=== PATIENT | female | born 1935 | race Caucasian/White ===

== ENCOUNTER 2017-04-02 09:57 | Inpatient (IN) ==
[2017-04-02] MEDS ORDERED: SALINE FLUSH 10ml SYRINGE IVF PRN (10:12)
--- NOTE | 2017-04-02 10:14 | Emergency Department Report ---
General Adult HPI - General Chief complaint: Medical Clearance Stated complaint: [facility] eval Time Seen by Provider: 04/02/17 10:11 Source: patient, family Mode of arrival: EMS Limitations: no limitations - History of Present Illness HPI narrative: 82-year-old female presents to the emergency department with her family for evaluation for medical clearance for admission to [facility]. Patient has been having increasing falls and changes in mental status over the past month. She denies any pain or discomfort. She is currently being evaluated for Parkinson's and Lewy body dementia. She does not note any exacerbating or remitting factors. No other complaints or associated symptoms. She was at her care facility when her symptoms began. Symptoms have been persistent in nature since onset. - Related Data Home Medications Medication Instructions Recorded Confirmed Acetaminophen [Pain Reliever] 1,000 mg PO BID 04/02/17 04/02/17 Amoxicillin [Amoxicillin] 500 mg PO DAILY 04/02/17 04/02/17 Aspirin [[place] Aspirin] 81 mg PO DAILY 04/02/17 04/02/17 Carbidopa/Levodopa 1 tab PO BID 04/02/17 04/02/17 [Carbidopa-Levodopa 25-100 Tab] Cholecalciferol (Vitamin D3) 400 unit PO DAILY 04/02/17 04/02/17 [Vitamin D3] Cyanocobalamin (Vitamin B-12) 1 tab PO DAILY 04/02/17 04/02/17 [Vitamin B-12] Duloxetine [Cymbalta] 60 mg PO DAILY 04/02/17 04/02/17 LORazepam [Ativan] 0.5 mg PO BID 04/02/17 04/02/17 LORazepam [Ativan] 0.5 mg PO BID PRN 04/02/17 04/02/17 Lactobacillus Acidophilus 1 each PO DAILY 04/02/17 04/02/17 [Probiotic] Mirtazapine [Remeron] 15 mg PO HS 04/02/17 04/02/17 Omeprazole [Prilosec] 20 mg PO DAILY 04/02/17 04/02/17 Oxybutynin Chloride 2.5 mg PO BID 04/02/17 04/02/17 Ubidecarenone [Co Q10] 60 mg PO DAILY 04/02/17 04/02/17 Allergies Allergy/AdvReac Type Severity Reaction Status Date / Time Sulfa (Sulfonamide AdvReac Intermediate edema Verified 04/02/17 10:20 Antibiotics) Review of Systems Constitutional: Denies: fever, chills Eyes: Denies: eye pain, eye discharge ENT: Denies: ear pain, throat pain Cardiovascular: Denies: chest pain, palpitations Respiratory: Denies: cough, dyspnea Gastrointestinal: Denies: abdominal pain, nausea, vomiting, diarrhea Genitourinary: Denies: urgency, dysuria Musculoskeletal: Denies: back pain, arthralgia Integumentary: Denies: erythema, rash Neurological: Denies: headache, numbness Psychiatric: Denies: anxiety, depression Endocrine: Denies: fatigue, heat or cold intolerance Hematological/Lymphatic: Denies: easy bleeding, easy bruising Allergic/Immunologic: Denies: facial swelling, urticaria PFSH Dementia, anxiety, Parkinson's disease, depression, GERD, low vitamin B-12. Surgical History: Family History: Reviewed and non-contributory. - Social History Smoking status: Never smoker Substance use type: does not use Alcohol intake frequency: does not drink Physical Exam - Limitations Limitations: no limitations - General General appearance: alert, in no apparent distress - Normal Exams: Head:: Normocephalic without trauma Eyes:: Pupils are PERRLA w/ EOMI, No scleral icterus, irritation, or foreign bodies noted ENMT:: No facial trauma, nasal exudates, pharyngeal erythema, or exudates are noted Dental: No fractured, loose, or missing teeth noted Neck:: Full range of motion, without adenopathy, JVD, bruits or thyromegaly Chest/Respirations:: Clear all willard, with good airflow, and symmetry bilaterally Cardiovascular:: Regular rate and rhythm, without murmur or gallop, Pulses 2+ all extremities, capillary refill, <2 seconds all extremities Abdomen:: Bowel sounds positive, soft, non-tender, non-distended, no hepatosplenomegaly, masses or bruits noted Lymphatic:: No lymphadenopathy, or lymphedema noted Musculoskeletal:: No tenderness, or deformity noted, good range of motion, all extremities Integumentary:: No rashes, hives, or bruising noted, hair and nails, without abnormality Neurological:: Patient is alert, and oriented, cranial nerves, motor/sensory/ cerebellar, exams w/o gross deficits, to observation Psychiatric:: Patient exhibits, appropriate attention, emotion and affect Course Vital Signs Temperature 97.6 F 04/02/17 09:58 Temperature 97.6 F 04/02/17 09:58 Pulse Rate 74 04/02/17 10:15 Respiratory Rate 20 04/02/17 10:04 Blood Pressure 155/71 H 04/02/17 11:54 Pulse Oximetry 96 04/02/17 10:15 Medical Decision Making - [facility] Narrative Medical decision making narrative: Labs/imaging discussed in detail with the patient and family and questions are answered. Patient is given 500 mL of normal saline intravenously. Patient is medically clear for further evaluation and treatment at [facility]. Patient and family are in agreement with the current plan of management. Patient is accepted to [facility] by Dr. Blake Hicks. No further orders from accepting physician who is in agreement with the current plan of management. - Differential Diagnosis dementia, behavioral disorder, dehydration, UTI - Lab Data Result diagrams: 04/02/17 10:47 04/02/17 10:47 Lab Results 04/02/17 04/02/17 04/02/17 Range/Units 10:47 10:47 10:47 WBC 7.3 (4.5-11.0) T/MM3 RBC 3.94 L (4.00-5.20) M/MM3 Hgb 12.8 (12-16) GM/DL Hct 38.8 (36-46) % MCV 98.5 (80-100) UM3 MCH 32.5 (26-34) UUG MCHC 33.0 (31-37) GM/DL RDW Std Deviation 49.4 (36.9-50.2) FL Plt Count 226 (130-400) T/MM3 MPV 10.1 (9.4-12.4) UM3 Immature Gran % (Auto) 0.1 (0.0-0.5) % Neut % (Auto) 73.6 H (33-66) % Lymph % (Auto) 16.8 L (23-45) % [place] % (Auto) 5.2 (0-9.0) % Eos % (Auto) 3.8 (0-4) % Baso % (Auto) 0.5 (0-2) % Neut # (Auto) 5.4 (1.8-7.7) T/MM3 Lymph # (Auto) 1.2 (1-4.8) T/MM3 [place] # (Auto) 0.4 (0-0.8) T/MM3 Eos # (Auto) 0.3 (0-0.5) T/MM3 Baso # (Auto) 0.0 (0-0.2) T/MM3 Abs Immat Gran (auto) 0.01 (0.00-0.03) T/MM3 Turbidity < 20 (0-20) Sodium 144 (134-144) MEQ/L Potassium 4.5 (3.6-5) MEQ/L Chloride 110 H (98-107) MEQ/L Carbon Dioxide 25 (22-30) MEQ/L Anion Gap 9 (5-15) MEQ/L BUN 32.0 H (7-17) MG/DL Creatinine 1.6 H (0.7-1.2) MG/DL GFR Calculation 31 BUN/Creatinine Ratio 20 (6-26) RATIO Glucose 88 (65-110) MG/DL Calculated Osmolality 283 H (261-280) MOSM/KG Calcium 10.3 H (8.4-10.2) MG/DL Total Bilirubin 0.70 (0.20-1.30) MG/DL Icterus Index < 2 (0-7) AST 16 (14-36) U/L ALT 18 (9-52) U/L Alkaline Phosphatase 80 (38-126) U/L Troponin I < 0.012 (0-0.12) ng/ml Total Protein 6.6 (6.3-8.2) G/DL Albumin 3.9 (3.5-5.0) G/DL Globulin 2.7 (2.4-3.6) G/DL Albumin/Globulin Ratio 1.4 (1.1-2.2) RATIO Specimen Hemolysis < 15 (0-25) Ur Collection Type Urine, catheter Urine Color Yellow (YELLOW) Urine Clarity Clear Urine pH 5.5 (5.0-8.0) Ur Specific [place] 1.020 (1.015-1.025) Urine Protein Negative (NEGATIVE) Urine Glucose (UA) Negative (NEGATIVE) Urine Ketones Negative (NEGATIVE) Urine Occult Blood Negative (NEGATIVE) Urine Nitrate Negative (NEGATIVE) Urine Bilirubin Negative (NEGATIVE) Urine Urobilinogen 0.2 (NORMAL) EU/DL Ur Leukocyte Esterase Negative (NEGATIVE) Urinalysis Comment Microscopic not ind. - Radiology Data CT Head - No acute processes. CXR - 1. Left basilar opacity most likely due to atelectasis or scarring. 2. Bilateral pulmonary nodules. Recommend correlation with any available prior exams to evaluate for stability. If comparisons are unavailable a noncontrast chest CT can be performed for further evaluation on a nonemergent basis. Disposition Clinical Impression: Dementia Qualifiers: Dementia type: unspecified type Dementia behavioral disturbance: without behavioral disturbance Qualified Code(s): F03.90 - Unspecified dementia without behavioral disturbance Disposition: 65 To [facility] Condition: Improved Time of Disposition: 11:20 (Admit. Dr. Hicks. ) - Seen By: physician
--- OUTSIDE RECORDS SUMMARY | 2017-04-02 10:30 | External Medical Summary | Summary of Care ---
:1935 Author Name Chet Talavera M.D. Address [address], [place] [id number] Care Team Providers Name Role Phone Luis Wesley, Sylvain December Unavailable Unavailable Vikas Alves D.O. Unavailable Unavailable Arturo Stokes M.D. Unavailable Unavailable Vikas Alves Primary Care Provider Unavailable Unavailable Unavailable Unavailable Functional Status Functional Status Health Issues Name Dates Details Functional status health issues are not documented Status: Cognitive Status Health Issues Name Dates Details Cognitive status health issues are not documented Status: Problems Name Dates Details Cervical spondylosis (721.0, M47.812) Status: Active Psoriasis (696.1, L40.9) Status: Active Hypertension (401.9, I10) Status: Active Seborrheic keratosis (702.19, L82.1) Status: Active Urinary tract infection (599.0, N39.0) Status: Active Vertigo (780.4, R42) Status: Active Dyspepsia (536.8, K30) Status: Active Pre-op exam (V72.84, Z01.818) Status: Active Colitis, acute (558.9, K52.9) Status: Active Rectal bleeding (569.3, K62.5) Status: Active Abnormal CT scan (793.99, R93.8) Status: Active Diverticulosis (562.10, K57.90) Status: Active Colon polyps (211.3, K63.5) Status: Active Syncope (780.2, R55) Status: Active Palpitations (785.1, R00.2) Status: Active Shortness of breath on exertion (786.05, R06.02) Status: Active Paroxysmal SVT (supraventricular tachycardia) (427.0, I47.1) Status: Active Memory loss (780.93, R41.3) Status: Active Fatigue (780.79, R53.83) Status: Active CKD (chronic kidney disease), stage IV (585.4, N18.4) Status: Active Hyperkalemia (276.7, E87.5) Status: Active Tremor, unspecified (781.0, R25.1) Status: Active Weakness (780.79, R53.1) Status: Active Lung mass (786.6, R91.8) Status: Active Anxiety disorder (300.00, F41.9) Status: Active Dizziness (780.4, R42) Status: Active Depression (311, F32.9) Status: Active Renal insufficiency (593.9, N28.9) Status: Active Tremor (781.0, R25.1) Status: Active Orthostatic hypotension (458.0, I95.1) Status: Active Medications Name Dates Details Aspirin 81 MG TABS TAKE 1 TABLET DAILY. Refills: 0 Danielle Smith M.D. Started ActiveBusPIRone HCl - 15 MG Oral Tablet take 1 in the Am, 7.5 at noon, and 7.5 in the evening. Quantity: 45 Refills: 2 Vikas Alves D.O. Started 11-Oct-2014 ActiveEscitalopram Oxalate 10 MG Oral Tablet TAKE 1 TABLET Daily In The Morning Pt instructed to start 01-16-2015 Quantity: 30 Refills: 2 Vikas Alves D.O. Started ActiveProbiotic Oral Capsule Refills: 0 Bruno Stokes M.D. Started 29-May-2015 ActiveLORazepam 0.5 MG Oral Tablet Take 1 tablet twice daily Refills: 0 Vikas Alves D.O. Started 24-Aug-2015 ActiveRemeron 15 MG Oral Tablet TAKE 1/2 TABLET AT BEDTIME. Refills: 0 Vikas Alves D.O. Started 24-Aug-2015 Active Allergies and Adverse Reactions Name Dates Details Sulfa Drugs Status: Active Past Medical History Name Dates Details History of Cirrhosis (571.5, K74.60) Status: Resolved History of hypertension (V12.59, Z86.79) Status: Resolved History of polymyalgia rheumatica (V13.59, Z87.39) Status: Resolved Procedures Procedure Dates Details History of Section History of Cataract Surgery RENAL PROFILE 1240 Ordered: Immunization Name Dates Details Influenza Administered on:16-Apr-2011 Fluzone High-Dose Intramuscular Suspension Administered on:28-Apr-2012 Influenza Administered on:03-May-2013 Lot #: [id number] Pneumo (Prevnar) Administered on:03-May-2013 Lot #: [id number] Zoster (Zostavax) Administered on:25-May-2013 Fluzone High-Dose Intramuscular Suspension Administered on:01-May-2015 Lot #: [id number] Family History uncle Name Dates Details Family history of diabetes mellitus (V18.0, Z83.3) Status: Active Mother Name Dates Details Family history of depression (V17.0, Z81.8) Status: Active Family history of malignant neoplasm (V16.9, Z80.9) Status: Active Brother Name Dates Details Family history of malignant neoplasm (V16.9, Z80.9) Status: Active Social History Name Dates Details Smoking StatusNever smoker Vital Signs Date Test Result Details No Known Vitals to report Results Date Description Value Details 10:07 CBC w/ Auto Diff 7150 WBC 5.8 K/uL (Better) Range: 4.5-11.0 RBC 3.78 mil/uL (Better) Range: 3.60-5.00 HGB 11.8 g/dL (Below low Range: 12.0-16.0 threshold) HCT 36.3 % (Better) Range: 36.0-48.0 MCV 96.1 fL (Better) Range: 80.0-99.0 MCH 31.2 pg (Better) Range: 27.3-32.5 MCHC 32.5 % (Better) Range: 32.0-36.0 RDW 13.6 % (Better) Range: 11.6-14.8 PLATELETS 299 K/uL (Better) Range: 150-400 MPV 8.2 fL (Better) Range: 6.0-11.0 %NEUTRO 66.5 % (Better) Range: 37.0-80.0 %LYMPHS 22.9 % (Better) Range: 13.0-50.0 %MONO 5.2 % (Better) Range: 0.0-12.0 %EOS 3.6 % (Better) Range: 0.0-7.0 %BASO 0.6 % (Better) Range: 0.0-2.5 %GRACE 1.2 % (Better) Range: 0.0-5.0 NEUTRO 3.8 K/uL (Better) Range: 2.0-6.9 LYMPHS 1.3 K/uL (Better) Range: 0.6-3.4 MONOS 0.3 K/uL (Better) Range: 0.0-0.9 EOS 0.2 K/uL (Better) Range: 0.0-0.7 BASO 0.0 K/uL (Better) Range: 0.0-0.2 Plan of Care Planned Observations Name Dates Details Planned Goals not documented Goal Planned Encounters Appointment; Provider: Zev Samano On 09:30 Appointment; Provider: Darian Ambrocio On 08:00 Appointment; Provider: Chet Talavera On 10:45 Appointment; Provider: Schedule Radiology On 28-Aug-2015 14:00 Appointment; Provider: [facility] On 11-May-2015 11:00 Appointment; Provider: [facility] On 01-May-2015 15:30 Appointment; Provider: [facility] On 11:00 Instructions Instructions not documented Encounters Appointment; Vikas Alves On 30-Aug-2015 Encounter Diagnosis: Problem not documented 13:45 Appointment; Bruno Stokes On 28-Aug-2015 Encounter Diagnosis: Problem not documented 16:00 Appointment; Vikas Alves On 24-Aug-2015 Encounter Diagnosis: Problem not documented 11:30 Appointment; Chet Talavera On 18-Jul-2015 Encounter Diagnosis: Problem not documented 14:15 Appointment; Bruno Stokes On 29-May-2015 Encounter Diagnosis: Problem not documented 09:30 Appointment; Darian Ambrocio On 12-May-2015 Encounter Diagnosis: Problem not documented 10:45 Appointment; Sanjuanita Owusu On 01-May-2015 Encounter Diagnosis: Problem not documented 14:15 Appointment; Vikas Alves On 01-May-2015 Encounter Diagnosis: Problem not documented 07:45 Appointment; Vikas Alves On 26-Apr-2015 Encounter Diagnosis: Problem not documented 16:15 Appointment; Vikas Alves On 22-Mar-2015 Encounter Diagnosis: Problem not documented 14:30 Appointment; Chet Talavera On 14-Mar-2015 Encounter Diagnosis: Problem not documented 15:30 Appointment; Enrique Sifuentes On 23-Feb-2015 Encounter Diagnosis: Problem not documented 09:00 Appointment; Vira Bower On 23-Feb-2015 Encounter Diagnosis: Problem not documented 08:30 Appointment; Vikas Alves On 10-Feb-2015 Encounter Diagnosis: Problem not documented 13:30 Appointment; Vikas Alves On Encounter Diagnosis: Problem not documented 15:45 Appointment; Vikas Alves On Encounter Diagnosis: Problem not documented 13:15 Appointment; Vikas Alves On Encounter Diagnosis: Problem not documented 09:45 Appointment; Vikas Alves On Encounter Diagnosis: Problem not documented 13:45 Appointment; Vikas Alves On Encounter Diagnosis: Problem not documented 14:30 Appointment; Vikas Alves On 11-Oct-2014 Encounter Diagnosis: Problem not documented 15:00
--- OUTSIDE RECORDS SUMMARY | 2017-04-02 10:30 | External Medical Summary | Summary of Care ---
:1935 Author Name Vikas Alves D.O. Address [address] [place], [place] [id number] Care Team Providers Name Role Phone Luis Wesley, December Unavailable Unavailable Vikas Alves D.O. Unavailable Unavailable Vikas Alves Primary Care Provider Unavailable Unavailable Unavailable Unavailable Functional Status Functional Status Health Issues Name Dates Details Functional status health issues are not documented Status: Cognitive Status Health Issues Name Dates Details Cognitive status health issues are not documented Status: Problems Name Dates Details Sinusitis (473.9, J32.9) Status: Active Cervical spondylosis (721.0, M47.812) Status: Active Psoriasis (696.1, L40.9) Status: Active Hypertension (401.9, I10) Status: Active Seborrheic keratosis (702.19, L82.1) Status: Active Palpitations (785.1, R00.2) Status: Active Blood in urine (599.70, R31.9) Status: Active Urinary tract infection (599.0, N39.0) Status: Active Vertigo (780.4, R42) Status: Active Dizziness (780.4, R42) Status: Active Depression (311, F32.9) Status: Active Weakness (780.79, R53.1) Status: Active Anxiety disorder (300.00, F41.9) Status: Active Dyspepsia (536.8, R10.13) Status: Active Fatigue (780.79, R53.83) Status: Active Medications Name Dates Details Aspirin 81 MG Oral Tablet TAKE 1 TABLET DAILY. Refills: 0 Danielle Smith M.D. Started ActiveMetoprolol Tartrate 25 MG Oral Tablet TAKE 0.5 TABLET Twice daily Quantity: 60 Refills: 3 Vikas Alves D.O. Started 06-Aug-2012 ActiveZolpidem Tartrate 5 MG Oral Tablet 1 PO 1Hr Before HS Quantity: 30 Refills: 5 Vikas Alves D.O. Started 05-Apr-2013 ActiveZostavax 70990 UNT/0.65ML Subcutaneous Solution Reconstituted INJECT 0.65 ML Once Quantity: 1 Refills: 0 Vikas Alves D.O. Started 25-May-2013 ActiveBusPIRone HCl - 15 MG Oral Tablet TAKE 1 TABLET 3 times daily Quantity: 90 Refills: 2 Vikas Alves D.O. Started 11-Oct-2014 ActiveALPRAZolam 0.5 MG Oral Tablet take 1/2-1 tablet every 8 hours as needed Quantity: 30 Refills: 1 Vikas Alves D.O. Started ActiveOndansetron HCl - 4 MG Oral Tablet TAKE ONE TABLET BY MOUTH EVERY 6 HOURS NEEDED FOR NAUSEA Quantity: 6 Refills: 0 Vikas Alves D.O. Started ActiveEscitalopram Oxalate 10 MG Oral Tablet TAKE 1 TABLET Daily In The Morning Pt instructed to start 01-16-2015 Quantity: 30 Refills: 2 Vikas Alves D.O. Started ActiveBenazepril HCl - 20 MG Oral Tablet TAKE 1 TABLET BY MOUTH DAILY Quantity: 30 Refills: 5 Vikas Alves D.O. Started Active Allergies and Adverse Reactions Name Dates Details Sulfa Drugs Status: Active Past Medical History Name Dates Details History of Cirrhosis (571.5, K74.60) Status: Resolved History of hypertension (V12.59, Z86.79) Status: Resolved History of polymyalgia rheumatica (V13.59, Z87.39) Status: Resolved Procedures Procedure Dates Details History of Section History of Cataract Surgery [facility] ([address]) [id number] Ordered: Immunization Name Dates Details Influenza Administered on:16-Apr-2011 Fluzone High-Dose Intramuscular Suspension Administered on:28-Apr-2012 Influenza Administered on:03-May-2013 Lot #: [id number] Pneumo (Prevnar) Administered on:03-May-2013 Lot #: [id number] Zoster (Zostavax) Administered on:25-May-2013 Family History Unknown Family Member Name Dates Details Family history of Diabetes Mellitus (V18.0) Comments: Family History Status: Active Social History Name Dates Details Smoking StatusNever smoker Vital Signs Date Test Result Details 12:52 BP Systolic 96 mm[Hg] Status: BP Diastolic 64 mm[Hg] Status: Temperature 98.2 f Status: Heart Rate 78 /min Status: Weight 142 lb Status: Body Mass Index Calculated 25.97 kg/m2 Status: Body Surface Area Calculated 1.65 m2 Status: 13:19 BP Systolic 124 mm[Hg] Status: BP Diastolic 68 mm[Hg] Status: Heart Rate 72 /min Status: Weight 147 lb Status: Body Mass Index Calculated 26.89 kg/m2 Status: Body Surface Area Calculated 1.68 m2 Status: 13:35 BP Systolic 136 mm[Hg] Status: BP Diastolic 64 mm[Hg] Status: Heart Rate 66 /min Status: Weight 148 lb Status: Body Mass Index Calculated 27.07 kg/m2 Status: Body Surface Area Calculated 1.68 m2 Status: Results Date Description Value Details 11:49 CT HEAD WITHOUT IV Comments: Exam Date: 01/09/2015 10: 56Dictation Date: 01/09/2015 11:49 CONTRAST XC HEAD (Better) Urinalysis, reflex to 13:32 Micro and Culture ([facility]) 8016 pH 7.0 (Better) Range: 5.0-7.5 SP GRAVITY 1.015 (Better) Range: 1.010-1.030 APPEARANCE Clear (Better) Range: Clear COLOR Yellow (Better) Range: Straw-Yellow PROTEIN Negative mg/dL Range: Negative-Trace (Better) GLUCOSE Negative mg/dL Range: Negative (Better) KETONES Negative mg/dL Range: Negative (Better) BILIRUBIN Negative (Better) Range: Negative BLOOD Negative (Better) Range: Negative UROBIL 0.2 EU/dL (Better) Range: 0.2-1.0 NITRITE Negative (Better) Range: Negative LEUKOCYTES Negative (Better) Range: Negative 13:41 ECG/ EKG CP - Electro CardioGram (Better) ECG/ EKG Cardiology Read 14:03 XRay CHEST-PA & LAT Comments: Exam Date: 01/25/2015 13: 21Dictation Date: 01/25/2015 14:03 X CHEST PA & LAT (Better) 14:22 CBC w/ Auto Diff 7150 WBC 6.7 K/uL (Better) Range: 4.5-11.0 RBC 3.96 mil/uL Range: 3.60-5.00 (Better) HGB 12.6 g/dL (Better) Range: 12.0-16.0 HCT 37.9 % (Better) Range: 36.0-48.0 MCV 95.7 fL (Better) Range: 80.0-99.0 MCH 31.8 pg (Better) Range: 27.3-32.5 MCHC 33.2 % (Better) Range: 32.0-36.0 RDW 12.7 % (Better) Range: 11.6-14.8 PLATELETS 294 K/uL (Better) Range: 150-400 MPV 8.2 fL (Better) Range: 6.0-11.0 %NEUTRO 70.7 % (Better) Range: 37.0-80.0 %LYMPHS 22.1 % (Better) Range: 13.0-50.0 %MONO 4.1 % (Better) Range: 0.0-12.0 %EOS 1.5 % (Better) Range: 0.0-7.0 %BASO 0.5 % (Better) Range: 0.0-2.5 %GRACE 1.1 % (Better) Range: 0.0-5.0 NEUTRO 4.7 K/uL (Better) Range: 2.0-6.9 LYMPHS 1.5 K/uL (Better) Range: 0.6-3.4 MONOS 0.3 K/uL (Better) Range: 0.0-0.9 EOS 0.1 K/uL (Better) Range: 0.0-0.7 BASO 0.0 K/uL (Better) Range: 0.0-0.2 14:49 MAGNESIUM 1260 MAGNESIUM 2.5 mg/dL (Above Range: 1.8-2.4 high threshold) 14:49 Comprehensive Metabolic Panel 1212 SODIUM 135 mmol/L (Better) Range: 133-144 POTASSIUM 4.9 mmol/L (Better) Range: 3.5-5.1 CHLORIDE 99 mmol/L (Better) Range: 98-110 CARBON DIOXIDE 24.8 mmol/L Range: 23.0-33.0 (Better) ANION GAP 11 mmol/L (Better) Range: 6-16 BUN 46 mg/dL (Above Range: 7-18 high threshold) CREATININE, SERUM 1.89 mg/dL (Above Range: 0.55-1.02 high threshold) Comments: Please note new reference ranges effective 11/26.----- BUN:CREATININE RATIO 24 (Better) EST GFR, 31 ml/min (Below Range: >60 low threshold) EST GFR, NON-AFR [place] 26 ml/min (Below Range: >60 low threshold) Comments: EST GFR is reported in ml/min per 1.73 m2 of body surface area. For -[place], please multiple result by 1.2.----- GLUCOSE 98 mg/dL (Better) Range: 70-100 ALK PHOSPHATASE 78 U/L (Better) Range: 46-116 TOTAL BILIRUBIN 0.30 mg/dL (Better) Range: 0.20-1.00 AST 16 U/L (Better) Range: 8-35 ALT 15 U/L (Better) Range: 14-59 Comments: Please note new reference ranges. Effective 09/15/2014.----- ALBUMIN 3.6 g/dL (Better) Range: 3.4-5.0 TOTAL PROTEIN 6.5 g/dL (Better) Range: 6.4-8.2 A/G RATIO 1.2 units (Better) Range: 1.0-1.8 CALCIUM 8.8 mg/dL (Better) Range: 8.5-10.1 15:28 FREE T4 3604 FREE T4 1.31 ng/dL (Better) Range: 0.80-1.67 15:28 THYROID STIM. HORMONE 3602 THYROID STIM. HORMONE 0.553 uIU/mL Range: 0.550-4.780 (Better) Comments: \[id number]\No established reference ranges for infants and children <2 years of ageNo established reference ranges for infants and children <2 years of age----- 15:28 VITAMIN B12 3606 VITAMIN B12 633 pg/mL (Better) Range: 211-911 Plan of Care Planned Observations Name Dates Details Planned Goals not documented Goal Planned Encounters Appointment; Provider: Vikas Alves On 06-Feb-2015 11:00 Appointment; Provider: Vikas Alves On 11:15 Appointment; Provider: Schedule Radiology On 11:00 Instructions Instructions not documented Encounters Appointment; Vikas Alves On Encounter Diagnosis: Problem not documented 15:45 Appointment; Vikas Alves On Encounter Diagnosis: Problem not documented 13:15 Appointment; Vikas Alves On Encounter Diagnosis: Problem not documented 09:45 Appointment; Vikas Alves On Encounter Diagnosis: Problem not documented 13:45 Appointment; Vikas Alves On Encounter Diagnosis: Problem not documented 14:30 Appointment; Vikas Alves On 11-Oct-2014 Encounter Diagnosis: Problem not documented 15:00 Appointment; Vikas Alves On 25-May-2013 Encounter Diagnosis: Problem not documented 15:45 Appointment; Vikas Alves On 03-May-2013 Encounter Diagnosis: Problem not documented 15:15
--- OUTSIDE RECORDS SUMMARY | 2017-04-02 10:30 | External Medical Summary | Summary of Care ---
:1935 Author Name Vikas Alves D.O. Address [address], [place] [id number] Care Team Providers Name Role Phone Luis [...] 5 Vikas Alves D.O. Started 05-Apr-2013 ActiveZostavax 17894 UNT/0.65ML Subcutaneous Solution Reconstituted INJECT 0.65 ML [...] History of Section History of Cataract Surgery Procedures not documented Immunization Name Dates Details Influenza Administered on:16-Apr-2011 Fluzone High-Dose Intramuscular Suspension Administered on:28-Apr-2012 Influenza Administered on:03-May-2013 Lot #: [id number] Pneumo (Prevnar) Administered on:03-May-2013 Lot #: [id number] Zoster (Zostavax) Administered on:25-May-2013 Family History Unknown [...] m2 Status: Results Date Description Value Details CT HEAD WITHOUT IV Comments: Exam Date: 01/09/2015 10: 56Dictation Date: 01/09/2015 11:49 11:49 CONTRAST XC HEAD (Better) Urinalysis, reflex to 13:32 Micro and Culture ([facility]) 8016 pH 7.0 (Better) Range: 5.0-7.5 SP [...] Comprehensive Metabolic Panel 1212 SODIUM 135 mmol/L Range: 133-144 (Better) POTASSIUM 4.9 mmol/L Range: 3.5-5.1 (Better) CHLORIDE 99 mmol/L (Better) Range: 98-110 CARBON DIOXIDE 24.8 mmol/L Range: 23.0-33.0 (Better) ANION GAP 11 mmol/L (Better) Range: 6-16 BUN 46 mg/dL (Above Range: 7-18 high threshold) CREATININE, SERUM 1.89 mg/dL (Above Range: 0.55-1.02 high threshold) Comments: Please note new reference ranges effective 11/26.----- BUN:CREATININE RATIO 24 (Better) EST GFR, 31 ml/min (Below Range: >60 low threshold) EST GFR, NON-AFR QATARI 26 ml/min (Below Range: >60 low threshold) Comments: EST GFR is reported in ml/min per 1.73 m2 of body surface area. For -Pakistani, please multiple result by 1.2.----- GLUCOSE 98 mg/dL (Better) Range: 70-100 ALK PHOSPHATASE 78 U/L (Better) Range: 46-116 TOTAL BILIRUBIN 0.30 mg/dL Range: 0.20-1.00 (Better) AST 16 U/L (Better) Range: 8-35 ALT 15 U/L (Better) Range: 14-59 Comments: Please note new reference ranges. Effective 09/15/2014.----- ALBUMIN 3.6 g/dL (Better) Range: 3.4-5.0 TOTAL PROTEIN 6.5 g/dL (Better) Range: 6.4-8.2 A/G RATIO 1.2 units (Better) Range: 1.0-1.8 CALCIUM 8.8 mg/dL (Better) Range: 8.5-10.1 15:28 FREE T4 3604 FREE T4 1.31 ng/dL Range: 0.80-1.67 (Better) 15:28 THYROID STIM. HORMONE 3602 THYROID STIM. HORMONE 0.553 uIU/mL Range: 0.550-4.780 (Better) Comments: \[id number]\No established reference ranges for infants and children <2 years of ageNo established reference ranges for infants and children <2 years of age----- 15:28 VITAMIN B12 3606 VITAMIN B12 633 pg/mL (Better) Range: 211-911 AMMONIA ([address]) Comments: [employer] performed at: [facility] [[email or web address]] [facility], [address] [place] [address], [id number], [place] Operator: Darian Thurman D.O., MPHQuest Collection Date/Time: 13:32 [id number] Results Received Date/Time: [id number] Reported Date/Time: [id number] AMMONIA (P) 11 umol/L (Better) Range: < OR=47 Comments: [[place]]----- Plan of Care Planned Observations Name Dates Details Planned Goals not documented Goal Planned Encounters Appointment; Provider: Vikas Alves On 06-Feb-2015 11:00 Appointment; Provider: Vikas Alves On 11:15 Appointment; Provider: [facility] On 11:00 Instructions Instructions not documented [...]
--- OUTSIDE RECORDS SUMMARY | 2017-04-02 10:30 | External Medical Summary | Summary of Care ---
:1935 Author Name Vikas Alves D.O. Address [address], [place] [id number] Care Team Providers Name Role Phone Luis [...] Status: Active Depression (311, F32.9) Status: Active Anxiety disorder (300.00, F41.9) Status: Active Medications Name Dates Details Aspirin 81 MG Oral Tablet TAKE 1 TABLET DAILY. Refills: 0 Danielle Smith M.D. Started ActiveBenazepril-Hydrochlorothiazide 20-12.5 MG Oral Tablet TAKE 1 TABLET DAILY. Quantity: 30 Refills: 6 Vikas Alves D.O. Started ActiveMetoprolol Tartrate 25 MG Oral Tablet Take 1 tablet twice daily Quantity: 180 Refills: 3 Vikas Alves D.O. Started 06-Aug-2012 ActiveZolpidem Tartrate 5 MG Oral Tablet 1 PO 1Hr Before HS Quantity: 30 Refills: 5 Vikas Alves D.O. Started 05-Apr-2013 ActiveZostavax 12350 UNT/0.65ML Subcutaneous Solution Reconstituted INJECT 0.65 ML [...] Morning Pt instructed to start 01-16-2015 Quantity: 14 Refills: 0 Vikas Alves D.O. Started Active Allergies and [...] Administered on:28-Apr-2012 Influenza Administered on:03-May-2013 Lot #: [id number] Pneumo (Prevnar) Administered on:03-May-2013 Lot #: [id number] Zoster (Zostavax) Administered on:25-May-2013 Family History Unknown Family Member Name Dates Details Family history of Diabetes Mellitus (V18.0) Comments: Family History Status: Active Social History Name Dates Details Smoking StatusNever smoker Vital Signs Date Test Result Details 13:19 BP Systolic 124 mm[Hg] Status: BP [...] Body Surface Area Calculated 1.68 m2 Status: 14:27 BP Systolic 108 mm[Hg] Status: BP Diastolic 60 mm[Hg] Status: Heart Rate 66 /min Status: Weight 147 lb Status: Body Mass Index Calculated 26.89 kg/m2 Status: Body Surface Area Calculated 1.68 m2 Status: Results Date Description Value Details 16:10 CBC w/ Auto Diff 7150 WBC 5.6 K/uL (Better) Range: 4.5-11.0 RBC 3.71 mil/uL Range: 3.60-5.00 (Better) HGB 12.3 g/dL Range: 12.0-16.0 (Better) HCT 36.0 % (Better) Range: 36.0-48.0 MCV 97.0 fL (Better) Range: 80.0-99.0 MCH 33.1 pg (Above Range: 27.3-32.5 high threshold) MCHC 34.2 % (Better) Range: 32.0-36.0 RDW 13.2 % (Better) Range: 11.6-14.8 PLATELETS 221 K/uL (Better) Range: 150-400 MPV 8.2 fL (Better) Range: 6.0-11.0 %NEUTRO 69.2 % (Better) Range: 37.0-80.0 %LYMPHS 22.0 % (Better) Range: 13.0-50.0 %MONO 4.7 % (Better) Range: 0.0-12.0 %EOS 1.9 % (Better) Range: 0.0-7.0 %BASO 0.7 % (Better) Range: 0.0-2.5 %GRACE 1.5 % (Better) Range: 0.0-5.0 NEUTRO 3.9 K/uL (Better) Range: 2.0-6.9 LYMPHS 1.2 K/uL (Better) Range: 0.6-3.4 MONOS 0.3 K/uL (Better) Range: 0.0-0.9 EOS 0.1 K/uL (Better) Range: 0.0-0.7 BASO 0.0 K/uL (Better) Range: 0.0-0.2 16:17 Comprehensive Metabolic Panel 1212 SODIUM 139 mmol/L Range: 133-144 (Better) POTASSIUM 5.1 mmol/L Range: 3.5-5.1 (Better) CHLORIDE 106 mmol/L Range: 98-110 (Better) CARBON DIOXIDE 21.7 mmol/L Range: 23.0-33.0 (Below low threshold) ANION GAP 11 mmol/L Range: 6-16 (Better) BUN 40 mg/dL (Above Range: 7-18 high threshold) CREATININE, SERUM 1.89 mg/dL (Above Range: 0.70-1.30 high threshold) Comments: Please note new reference ranges effective 11/26.----- BUN:CREATININE RATIO 21 (Better) EST GFR, 31 ml/min (Below Range: >60 low threshold) EST GFR, NON-AFR SYRIAN 26 ml/min (Below Range: >60 low threshold) Comments: EST GFR is reported in ml/min per 1.73 m2 of body surface area. For -[place]oth[place], please multiple result by 1.2.----- GLUCOSE 93 mg/dL (Better) Range: 70-100 ALK PHOSPHATASE 77 U/L (Better) Range: 46-116 TOTAL BILIRUBIN 0.30 mg/dL Range: 0.20-1.00 (Better) AST 11 U/L (Better) Range: 8-35 ALT 14 U/L (Better) Range: 14-59 Comments: Please note new reference ranges. Effective 09/15/2014.----- ALBUMIN 3.7 g/dL (Better) Range: 3.4-5.0 TOTAL PROTEIN 6.5 g/dL (Better) Range: 6.4-8.2 A/G RATIO 1.3 units Range: 1.0-1.8 (Better) CALCIUM 8.9 mg/dL Range: 8.5-10.1 (Better) 16:23 FREE T4 3604 FREE T4 1.18 ng/dL Range: 0.80-1.67 (Better) 16:23 THYROID STIM. HORMONE 3602 THYROID STIM. HORMONE 0.493 uIU/mL Range: 0.550-4.780 (Below low Comments: PLEASE NOTE: Patients undergoing fuorescein dye angiography within the last 72 hours can produce falsely depressed TSH values with current methodology.\[id number]\No established reference ranges for infa threshold) nts and children <2 years of ageNo established reference ranges for infants and children <2 years of age----- 16:29 VITAMIN B12 3606 VITAMIN B12 264 pg/mL Range: 211-911 (Better) 11:49 CT HEAD WITHOUT IV Comments: Exam Date: 01/09/2015 10: 56Dictation Date: 01/09/2015 11:49 CONTRAST XC HEAD (Better) Plan of Care Planned Observations Name Dates Details Planned Goals not documented Goal Planned Encounters Appointment; Provider: Viksa Alves On 06-Feb-2015 11:00 Appointment; Provider: [facility] On 11:00 Instructions [...]
--- OUTSIDE RECORDS SUMMARY | 2017-04-02 10:30 | External Medical Summary | Summary of Care ---
:1935 Author Name Zev Samano Address [address] [place]available [place], [place] [id number] Care Team Providers Name Role Phone Luis Wesley, Sylvain Danielle Unavailable Unavailable Vikas Alves D.O. Unavailable Unavailable Misha Ambrocio M.D. Unavailable Unavailable Divya Wesley, Arturo Carr Unavailable Unavailable Daniel Davies Unavailable Unavailable Unavailable Unavailable Unavailable Functional Status Functional Status Health Issues Name Dates Details Functional status health issues are not documented Status: Cognitive Status Health Issues Name Dates Details Cognitive status health issues are not documented Status: Problems Name Dates Details Cervical spondylosis (721.0, M47.812) Status: Active Psoriasis (696.1, L40.9) Status: Active Seborrheic keratosis (702.19, L82.1) Status: Active Urinary tract infection (599.0, N39.0) Status: Active Vertigo (780.4, R42) Status: Active Dyspepsia (536.8, K30) Status: Active Pre-op exam (V72.84, Z01.818) Status: Active Colitis, acute (558.9, K52.9) Status: Active Rectal bleeding (569.3, K62.5) Status: Active Abnormal CT scan (793.99, R93.8) Status: Active Diverticulosis (562.10, K57.90) Status: Active Colon polyps (211.3, K63.5) Status: Active Palpitations (785.1, R00.2) Status: Active Shortness of breath on exertion (786.05, R06.02) Status: Active Paroxysmal SVT (supraventricular tachycardia) (427.0, I47.1) Status: Active Lung mass (786.6, R91.8) Status: Active Dizziness (780.4, R42) Status: Active Depression (311, F32.9) Status: Active Renal insufficiency (593.9, N28.9) Status: Active Tremor (781.0, R25.1) Status: Active Hypertension (401.9, I10) Status: Active Hyperkalemia (276.7, E87.5) Status: Active Tremor, unspecified (781.0, R25.1) Status: Active Weakness (780.79, R53.1) Status: Active Anxiety disorder (300.00, F41.9) Status: Active Syncope (780.2, R55) Status: Active Orthostatic hypotension (458.0, I95.1) Status: Active 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 Refills: 0 Danielle Smith M.D. Start Active Probiotic Oral Capsule Refills: 0 Bruno Stokes M.D. Start 29-May-2015 Active LORazepam 0.5 MG Oral Tablet TAKE 1/2 TABLET TWICE DAILY NEEDED. Refills: 0 Vikas Alves D.O. Start 24-Aug-2015 Active Mirtazapine 15 MG Oral Tablet TAKE 1/2 TABLET AT BEDTIME. Refills: 0 Vikas Alves D.O. Start 24-Aug-2015 Active Carbidopa-Levodopa 25-100 MG Oral Tablet Take 1 tablet twice daily Quantity: 60 Refills: 5 Darian Ambrocio M.D. Start 22-Mar-2016 Active Cymbalta 30 MG Oral Capsule Delayed Release Particles TAKE 1 CAPSULE DAILY. Refills: 0 Darian Ambrocio M.D. Start 22-Mar-2016 Active Allergies and Adverse Reactions Name Dates Details Sulfa Drugs (Allergy) Status: Active Past Medical History Name Dates Details History of Cirrhosis (571.5, K74.60) Status: Resolved History of hypertension (V12.59, Z86.79) Status: Resolved History of polymyalgia rheumatica (V13.59, Z87.39) Status: Resolved Procedures Procedure Dates Details History of Section History of Cataract Surgery CP Echo Ordered: HEMOGRAM 7305 Ordered: 06-Nov-2016 PTH ( Parathyroid Hormone Intact) 3101 Ordered: 06-Nov-2016 RENAL PROFILE 1240 Ordered: 06-Nov-2016 DEXA Ordered: 29-Nov-2016 Immunization Name Dates Details Influenza on: 16-Apr-2011 Fluzone High-Dose SUSP on: 28-Apr-2012 Influenza on: 03-May-2013 Lot #: [id number] Pneumo (Prevnar) on: 03-May-2013 Lot #: [id number] Zoster (Zostavax) on: 25-May-2013 Fluzone High-Dose SUSP on: 01-May-2015 Lot #: [id number] Family History uncle Name Dates Details Family history of diabetes mellitus (V18.0, Z83.3) Status: Active Mother Name Dates Details Family history of depression (V17.0, Z81.8) Status: Active Family history of malignant neoplasm (V16.9, Z80.9) Status: Active Brother Name Dates Details Family history of malignant neoplasm (V16.9, Z80.9) Status: Active Social History Name Dates Details - Status: Smoking Status Name Dates Details Never smoker Vital Signs Date Test Result Details 29-Nov-2016 14:28 BP Systolic 128 mm[Hg] Status: Comments: Location: ; Position: BP Diastolic 70 mm[Hg] Status: Comments: Location: ; Position: Heart Rate 97 /min Status: Comments: Location: ; Weight 153 lb Status: Physical Findings 96 Status: Comments: O2 Saturation Body Mass Index Calculated 27.98 kg/m2 Status: Body Surface Area Calculated 1.71 m2 Status: Results Date Description Value Details 29-Nov-2016 16:10 Iron Panel with TIBC 1612 IRON 60 ug/dL Range: 50-170 TOTAL IRON BIND. CAPACITY 322 ug/dL Range: 250-450 % IRON SATURATION 19 % (Below low threshold) Range: 20-55 16:27 VITAMIN B12 3606 VITAMIN B12 608 pg/mL Range: 211-911 16:27 FREE T4 3604 FREE T4 1.24 ng/dL Range: 0.80-1.67 16:27 THYROID STIM. HORMONE 3602 THYROID STIM. HORMONE 0.647 uIU/mL Range: 0.550-4.780 Comments: No established reference ranges for infants and children &lt ;2 years of age----- 16:27 Vitamin D, 25 - Hydroxy 3111 VITAMIN D, 25-HYDROXY 31 ng/mL Range: 30-100 12:42 CP Echo Y Linked PDF Report Available for Review by Clicking ImageLink Button Plan of Care Name Dates Details Planned Observations Planned Goals not documented Planned Encounters Appointment; Provider: Zev Samano On 12-Mar-2017 15:30 Appointment; Provider: [facility] On 01-Mar-2017 15:00 Appointment; Provider: Chet Talavera M.D. On 04-Feb-2017 13:45 Appointment; Provider: Darian Ambrocio M.D. On 10:45 Instructions Name Dates Details Instructions not documented Encounters Appointment; Zev Samano On 29-Nov-2016 Encounter Diagnosis: Problem not documented 14:15 Appointment; Chet Talavera M.D. On 04-Nov-2016 Encounter Diagnosis: Problem not documented 13:30 Appointment; Darian Emanuel M.D. On 28-Oct-2016 Encounter Diagnosis: Problem not documented 15:15 Appointment; Darian Ambrocio M.D. On 02-Aug-2016 Encounter Diagnosis: Problem not documented 14:45 Appointment; Chet Talavera M.D. On 24-May-2016 Encounter Diagnosis: Problem not documented 11:15 Appointment; Darian Ambrocio M.D. On 06-May-2016 Encounter Diagnosis: Problem not documented 09:15 Appointment; Chet Talavera M.D. On 29-Apr-2016 Encounter Diagnosis: Problem not documented 15:15 Appointment; Darian Ambrocio M.D. On 22-Mar-2016 Encounter Diagnosis: Problem not documented 13:30 Appointment; Chet Talavera M.D. On 27-Feb-2016 Encounter Diagnosis: Problem not documented 14:45 Appointment; Zev Samano On Encounter Diagnosis: Problem not documented 09:30 Appointment; Darian Ambrocio M.D. On Encounter Diagnosis: Problem not documented 08:00 Appointment; Chet Talavera M.D. On Encounter Diagnosis: Problem not documented 10:45 Appointment; Vikas Alves D.O. On 30-Aug-2015 Encounter Diagnosis: Problem not documented 13:45 Appointment; Bruno Stokes M.D. On 28-Aug-2015 Encounter Diagnosis: Problem not documented 16:00 Appointment; Vikas Alves D.O. On 24-Aug-2015 Encounter Diagnosis: Problem not documented 11:30 Appointment; Chet Talavera M.D. On 18-Jul-2015 Encounter Diagnosis: Problem not documented 14:15 Appointment; Bruno Stokes M.D. On 29-May-2015 Encounter Diagnosis: Problem not documented 09:30 Appointment; Darian Ambrocio M.D. On 12-May-2015 Encounter Diagnosis: Problem not documented 10:45 Appointment; Sanjuanita Owusu M.D. On 01-May-2015 Encounter Diagnosis: Problem not documented 14:15 Appointment; Vikas Alves D.O. On 01-May-2015 Encounter Diagnosis: Problem not documented 07:45 Appointment; Vikas Alves D.O. On 26-Apr-2015 Encounter Diagnosis: Problem not documented 16:15 Appointment; Vikas Alves D.O. On 22-Mar-2015 Encounter Diagnosis: Problem not documented 14:30 Appointment; Chet Talavera M.D. On 14-Mar-2015 Encounter Diagnosis: Problem not documented 15:30 Appointment; Enrique Sifuentes M.D. On 23-Feb-2015 Encounter Diagnosis: Problem not documented 09:00 Appointment; Vira Bower On 23-Feb-2015 Encounter Diagnosis: Problem not documented 08:30 Appointment; Vikas Alves D.O. On 10-Feb-2015 Encounter Diagnosis: Problem not documented 13:30 Appointment; Vikas Alves D.O. On Encounter Diagnosis: Problem not documented 15:45 Appointment; Vikas Alves D.O. On Encounter Diagnosis: Problem not documented 13:15 Appointment; Vikas Alves D.O. On Encounter Diagnosis: Problem not documented 09:45 Appointment; Vikas Alves D.O. On Encounter Diagnosis: Problem not documented 13:45
--- OUTSIDE RECORDS SUMMARY | 2017-04-02 10:31 | External Medical Summary | Summary of Care ---
:1935 Author Name Vikas Alves D.O. Address [address], [place] [id number] Care Team Providers Name Role Phone Luis [...] Active Seborrheic keratosis (702.19, L82.1) Status: Active Blood in urine (599.70, R31.9) Status: Active Urinary tract infection (599.0, N39.0) Status: Active Vertigo (780.4, R42) Status: Active Dizziness (780.4, R42) Status: Active Weakness (780.79, R53.1) Status: Active Dyspepsia (536.8, K30) Status: Active Fatigue (780.79, R53.83) Status: Active Pre-op exam (V72.84, Z01.818) Status: Active Renal insufficiency (593.9, N28.9) Status: Active Colitis, acute (558.9, K52.9) Status: Active Rectal bleeding (569.3, K62.5) Status: Active Abnormal CT scan (793.99, R93.8) Status: Active Diverticulosis (562.10, K57.90) Status: Active Colon polyps (211.3, K63.5) Status: Active CKD (chronic kidney disease), stage IV (585.4, N18.4) Status: Active Hyperkalemia (276.7, E87.5) Status: Active Depression (311, F32.9) Status: Active Anxiety disorder (300.00, F41.9) Status: Active Palpitations (785.1, R00.2) Status: Active Tremor (781.0, R25.1) Status: Active Lung mass (786.6, R91.8) Status: Active Medications Name Dates Details Aspirin 81 MG Oral Tablet TAKE 1 TABLET DAILY. Refills: 0 Danielle Smith M.D. Started ActiveMetoprolol Tartrate 25 MG Oral Tablet TAKE 0.5 TABLET Bedtime Quantity: 30 Refills: 3 Vikas Alves D.O. Started 06-Aug-2012 ActiveBusPIRone HCl - 15 MG Oral Tablet take 1 in the Am, 7.5 at noon, and 7.5 in the evening. Quantity: 45 Refills: 2 Vikas Alves D.O. Started 11-Oct-2014 ActiveALPRAZolam 0.5 MG Oral Tablet take 1/2-1 tablet every 8 hours as needed Quantity: 30 Refills: 1 Vikas Alves D.O. Started ActiveBenazepril HCl - 20 MG Oral Tablet TAKE 1 TABLET BY MOUTH DAILY Quantity: 30 Refills: 5 Vikas Alves D.O. Started ActiveHydrOXYzine HCl - 10 MG Oral Tablet TAKE 1 TABLET 3-4 TIMES DAILY. Refills: 0 Vikas Alves D.O. Started 22-Mar-2015 ActiveCeleXA 20 MG Oral Tablet TAKE 1 TABLET DAILY. Refills: 0 Vikas Alves D.O. Started 22-Mar-2015 Active Allergies and Adverse Reactions Name Dates Details Sulfa Drugs Status: Active Past Medical History Name Dates Details History of Cirrhosis (571.5, K74.60) Status: Resolved History of hypertension (V12.59, Z86.79) Status: Resolved History of polymyalgia rheumatica (V13.59, Z87.39) Status: Resolved Procedures Procedure Dates Details History of Section History of Cataract Surgery CBC w/ Auto Diff 7150 Ordered:21-Mar-2015 RENAL PROFILE 1240 Ordered:21-Mar-2015 Immunization Name Dates Details Influenza Administered on:16-Apr-2011 Fluzone High-Dose Intramuscular Suspension Administered on:28-Apr-2012 Influenza Administered on:03-May-2013 Lot #: [id number] Pneumo (Prevnar) Administered on:03-May-2013 Lot #: [id number] Zoster (Zostavax) Administered on:25-May-2013 Family History Unknown Family Member Name Dates Details Family history of Diabetes Mellitus (V18.0) Comments: Family History Status: Active Social History Name Dates Details Smoking StatusNever smoker Vital Signs Date Test Result Details 26-Apr-2015 16:23 BP Systolic 127 mm[Hg] Status: BP Diastolic 72 mm[Hg] Status: Heart Rate 69 /min Status: Weight 144.5 lb Status: Body Mass Index Calculated 26.43 kg/m2 Status: Body Surface Area Calculated 1.66 m2 Status: Results Date Description Value Details Results not documented Plan of Care Planned Observations Name Dates Details Planned Goals not documented Goal Planned Encounters Appointment; Provider: Chet Talavera On 17-Jul-2015 14:15 Appointment; Provider: [facility] On 11:00 Instructions Instructions not documented Encounters Appointment; Vikas Alves On 26-Apr-2015 Encounter Diagnosis: [...]
--- OUTSIDE RECORDS SUMMARY | 2017-04-02 10:31 | External Medical Summary | Summary of Care ---
:1935 Author Name Ilan Wesley, Chet Address Unavailable Unavailable , Care Team Providers Name Role Phone Luis Wesley, Sylvain December Unavailable Unavailable Vikas Alves D.O. Unavailable Unavailable Ilan Wesley, Chet Unavailable Unavailable Arturo Stokes M.D. Unavailable Unavailable Daniel Davies Unavailable Unavailable Unavailable [...] SVT (supraventricular tachycardia) (427.0, I47.1) Status: Active CKD (chronic kidney disease), stage IV (585.4, N18.4) Status: Active Hyperkalemia (276.7, E87.5) Status: Active Lung mass (786.6, R91.8) Status: Active Dizziness (780.4, R42) Status: Active Depression (311, F32.9) Status: Active Renal insufficiency (593.9, N28.9) Status: Active Tremor (781.0, R25.1) Status: Active Tremor, unspecified (781.0, R25.1) Status: Active Orthostatic hypotension (458.0, I95.1) Status: Active Memory loss (780.93, R41.3) Status: Active Anxiety disorder (300.00, F41.9) Status: Active Hypertension (401.9, I10) Status: Active Weakness (780.79, R53.1) Status: Active Fatigue (780.79, R53.83) Status: Active Medications Name Dates Details Aspirin 81 MG TABS TAKE 1 TABLET DAILY. Refills: 0 Danielle Smith M.D. Start Active Escitalopram Oxalate 20 MG Oral Tablet TAKE 1 TABLET DAILY. Refills: 0 Long DWisam.Vikas Start Active Probiotic Oral Capsule Refills: 0 Bruno Stokes M.D. Start 29-May-2015 Active LORazepam 0.5 MG Oral Tablet TAKE 1/2 TO 1 TABLET TWICE DAILY NEEDED. Refills: 0 Alves D.O., Vikas Start 24-Aug-2015 Active Remeron 15 MG Oral Tablet TAKE 1 TABLET AT BEDTIME. Refills: 0 Alves D.O., Vikas Start 24-Aug-2015 Active Allergies and Adverse Reactions Name Dates Details Sulfa Drugs (Allergy) Status: Active Past Medical History Name Dates Details History of Cirrhosis (571.5, K74.60) Status: Resolved History of hypertension (V12.59, Z86.79) Status: Resolved History of polymyalgia rheumatica (V13.59, Z87.39) Status: Resolved Procedures Procedure Dates Details History of Section History of Cataract Surgery CBC w/ Auto Diff 7150 Ordered: 27-Feb-2016 RENAL PROFILE 1240 Ordered: 27-Feb-2016 Parathyroid Hormone Intact 3101 Ordered: 27-Feb-2016 CREATINE KINASE 1300 Ordered: 27-Feb-2016 EPO PANEL 3699 Ordered: 27-Feb-2016 Immunization Name Dates Details Influenza on: 16-Apr-2011 Fluzone High-Dose SUSP on: 28-Apr-2012 Influenza on: 03-May-2013 Lot #: [id number] Pneumo (Prevnar) on: 03-May-2013 Lot #: [id number] Zoster (Zostavax) on: 25-May-2013 Fluzone High-Dose SUSP on: 01-May-2015 Lot #: [id number] Family History uncle Name Dates Details Family [...] smoker Vital Signs Date Test Result Details 27-Feb-2016 14:49 BP Systolic 128 mm[Hg] Status: Comments: Location: ; Position: BP Diastolic 70 mm[Hg] Status: Comments: Location: ; Position: Heart Rate 92 /min Status: Comments: Location: ; Weight 149.5 lb Status: Body Mass Index Calculated 27.34 kg/m2 Status: Body Surface Area Calculated 1.69 m2 Status: 09:53 BP Systolic 124 mm[Hg] Status: Comments: Location: ; Position: BP Diastolic 72 mm[Hg] Status: Comments: Location: ; Position: Heart Rate 70 /min Status: Comments: Location: ; Height 62 in Status: Weight 151.25 lb Status: Physical Findings 96 Status: Comments: O2 Saturation Body Mass Index Calculated 27.66 kg/m2 Status: Body Surface Area Calculated 1.7 m2 Status: Results Date Description Value Details 09:26 FREE T4 3604 Comments: Fax results to [phone] FREE T4 1.15 ng/dL Range: 0.80-1.67 09:27 THYROID STIM. HORMONE 3602 Comments: Fax results to [phone] THYROID STIM. HORMONE 1.118 uIU/mL Range: 0.550-4.780 Comments: No established reference ranges for infants and children &lt ;2 years of age----- 05-Feb-2016 07:43 ACTH, Plasma [id number] Comments: Fax results to [phone] performed at: [DA] [address], [address], , Stone Trimmer: REY Barry MD ACTH, PLASMA 21.4 pg/mL Range: 7.2-63.3 Comments: ACTH reference interval for samples collected between 7 and10 AM.----- 09:30 24 Hr Urine Creatinine 1137 24VOL 1575 mL URINE CREATININE 31.0 mg/dL Range: 30.0-125.0 24 HOUR URINE CREATININE 0.5 g/24Hrs (Below low threshold) Range: 0.6-1.8 15:04 Triiodothyronine ( T3) 099720 Comments: Items were attached to this order: Cortisol - AMFax results to [phone] performed at: [] [address], [address], Phone: , Laboratory Dir paula: Darian Lewis MDTesting performed at: [] [address], [address], , Stone Trimmer: REY Barry MDA courtesy copy of this report has been sent [phone]. TRIIODOTHYRONINE (T3) 83 ng/dL Range: 71-180 15:04 Thyroid Peroxidase Abs (TPO) 661983 Comments: Items were attached to this order: Cortisol - AMFax results to [phone] performed at: [] [address], [address], Phone: , Laboratory Dir paula: Darian Lewis MDTesting performed at: [] [address], [address], , Stone Trimmer: REY Barry MDA courtesy copy of this report has been sent [phone]. THYROID PEROXIDASE (TPO) AB 7 IU/mL Range: 0-34 15:04 Thyrotropin Receptor Ab, Serum Comments: Items were attached to this order: Cortisol - AMFax results to [phone] performed at: [BN] [address], [address], Phone: , Laboratory Dir [id number] paula: Darian Lewsi MDTesting performed at: [DA] [facility] [address], [place], [address], , Stone Trimmer: REY Barry MDA courtesy copy of this report has been sent [phone]. THYROTROPIN RECEPTOR AB, SERUM <0.51 IU/L Range: 0.00-1.75 15:04 Cortisol - AM [id number] Comments: Items were attached to this order: Cortisol - AMFax results to [phone] performed at: [] [address], [address], , Laboratory Dir paula: Darian Lewis MDTesting performed at: [DA] [facility] [address], [place], [address], , Stone Trimmer: REY Barry MDA courtesy copy of this report has been sent [phone]. CORTISOL - AM 17.9 ug/dL Range: 6.2-19.4 12-Feb-2016 08:55 Catecholamines, Frac., Free, Ur ( Comments: Testing performed at: [[facility]] [facility] [address] [place] [address], [address], , Stone Trimmer: Darian Lewis MD 24 Hr) [id number] EPINEPHRINE, URINE 1 ug/L Range: Undefined Comments: Total Volume: 1575 mL----- EPINEPHRINE, U, 24HR 2 ug/24 hr Range: 0-20 NOREPINEPHRINE, UR 7 ug/L Range: Undefined Comments: Total Volume: 1575 mL----- NOREPINEPHRINE,U,24H 11 ug/24 hr Range: 0-135 DOPAMINE, URINE 31 ug/L Range: Undefined Comments: Total Volume: 1575 mL----- DOPAMINE, UR, 24HR 49 ug/24 hr Range: 0-510 08:55 Metanephrines, Frac, Qn, 24-Hr [id number] Comments: Testing performed at: [ ] Lab[address], [place], [address], Phone: , Stone Trimmer: Darian Lewis MD NORMETANEPHRINE, UR 72 ug/L Range: Undefined Comments: Total Volume: 1575 mL----- NORMETANEPHR.,U,24H 113 ug/24 hr Range: 82-500 Comments: (Hypertensive) >17 years 11 months:110 - 1050----- METANEPHRINE, UR 49 ug/L Range: Undefined Comments: Total Volume: 1575 mL----- METANEPHRINE, U,24HR 77 ug/24 hr Range: 45-290 Comments: (Hypertensive) >17 years 11 months:35 - 460----- Plan of Care Name Dates Details Planned Observations Planned Goals not documented Planned Encounters Appointment; Provider: Darian Ambrocio M.D. On 15-Jul-2016 15:15 Appointment; Provider: Chet Talavera M.D. On 29-Apr-2016 15:15 Appointment; Provider: Zev Samano On 05-Mar-2016 14:30 Interventions Provided Labs/Procedures/ImagingCBC w/ Auto Diff 7150; To be Done: 27 Feb 2016CREATINE KINASE 1300; To be Done: 27 Feb 2016EPO PANEL 3699; To be Done: 27 Feb 2016Parathyroid Hormone Intact 3101; To be Done: 27 Feb 2016RENAL PROFILE 1240; To be Done: 27 Feb 2016 Instructions Name Dates Details Instructions not documented Encounters Appointment; Zev Samano On Encounter Diagnosis: Problem [...] Diagnosis: Problem not documented 09:45 Appointment; Vikas Alevs D.O. On Encounter Diagnosis: Problem not documented 13:45 Appointment; Vikas Alves D.O. On Encounter Diagnosis: Problem not documented 14:30 Appointment; Vikas Alves D.O. On 11-Oct-2014 Encounter Diagnosis: Problem not documented 15:00
--- OUTSIDE RECORDS SUMMARY | 2017-04-02 10:31 | External Medical Summary ---
:1935 Author Name GENERATED, SYSTEM Care Team Providers Name Role Phone DO ALVES ALAN Primary Care Provider [phone] Reason For Visit Reason for Visit from 01/29/2015 5:03 PM:Pt Stated Reason for Adm : Diverticulitis Chief Complaint DIVERTICLITIS Social History Social History from 02/01/2015 11:32 AM:Tobacco Use? : Never SmokerSocial History from 01/29/2015 5:03 PM:Tobacco Use? : Never Smoker Functional Status Functional Status from 02/01/2015 7:50 AM:LOC : AlertOriented To : Person,Place, Time,EventWeight Bearing Status : FullAssist Level : Independent# Assists : 1Functional Status from 02/01/2015 2:50 AM:LOC : AlertOriented To : Person,Place, Time,EventWeight Bearing Status : FullAssist Level : Partial# Assists : 1Functional Status from 01/31/2015 4:41 PM:LOC : AlertOriented To : Person,Place, Time,EventWeight Bearing Status : FullAssist Level : Partial# Assists : 1Functional Status from 01/31/2015 4:20 PM:# Assists : 1Functional Status from 4:19 PM:# Assists : 1Functional Status from 01/31/2015 9:15 AM:LOC : AlertOriented To : Person,Place,Time,EventWeight Bearing Status : FullAssist Level : Partial# Assists : 1Functional Status from 01/31/2015 1:32 AM:LOC : DrowsyOriented To : Person,Place,Time,EventWeight Bearing Status : FullAssist Level : Partial# Assists : 1Functional Status from 01/30/2015 12:00 PM:# Assists : 1Functional Status from 01/30/2015 8:29 AM:LOC : AlertOriented To : Person, Place,Time,EventWeight Bearing Status : FullAssist Level : Independent# Assists : 1Functional Status from 01/30/2015 12:14 AM:LOC : AlertOriented To : Person, Place,TimeWeight Bearing Status : FullAssist Level : Partial# Assists : 1Functional Status from 01/29/2015 5:03 PM:LOC : AlertOriented To : Person,Place, Time,EventWeight Bearing Status : FullAssist Level : Partial# Assists : 1 Vital Signs Hospital Vital Signs from 02/01/2015 7:52 AM:Height : 5/0 ft,inTemperature : 96.2 FPulse : 76Respirations : 18BP : 142/65Hospital Vital Signs from 02/01/2015 3:17 AM:Height : 5/0 ft,inTemperature : 96.8 FPulse : 65Respirations : 18BP : 125/60Hospital Vital Signs from 01/31/2015 10:41 PM:Height : 5/0 ft, inTemperature : 98.2 FPulse : 71Respirations : 18BP : 123/67Hospital Vital Signs from 01/31/2015 6:32 PM:Height : 5/0 ft,inTemperature : 97.8 FPulse : 81Respirations : 18BP : 109/57Hospital Vital Signs from 01/31/2015 3:22 PM: Height : 5/0 ft,inTemperature : 97.5 FPulse : 77Respirations : 18BP : 99/ 52Hospital Vital Signs from 01/31/2015 8:28 AM:Height : 5/0 ft,inTemperature : 96.7 FPulse : 64Respirations : 18BP : 108/56Hospital Vital Signs from 01/31/2015 5:28 AM:Height : 5/0 ft,inTemperature : 96.3 FPulse : 61Respirations : 18BP : 133/64Hospital Vital Signs from 01/30/2015 7:02 PM:Height : 5/0 ft,inTemperature : 97.5 FPulse : 68Respirations : 18BP : 94/53Hospital Vital Signs from 2014 2:34 PM:Height : 5/0 ft,inTemperature : 96.7 FPulse : 65Respirations : 18BP : 114/57Hospital Vital Signs from 01/30/2015 10:32 AM:Height : 5/0 ft, inHospital Vital Signs from 01/30/2015 10:16 AM:Height : 5/0 ft,inPulse : 66BP : 119/61Hospital Vital Signs from 01/30/2015 7:47 AM:Height : 5/0 ft,inTemperature : 96.2 FPulse : 63Respirations : 18BP : 108/58Hospital Vital Signs from 2014 11:13 PM:Height : 5/0 ft,inTemperature : 96.8 FPulse : 60Respirations : 18BP : 105/65Hospital Vital Signs from 01/29/2015 5:03 PM:Weight : 67.4/ kgHeight : 5/0 ft,inHospital Vital Signs from 01/29/2015 4:25 PM:Weight : 67.4/ kgHeight : 5/0 ft,inTemperature : 98.4 FPulse : 72Respirations : 18BP : 129/59 Results Chemistry from 02/01/2015 5:03 [id number] MMOL/L (136-145 MMOL/L) POTASSIUM4.3 MMOL/L (3.5-5.1 MMOL/L) RYDZHOQD224 MMOL/L H (98-107 MMOL/L) UNC287.0 MMOL/L L (21.0-32.0 MMOL/L) ANION GAP8.0 MMOL/L (8.0-16.0 MMOL/L) BUN21 MG/DL H (7-18 MG/DL) CREATININE1.56 MG/DL H (0.43-0.83 MG/DL) BUN/CREATININE RATIO13.5 (9.1-17.0 ) VNKRTOM787 MG/DL H (65-99 MG/DL) GFR EST NON AFR TOUPWWIT05 ML/MIN GFRA EST AFR AMER36 ML/MIN CALCIUM8.5 MG/DL (8.5-10.1 MG/DL) BILIRUBIN TOTAL0.30 MG/DL (0.20-1.00 MG/DL) TOTAL PROTEIN5.1 GM/DL L (6.4-8.2 GM/DL) ALBUMIN2.9 GM/DL L (3.4-5.0 GM/DL) GLOBULIN2.2 GM/DL L (2.3-3.5 GM/DL) A/G RATIO1.3 MG/DL L (1.5-2.2 MG/DL) ALK PHOS57 U/L (46-116 U/L) ALT (SGPT)14 U/L L (16-63 U/L) AST (SGOT)15 U/L (15-37 U/L)Chemistry from 01/31/2015 6:52 SHSUVPGB494 MMOL/L ( 136-145 MMOL/L) POTASSIUM4.3 MMOL/L (3.5-5.1 MMOL/L) MIUORQJE954 MMOL/L H (98-107 MMOL/L) RLF661.3 MMOL/L (21.0-32.0 MMOL/L) ANION GAP4.7 MMOL/L L (8.0-16.0 MMOL/L) BUN22 MG/DL H (7-18 MG/DL) CREATININE1.45 MG/DL H (0.43-0.83 MG/DL) BUN/CREATININE RATIO15.2 (9.1-17.0 ) FPMCMMJ763 MG/DL H (65-99 MG/DL) GFR EST NON AFR UDKZAPGP97 ML/MIN GFRA EST AFR AMER39 ML/MIN CALCIUM8.4 MG/DL L (8.5-10.1 MG/DL) BILIRUBIN TOTAL0.38 MG/DL (0.20-1.00 MG/DL) TOTAL PROTEIN4.8 GM/DL L (6.4-8.2 GM/DL) ALBUMIN2.8 GM/DL L (3.4-5.0 GM/DL) GLOBULIN2.0 GM/DL L (2.3-3.5 GM/DL) A/G RATIO1.4 MG/DL L (1.5-2.2 MG/DL) ALK PHOS55 U/L (46-116 U/L) ALT (SGPT)12 U/L L (16-63 U/L) AST (SGOT)13 U/L L (15-37 U/L)Chemistry from 01/30/2015 11:06 SEOXTFQW842 MMOL/L (136-145 MMOL/L) CREATININE1.57 MG/DL H (0.43-0.83 MG/DL)Chemistry from 01/30/2015 10:40 AM*UR SODIUM EXCRETION FRACT2.5 % UR NKNQYZ59 MMOL/L (20-110 MMOL/L) UR BCWYWSHCYR41.10 MG/DL (Not Established MG/DL) *UR INTERVALRANDOMChemistry from 01/30/2015 5:16 JOGACFED455 MMOL/L (136-145 MMOL /L) POTASSIUM4.8 MMOL/L (3.5-5.1 MMOL/L) KILOCEXV585 MMOL/L H (98-107 MMOL/L) RAX756.8 MMOL/L (21.0-32.0 MMOL/L) ANION GAP5.2 MMOL/L L (8.0-16.0 MMOL/L) BUN36 MG/DL H (7-18 MG/DL) CREATININE1.67 MG/DL H (0.43-0.83 MG/DL) BUN/CREATININE RATIO21.6 H (9.1-17.0 ) PUSRXJP595 MG/DL H (65-99 MG/DL) GFR EST NON AFR SAGBHEDE97 ML/MIN GFRA EST AFR AMER33 ML/MIN CALCIUM8.7 MG/DL (8.5-10.1 MG/DL) BILIRUBIN TOTAL0.43 MG/DL (0.20-1.00 MG/DL) TOTAL PROTEIN5.3 GM/DL L (6.4-8.2 GM/DL) ALBUMIN3.0 GM/DL L (3.4-5.0 GM/DL) GLOBULIN2.3 GM/DL (2.3-3.5 GM/DL) A/G RATIO1.3 MG/DL L (1.5-2.2 MG/DL) ALK PHOS60 U/L (46-116 U/L) ALT (SGPT)13 U/L L (16-63 U/L) AST (SGOT)14 U/L L (15-37 U/L)Hematology from 02/01/2015 5:03 AMWBC4.4 X10e3/UL ( 3.6-11.2 X10e3/UL) RBC3.05 X10e6/UL L (3.63-4.92 X10e6/UL) HFGMNURPXQ07.2 G/DL L (11.0-14.3 G/DL) HXKDAPSGQB62.9 % L (31.2-41.9 %) MCV97.9 FL (79.0-98.0 FL) MCH33.5 PG H (27.0-33.0 PG) MCHC34.2 G/DL (32.0-36.0 G/DL) RDW13.3 % (12.3-17.0 %) RDWSD45.1 (37.1-47.8 ) VSCGRXZR607 X10e3/UL (159-386 X10e3/UL) MPV8.5 FL (7.4-10.4 FL)Hematology from 01/31/2015 6:52 AMWBC3.8 X10e3/UL (3.6- 11.2 X10e3/UL) RBC3.11 X10e6/UL L (3.63-4.92 X10e6/UL) PLUYZSJJFO97.4 G/DL L (11.0-14.3 G/DL) MSFLXLRFVE31.4 % L (31.2-41.9 %) MCV97.8 FL (79.0-98.0 FL) MCH33.3 PG H (27.0-33.0 PG) MCHC34.0 G/DL (32.0-36.0 G/DL) RDW13.2 % (12.3-17.0 %) RDWSD44.6 (37.1-47.8 ) VSVDJBPW735 X10e3/UL (159-386 X10e3/UL) MPV8.5 FL (7.4-10.4 FL) SED RATE6 MM/HR (0-30 MM/HR)Hematology from 01/30/2015 5:16 AMWBC4.5 X10e3/UL ( 3.6-11.2 X10e3/UL) RBC3.18 X10e6/UL L (3.63-4.92 X10e6/UL) CINHGSZWVY76.6 G/DL L (11.0-14.3 G/DL) MSENQPDSRW09.1 % L (31.2-41.9 %) MCV97.8 FL (79.0-98.0 FL) MCH33.3 PG H (27.0-33.0 PG) MCHC34.1 G/DL (32.0-36.0 G/DL) RDW13.3 % (12.3-17.0 %) RDWSD44.6 (37.1-47.8 ) KWGPGKEG950 X10e3/UL (159-386 X10e3/UL) MPV8.3 FL (7.4-10.4 FL) SED RATE8 MM/HR (0-30 MM/HR)Microbiology from 01/29/2015 11:00 PMCRYPTOSPORIDIUM ANTIGEN Specimen Number: [id number] Sample Collection Date/Time: 01/29/2015 11:00 PM Specimen Source: Stool CRYPTOSPORIDIUM ANTIGEN: Negative for Cryptosporidium antigen GIARDIA AG: Negative CULTURE STOOL (Preliminary Result) Specimen Number: [id number] Sample Collection Date/Time: 01/29/2015 11:00 PM Specimen Source: Stool CULTURE STOOL: Absence of normal enteric zoila *SHIGA TOXINS: Shiga toxin 1 and Shiga toxin 2 NOT detected *SHIGA TOXINS Specimen Number: [id number] Sample Collection Date/Time: 01/29/2015 11:00 PM Specimen Source: Stool *SHIGA TOXINS: Shiga toxin 1 and Shiga toxin 2 NOT detected CULTURE STOOL: Absence of normal enteric zoila GIARDIA AG Specimen Number: [id number] Sample Collection Date/Time: 01/29/2015 11:00 PM Specimen Source: Stool GIARDIA AG: Negative CRYPTOSPORIDIUM ANTIGEN: Negative for Cryptosporidium antigen C. DIFFICILE Specimen Number: [id number] Sample Collection Date/Time: 01/29/2015 11:00 PM Specimen Source: Stool C. DIFFICILE: Negative-No toxigenic C. difficile detected. THE ILLUMIGENE C.DIFFICILE PCR ASSAY UTILIZES LOOP-MEDIATED ISOTHERMAL DNA AMPLIFICATION (LAMP) TECHNOLOGY TO DETECT A GENE SEGMENT PRESENT IN ALL KNOWN TOXIGENIC C. DIFFICILE STRAINS. Problems Encounter Diagnosis Abdominal Pain Comment:Problem resolved by Soarian Workflow upon Discharge, Status:Resolved.Altered Bowel Function Comment:Problem resolved by Soarian Workflow upon Discharge, Status:Resolved.Diverticulitis Comment:Problem resolved by Soarian Workflow upon Discharge, Status:Resolved.Fall Risk Comment: Problem resolved by Soarian Workflow upon Discharge, Status:Resolved.Mobility Impairment Status:Active. Encounters Encounter Diagnosis Abdominal Pain Comment:Problem resolved by Soarian Workflow upon Discharge, Status:Resolved.Altered Bowel Function Comment:Problem resolved by Soarian Workflow upon Discharge, Status:Resolved.Diverticulitis Comment:Problem resolved by Soarian Workflow upon Discharge, Status:Resolved.Fall Risk Comment: Problem resolved by Soarian Workflow upon Discharge, Status:Resolved.Mobility Impairment Status:Active. Plan of Care Follow-up Appointments from 02/01/2015 11:32 AM:#1 Office appointment: : Dr. Alves with lab: CMP on Feb 09#1 Date/Time : 02/10/2015 1:15 PMAddress # 1 : [facility]: [address] [place]- or #2 Office appointment: : Dr. Talavera with lab: Renal Pannel and CBC 1 hour before appointment#2 Date/Time : 02/20/2015 2:45 PMAddress # 2 : [facility]: [address] [place]- or #3 Office appointment: : Dr. Sifuentes office will call to schedule outpatient colonoscopy#4 Office appointment: : Clif walk-in appointment for Intake evaluationAddress # 4 : [facility]: [address], [address], [place] - Treatment Plan from 01/31/2015 8:49 AM:Care Management Note : started Miralax. labs noted. continue to follow labs 02/01/15. decrease IVF per documentation. continues IV Flagyl. care management to follow.Treatment Plan from 01/30/2015 10:55 AM:Care Management Note : Patient lives in [place] by herself, but son lives very close by. Her daughter lives in [facility] but does come and help when she can. Patient plans to return home at discharge and denies needing anything. Daughter brought up about help getting in and out of tub, but patient denied that being a problem. Did explain medicare does not cover for items in the bathroom, but offeredsuggestions of items that might be helpful, if interested.Treatment Plan from 01/30/2015 9:14 AM :Care Management Note : Patient presented to ER for abdominal pain, dizziness, etc. CT notes diverticulitis. Consulted GI, labs noted - Consulted Nephrology for renal insuffciency. Slurred speech - consulted Neurology. Encourage activity as toleratd. IVF at 100. IV Flagyl. Lovenox. anticipate stay longer than 2 midnights. meets inpatient status. care management to follow. Procedures No relevant procedures performed. Immunizations No immunizations administered or ordered. Hospital Course Hospital Discharge Instructions How to care for yourself at home from 02/01/2015 11:32 AM:Discharge Activity : Activity as tolerated,May ShowerDischarge Diet : Diet as toleratedCall your doctor if: : Fever over 101 F or severe chills,Chest pain or other unexplained symptoms,Tingling or numbness develops,A sudden increase or decrease in weight, You have persistent or worsening symptoms,If you have Heart Failure and you gain 3 pounds within 1 week or your symptoms worsen. (Weigh at home tomorrow morning)Specific Discharge Teaching Instructions provided: : NoDischarge on Warfarin : No Allergies, Adverse Reactions, Alerts Sulfa (Sulfonamide Antibiotics) causes Swelling/Edema.No Latex Allergy.No IV Contrast Allergy.No Known Food Allergies. Medication It is the responsibility of the patient or patient retail representative to confirm the list of medicationswith either the patient's personal care provider or the patient's follow-up care provider to ensure the patient has an appropriate list of medications to take at home. Discharge medicationsNew medicationsmetroNIDAZOLE (Flagyl) 500 mg Tablet, Ordered By: CHUYITA FOWLER RN Directions: 1 tablet oral three times a day Additional Instructions: for 7 days Continued medicationsALPRAZolam 0.5 mg Tablet, Ordered By: CHUYITA FOWLER RN Directions: / to 1 tablet oral every eight hours PRN anxiety benazepril 20 mg Tablet, Ordered By: CHUYITA FOWLER RN Directions: 1 tablet oral daily every morning busPIRone 15 mg Tablet, Ordered By: CHUYITA FOWLER RN Directions: 1 tablet oral three times a day escitalopram oxalate 10 mg Tablet, Ordered By: CHUYITA FOWLER RN Directions: 1 tablet oral daily every morning metoprolol tartrate 25 mg Tablet, Ordered By: CHUYITA FOWLER RN Directions: 0.5 tablet oral twice a day Stopped medicationsNone
--- OUTSIDE RECORDS SUMMARY | 2017-04-02 10:31 | External Medical Summary | Summary of Care ---
:1935 Author Name Vikas Alves D.O. Address [address], [place] [id number] Care Team Providers Name Role Phone Luis [...] Active Colon polyps (211.3, K63.5) Status: Active Tremor (781.0, R25.1) Status: Active Syncope (780.2, R55) Status: Active Palpitations (785.1, R00.2) Status: Active Shortness of breath on exertion (786.05, R06.02) Status: Active Paroxysmal SVT (supraventricular tachycardia) (427.0, I47.1) Status: Active Memory loss (780.93, R41.3) Status: Active Dizziness (780.4, R42) Status: Active Fatigue (780.79, R53.83) Status: Active Lung mass (786.6, R91.8) Status: Active CKD (chronic kidney disease), stage IV (585.4, N18.4) Status: Active Hyperkalemia (276.7, E87.5) Status: Active Anxiety disorder (300.00, F41.9) Status: Active Depression (311, F32.9) Status: Active Renal insufficiency (593.9, N28.9) Status: Active Tremor, unspecified (781.0, R25.1) Status: Active Weakness (780.79, R53.1) Status: Active Medications Name Dates Details Aspirin 81 MG Oral Tablet TAKE 1 TABLET DAILY. Refills: 0 Danielle Smith M.D. Started ActiveMetoprolol Tartrate 25 MG Oral Tablet TAKE ONE-HALF TABLET BY MOUTH TWICE A DAY Quantity: 45 Refills: 3 Vikas Alves D.O. Started 06-Aug-2012 ActiveBusPIRone HCl - 15 MG Oral Tablet take 1 in the Am, 7.5 at noon, and 7.5 in the evening. Quantity: 45 Refills: 2 Vikas Alves D.O. Started 11-Oct-2014 ActiveProbiotic Oral Capsule Refills: 0 Bruno Stokes M.D. Started 29-May-2015 ActiveLORazepam 0.5 MG Oral Tablet TAKE 1/2 TO 1 TABLET TWICE DAILY NEEDED. Refills: 0 Vikas Alves D.O. Started 24-Aug-2015 ActiveRemeron 15 MG Oral Tablet TAKE 1 TABLET AT BEDTIME. Refills: 0 Vikas Alves [...] Cataract Surgery CBC w/ Auto Diff 7150 Ordered:25-Jul-2015 RENAL PROFILE 1240 Ordered:25-Jul-2015 Triiodothyronine ( T3) [id number] Ordered:23-Aug-2015 CT CHEST WITH IV CONTRAST Ordered:14-Jul-2015 Immunization Name Dates Details Influenza Administered on:16-Apr-2011 Fluzone High-Dose Intramuscular Suspension Administered on:28-Apr-2012 Influenza Administered on:03-May-2013 Lot #: [id number] Pneumo (Prevnar) Administered on:03-May-2013 Lot #: [id number] Zoster (Zostavax) Administered on:25-May-2013 Fluzone High-Dose Intramuscular Suspension Administered on:01-May-2015 Lot #: [id number] Family History uncle Name Dates Details Family history of diabetes mellitus (V18.0, Z83.3) Status: Active Mother Name Dates Details Family history of depression (V17.0, Z81.8) Status: Active Family history of malignant neoplasm (V16.9, Z80.9) Status: Active Brother Name Dates Details Family history of malignant neoplasm (V16.9, Z80.9) Status: Active Social History Name Dates Details Smoking StatusNever smoker Vital Signs Date Test Result Details 24-Aug-2015 11:26 BP Systolic 130 mm[Hg] Status: BP Diastolic 68 mm[Hg] Status: Heart Rate 78 /min Status: Weight 148 lb Status: Body Mass Index Calculated 27.07 kg/m2 Status: Body Surface Area Calculated 1.68 m2 Status: Results Date Description Value Details 23-Aug-2015 16:57 Urinalysis, reflex to Micro and Culture ([facility]) 8016 pH 6.0 (Better) Range: 5.0-7.5 SP GRAVITY 1.025 (Better) Range: 1.010-1.030 APPEARANCE Clear (Better) Range: Clear COLOR Yellow (Better) Range: Straw-Yellow PROTEIN Negative mg/dL Range: Negative-Trace (Better) GLUCOSE Negative mg/dL Range: Negative (Better) KETONES Negative mg/dL Range: Negative (Better) BILIRUBIN Negative (Better) Range: Negative BLOOD Negative (Better) Range: Negative UROBIL 0.2 EU/dL (Better) Range: 0.2-1.0 NITRITE Negative (Better) Range: Negative LEUKOCYTES Negative (Better) Range: Negative 17:14 CBC w/ Auto Diff 7150 WBC 6.2 K/uL (Better) Range: 4.5-11.0 RBC 3.64 mil/uL Range: 3.60-5.00 (Better) HGB 11.5 g/dL (Below Range: 12.0-16.0 low threshold) HCT 36.1 % (Better) Range: 36.0-48.0 MCV 98.9 fL (Better) Range: 80.0-99.0 MCH 31.7 pg (Better) Range: 27.3-32.5 MCHC 32.0 % (Better) Range: 32.0-36.0 RDW 13.5 % (Better) Range: 11.6-14.8 PLATELETS 282 K/uL (Better) Range: 150-400 MPV 8.9 fL (Better) Range: 6.0-11.0 %NEUTRO 65.4 % (Better) Range: 37.0-80.0 %LYMPHS 24.8 % (Better) Range: 13.0-50.0 %MONO 5.1 % (Better) Range: 0.0-12.0 %EOS 2.8 % (Better) Range: 0.0-7.0 %BASO 0.6 % (Better) Range: 0.0-2.5 %GRACE 1.2 % (Better) Range: 0.0-5.0 NEUTRO 4.1 K/uL (Better) Range: 2.0-6.9 LYMPHS 1.6 K/uL (Better) Range: 0.6-3.4 MONOS 0.3 K/uL (Better) Range: 0.0-0.9 EOS 0.2 K/uL (Better) Range: 0.0-0.7 BASO 0.0 K/uL (Better) Range: 0.0-0.2 17:21 Comprehensive Metabolic Panel 1212 SODIUM 141 mmol/L (Better) Range: 133-144 POTASSIUM 4.7 mmol/L (Better) Range: 3.5-5.1 CHLORIDE 107 mmol/L (Better) Range: 98-110 CARBON DIOXIDE 24.7 mmol/L Range: 23.0-33.0 (Better) ANION GAP 9 mmol/L (Better) Range: 6-16 BUN 37 mg/dL (Above Range: 7-18 high threshold) CREATININE, SERUM 1.78 mg/dL (Above Range: 0.55-1.02 high threshold) Comments: Please note new reference ranges effective 11/26.----- BUN:CREATININE RATIO 21 (Better) EST GFR, 33 ml/min (Below Range: >60 low threshold) EST GFR, NON-AFR LITHUANIAN 27 ml/min (Below Range: >60 low threshold) Comments: EST GFR is reported in ml/min per 1.73 m2 of body surface area. For -Mosotho, please multiple result by 1.2.----- GLUCOSE 118 mg/dL (Above Range: 70-100 high threshold) ALK PHOSPHATASE 88 U/L (Better) Range: 46-116 TOTAL BILIRUBIN 0.20 mg/dL (Better) Range: 0.20-1.00 AST 14 U/L (Better) Range: 8-35 ALT 18 U/L (Better) Range: 14-59 Comments: Please note new reference ranges. Effective 09/15/2014.----- ALBUMIN 3.4 g/dL (Better) Range: 3.4-5.0 TOTAL PROTEIN 6.3 g/dL (Below low Range: 6.4-8.2 threshold) A/G RATIO 1.2 units (Better) Range: 1.0-1.8 CALCIUM 9.0 mg/dL (Better) Range: 8.5-10.1 17:48 FREE T4 3604 FREE T4 1.14 ng/dL (Better) Range: 0.80-1.67 17:48 THYROID STIM. HORMONE 3602 THYROID STIM. HORMONE 0.494 uIU/mL (Below Range: 0.550-4.780 low threshold) Comments: PLEASE NOTE: Patients undergoing fuorescein dye angiography within the last 72 hours can produce falsely depressed TSH values with current methodology.No established reference ranges for infants and children <2 years of age----- Plan of Care Planned Observations Name Dates Details Planned Goals not documented Goal Planned Encounters Appointment; Provider: Chet Talavera On 14-Nov-2015 13:45 Appointment; Provider: Bruno Stokes On 28-Aug-2015 16:00 Appointment; Provider: Schedule Radiology On 28-Aug-2015 14:00 Appointment; Provider: Schedule Radiology On 11-May-2015 11:00 Appointment; Provider: Schedule Radiology On 01-May-2015 15:30 Appointment; Provider: Schedule Radiology On 11:00 Instructions Instructions not documented Encounters Appointment; Vikas Alves On 24-Aug-2015 Encounter Diagnosis: [...]
--- OUTSIDE RECORDS SUMMARY | 2017-04-02 10:31 | External Medical Summary | Summary of Care ---
:1935 Author Name Misha Ambrocio M.D. Address Unavailable Unavailable , Care Team Providers Name Role Phone Sylvain Smith M.D. December Unavailable Unavailable Vikas Alves D.O. Unavailable Unavailable Arturo Stokes M.D. Unavailable Unavailable Daniel Davies Primary Care Provider Unavailable Unavailable Unavailable Unavailable [...] SVT (supraventricular tachycardia) (427.0, I47.1) Status: Active Fatigue (780.79, R53.83) Status: Active [...] DAILY. Refills: 0 Danielle Smith M.D. Started ActiveEscitalopram Oxalate 20 MG Oral Tablet TAKE 1 TABLET DAILY. Refills: 0 Vikas Alves D.Arturo. Started ActiveProbiotic Oral Capsule Refills: 0 Bruno Stokes M.D. Started 29-May-2015 ActiveLORazepam 0.5 MG Oral Tablet TAKE 1/2 TO 1 TABLET TWICE DAILY NEEDED. Refills: 0 AlvesToddn D.O. Started 24-Aug-2015 ActiveRemeron 15 MG Oral [...] Administered on:28-Apr-2012 Influenza Administered on:03-May-2013 Lot #: [id number] Pneumo (Prevnar) Administered on:03-May-2013 Lot #: [id number] Zoster (Zostavax) Administered on:25-May-2013 Fluzone High-Dose Intramuscular Suspension Administered on:01-May-2015 Lot #: [id number] Family History uncle Name Dates Details Family history of diabetes mellitus (V18.0, Z83.3) Status: Active Mother Name Dates Details Family history of depression (V17.0, Z81.8) Status: Active Family history of malignant neoplasm (V16.9, Z80.9) Status: Active Brother Name Dates Details Family history of malignant neoplasm (V16.9, Z80.9) Status: Active Social History Name Dates Details Smoking StatusNever smoker Vital Signs Date Test Result Details 08:11 BP Systolic 122 mm[Hg] Status: BP Diastolic 70 mm[Hg] Status: Heart Rate 86 /min Status: Weight 151.4 lb Status: O2 SAT 97 % Status: Body Mass Index Calculated 27.69 kg/m2 Status: Body Surface Area Calculated 1.7 m2 Status: Results Date Description Value Details 10:07 CBC w/ Auto Diff 7150 WBC 5.8 K/uL (Better) Range: 4.5-11.0 RBC 3.78 mil/uL Range: 3.60-5.00 (Better) HGB 11.8 g/dL (Below Range: 12.0-16.0 low threshold) HCT 36.3 % (Better) Range: 36.0-48.0 [...] 0.0-0.7 BASO 0.0 K/uL (Better) Range: 0.0-0.2 10:47 RENAL PROFILE 1240 SODIUM 139 mmol/L Range: 133-144 (Better) POTASSIUM 4.8 mmol/L Range: 3.5-5.1 (Better) CHLORIDE 103 mmol/L Range: 98-110 (Better) CARBON DIOXIDE 24.0 mmol/L Range: 23.0-33.0 (Better) ANION GAP 12 mmol/L (Better) Range: 6-16 BUN 38 mg/dL (Above Range: 7-18 high threshold) CREATININE, SERUM 1.86 mg/dL (Above Range: 0.55-1.02 high threshold) Comments: Please note new reference ranges effective 11/26.----- EST GFR, 32 ml/min (Below Range: >60 low threshold) EST GFR, NON-AFR CROATIAN 26 ml/min (Below Range: >60 low threshold) Comments: EST GFR is reported in ml/min per 1.73 m2 of body surface area. For -Cuban, please multiple result by 1.2.----- BUN:CREATININE RATIO 20 (Better) GLUCOSE 95 mg/dL (Better) Range: 70-100 ALBUMIN 3.6 g/dL (Better) Range: 3.4-5.0 PHOSPHORUS 3.3 mg/dL (Better) Range: 2.6-4.7 Comments: Please note new reference ranges effective 2015.----- CALCIUM 9.3 mg/dL (Better) Range: 8.5-10.1 Plan of Care Planned Observations Name Dates Details Planned Goals not documented Goal Planned Encounters Appointment; Provider: Darian Ambrocio On 15-Jul-2016 15:15 Appointment; Provider: Zev Samano On 09:30 Appointment; Provider: Schedule Radiology On 28-Aug-2015 14:00 Appointment; Provider: Schedule Radiology On 11-May-2015 11:00 Appointment; Provider: Schedule Radiology On 01-May-2015 15:30 Appointment; Provider: Schedule Radiology On 11:00 Instructions Instructions not documented Encounters Appointment; Darian Ambrocio On Encounter Diagnosis: Problem not documented 08:00 Appointment; Chet Talavera On Encounter Diagnosis: Problem not documented 10:45 Appointment; Vikas Alves On 30-Aug-2015 Encounter Diagnosis: [...]
--- OUTSIDE RECORDS SUMMARY | 2017-04-02 10:31 | External Medical Summary | Summary of Care ---
:1935 Author Name Vikas Alves D.O. Address [address], [place] [address] Care Team Providers Name Role Phone Luis [...] Active Colon polyps (211.3, K63.5) Status: Active Depression (311, F32.9) Status: Active Anxiety disorder (300.00, F41.9) Status: Active Tremor (781.0, R25.1) Status: Active Syncope (780.2, R55) Status: Active Palpitations (785.1, R00.2) Status: Active Shortness of breath on exertion (786.05, R06.02) Status: Active Paroxysmal SVT (supraventricular tachycardia) (427.0, I47.1) Status: Active Memory loss (780.93, R41.3) Status: Active Dizziness (780.4, R42) Status: Active Weakness (780.79, R53.1) Status: Active Fatigue (780.79, R53.83) Status: Active Tremor, unspecified (781.0, R25.1) Status: Active Lung mass (786.6, R91.8) Status: Active CKD (chronic kidney disease), stage IV (585.4, N18.4) Status: Active Hyperkalemia (276.7, E87.5) Status: Active Medications Name Dates Details Aspirin [...] Refills: 0 Vikas Alves D.O. Started 22-Mar-2015 ActiveProbiotic Oral Capsule Refills: 0 Bruno Stokes M.D. Started 29-May-2015 Active Allergies and Adverse Reactions Name Dates [...] RENAL PROFILE 1240 Ordered:25-Jul-2015 Triiodothyronine ( T3) [id number] Ordered:23-Aug-2015 CT CHEST WITH IV CONTRAST Ordered:14-Jul-2015 Immunization Name Dates Details Influenza Administered on:16-Apr-2011 Fluzone High-Dose Intramuscular Suspension Administered on:28-Apr-2012 Influenza Administered on:03-May-2013 Lot #: [id number] Pneumo (Prevnar) Administered on:03-May-2013 Lot #: [id number] Zoster (Zostavax) Administered on:25-May-2013 Fluzone High-Dose Intramuscular Suspension Administered on:01-May-2015 Lot #: [id number] Family History uncle Name Dates Details Family [...] to report Results Date Description Value Details 23-Aug-2015 16:57 Urinalysis, reflex to Micro and Culture ([facility]) 8016 pH 6.0 (Better) Range: 5.0-7.5 SP [...] Range: >60 low threshold) EST GFR, NON-AFR FAROESE 27 ml/min (Below Range: >60 low threshold) Comments: EST GFR is reported in ml/min per 1.73 m2 of body surface area. For -Mauritanian, please multiple result by 1.2.----- GLUCOSE 118 [...] Schedule Radiology On 28-Aug-2015 14:00 Appointment; Provider: Vikas Alves On 24-Aug-2015 11:30 Appointment; Provider: Schedule Radiology On 11-May-2015 11:00 Appointment; Provider: Schedule Radiology On 01-May-2015 15:30 Appointment; Provider: Schedule Radiology On 11:00 Instructions Instructions not documented Encounters Appointment; Chet Talavera On 18-Jul-2015 Encounter Diagnosis: [...]
--- OUTSIDE RECORDS SUMMARY | 2017-04-02 10:32 | External Medical Summary | Summary of Care ---
:1935 Author Name Arturo Stokes M.D. Address [address], [place] [id number] Care Team Providers Name Role Phone Luis [...] History of Section History of Cataract Surgery CT CHEST WITH IV CONTRAST Ordered:28-Apr-2015 Immunization Name Dates Details Influenza Administered on:16-Apr-2011 Fluzone High-Dose Intramuscular Suspension Administered on:28-Apr-2012 Influenza Administered on:03-May-2013 Lot #: [id number] Pneumo (Prevnar) Administered on:03-May-2013 Lot #: [id number] Zoster (Zostavax) Administered on:25-May-2013 Fluzone High-Dose Intramuscular Suspension Administered on:01-May-2015 Lot #: [id number] Family History uncle Name Dates Details Family history of diabetes mellitus (V18.0, Z83.3) Status: Active Mother Name Dates Details Family history of depression (V17.0, Z81.8) Status: Active Family history of malignant neoplasm (V16.9, Z80.9) Status: Active Brother Name Dates Details Family history of malignant neoplasm (V16.9, Z80.9) Status: Active Social History Name Dates Details Smoking StatusNever smoker Vital Signs Date Test Result Details 29-May-2015 09:23 BP Systolic 124 mm[Hg] Status: BP Diastolic 84 mm[Hg] Status: Heart Rate 76 /min Status: Height 62 in Status: Weight 145 lb Status: O2 SAT 97 % Status: Body Mass Index Calculated 26.52 kg/m2 Status: Body Surface Area Calculated 1.67 m2 Status: 12-May-2015 10:48 BP Systolic 118 mm[Hg] Status: BP Diastolic 64 mm[Hg] Status: Heart Rate 72 /min Status: Weight 144.8 lb Status: Body Mass Index Calculated 26.48 kg/m2 Status: Body Surface Area Calculated 1.67 m2 Status: 01-May-2015 14:13 BP Systolic 122 mm[Hg] Status: BP Diastolic 60 mm[Hg] Status: Heart Rate 84 /min Status: Weight 144 lb Status: Body Mass Index Calculated 26.34 kg/m2 Status: Body Surface Area Calculated 1.66 m2 Status: Results Date Description Value Details 01-May-2015 15:49 CT CHEST WITHOUT IV Comments: Exam Date: 05/01/2015 15: 25Dictation Date: 05/01/2015 15:49 CONTRAST XC CHEST (Better) 12-May-2015 12:46 FOLATE 3608 FOLATE >20 ng/mL Range: 5.4-20.3 (Above high threshold) 12:46 FREE T4 3604 FREE T4 1.28 ng/dL Range: 0.80-1.67 (Better) 12:46 THYROID STIM. HORMONE 3602 THYROID STIM. HORMONE 1.345 uIU/mL Range: 0.550-4.780 (Better) Comments: No established reference ranges for infants and children <2 years of age----- 12:46 VITAMIN B12 3606 VITAMIN B12 780 pg/mL Range: 211-911 (Better) Plan of Care Planned Observations Name Dates Details Planned Goals not documented Goal Planned Encounters Appointment; Provider: Bruno Stokes On 28-Aug-2015 16:00 Appointment; Provider: Chet Talavera On 17-Jul-2015 14:15 Appointment; Provider: Schedule Radiology On 11-May-2015 11:00 Appointment; Provider: Schedule Radiology On 01-May-2015 15:30 Appointment; Provider: Schedule Radiology On 11:00 Instructions Instructions not documented Encounters Appointment; Bruno Stokes On 29-May-2015 Encounter Diagnosis: [...]
--- OUTSIDE RECORDS SUMMARY | 2017-04-02 10:32 | External Medical Summary | Summary of Care ---
:1935 Author Name Darian Emanuel M.D. Address [address] [place] [address] [place] [address] Care Team Providers Name Role Phone Luis Wesley, Sylvain Santos Unavailable Unavailable Vikas Alves D.O. Unavailable Unavailable Darian Emanuel M.D. Unavailable Unavailable Misha Ambrocio M.D. Unavailable Unavailable Arturo Stokes M.D. 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, G20) Status: Active Memory loss (780.93, R41.3) Status: Active Fatigue (780.79, R53.83) Status: Active Urinary incontinence (788.30, R32) Status: Active Renal insufficiency (593.9, N28.9) Status: Active Depression (311, F32.9) Status: Active Dizziness (780.4, R42) Status: Active CKD (chronic kidney disease), stage IV (585.4, N18.4) Status: Active Colon polyps (211.3, K63.5) Status: Active Diverticulosis (562.10, K57.90) Status: Active Abnormal CT scan (793.99, R93.8) Status: Active Dyspepsia (536.8, K30) Status: Active Hyperparathyroidism (252.00, E21.3) Status: Active Hyperkalemia (276.7, E87.5) Status: Active CKD (chronic kidney disease) stage 4, GFR 15-29 ml/min (585.4, N18.4) Status : Active Hypertension (401.9, I10) Status: Active Lung mass (786.6, R91.8) Status: Active Vertigo (780.4, R42) Status: Active Rectal bleeding (569.3, K62.5) Status: Active Orthostatic hypotension (458.0, I95.1) Status: Active Tremor (781.0, R25.1) Status: Active Medications Name Dates Details Aspirin [...] 0 Vikas Alves D.O. Start 24-Aug-2015 Active Cymbalta 30 MG Oral Capsule Delayed Release Particles TAKE 1 CAPSULE DAILY. Refills: 0 Darian Ambrocio M.D. Start 22-Mar-2016 Active Carbidopa-Levodopa 25-100 MG Oral Tablet Take 1 tablet twice daily Quantity: 60 Refills: 5 Darian Ambrocio M.D. Start 22-Mar-2016 Active Allergies [...] not documented Immunization Name Dates Details Influenza on: 16-Apr-2011 Fluzone High-Dose SUSP on: 28-Apr-2012 Influenza on: 03-May-2013 Lot #: [id number] Pneumo (Prevnar) on: 03-May-2013 Lot #: [id number] Zoster (Zostavax) on: 25-May-2013 Fluzone High-Dose SUSP on: 01-May-2015 Lot #: [id number] Family History uncle Name Dates Details Family [...] smoker Vital Signs Date Test Result Details 28-Oct-2016 15:34 Weight 150 lb Status: Body Mass Index Calculated 27.44 kg/m2 Status: Body Surface Area Calculated 1.69 m2 Status: 28-Oct-2016 15:33 BP Systolic 118 mm[Hg] Status: BP Diastolic 83 mm[Hg] Status: Heart Rate 86 /min Status: Physical Findings 18 Status: Comments: Respiration Results Date Description Value Details Results not documented Plan of Care Name Dates Details Planned Observations Planned Goals not documented Planned Encounters Appointment; Provider: Darian Ambrocio M.D. On 10:45 Appointment; Provider: Darian Emanuel M.D. On 28-Nov-2016 15:15 Instructions Name Dates Details Instructions not documented Encounters Appointment; Darian Ambrocio M.D. On 02-Aug-2016 Encounter [...]
--- OUTSIDE RECORDS SUMMARY | 2017-04-02 10:32 | External Medical Summary | Summary of Care ---
:1935 Author Name Vikas Alves D.O. Address [address], [place] [id number] Care Team Providers Name Role Phone Luis [...] Urinary tract infection (599.0, N39.0) Status: Active Anxiety disorder (300.00, F41.9) Status: [...] Refills: 5 Vikas Alves D.O. Started 05-Apr-2013 ActiveCitalopram Hydrobromide 20 MG Oral Tablet Take 1 tablet daily Quantity: 30 Refills: 6 Vikas Alves D.O. Started 03-May-2013 ActiveZostavax 08958 UNT/0.65ML Subcutaneous Solution Reconstituted INJECT 0.65 ML Once Quantity: 1 Refills: 0 Vikas Alves D.O. Started 25-May-2013 ActiveCiprofloxacin HCl - 500 MG Oral Tablet TAKE 1 TABLET TWICE DAILY. Quantity: 14 Refills: 0 Vikas Alves D.O. Started 11-Oct-2014 ActiveBusPIRone HCl - 15 MG Oral Tablet TAKE 1 TABLET 3 times daily Quantity: 90 Refills: 2 Vikas Alves D.O. Started 11-Oct-2014 ActiveALPRAZolam 0.5 MG Oral Tablet take 1/2-1 tablet every 8 hours as needed Quantity: 30 Refills: 0 Vikas Alves D.O. Started Active Allergies and Adverse Reactions Name Dates Details Sulfa Drugs Status: Active Past Medical History Name Dates Details History of Cirrhosis (571.5, K74.60) Status: Resolved History of hypertension (V12.59, Z86.79) Status: Resolved History of polymyalgia rheumatica (V13.59, Z87.39) Status: Resolved Procedures Procedure Dates Details History of Section History of Cataract Surgery Comprehensive Metabolic Panel 1212 Ordered: CBC w/ Auto Diff 7150 Ordered: FREE T4 3604 Ordered: THYROID STIM. HORMONE 3602 Ordered: VITAMIN B12 3606 Ordered: Immunization Name Dates Details Influenza Administered on:16-Apr-2011 Fluzone High-Dose Intramuscular Suspension Administered on:28-Apr-2012 Influenza Administered on:03-May-2013 Lot #: [id number] Pneumo (Prevnar) Administered on:03-May-2013 Lot #: [id number] Zoster (Zostavax) Administered on:25-May-2013 Family History Unknown Family Member Name Dates Details Family history of Diabetes Mellitus (V18.0) Comments: Family History Status: Active Social History Name Dates Details Smoking StatusNever smoker Vital Signs Date Test Result Details 14:27 BP Systolic 108 mm[Hg] Status: BP Diastolic 60 mm[Hg] Status: Heart Rate 66 /min Status: Weight 147 lb Status: Body Mass Index Calculated 26.89 kg/m2 Status: Body Surface Area Calculated 1.68 m2 Status: Results Date Description Value Details Results not documented Plan of Care Planned Observations Name Dates Details Planned Goals not documented Goal Planned Encounters Appointment; Provider: Vikas Alves On 13:45 Instructions Instructions not documented Encounters Appointment; Vikas Alves On Encounter Diagnosis: Problem not documented 14:30 Appointment; Vikas Alves On 11-Oct-2014 Encounter Diagnosis: Problem not documented 15:00 Appointment; Vikas Alves On 25-May-2013 Encounter Diagnosis: Problem not documented 15:45 Appointment; Vikas Alves On 03-May-2013 Encounter Diagnosis: Problem not documented 15:15
--- OUTSIDE RECORDS SUMMARY | 2017-04-02 10:32 | External Medical Summary | Summary of Care ---
:1935 Author Name Vikas Alves D.O. Address [address], [place] [id number] Care Team Providers Name Role Phone Luis [...] Diff 7150 Ordered:25-Jul-2015 RENAL PROFILE 1240 Ordered:25-Jul-2015 CBC w/ Auto Diff 7150 Ordered:23-Aug-2015 Comprehensive Metabolic Panel 1212 Ordered:23-Aug-2015 FREE T4 3604 Ordered:23-Aug-2015 Urinalysis, reflex to Micro and Culture ([facility] Ordered:23-Aug-2015 Clinics) 8016 THYROID STIM. HORMONE 3602 Ordered:23-Aug-2015 Triiodothyronine ( T3) [id number] Ordered:23-Aug-2015 CT CHEST WITH IV CONTRAST Ordered:14-Jul-2015 Immunization Name Dates Details Influenza Administered on:16-Apr-2011 Fluzone High-Dose Intramuscular Suspension Administered on:28-Apr-2012 Influenza Administered on:03-May-2013 Lot #: [id number] Pneumo (Prevnar) Administered on:03-May-2013 Lot #: [id number] Zoster (Zostavax) Administered on:25-May-2013 Fluzone High-Dose Intramuscular Suspension Administered on:01-May-2015 Lot #: [id number] Family History uncle Name Dates Details Family [...] to report Results Date Description Value Details Results not [...]
--- OUTSIDE RECORDS SUMMARY | 2017-04-02 10:32 | External Medical Summary | Summary of Care ---
:1935 Author Name Zev Samano Address [address] Unavailable [place], [place] [id number] Care Team Providers Name Role Phone Sylvain [...] TAKE 1 TABLET DAILY. Refills: 0 Long D.Arturo., Viksa Start Active Probiotic Oral Capsule Refills: 0 [...] on: 28-Apr-2012 Influenza on: 03-May-2013 Lot #: [id number] Pneumo (Prevnar) on: 03-May-2013 Lot #: [id number] Zoster (Zostavax) on: 25-May-2013 Fluzone High-Dose SUSP on: 01-May-2015 Lot #: [id number] Family History uncle Name Dates Details Family [...] smoker Vital Signs Date Test Result Details 09:53 BP Systolic 124 mm[Hg] Status: Comments: [...] FREE T4 3604 Comments: Fax results to [phone] FREE T4 1.15 ng/dL Range: 0.80-1.67 09:27 THYROID STIM. HORMONE 3602 Comments: Fax results to [phone] THYROID STIM. HORMONE 1.118 uIU/mL Range: 0.550-4.780 Comments: No established reference ranges for infants and children &lt ;2 years of age----- 05-Feb-2016 07:43 ACTH, Plasma [id number] Comments: Fax results to [phone] performed at: [DA] [facility], [address] [place] [address], [place], [address], , Production Gear Cutter: REY Barry MD ACTH, PLASMA 21.4 pg/mL Range: 7.2-63.3 Comments: ACTH reference interval for samples collected between 7 and10 AM.----- 09:30 24 Hr Urine Creatinine 1137 24VOL 1575 mL URINE CREATININE 31.0 mg/dL Range: 30.0-125.0 24 HOUR URINE CREATININE 0.5 g/24Hrs (Below low threshold) Range: 0.6-1.8 15:04 Triiodothyronine ( T3) 287660 Comments: Items were attached to this order: Cortisol - AMFax results to [phone] performed at: [] [address], [address], Phone: , Laboratory Dir paula: Darian Lewis MDTesting performed at: [DA] [address], [address], , Production Gear Cutter: REY Barry MDA courtesy copy of this report has been sent [phone]. TRIIODOTHYRONINE (T3) 83 ng/dL Range: 71-180 15:04 Thyroid Peroxidase Abs (TPO) [id number] Comments: Items were attached to this order: Cortisol - AMFax results to [phone] performed at: [] [address], [address], Phone: , Laboratory Dir paula: Darian Lewis MDTesting performed at: [DA] [address], [address], , Production Gear Cutter: REY Barry MDA courtesy copy of this report has been sent [phone]. THYROID PEROXIDASE (TPO) AB 7 IU/mL Range: 0-34 15:04 Thyrotropin Receptor Ab, Serum Comments: Items were attached to this order: Cortisol - AMFax results to [phone] performed at: [BN] [address], [address], Phone: , Laboratory Dir [phone] paula: Darian Lewis MDTesting performed at: [DA] [address], [address], , Production Gear Cutter: REY Barry MDA courtesy copy of this report has been sent [phone]. THYROTROPIN RECEPTOR AB, SERUM <0.51 IU/L Range: 0.00-1.75 15:04 Cortisol - AM [id number] Comments: Items were attached to this order: Cortisol - AMFax results to [phone] performed at: [BN] [facility], [address] [place] [address], [address], , Laboratory Dir paula: Darian Lewis MDTesting performed at: [DA] [facility], [address] [place] [address], [place], [address], , Production Gear Cutter: REY Barry MDA courtesy copy of this report has been sent [phone]. CORTISOL - AM 17.9 ug/dL Range: 6.2-19.4 12-Feb-2016 08:55 Catecholamines, Frac., Free, Ur ( Comments: Testing performed at: [] [address], [address], , Production Gear Cutter: Darian Lewis MD 24 Hr) [id number] EPINEPHRINE, URINE 1 ug/L Range: Undefined Comments: Total Volume: 1575 mL----- EPINEPHRINE, U, 24HR 2 ug/24 hr Range: 0-20 NOREPINEPHRINE, UR 7 ug/L Range: Undefined Comments: Total Volume: 1575 mL----- NOREPINEPHRINE,U,24H 11 ug/24 hr Range: 0-135 DOPAMINE, URINE 31 ug/L Range: Undefined Comments: Total Volume: 1575 mL----- DOPAMINE, UR, 24HR 49 ug/24 hr Range: 0-510 08:55 Metanephrines, Frac, Qn, 24-Hr [id number] Comments: Testing performed at: [ ] [address], [address], Phone: , Production Gear Cutter: Darian Lewis MD NORMETANEPHRINE, UR 72 ug/L [...] Ambrocio M.D. On 15-Jul-2016 15:15 Appointment; Provider: Zev Samano On 05-Mar-2016 14:30 Instructions Name Dates Details Instructions not documented [...]
--- OUTSIDE RECORDS SUMMARY | 2017-04-02 10:32 | External Medical Summary | Summary of Care ---
:1935 Author Name Darian Emanuel M.D. Address [address] [place] [address] [place] [address] Care Team Providers Name Role Phone Luis Wesley, Sylvain Santos Unavailable Unavailable Vikas Alves D.O. Unavailable Unavailable Darina Emanuel M.D. Unavailable Unavailable Misha Ambrocio M.D. [...] disease), stage IV (585.4, N18.4) Status: Active Lung mass (786.6, R91.8) Status: Active Dizziness (780.4, R42) Status: Active Depression (311, F32.9) Status: Active Renal insufficiency (593.9, N28.9) Status: Active Tremor (781.0, R25.1) Status: Active Hypertension (401.9, I10) Status: Active CKD (chronic kidney disease) stage 4, GFR 15-29 ml/min (585.4, N18.4) Status : Active Hyperkalemia (276.7, E87.5) Status: Active Hyperparathyroidism (252.00, E21.3) Status: Active Tremor, unspecified (781.0, R25.1) Status: Active Weakness (780.79, R53.1) Status: Active Anxiety disorder (300.00, F41.9) Status: Active Syncope (780.2, R55) Status: Active Orthostatic hypotension (458.0, I95.1) Status: Active 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
--- OUTSIDE RECORDS SUMMARY | 2017-04-02 10:32 | External Medical Summary ---
:1935 Author Name GENERATED, SYSTEM Care Team Providers Name Role Phone DO ARIAS ALAN Primary Care Provider [phone] Reason For Visit Chief Complaint WEAKNESS Social History Functional Status Vital Signs Results Chemistry from 02/06/2017 10:40 [id number] MMOL/L (136-145 MMOL/L) POTASSIUM4.0 MMOL/L (3.5-5.1 MMOL/L) SDHBKZPV405 MMOL/L (98-107 MMOL/L) BNH796.2 MMOL/L (21.0-32.0 MMOL/L) *ANION GAP12.8 MMOL/L (8.0-16.0 MMOL/L) BUN42 MG/DL H (7-18 MG/DL) CREATININE1.82 MG/DL H (0.55-1.02 MG/DL) *BUN/CREATININE RATIO23.1 H (9.1-17.0 ) IEPKPPS223 MG/DL H (65-99 MG/DL) *GFR EST NON AFR IJMDUZJZ86 ML/MIN (Reference Range: not available) *GFR EST AFR AMER29 ML/MIN (Reference Range: not available) BPZTUWW98.1 MG/DL (8.5-10.1 MG/DL) BILIRUBIN TOTAL0.70 MG/DL (0.20-1.00 MG/DL) TOTAL PROTEIN6.6 GM/DL (6.4-8.2 GM/DL) ALBUMIN3.8 GM/DL (3.4-5.0 GM/DL) *GLOBULIN2.8 GM/DL (2.3-3.5 GM/DL) *A/G RATIO1.4 MG/DL L (1.5-2.2 MG/DL) ALK PHOS83 U/L (46-116 U/L) ALT (SGPT)13 U/L L (16-63 U/L) AST (SGOT)11 U/L L (15-37 U/L) TROPONIN-I<0.017 NG/ML (0.000-0.056 NG/ML) B-TYPE NATRIURETIC PSLSGQN40 PG/ML (1-100 PG/ML) TSH0.957 UIU/ML (0.340-4.820 UIU/ML)Hematology from 02/06/2017 10:40 AMWBC6.3 X10e3/UL (3.6-11.2 X10e3/UL) RBC4.25 X10e6/UL (3.63-4.92 X10e6/UL) LSFTVXLUDG71.6 G/DL (11.0-14.3 G/DL) VGQRCXPCQK95.8 % (31.2-41.9 %) *MCV95.9 FL (79.0-98.0 FL) *MCH32.0 PG (27.0-33.0 PG) *MCHC33.3 G/DL (32.0-36.0 G/DL) *RDW13.8 % (12.3-17.0 %) *RDWSD46.4 (37.1-47.8 ) DFYLOTKN316 X10e3/UL (159-386 X10e3/UL) *MPV8.3 FL (7.4-10.4 FL) AUTOMATED DIFFPERFORMED (Reference Range: not available) SEGS57.7 % (Reference Range: not available) *LAQQGPRTPYD83.5 % (Reference Range: not available) *MONOCYTES7.7 % (Reference Range: not available) *EOSINOPHILS2.5 % (Reference Range: not available) *BASOPHILS0.6 % (Reference Range: not available) *ABSOLUTE NEUTROPHILS3.60 X10e3/UL (1.80-7.80 X10e3/UL) *ABSOLUTE LYMPHOCYTES2.00 X10e3/UL (1.00-3.00 X10e3/UL) *ABSOLUTE MONOCYTES0.50 X10e3/UL (0.30-1.00 X10e3/UL) *ABSOLUTE EOSINOPHILS0.20 X10e3/UL (0.00-0.50 X10e3/UL) *ABSOLUTE BASOPHILS0.00 X10e3/UL (0.00-0.20 X10e3/UL)Urinalysis from 02/06/2017 12 :08 PM*URINE COLORYELLOW (STRAW/YELL/DK YELL ) *URINE APPEARANCECLEAR (CLEAR ) URINE PH7.0 (5.0-8.0 ) URINE SPECIFIC GRAVITY1.010 (<=1.005->=1.030 ) *URINE GLUCOSENEGATIVE MG/DL (NEGATIVE MG/DL) *URINE BILIRUBINNEGATIVE (NEGATIVE ) *URINE KETONESNEGATIVE MG/DL (NEGATIVE MG/DL) *URINE BLOODNEGATIVE (NEGATIVE ) *URINE PROTEINNEGATIVE MG/DL (NEGATIVE MG/DL) *URINE UROBILINOGEN0.2 EU/DL (0.2-1.0 EU/DL) *URINE NITRITESNEGATIVE (NEGATIVE ) *URINE LEUKOCYTESNEGATIVE (NEGATIVE )DX Radiology from 02/06/2017 11:29 AMCHEST 1 VIEWHistory: dysarthria, soa, abd pain Priors: Chest x-ray dated 11/12/2016 Findings: The heart size and pulmonary vasculature within normal limits. No consolidating infiltrates are identified. No significant pleural effusion or pneumothorax is seen. A moderate size hiatal hernia is noted. Impression: No acute abnormality. Moderate size hiatal hernia. Electronically signed by: Natasha Lynne MD Dictated: 02/06/2017 15:23 (Reference Range: not available) CT Scan from 02/06/2017 11:23 AMCT ABD/PELVIS W/O CONTRASTHistory: abd pain . Priors: CT of abdomen pelvis dated 04/24/2015 Findings: Abdomen Lung bases: Clear. There is a moderate to large hiatal hernia which is partially visualized. A small pericardial effusion is noted. Liver: There are multiple unchanged mildly complex cysts again noted within the liver, several of which are partially calcified. Spleen: Normal. Pancreas: No discrete mass or inflammatory process. Gallbladder and biliary tract: No radiodense calculus or dilation. Adrenal glands: Normal. Kidneys: There are punctate calcifications within both kidneys which are likely vascular in nature. There are unchanged cystic lesions within both kidneys. There is no evidence of hydronephrosis. Urinary Bladder: The urinary bladder is moderately distended. Aorta: Normal in caliber. No periaortic lymphadenopathy. Bowel and Mesentery: There is marked retained fecal material noted throughout the colon. No findings of appendicitis. Ascites: None. There is a small fat containing umbilical hernia. Pelvis Lymphadenopathy: None. Reproductive: The uterus is atrophic. Osseous Structures: No suspicious findings. Impression: Constipation. No evidence of acute abdominopelvic inflammatory process. Moderate to large hiatal hernia. Electronically signed by: Natasha Lynne MD Dictated: 02/06/2017 11:53 (Reference Range: not available) CT CEREBRAL W/O CONTRASTHistory: dysarthria, soa, abd pain . 81 y/o female presenting to the ED via EMS for constant, worsening weakness starting yesterday. Nothing has provided relief. She also states sore throat, abd pain, and dizziness, but denies fever, headache, rashes, and sores on skin. Pt is currently on abx for her sore throat. History limited due to pt condition. Priors: CT head dated 04/24/2015 Findings: Ventricles and Extra axial spaces: Normal in size and morphology for the patient's age. Hemorrhage: None. Cerebral parenchyma: There is decreased attenuation within the periventricular white matter, suggestive of chronic microvascular ischemic changes. Mass effect/midline shift: None. Brainstem/Cerebellum: Normal. Calvarium: Normal. Visualized Paranasal sinuses/Mastoids: There is trace mucosal thickening within the left ethmoid sinuses. Impression: No acute intracranial abnormality. Electronically signed by: Natasha Lynne MD Dictated: 02/06/2017 11:38 (Reference Range: not available) Problems Encounter Diagnosis No relevant problems exist. Additional Problems Abdominal Pain Comment:Problem resolved by [facility] Workflow upon Discharge, Status:Resolved.Altered Bowel Function Comment:Problem resolved by [facility] Workflow upon Discharge, Status:Resolved.Anxiety Comment:Problem resolved by [facility] Workflow upon Discharge, Status:Resolved.Diverticulitis Comment:Problem resolved by [facility] Workflow upon Discharge, Status:Resolved.Fall Risk Comment: Problem resolved by [facility] Workflow upon Discharge, Status:Resolved.Fall Risk Comment:Problem resolved by Soarian Workflow upon Discharge, Status: Resolved.Fall Risk Comment:Problem resolved by Soarian Workflow upon Discharge, Status:Resolved.Mobility Impairment Comment:Problem resolved by Soarian Workflow upon Discharge, Status:Resolved.Mobility Impairment Comment:Problem resolved by Soarian Workflow upon Discharge, Status:Resolved.Mobility Impairment Comment:Problem resolved by Soarian Workflow upon Discharge, Status: Resolved.Muscle Weakness Comment:Problem resolved by So[facility] Workflow upon Discharge, Status:Resolved.Skin Integrity Impairment Risk Comment:Problem resolved by [facility] Workflow upon Discharge, Status:Resolved. Encounters Encounter Diagnosis No relevant problems exist. Plan of Care Procedures No relevant procedures performed. Immunizations No immunizations administered or ordered. Hospital Course Hospital Discharge Instructions Allergies, Adverse Reactions, Alerts This section is guest experience representative of the current allergy information, at the time of the CCD generation. In the case of regeneration of the CCD, the allergy information may not reflect the state of known allergies at the time of the CCD' s subject visit. Sulfa (Sulfonamide Antibiotics) causes Swelling/Edema.Latex Allergy has not been assessed.IV Contrast Allergy has not been assessed.No Known Food Allergies. Medication Medication reconciliation has not been performed.
--- OUTSIDE RECORDS SUMMARY | 2017-04-02 10:32 | External Medical Summary | Summary of Care ---
:1935 Author Name Ilan WesleyChet Address Unavailable Unavailable , Care Team Providers [...] Refills: 0 Danielle Smith M.D. Start Active Carbidopa-Levodopa 25-100 MG Oral Tablet Take 1 tablet twice daily Quantity: 60 Refills: 5 Darian Ambrocio M.D. Start 22-Mar-2016 Active Cymbalta 30 MG Oral Capsule Delayed Release Particles TAKE 1 CAPSULE DAILY. Refills: 0 Darian Ambrocio M.D. Start 22-Mar-2016 Active Mirtazapine 15 MG Oral Tablet TAKE 1/2 TABLET AT BEDTIME. Refills: 0 Vikas Alves D.O. Start 24-Aug-2015 Active LORazepam 0.5 MG Oral Tablet TAKE 1/2 TABLET TWICE DAILY NEEDED. Refills: 0 Vikas Alves D.O. Start 24-Aug-2015 Active Probiotic Oral Capsule Refills: 0 Bruno Stokes M.D. Start 29-May-2015 Active Allergies and Adverse Reactions Name [...] on: 28-Apr-2012 Influenza on: 03-May-2013 Lot #: [id number] Pneumo (Prevnar) on: 03-May-2013 Lot #: [id number] Zoster (Zostavax) on: 25-May-2013 Fluzone High-Dose SUSP on: 01-May-2015 Lot #: [id number] Family History uncle Name Dates Details Family [...] smoker Vital Signs Date Test Result Details 04-Nov-2016 12:58 BP Systolic 130 mm[Hg] Status: Comments: Location: ; Position: Sitting BP Diastolic 79 mm[Hg] Status: Comments: Location: ; Position: Sitting Heart Rate 82 /min Status: Comments: Location: ; 28-Oct-2016 15:34 Weight 150 lb Status: Body Mass Index Calculated 27.44 kg/m2 Status: Body Surface Area Calculated 1.69 m2 Status: 28-Oct-2016 15:33 BP Systolic 118 mm[Hg] Status: BP Diastolic 83 mm[Hg] Status: Heart Rate 86 /min Status: Physical Findings 18 Status: Comments: Respiration Results Date Description Value Details 04-Nov-2016 12:40 CBC w/ Auto Diff 7150 WBC 4.9 K/uL Range: 4.5-11.0 RBC 3.70 mil/uL Range: 3.60-5.00 HGB 12.4 g/dL Range: 12.0-16.0 HCT 37.1 % Range: 36.0-48.0 MCV 100.3 fL (Above high threshold) Range: 80.0-99.0 MCH 33.6 pg (Above high threshold) Range: 27.3-32.5 MCHC 33.5 % Range: 32.0-36.0 RDW 14.5 % Range: 11.6-14.8 PLATELETS 229 K/uL Range: 150-400 MPV 7.2 fL Range: 6.0-11.0 %NEUTRO 73.0 % Range: 37.0-80.0 %LYMPHS 18.9 % Range: 13.0-50.0 %MONO 4.2 % Range: 0.0-12.0 %EOS 2.3 % Range: 0.0-7.0 %BASO 0.4 % Range: 0.0-2.5 %GRACE 1.2 % Range: 0.0-5.0 NEUTRO 3.6 K/uL Range: 2.0-6.9 LYMPHS 0.9 K/uL Range: 0.6-3.4 MONOS 0.2 K/uL Range: 0.0-0.9 EOS 0.1 K/uL Range: 0.0-0.7 BASO 0.0 K/uL Range: 0.0-0.2 13:27 RENAL PROFILE 1240 SODIUM 140 mmol/L Range: 133-144 POTASSIUM 4.3 mmol/L Range: 3.5-5.1 CHLORIDE 108 mmol/L Range: 98-110 CARBON DIOXIDE 21.7 mmol/L (Below low Range: 23.0-33.0 threshold) ANION GAP 10 mmol/L Range: 6-16 BUN 32 mg/dL (Above high Range: 7-18 threshold) CREATININE, SERUM 1.64 mg/dL (Above high Range: 0.55-1.02 threshold) EST GFR, 36 ml/min (Below low Range: >60 threshold) EST GFR, NON-AFR PRYDEINIG 30 ml/min (Below low Range: >60 threshold) Comments: EST GFR is reported in ml/min per 1.73 m2 of body surface area. ----- BUN:CREATININE RATIO 20 GLUCOSE 160 mg/dL (Above high Range: 70-100 threshold) ALBUMIN 3.3 g/dL (Below low Range: 3.4-5.0 threshold) PHOSPHORUS 2.6 mg/dL Range: 2.6-4.7 CALCIUM 9.1 mg/dL Range: 8.5-10.1 13:44 Urinalysis, Reflex to Microscopic or Culture PRN 8005 pH 6.5 Range: 5.0-7.5 SP GRAVITY 1.020 Range: 1.010-1.030 APPEARANCE CLEAR Range: Clear COLOR YELLOW Range: Straw-Yellow PROTEIN NEGATIVE mg/dL Range: Negative-Trace GLUCOSE NEGATIVE mg/dL Range: Negative KETONE NEGATIVE mg/dL Range: Negative BILIRUB NEGATIVE Range: Negative BLOOD NEGATIVE Range: Negative UROBIL 1.0 EU/dL Range: 0.2-1.0 NITRITE NEGATIVE Range: Negative LEUK NEGATIVE Range: Negative 13:45 PTH ( Parathyroid Hormone Intact) 3101 Intact Parathyroid Hormone 227 pg/mL (Above high threshold) Range: 14-72 Plan of Care Name Dates Details Planned Observations Planned Goals not documented Planned Encounters Appointment; Provider: Chet Talavera M.D. On 04-Feb-2017 13:45 Appointment; Provider: Darian Amborcio M.D. On 10:45 Appointment; Provider: Darian Emanuel M.D. On 28-Nov-2016 15:15 Interventions Provided Labs/Procedures/ImagingCBC w/ Auto Diff 7150; Done: Nov 04 2016 12:31PMPTH ( Parathyroid Hormone Intact) 3101; Done: Nov 04 2016 12:31PMRENAL PROFILE 1240; Done: Nov 04 2016 12:31PM Instructions Name Dates Details Instructions not documented Encounters Appointment; Darian Emanuel M.D. On 28-Oct-2016 Encounter [...]
--- OUTSIDE RECORDS SUMMARY | 2017-04-02 10:33 | External Medical Summary ---
:1935 Author Name GENERATED, SYSTEM Care Team Providers Name Role Phone DO ARIAS ALAN Primary Care Provider [phone] Reason For Visit Reason for Visit from 03/02/2016 9:09 PM:Pt Stated Reason for Adm : [id number] weakness Chief Complaint GENERALIZED WEAKNESS WORSENING Social History Social History from 03/05/2016 4:14 PM:Tobacco Use? : Never SmokerSocial History from 03/02/2016 9:09 PM:Tobacco Use? : Never Smoker Functional Status Functional Status from 03/05/2016 7:20 AM:LOC : AlertOriented To : Person,Place, Time,EventWeight Bearing Status : FullAssist Level : Partial# Assists : 1Functional Status from 03/04/2016 9:00 PM:LOC : AlertOriented To : Person,Place, Time,EventWeight Bearing Status : FullAssist Level : Independent# Assists : 1Functional Status from 03/04/2016 1:20 PM:Oriented To : Person,Place, TimeFunctional Status from 03/04/2016 11:05 AM:Oriented To : Person,Place,Time, EventFunctional Status from 03/04/2016 7:00 AM:LOC : AlertOriented To : Person, Place,Time,EventWeight Bearing Status : FullAssist Level : Partial# Assists : 2Functional Status from 03/03/2016 10:00 PM:# Assists : 1Functional Status from 8:28 PM:LOC : AlertOriented To : Person,Place,Time,EventWeight Bearing Status : FullAssist Level : Partial# Assists : 1Functional Status from 2015 4:49 PM:# Assists : 2Functional Status from 03/03/2016 3:50 PM:# Assists : 2Functional Status from 03/03/2016 7:15 AM:LOC : AlertOriented To : Person,Place, TimeWeight Bearing Status : FullAssist Level : Partial# Assists : 2Functional Status from 03/02/2016 9:09 PM:LOC : AlertOriented To : Person,Place,Time, EventWeight Bearing Status : FullAssist Level : Partial# Assists : 1 Vital Signs Hospital Vital Signs from 03/05/2016 2:28 PM:Height : 5/0 ft,inTemperature : 98.3 FPulse : 89Respirations : 16BP : 121/56Hospital Vital Signs from 03/05/2016 10:20 AM:Height : 5/0 ft,inTemperature : 95.8 FPulse : 71Respirations : 16BP : 160/73Hospital Vital Signs from 03/05/2016 7:19 AM:Height : 5/0 ft,inTemperature : 96.2 FPulse : 73Respirations : 16BP : 142/63Hospital Vital Signs from 2015 9:57 PM:Height : 5/0 ft,inTemperature : 95.7 FPulse : 87Respirations : 16BP : 114/56Hospital Vital Signs from 03/04/2016 7:19 PM:Height : 5/0 ft, inTemperature : 99.2 FPulse : 93Respirations : 16BP : 142/62Hospital Vital Signs from 03/04/2016 3:36 PM:Height : 5/0 ft,inHospital Vital Signs from 2015 2:21 PM:Height : 5/0 ft,inTemperature : 97.5 FPulse : 87Respirations : 16BP : 157/07Hospital Vital Signs from 03/04/2016 10:22 AM:Height : 5/0 ft, inTemperature : 97.7 FPulse : 70Respirations : 18BP : 121/70Hospital Vital Signs from 03/04/2016 7:31 AM:Height : 5/0 ft,inTemperature : 95.9 FPulse : 64Respirations : 18BP : 130/65Hospital Vital Signs from 03/03/2016 10:16 PM: Height : 5/0 ft,inTemperature : 98.8 FPulse : 74Respirations : 18BP : 122/ 57Hospital Vital Signs from 03/03/2016 8:02 PM:Height : 5/0 ft,inTemperature : 97.8 FPulse : 86Respirations : 18BP : 123/61Hospital Vital Signs from 03/03/2016 4:04 PM:Height : 5/0 ft,inHospital Vital Signs from 03/03/2016 3:23 PM:Height : 5 /0 ft,inTemperature : 96.2 FPulse : 76Respirations : 18BP : 115/62Hospital Vital Signs from 03/03/2016 10:24 AM:Height : 5/0 ft,inTemperature : 97.4 FPulse : 73Respirations : 18BP : 124/60Hospital Vital Signs from 03/03/2016 7:06 AM: Height : 5/0 ft,inTemperature : 96.3 FPulse : 69Respirations : 18BP : 132/ 87Hospital Vital Signs from 03/02/2016 9:09 PM:Weight : 70/ kgHeight : 5/0 ft, inHospital Vital Signs from 03/02/2016 8:41 PM:Weight : 70/ kgHeight : 5/0 ft, inTemperature : 98.2 FPulse : 78Respirations : 18BP : 163/72 Results DX Radiology from 03/04/2016 4:42 PMSPINE LUMBOSACRAL 4 VIEWSHistory: Weakness . Technique: 5 view lumbar spine performed. Priors: None. Findings: There is mild anterolisthesis of L5 upon S1. Upon extension, this is in better alignment. There is slight posterior subluxation of L2 upon 3 upon extension. The remaining vertebral bodies remain normal in alignment. The vertebral bodies are normal in height. There are mild degenerative changes. Impression: There is slight posterior subluxation of L2 upon 3 upon extension. There is mild anterolisthesis of L5 upon S1. Upon extension, the alignment is improved. Mild degenerative changes. Electronically signed by: Alan Buckner MD Dictated: 03/05/2016 09:27MRI from 03/04/2016 4:20 PMMRI LUMBAR SPINE W/O CONTRASTHistory: Weakness . Priors: None. Findings: Bones: The last intervertebral disc space is designated the L5/S1 level for the numbering purpose of this examination. The vertebral body heights are well maintained. There is minimal anterolisthesis of L5 upon S1. The signal characteristics are unremarkable. Cord: The conus tip ends at the T12-L1 level. It is of normal size and signal intensity. T12-L1: No disc herniations or bulges are present. L1-2: No disc herniations or bulges are present. L2-3: Mild broad-based posterior disc bulge with minimal narrowing of the lateral recesses and mild bilateral neural foraminal narrowing. L3-4: Minimal broad-based posterior disc bulge with slight narrowing of the lateral recesses and minimal bilateral foraminal narrowing. L4-5: Mild broad-based posterior disc bulge. Additionally, there is ligament flavum hypertrophy. These findings result in mild overall central canal stenosis in very minimal bilateral neural foraminal narrowing. L5-S1: Minimal broad-based posterior disc bulge as well as ligament flavum hypertrophy. These findings result in narrowing of the lateral recesses, left greater than right. Soft tissues: The visualized SI joints and sacrum are well maintained. Bilateral renal cysts are noted. Impression: Multilevel disc bulge and hypertrophic changes. These findings result in mild central canal narrowing at the L4-5 level and multilevel bilateral lateral recess narrowing as well as neural foraminal narrowing. Electronically signed by: Alan Buckner MD Dictated: 03/05/2016 09:15MRI from 03/04/2016 4:04 PMMRI THORACIC SPINE W/O CONTRASTHistory: Bilateral lower extremity weakness in mid to lower back pain. Priors: None. Findings: Bones: The vertebral body heights are well maintained. Alignment is satisfactory. There is minimal endplate edema involving the anterior aspects of the adjacent endplates at the T11-12 level. There is a Schmorl's node involving the superior endplate of T11. Cord: The thoracic cord is normal size and signal intensity. No intrinsic cord lesion is present. Discs: There is minimal disc bulge at T2-3 without significant central canal stenosis. Soft tissues: Bilateral renal cysts and hepatic cysts are noted. There is a large hiatal hernia. There is a small left pleural effusion. There is a 8 millimeter nodule right upper lobe. Chest CT is recommended. Impression: Minimal disc bulge at the T2-3 level without significant central canal stenosis. Bilateral renal cysts, hepatic cysts, hiatal hernia, small left pleural effusion, and 8 millimeter right upper lobe nodule. Electronically signed by: Alan Buckner MD Dictated: 03/05/2016 09:21 Problems Encounter Diagnosis Anxiety Comment:Problem resolved by [facility] Workflow upon Discharge, Status: Resolved.Fall Risk Comment:Problem resolved by [facility] Workflow upon Discharge, Status:Resolved.Mobility Impairment Comment:Problem resolved by [facility] Workflow upon Discharge, Status:Resolved.Muscle Weakness Comment:Problem resolved by So[facility] Workflow upon Discharge, Status:Resolved.Additional Problems Abdominal Pain Comment:Problem resolved by [facility] Workflow upon Discharge, Status:Resolved.Altered Bowel Function Comment:Problem resolved by So[facility] Workflow upon Discharge, Status:Resolved.Diverticulitis Comment:Problem resolved by So[facility] Workflow upon Discharge, Status:Resolved.Skin Integrity Impairment Risk Status:Active. Encounters Encounter Diagnosis Anxiety Comment:Problem resolved by So[facility] Workflow upon Discharge, Status: Resolved.Fall Risk Comment:Problem resolved by So[facility] Workflow upon Discharge, Status:Resolved.Mobility Impairment Comment:Problem resolved by So[facility] Workflow upon Discharge, Status:Resolved.Muscle Weakness Comment:Problem resolved by Soarian Workflow upon Discharge, Status:Resolved. Plan of Care Treatment Plan from 03/05/2016 3:52 PM:Care Management Note : Patient has been approved for acute inpatient rehab today according to Osbaldo Ziegler RN w/ [facility]. Awaiting for screen to be signed off by Minnie Perez RN director of [facility] et then patient can transfer to [facility]. Dr. Damon aware of POC et rehab orders completed including med rec. SANTANA Malin et RAMYA Estrella aware of POC. Dea to call report et assignment clerk to fax orders.Treatment Plan from 2015 3:43 PM:Care Management Note : Patient and son aware of acceptance to rehab with plan to transfer today. Patient's goal is to return home once discharged from rehab.Treatment Plan from 03/05/2016 12:30 PM:Care Management Note :Information Systems Coordinator reviewed POC. Patient currently being evaluated for acute inpatient rehab. Information Systems Coordinator spoke w/ SANTANA Roblero w/ [facility]. They are awaiting Dr. Latham's consult et his determination for POC before making a decision to accept patient to inpatient rehab. Information Systems Coordinator spoke w/ Dr. Latham via phone. He has not been able to review patient's MRI et other radiology films at this time but will be over to see patient this afternoon. Dr. Latham updated that acute inpatient rehab was waiting to make a decision re: acceptance until after Dr. Latham determines if there is a surgical need or not. Dr. Latham verbalized understanding. RAMYA Estrella updated on current POC et rehab eval.Treatment Plan from 03/04/2016 4:27 PM:Care Management Note : Patient' s son and daughter present in room. I met with them, along with patient, and discussed discharge plan. They are aware of rehab consult pending and of Dr. Latham consult.Will follow up with patient and family once rehab eval completed. rehab department manager, Brianne, also plans to make contact with them. Family voiced understanding and it is their preference for rehab as well.Treatment Plan from 4:07 PM:Care Management Note : talked with Dr Damon - PT/OT recommends patient will not be safe at home. Patient continues to have significant weakness if unknown reason. Dr Damon is thinking it is more a spinal stenosis than neuro. She consulted Dr Latham to evaluate. MRI pending. stay to exceed 2 midnights.meets inpatient status for further work up. see orders.Treatment Plan from 03/04/2016 11:05 AM:Care Management Note : Met with patient to discuss discharge plans. She lives at home alone and receives home health with [facility]. She states she is weak and does not feel she will be able to go home if discharged today. She is aware of PT/OT evals that were ordered. Patient does not have qualifying inpatient stay for skilled care with medicare and she was informed of this. Options for discharge plan discussed including home health, private pay caregiver support, private pay placement and rehab at hospital - if qualifies. Patient interested in hospital rehab. Will request eval and follow up.Treatment Plan from 03/04/2016 10:39 AM:Care Management Note :talked with Dr Damon - renal function worse today, BUN 34. Cr 1.81. Chl 110. Alb 2.8.PT/OT to evaluate. Dr Samano documents hyperparathyroid 2nd to CKD. check Vit D level.Await PT/OT recommendations. Dr Damon has yet to see this patient.Treatment Plan from 03/03/2016 1:30 PM:Care Management Note : Admission status: Outpatient observationPatient presented to ER for complaints of increasing weakness over the last 2 days prior to ER visit. Patient does complain of anxiety and SOA.labs: Chl 109. Bun 29. Cr 1.68. Bun Cr 17.3. Alb 3.0.CXR: Moderate-sized hiatal hernia without acute abnormality. Subtle nodular density in the right upper lobe.CT L Spine: Degenerative changes and multilevel disc bulge. There is a least a moderate degree of central canal stenosis at the L4-5 level and minimal stenosis at the L2-[address] T Spine: Mild degenerative changes without acute osseous abnormality or significant central canalstenosis. Partially visualized right lung nodule.Consulted Endocrine for hyperparathyroidism. Monitor vital signs with oximetry. Rafiq Hose and SCDs for DVT prevention. Up with assist. Follow labs. IVF at 50.meets outpatient observation status at this time. Procedures No relevant procedures performed. Immunizations No immunizations administered or ordered. Hospital Course Hospital Discharge Instructions How to care for yourself at home from 03/05/2016 4:14 PM:Discharge Activity : Activity as tolerated,May ShowerDischarge Diet : As before hospitalizationCall your doctor if: : Fever over 101 F or severe chills,Chest pain or other unexplained symptoms,Tingling or numbness develops,A sudden increase or decrease in weight,You have persistent or worsening symptoms,If you have Heart Failure and you gain 3 pounds within 1 week or your symptoms worsen. (Weigh at home tomorrow morning)Specific Discharge Teaching Instructions provided: : NoDischarge on Warfarin : No Allergies, Adverse Reactions, Alerts Sulfa (Sulfonamide Antibiotics) causes Swelling/Edema.Latex Allergy has not been assessed.IV Contrast Allergy has not been assessed.No Known Food Allergies. Medication It is the responsibility of the patient or patient medical center representative to confirm the list of medicationswith either the patient's personal care provider or the patient's follow-up care provider to ensure the patient has an appropriate list of medications to take at home. Discharge medicationsNew medicationsLORazepam 0.5 mg Tablet, Ordered By: SHAWN DAMON MD Directions: 1 tablet oral every twelve hours PRN ANXIETY DULoxetine (Cymbalta) 30 mg capsule,delayed release(DR/EC), Ordered By: SHAWN DAMON MD Directions: 1 capsule oral daily Continued medicationsaspirin (Aspirin Childrens) 81 mg tablet,chewable, Ordered By: SHAWN DAMON MD Directions: 1 tablet oral daily mirtazapine 15 mg Tablet, Ordered By: SHAWN DAMON MD Directions: 1 tablet oral daily at bedtime Stopped medicationsATivan 1/2 mg as needed up to twice a day escitalopram oxalate 20 mg Tablet Directions: 1 tablet oral daily at bedtime
--- OUTSIDE RECORDS SUMMARY | 2017-04-02 10:33 | External Medical Summary | Summary of Care ---
:1935 Author Name Vikas Alves D.O. Address [address], [place] [id number] Care Team Providers Name Role Phone Luis [...] Weakness (780.79, R53.1) Status: Active Dyspepsia (536.8, R10.13) Status: Active Fatigue (780.79, R53.83) Status: Active Pre-op exam (V72.84, Z01.818) Status: Active Depression (311, F32.9) Status: Active Anxiety disorder (300.00, F41.9) Status: Active Renal insufficiency (593.9, N28.9) Status: Active Colitis, acute (558.9, K52.9) Status: Active Medications Name Dates Details Aspirin 81 MG Oral Tablet TAKE 1 TABLET DAILY. Refills: 0 Danielle Smith M.D. Started ActiveMetoprolol Tartrate 25 MG Oral Tablet TAKE 0.5 TABLET Bedtime Quantity: 30 Refills: 3 Vikas Alves D.O. Started 06-Aug-2012 ActiveZostavax 66574 UNT/0.65ML Subcutaneous Solution Reconstituted INJECT 0.65 ML Once Quantity: 1 Refills: 0 Vikas Alves D.O. Started 25-May-2013 ActiveBusPIRone HCl - 15 MG Oral Tablet TAKE 0.5 TABLET 3 times daily Quantity: 45 Refills: 2 Vikas Alves D.O. Started 11-Oct-2014 ActiveALPRAZolam 0.5 MG Oral Tablet take 1/2-1 tablet every 8 hours as needed Quantity: 30 Refills: 1 Vikas Alves D.O. Started ActiveEscitalopram Oxalate 10 [...] Surgery CBC w/ Auto Diff 7150 Ordered: RENAL PROFILE 1240 Ordered: Immunization Name Dates Details Influenza Administered on:16-Apr-2011 Fluzone High-Dose Intramuscular Suspension Administered on:28-Apr-2012 Influenza Administered on:03-May-2013 Lot #: [id number] Pneumo (Prevnar) Administered on:03-May-2013 Lot #: [id number] Zoster (Zostavax) Administered on:25-May-2013 Family History Unknown Family Member Name Dates Details Family history of Diabetes Mellitus (V18.0) Comments: Family History Status: Active Social History Name Dates Details Smoking StatusNever smoker Vital Signs Date Test Result Details 10-Feb-2015 13:20 BP Systolic 112 mm[Hg] Status: BP Diastolic 66 mm[Hg] Status: Heart Rate 66 /min Status: Weight 143 lb Status: Body Mass Index Calculated 26.16 kg/m2 Status: Body Surface Area Calculated 1.66 m2 Status: 12:52 BP Systolic 96 mm[Hg] Status: BP Diastolic 64 mm[Hg] Status: Temperature 98.2 f Status: Heart Rate 78 /min Status: Weight 142 lb Status: Body Mass Index Calculated 25.97 kg/m2 Status: Body Surface Area Calculated 1.65 m2 Status: Results Date Description Value Details Urinalysis, reflex to 13:32 Micro and Culture ([facility]) 8016 pH 7.0 (Better) Range: 5.0-7.5 SP [...] Range: >60 low threshold) EST GFR, NON-AFR BULGARIAN 26 ml/min (Below Range: >60 low threshold) Comments: EST GFR is reported in ml/min per 1.73 m2 of body surface area. For -Bolivian, please multiple result by 1.2.----- GLUCOSE 98 [...] (Better) Range: 211-911 AMMONIA ([address]) Comments: Unbooked Ltd performed at: [facility], [address] [place] [address], [id number], Bridge Expert: Draian Thurman D.O., MPHQuest Collection Date/Time: 13:32 [id number] Results Received Date/Time: [id number] Reported Date/Time: [id number] AMMONIA (P) 11 umol/L (Better) Range: < OR=47 Comments: [IL]----- 09-Feb-2015 15:24 Comprehensive Metabolic Panel 1212 SODIUM 135 mmol/L Range: 133-144 (Better) POTASSIUM 5.2 mmol/L (Above Range: 3.5-5.1 high threshold) Comments: No hemolysis notedVerified by Repeat Analysis-- --- CHLORIDE 105 mmol/L Range: 98-110 (Better) CARBON DIOXIDE 24.4 mmol/L Range: 23.0-33.0 (Better) ANION GAP 6 mmol/L (Better) Range: 6-16 BUN 33 mg/dL (Above Range: 7-18 high threshold) CREATININE, SERUM 1.92 mg/dL (Above Range: 0.55-1.02 high threshold) Comments: Please note new reference ranges effective 11/26.----- BUN:CREATININE RATIO 17 (Better) EST GFR, 30 ml/min (Below Range: >60 low threshold) EST GFR, NON-AFR BULGARIAN 25 ml/min (Below Range: >60 low threshold) Comments: EST GFR is reported in ml/min per 1.73 m2 of body surface area. For -Bolivian, please multiple result by 1.2.----- GLUCOSE 109 mg/dL (Above Range: 70-100 high threshold) ALK PHOSPHATASE 66 U/L (Better) Range: 46-116 TOTAL BILIRUBIN 0.40 mg/dL Range: 0.20-1.00 (Better) AST 19 U/L (Better) Range: 8-35 ALT 27 U/L (Better) Range: 14-59 Comments: Please note new reference ranges. Effective 09/15/2014.----- ALBUMIN 3.6 g/dL (Better) Range: 3.4-5.0 TOTAL PROTEIN 6.2 g/dL (Below Range: 6.4-8.2 low threshold) A/G RATIO 1.4 units (Better) Range: 1.0-1.8 CALCIUM 9.3 mg/dL (Better) Range: 8.5-10.1 Plan of Care Planned Observations Name Dates Details Planned Goals not documented Goal Planned Encounters Appointment; Provider: Vikas Alves On 15-Mar-2015 11:30 Appointment; Provider: Enrique Sifuentes On 23-Feb-2015 09:00 Appointment; Provider: Vira Bower On 23-Feb-2015 08:30 Appointment; Provider: Chet Talavera On 20-Feb-2015 14:45 Appointment; Provider: Schedule Radiology On 11:00 Instructions Instructions not documented Encounters Appointment; Vikas Alves On 10-Feb-2015 Encounter Diagnosis: [...]
--- OUTSIDE RECORDS SUMMARY | 2017-04-02 10:33 | External Medical Summary | Summary of Care ---
:1935 Author Name Chet Talavera M.D. Address [address], [place] [id number] Care Team Providers Name Role Phone Luis Wesley, J December Unavailable Unavailable Vikas Alves D.O. Unavailable [...] Active Colon polyps (211.3, K63.5) Status: Active Medications Name Dates Details Aspirin 81 MG Oral Tablet TAKE 1 TABLET DAILY. Refills: 0 Danielle Smiht M.D. Started ActiveMetoprolol Tartrate 25 MG Oral [...] Administered on:28-Apr-2012 Influenza Administered on:03-May-2013 Lot #: [id number] Pneumo (Prevnar) Administered on:03-May-2013 Lot #: [id number] Zoster (Zostavax) Administered on:25-May-2013 Family History Unknown Family Member Name Dates Details Family history of Diabetes Mellitus (V18.0) Comments: Family History Status: Active Social History Name Dates Details Smoking StatusNever smoker Vital Signs Date Test Result Details No Known Vitals to report Results Date Description Value Details 23-Feb-2015 11:00 Colonoscopy Abnormal- Polyps (Better) Range: 0 Plan of Care Planned Observations Name Dates Details Planned Goals not documented Goal Planned Encounters Appointment; Provider: Vikas Alves On 15-Mar-2015 11:30 Appointment; Provider: Chet Talavera On 14-Mar-2015 15:30 Appointment; Provider: Maranda Radiology On 11:00 Instructions Instructions not documented Encounters Appointment; Enrique Sifuentes On 23-Feb-2015 Encounter Diagnosis: [...]
--- OUTSIDE RECORDS SUMMARY | 2017-04-02 10:33 | External Medical Summary | Summary of Care ---
:1935 Author Name Sanjuanita Owusu M.D. Address [address], [place] [id number] Care Team Providers Name Role Phone Luis [...] Diff 7150 Ordered:21-Mar-2015 RENAL PROFILE 1240 Ordered:21-Mar-2015 CT CHEST WITH IV CONTRAST Ordered:28-Apr-2015 Immunization Name Dates Details Influenza Administered on:16-Apr-2011 Fluzone High-Dose Intramuscular Suspension Administered on:28-Apr-2012 Influenza Administered on:03-May-2013 Lot #: [id number] Pneumo (Prevnar) Administered on:03-May-2013 Lot #: [id number] Zoster (Zostavax) Administered on:25-May-2013 Family History uncle Name Dates Details Family history of diabetes mellitus (V18.0, Z83.3) Status: Active Social History Name Dates Details Smoking StatusNever smoker Vital Signs Date Test Result Details 01-May-2015 14:13 BP Systolic 122 mm[Hg] Status: BP Diastolic 60 mm[Hg] Status: Heart Rate 84 /min Status: Weight 144 lb Status: Body Mass Index Calculated 26.34 kg/m2 Status: Body Surface Area Calculated 1.66 m2 Status: 26-Apr-2015 16:23 BP Systolic 127 mm[Hg] Status: [...] Chet Talavera On 17-Jul-2015 14:15 Appointment; Provider: Darian Ambrocio On 11-May-2015 11:45 Appointment; Provider: Schedule Radiology On 01-May-2015 15:30 Appointment; Provider: Schedule Radiology On 11:00 Instructions Instructions not documented Encounters Appointment; Sanjuanita Owusu On 01-May-2015 Encounter Diagnosis: Problem not documented 14:15 Appointment; Vikas Alves On 26-Apr-2015 Encounter Diagnosis: [...]
--- OUTSIDE RECORDS SUMMARY | 2017-04-02 10:33 | External Medical Summary | Summary of Care ---
:1935 Author Name Vikas Alves D.O. Address [address], [place] [id number] Care Team Providers Name Role Phone Luis [...] Diff 7150 Ordered:25-Jul-2015 RENAL PROFILE 1240 Ordered:25-Jul-2015 CT CHEST WITH IV CONTRAST Ordered:14-Jul-2015 Immunization Name Dates Details Influenza Administered on:16-Apr-2011 Fluzone High-Dose Intramuscular Suspension Administered on:28-Apr-2012 Influenza Administered on:03-May-2013 Lot #: [id number] Pneumo (Prevnar) Administered on:03-May-2013 Lot #: [id number] Zoster (Zostavax) Administered on:25-May-2013 Fluzone High-Dose Intramuscular Suspension Administered on:01-May-2015 Lot #: [id number] Family History uncle Name Dates Details Family history of diabetes mellitus (V18.0, Z83.3) Status: Active Mother Name Dates Details Family history of depression (V17.0, Z81.8) Status: Active Family history of malignant neoplasm (V16.9, Z80.9) Status: Active Brother Name Dates Details Family history of malignant neoplasm (V16.9, Z80.9) Status: Active Social History Name Dates Details Smoking StatusNever smoker Vital Signs Date Test Result Details 30-Aug-2015 13:49 BP Systolic 132 mm[Hg] Status: BP Diastolic 82 mm[Hg] Status: Heart Rate 84 /min Status: Respiration Rate 18 /min Status: Weight 147 lb Status: Body Mass Index Calculated 26.89 kg/m2 Status: Body Surface Area Calculated 1.68 m2 Status: 28-Aug-2015 15:06 BP Systolic 136 mm[Hg] Status: BP Diastolic 74 mm[Hg] Status: Heart Rate 76 /min Status: Weight 142 lb Status: O2 SAT 98 % Status: Body Mass Index Calculated 25.97 kg/m2 Status: Body Surface Area Calculated 1.65 m2 Status: 24-Aug-2015 11:26 BP Systolic 130 mm[Hg] Status: BP Diastolic 68 mm[Hg] Status: Heart Rate 78 /min Status: Weight 148 lb Status: Body Mass Index Calculated 27.07 kg/m2 Status: Body Surface Area Calculated 1.68 m2 Status: Results Date Description Value Details 23-Aug-2015 Urinalysis, reflex to Micro 16:57 and Culture ([facility]) 8016 pH 6.0 (Better) Range: 5.0-7.5 SP [...] Comprehensive Metabolic Panel 1212 SODIUM 141 mmol/L Range: 133-144 (Better) POTASSIUM 4.7 mmol/L Range: 3.5-5.1 (Better) CHLORIDE 107 mmol/L Range: 98-110 (Better) CARBON DIOXIDE 24.7 mmol/L Range: 23.0-33.0 (Better) ANION GAP 9 mmol/L (Better) Range: 6-16 BUN 37 mg/dL (Above Range: 7-18 high threshold) CREATININE, SERUM 1.78 mg/dL (Above Range: 0.55-1.02 high threshold) Comments: Please note new reference ranges effective 11/26.----- BUN:CREATININE RATIO 21 (Better) EST GFR, 33 ml/min (Below Range: >60 low threshold) EST GFR, NON-AFR [place] 27 ml/min (Below Range: >60 low threshold) Comments: EST GFR is reported in ml/min per 1.73 m2 of body surface area. For -Iraqi, please multiple result by 1.2.----- GLUCOSE 118 mg/dL (Above Range: 70-100 high threshold) ALK PHOSPHATASE 88 U/L (Better) Range: 46-116 TOTAL BILIRUBIN 0.20 mg/dL Range: 0.20-1.00 (Better) AST 14 U/L (Better) Range: 8-35 ALT 18 U/L (Better) Range: 14-59 Comments: Please note new reference ranges. Effective 09/15/2014.----- ALBUMIN 3.4 g/dL (Better) Range: 3.4-5.0 TOTAL PROTEIN 6.3 g/dL (Below Range: 6.4-8.2 low threshold) A/G RATIO 1.2 units (Better) Range: 1.0-1.8 CALCIUM 9.0 mg/dL (Better) Range: 8.5-10.1 17:48 FREE T4 3604 FREE T4 1.14 ng/dL Range: 0.80-1.67 (Better) 17:48 THYROID STIM. HORMONE 3602 THYROID STIM. HORMONE 0.494 uIU/mL Range: 0.550-4.780 (Below low Comments: PLEASE NOTE: Patients undergoing fuorescein dye angiography within the last 72 hours can produce falsely depressed TSH values with current methodology.No established reference ranges for infants and children <2 years of age----- threshold) 25-Aug-2015 Triiodothyronine ( T3) Comments: Testing performed at: [DA] [facility], [address] [place] [address] [address], [place], [address], Phone: , Table Worker: REY Barry MD 08:03 [id number] TRIIODOTHYRONINE (T3) 66 ng/dL (Below Range: 71-180 low threshold) 28-Aug-2015 CT CHEST WITHOUT IV CONTRAST Comments: Exam Date: 08/28/2015 13:45Dictation Date: 08/28/2015 14:13 14:13 XC CHEST (Better) Plan of Care Planned Observations Name Dates Details Planned Goals not documented Goal Planned Encounters Appointment; Provider: Chet Talavera On 14-Nov-2015 13:45 Appointment; Provider: Zev Samano On 13-Oct-2015 09:15 Appointment; Provider: Schedule Radiology On 28-Aug-2015 14:00 [...]
--- OUTSIDE RECORDS SUMMARY | 2017-04-02 10:33 | External Medical Summary | Summary of Care ---
:1935 Author Name Zev Samano Address [address] Unavailable [place], [place] [id number] Care Team Providers Name Role Phone Sylvain Smith M.D. Danielle Unavailable Unavailable Vikas Alves D.O. Unavailable Unavailable Saleemelizabeth Zev Unavailable Unavailable Arturo Stokes M.D. Unavailable Unavailable [...] TABLET DAILY. Refills: 0 Vikas Alves D.O. Start Active Probiotic Oral Capsule Refills: 0 Bruno Stokes M.D. Start 29-May-2015 Active LORazepam 0.5 MG Oral Tablet TAKE 1/2 TO 1 TABLET TWICE DAILY NEEDED. Refills: 0 Long D.Arturo.Vikas Start 24-Aug-2015 Active Remeron 15 MG Oral Tablet TAKE 1 TABLET AT BEDTIME. Refills: 0 Alves D.Arturo., Vikas Start 24-Aug-2015 Active Allergies and Adverse [...] on: 28-Apr-2012 Influenza on: 03-May-2013 Lot #: [id number] Pneumo (Prevnar) on: 03-May-2013 Lot #: [id number] Zoster (Zostavax) on: 25-May-2013 Fluzone High-Dose SUSP on: 01-May-2015 Lot #: [id number] Family History uncle Name Dates Details Family [...] BP Systolic 124 mm[Hg] Status: Comments: Location: LUE; Position: Sitting BP Diastolic 72 mm[Hg] Status: Comments: Location: LUE; Position: Sitting Heart Rate 70 /min Status: Comments: Location: ; Height 62 in Status: Weight 151.25 lb Status: Physical Findings 96 Status: Comments: O2 Saturation Body Mass Index Calculated 27.66 kg/m2 Status: Body Surface Area Calculated 1.7 m2 Status: 08:11 BP Systolic 122 mm[Hg] Status: Comments: Location: ; Position: BP Diastolic 70 mm[Hg] Status: Comments: Location: ; Position: Heart Rate 86 /min Status: Comments: Location: ; Weight 151.4 lb Status: Physical Findings 97 Status: Comments: O2 Saturation Body Mass Index Calculated 27.69 kg/m2 Status: [...] documented Encounters Appointment; Darian Ambrocio M.D. On Encounter Diagnosis: [...]
--- OUTSIDE RECORDS SUMMARY | 2017-04-02 10:33 | External Medical Summary | Summary of Care ---
:1935 Author Name Zev Samano Address [address] Unavailable [place], [place] [phone] Care Team Providers Name Role Phone Luis [...] 1 TABLET DAILY. Refills: 0 Long D.Arturo., Vikas Start Active Probiotic Oral Capsule Refills: 0 [...] on: 28-Apr-2012 Influenza on: 03-May-2013 Lot #: [id number] Pneumo (Prevnar) on: 03-May-2013 Lot #: [id number] Zoster (Zostavax) on: 25-May-2013 Fluzone High-Dose SUSP on: 01-May-2015 Lot #: [id number] Family History uncle Name Dates Details Family [...] FREE T4 3604 Comments: Fax results to [phone] FREE T4 1.15 ng/dL Range: 0.80-1.67 09:27 THYROID STIM. HORMONE 3602 Comments: Fax results to [phone] THYROID STIM. HORMONE 1.118 uIU/mL Range: 0.550-4.780 Comments: No established reference ranges for infants and children &lt ;2 years of age----- Plan of Care Name Dates Details Planned [...]
--- OUTSIDE RECORDS SUMMARY | 2017-04-02 10:33 | External Medical Summary | Summary of Care ---
:1935 Author Name Chet Talavera M.D. Address [address], [place] [id number] Care Team Providers Name Role Phone Luis [...] 0 Danielle Smith M.D. Started ActiveEscitalopram Oxalate 10 MG Oral Tablet TAKE 1 TABLET Daily In The Morning Pt instructed to start 01-16-2015 Quantity: 30 Refills: 2 Vikas Alves D.O. Started ActiveBusPIRone HCl - 15 MG Oral Tablet take 1 in the Am, 7.5 at noon, and 7.5 in the evening. Quantity: 45 Refills: 2 Vikas Alves D.O. Started 11-Oct-2014 ActiveRemeron 15 MG Oral Tablet TAKE 1/2 TABLET AT BEDTIME. Refills: 0 Vikas Alves D.O. Started 24-Aug-2015 ActiveLORazepam 0.5 MG Oral Tablet Take 1 tablet twice daily Refills: 0 Vikas Alves D.O. Started 24-Aug-2015 ActiveProbiotic Oral Capsule Refills: 0 Bruno Stokes [...] Administered on:28-Apr-2012 Influenza Administered on:03-May-2013 Lot #: [id number] Pneumo (Prevnar) Administered on:03-May-2013 Lot #: [id number] Zoster (Zostavax) Administered on:25-May-2013 Fluzone High-Dose Intramuscular Suspension Administered on:01-May-2015 Lot #: [id number] Family History uncle Name Dates Details Family [...] Planned Encounters Appointment; Provider: Chet Talavera On 10:45 Appointment; [...] Encounter Diagnosis: Problem not documented 11:30 Appointment; Ceht Talavera On 18-Jul-2015 Encounter Diagnosis: Problem not [...]
--- OUTSIDE RECORDS SUMMARY | 2017-04-02 10:34 | External Medical Summary ---
:1935 Author Name GENERATED, SYSTEM Care Team Providers Name Role Phone DO ARIAS ALAN Primary Care Provider [phone] Reason For Visit Chief Complaint CONFUSED, FALL Social History Functional Status Vital Signs Results Chemistry from 03/26/2017 7:23 [id number] MMOL/L (136-145 MMOL/L) POTASSIUM4.4 MMOL/L (3.5-5.1 MMOL/L) [id number] MMOL/L (98-107 MMOL/L) EMH999.2 MMOL/L (21.0-32.0 MMOL/L) *ANION GAP9.8 MMOL/L (8.0-16.0 MMOL/L) BUN41 MG/DL H (7-18 MG/DL) CREATININE2.33 MG/DL H (0.55-1.02 MG/DL) *BUN/CREATININE RATIO17.6 H (9.1-17.0 ) YHOHNVI42 MG/DL (65-99 MG/DL) *GFR EST NON AFR RHKBKNGN62 ML/MIN (Reference Range: not available) *GFR EST AFR AMER22 ML/MIN (Reference Range: not available) CALCIUM9.7 MG/DL (8.5-10.1 MG/DL) BILIRUBIN TOTAL0.50 MG/DL (0.20-1.00 MG/DL) TOTAL PROTEIN6.3 GM/DL L (6.4-8.2 GM/DL) ALBUMIN3.5 GM/DL (3.4-5.0 GM/DL) *GLOBULIN2.8 GM/DL (2.3-3.5 GM/DL) *A/G RATIO1.3 L (1.5-2.2 ) ALK PHOS73 U/L (46-116 U/L) ALT (SGPT)<6 U/L L (16-63 U/L) AST (SGOT)15 U/L (15-37 U/L) TROPONIN-I<0.017 NG/ML (0.000-0.056 NG/ML) TSH0.424 UIU/ML (0.340-4.820 UIU/ML)Hematology from 03/26/2017 7:05 PMWBC6.1 X10e3/UL (3.6-11.2 X10e3/UL) RBC3.89 X10e6/UL (3.63-4.92 X10e6/UL) EZDIZJUJOY48.7 G/DL (11.0-14.3 G/DL) ACTIPHYQQO80.3 % (31.2-41.9 %) *MCV98.6 FL H (79.0-98.0 FL) *MCH32.8 PG (27.0-33.0 PG) *MCHC33.2 G/DL (32.0-36.0 G/DL) *RDW14.2 % (12.3-17.0 %) *RDWSD49.4 H (37.1-47.8 ) MPGSIWZP015 X10e3/UL (159-386 X10e3/UL) *MPV8.6 FL (7.4-10.4 FL) AUTOMATED DIFFPERFORMED (Reference Range: not available) SEGS68.5 % (Reference Range: not available) *ZKYQRMZUWNV84.2 % (Reference Range: not available) *MONOCYTES9.1 % (Reference Range: not available) *EOSINOPHILS3.3 % (Reference Range: not available) *BASOPHILS0.9 % (Reference Range: not available) *ABSOLUTE NEUTROPHILS4.20 X10e3/UL (1.80-7.80 X10e3/UL) *ABSOLUTE LYMPHOCYTES1.10 X10e3/UL (1.00-3.00 X10e3/UL) *ABSOLUTE MONOCYTES0.60 X10e3/UL (0.30-1.00 X10e3/UL) *ABSOLUTE EOSINOPHILS0.20 X10e3/UL (0.00-0.50 X10e3/UL) *ABSOLUTE BASOPHILS0.10 X10e3/UL (0.00-0.20 X10e3/UL)Urinalysis from 03/26/2017 8 :50 PM*URINE COLORYELLOW (STRAW/YELL/DK YELL ) *URINE APPEARANCECLEAR (CLEAR ) URINE PH6.0 (5.0-8.0 ) URINE SPECIFIC GRAVITY1.010 (<=1.005->=1.030 ) *URINE GLUCOSENEGATIVE MG/DL (NEGATIVE MG/DL) *URINE BILIRUBINNEGATIVE (NEGATIVE ) *URINE KETONESTRACE MG/DL A (NEGATIVE MG/DL) *URINE BLOODNEGATIVE (NEGATIVE ) *URINE PROTEINNEGATIVE MG/DL (NEGATIVE MG/DL) *URINE UROBILINOGEN0.2 EU/DL (0.2-1.0 EU/DL) *URINE NITRITESNEGATIVE (NEGATIVE ) *URINE LEUKOCYTESNEGATIVE (NEGATIVE )Coagulation from 03/26/2017 7:23 PM* PROTHROMBIN TIME10.4 SECONDS (9.4-11.5 SECONDS) *INR0.97 (0.90-1.10 ) Problems Encounter Diagnosis No relevant problems exist. [...] Allergies, Adverse Reactions, Alerts This section is outbound sales representative of the current allergy information, at [...]
--- OUTSIDE RECORDS SUMMARY | 2017-04-02 10:34 | External Medical Summary | Summary of Care ---
:1935 Author Name Zev Samano Address [address] Unavailable [place], [place] [id number] Care Team Providers Name Role Phone Luis Wesley, Sylvain Santos Unavailable Unavailable Vikas Alves D.O. Unavailable Unavailable Selwyn Zev Unavailable Unavailable Misha Ambrocio M.D. Unavailable Unavailable [...] History of Section History of Cataract Surgery HEMOGRAM 7305 Ordered: 06-Nov-2016 PTH ( Parathyroid Hormone Intact) 3101 Ordered: 06-Nov-2016 RENAL PROFILE 1240 Ordered: 06-Nov-2016 VITAMIN B12 3606 Ordered: 29-Nov-2016 Iron Panel with TIBC 1612 Ordered: 29-Nov-2016 FREE T4 3604 Ordered: 29-Nov-2016 THYROID STIM. HORMONE 3602 Ordered: 29-Nov-2016 Vitamin D, 25 - Hydroxy 3111 Ordered: 29-Nov-2016 DEXA Ordered: 29-Nov-2016 Immunization Name Dates Details Influenza on: 16-Apr-2011 Fluzone High-Dose SUSP on: 28-Apr-2012 Influenza on: 03-May-2013 Lot #: [id number] Pneumo (Prevnar) on: 03-May-2013 Lot #: [id number] Zoster (Zostavax) on: 25-May-2013 Fluzone High-Dose SUSP on: 01-May-2015 Lot #: [id number] Family History uncle Name Dates Details Family [...] Body Surface Area Calculated 1.71 m2 Status: 04-Nov-2016 12:58 BP Systolic 130 mm[Hg] Status: Comments: Location: ; Position: BP Diastolic 79 mm[Hg] Status: Comments: Location: ; Position: Heart Rate 82 /min Status: Comments: Location: ; Results Date Description Value Details 04-Nov-2016 12:40 [...] low Range: >60 threshold) EST GFR, NON-AFR [place] 30 ml/min (Below low Range: >60 threshold) [...] Zev Samano On 12-Mar-2017 15:30 Appointment; Provider: Chet Talavera M.D. On 04-Feb-2017 13:45 Appointment; Provider: Darian Ambrocio M.D. On 10:45 Interventions Provided Labs/Procedures/ImagingDEXA; To be Done: 29 Nov 2016FREE T4 3604; To be Done: 29 Nov 2016Iron Panel with [facility] 1612; To be Done: 29 Nov 2016THYROID STIM. HORMONE 3602; To be Done: 29 Nov 2016VITAMIN B12 3606; To be Done: 29 Nov 2016Vitamin D, 25 - Hydroxy 3111; To be Done: 29 Nov 2016 Instructions Name Dates Details Instructions not documented Encounters Appointment; Chet Talavera M.D. On 04-Nov-2016 Encounter [...] Encounter Diagnosis: Problem not documented 15:15 Appointment; Darain Ambrocio M.D. On 22-Mar-2016 Encounter Diagnosis: Problem [...] Encounter Diagnosis: Problem not documented 07:45 Appointment; iVkas Alves D.O. On 26-Apr-2015 Encounter Diagnosis: Problem [...]
--- OUTSIDE RECORDS SUMMARY | 2017-04-02 10:34 | External Medical Summary | Summary of Care ---
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 Refills: 0 Danielle Smith M.D. Start Active Probiotic Oral Capsule Refills: 0 Bruno Stokes M.D. Start 29-May-2015 Active LORazepam 0.5 MG Oral Tablet TAKE 1/2 TO 1 TABLET TWICE DAILY NEEDED. Refills: 0 Vikas Alves D.O. Start 24-Aug-2015 Active Remeron 15 MG Oral Tablet TAKE 1 TABLET AT BEDTIME. Refills: 0 Vikas Alves D.O. Start 24-Aug-2015 Active Carbidopa-Levodopa 25-100 MG Oral Tablet take 1 tab twice daily Refills: 0 Darian Ambrocio M.D. Start 22-Mar-2016 Active Cymbalta [...] History of Section History of Cataract Surgery EPO PANEL 3699 Ordered: 27-Feb-2016 Immunization Name Dates Details Influenza on: 16-Apr-2011 Fluzone High-Dose SUSP on: 28-Apr-2012 Influenza on: 03-May-2013 Lot #: [id number] Pneumo (Prevnar) on: 03-May-2013 Lot #: [id number] Zoster (Zostavax) on: 25-May-2013 Fluzone High-Dose SUSP on: 01-May-2015 Lot #: [id number] Family History uncle Name Dates Details Family [...] smoker Vital Signs Date Test Result Details 22-Mar-2016 13:27 BP Systolic 120 mm[Hg] Status: Comments: Location: ; Position: BP Diastolic 72 mm[Hg] Status: Comments: Location: ; Position: Heart Rate 87 /min Status: Comments: Location: ; Weight 154.0 lb Status: Physical Findings 98 Status: Comments: O2 Saturation Body Mass Index Calculated 28.17 kg/m2 Status: Body Surface Area Calculated 1.71 m2 Status: 27-Feb-2016 14:49 BP Systolic 128 mm[Hg] Status: Comments: Location: LUE; Position: Sitting BP Diastolic 70 mm[Hg] Status: Comments: Location: LUE; Position: Sitting Heart Rate 92 /min Status: Comments: Location: ; Weight 149.5 lb Status: Body Mass Index Calculated 27.34 kg/m2 Status: Body Surface Area Calculated 1.69 m2 Status: Results Date Description Value Details 27-Feb-2016 15:49 CBC w/ Auto Diff 7150 WBC 5.8 K/uL Range: 4.5-11.0 RBC 4.09 mil/uL Range: 3.60-5.00 HGB 12.9 g/dL Range: 12.0-16.0 HCT 39.9 % Range: 36.0-48.0 MCV 97.4 fL Range: 80.0-99.0 MCH 31.4 pg Range: 27.3-32.5 MCHC 32.2 % Range: 32.0-36.0 RDW 15.4 % (Above high threshold) Range: 11.6-14.8 PLATELETS 256 K/uL Range: 150-400 MPV 7.2 fL Range: 6.0-11.0 %NEUTRO 79.6 % Range: 37.0-80.0 %LYMPHS 14.2 % Range: 13.0-50.0 %MONO 4.1 % Range: 0.0-12.0 %EOS 0.9 % Range: 0.0-7.0 %BASO 0.4 % Range: 0.0-2.5 %GRACE 1.0 % Range: 0.0-5.0 NEUTRO 4.6 K/uL Range: 2.0-6.9 LYMPHS 0.8 K/uL Range: 0.6-3.4 MONOS 0.2 K/uL Range: 0.0-0.9 EOS 0.1 K/uL Range: 0.0-0.7 BASO 0.0 K/uL Range: 0.0-0.2 16:11 RENAL PROFILE 1240 SODIUM 139 mmol/L Range: 133-144 POTASSIUM 4.6 mmol/L Range: 3.5-5.1 CHLORIDE 104 mmol/L Range: 98-110 CARBON DIOXIDE 23.3 mmol/L Range: 23.0-33.0 ANION GAP 12 mmol/L Range: 6-16 BUN 35 mg/dL (Above high Range: 7-18 threshold) CREATININE, SERUM 1.86 mg/dL (Above high Range: 0.55-1.02 threshold) Comments: Please note new reference ranges effective 2014. ----- EST GFR, 32 ml/min (Below low Range: >60 threshold) EST GFR, NON-AFR [place] 26 ml/min (Below low Range: >60 threshold) Comments: EST GFR is reported in ml/min per 1.73 m2 of body surface area. For -Jamaican, please multiple result by 1.2.----- BUN:CREATININE RATIO 19 GLUCOSE 96 mg/dL Range: 70-100 ALBUMIN 3.7 g/dL Range: 3.4-5.0 PHOSPHORUS 3.6 mg/dL Range: 2.6-4.7 Comments: Please note new reference ranges effective 2015.----- CALCIUM 9.0 mg/dL Range: 8.5-10.1 16:13 CREATINE KINASE 1300 CREATINE KINASE 54 U/L Range: 26-192 16:13 Iron Panel with TIBC 1612 IRON 61 ug/dL Range: 50-170 TOTAL IRON BIND. CAPACITY 357 ug/dL Range: 250-450 % IRON SATURATION 17 % (Below low threshold) Range: 20-55 16:25 PTH ( Parathyroid Hormone Intact) 3101 Intact Parathyroid Hormone 318 pg/mL (Above high threshold) Range: 14-72 16:25 VITAMIN B12 3606 VITAMIN B12 1208 pg/mL (Above high threshold) Range: 211-911 16:25 FOLATE 3608 FOLATE 19.6 ng/mL Range: 5.4-20.8 16:25 FERRITIN 3025 FERRITIN 14 ng/mL Range: 10-291 Plan of Care Name Dates Details Planned Observations Planned Goals not documented Planned Encounters Appointment; Provider: Darian Ambrocio M.D. On 15-Jul-2016 15:15 Appointment; Provider: Darian Ambrocio M.D. On 22-May-2016 16:15 Appointment; Provider: Chet Talavera M.D. On 29-Apr-2016 15:15 Instructions Name Dates Details Instructions not documented Encounters Appointment; Chet Talavera M.D. On 27-Feb-2016 Encounter [...]
--- OUTSIDE RECORDS SUMMARY | 2017-04-02 10:34 | External Medical Summary | Summary of Care ---
:1935 Author Name Vikas Alves D.O. Address [address], [place] [id number] Care Team Providers Name Role Phone Luis [...] Status: Active Dizziness (780.4, R42) Status: Active Vertigo (780.4, R42) Status: Active Medications Name Dates Details Aspirin [...] 5 Vikas Alves D.O. Started 05-Apr-2013 ActiveZostavax 62351 UNT/0.65ML Subcutaneous Solution Reconstituted INJECT 0.65 ML [...] 30 Refills: 1 Vikas Alves D.O. Started ActiveVenlafaxine HCl ER 37.5 MG Oral Capsule Extended Release 24 Hour TAKE 1 CAPSULE ONCE DAILY WITH FOOD(Pt to start on Friday) Quantity: 30 Refills: 3 Vikas Alves D.O. Started ActiveOndansetron HCl - 4 MG Oral Tablet TAKE ONE TABLET BY MOUTH EVERY 6 HOURS NEEDED FOR NAUSEA Quantity: 6 Refills: 0 Vikas Alves D.O. Started Active [...] Administered on:28-Apr-2012 Influenza Administered on:03-May-2013 Lot #: [id number] Pneumo (Prevnar) Administered on:03-May-2013 Lot #: [id number] Zoster (Zostavax) Administered on:25-May-2013 Family History Unknown Family Member Name Dates Details Family history of Diabetes Mellitus (V18.0) Comments: Family History Status: Active Social History Name Dates Details Smoking StatusNever smoker Vital Signs Date Test Result Details 13:35 BP Systolic 136 mm[Hg] Status: BP [...] Range: >60 low threshold) EST GFR, NON-AFR CITIZEN OF [place] 26 ml/min (Below Range: >60 low threshold) Comments: EST GFR is reported in ml/min per 1.73 m2 of body surface area. For -Estonian, please multiple result by 1.2.----- GLUCOSE 93 [...] VITAMIN B12 264 pg/mL Range: 211-911 (Better) Plan of Care Planned Observations Name Dates Details Planned Goals not documented Goal Planned Encounters Appointment; Provider: Vikas Alves On 13:45 Appointment; Provider: Vikas Alves On 13:15 Appointment; Provider: Schedule Radiology On 11:00 Instructions [...]
--- OUTSIDE RECORDS SUMMARY | 2017-04-02 10:34 | External Medical Summary | Summary of Care ---
:1935 Author Name Vikas Alves D.O. Address [address] [place], [place] [phone] Care Team Providers Name Role Phone Luis [...] 5 Vikas Alves D.O. Started 05-Apr-2013 ActiveZostavax 19996 UNT/0.65ML Subcutaneous Solution Reconstituted INJECT 0.65 ML [...] Administered on:28-Apr-2012 Influenza Administered on:03-May-2013 Lot #: [id number] Pneumo (Prevnar) Administered on:03-May-2013 Lot #: [id number] Zoster (Zostavax) Administered on:25-May-2013 Family History Unknown [...] Range: >60 low threshold) EST GFR, NON-AFR [place] 26 ml/min (Below Range: >60 low threshold) Comments: EST GFR is reported in ml/min per 1.73 m2 of body surface area. For -Kyrgyz, please multiple result by 1.2.----- GLUCOSE 93 [...]
--- OUTSIDE RECORDS SUMMARY | 2017-04-02 10:34 | External Medical Summary | Summary of Care ---
:1935 Author Name Arturo Stokes M.D. Address [address], [place] [id number] Care Team Providers Name Role Phone Luis [...] Administered on:28-Apr-2012 Influenza Administered on:03-May-2013 Lot #: [id number] Pneumo (Prevnar) Administered on:03-May-2013 Lot #: [id number] Zoster (Zostavax) Administered on:25-May-2013 Fluzone High-Dose Intramuscular Suspension Administered on:01-May-2015 Lot #: [id number] Family History uncle Name Dates Details Family [...]
--- OUTSIDE RECORDS SUMMARY | 2017-04-02 10:34 | External Medical Summary | Summary of Care ---
:1935 Author Name Emery PANDEYMarcelo R Darla Address [address], [place] [address] Care Team Providers Name Role Phone Luis [...] Administered on:28-Apr-2012 Influenza Administered on:03-May-2013 Lot #: [id number] Pneumo (Prevnar) Administered on:03-May-2013 Lot #: [id number] Zoster (Zostavax) Administered on:25-May-2013 Family History Unknown Family Member Name Dates Details Family history of Diabetes Mellitus (V18.0) Comments: Family History Status: Active Social History Name Dates Details Smoking StatusNever smoker Vital Signs Date Test Result Details 14-Mar-2015 14:49 BP Systolic 122 mm[Hg] Status: BP Diastolic 62 mm[Hg] Status: Heart Rate 84 /min Status: Weight 145 lb Status: Body Mass Index Calculated 26.52 kg/m2 Status: Body Surface Area Calculated 1.67 m2 Status: Results Date Description Value Details 23-Feb-2015 11:00 Colonoscopy Abnormal- Polyps Range: 0 (Better) 14-Mar-2015 14:45 CBC w/ Auto Diff 7150 WBC 5.0 K/uL (Better) Range: 4.5-11.0 RBC 3.64 mil/uL Range: 3.60-5.00 (Better) HGB 11.5 g/dL (Below Range: 12.0-16.0 low threshold) HCT 34.8 % (Below low Range: 36.0-48.0 threshold) MCV 95.4 fL (Better) Range: 80.0-99.0 MCH 31.6 pg (Better) Range: 27.3-32.5 MCHC 33.1 % (Better) Range: 32.0-36.0 RDW 13.5 % (Better) Range: 11.6-14.8 PLATELETS 233 K/uL (Better) Range: 150-400 MPV 7.9 fL (Better) Range: 6.0-11.0 %NEUTRO 70.1 % (Better) Range: 37.0-80.0 %LYMPHS 21.8 % (Better) Range: 13.0-50.0 %MONO 4.3 % (Better) Range: 0.0-12.0 %EOS 1.7 % (Better) Range: 0.0-7.0 %BASO 0.4 % (Better) Range: 0.0-2.5 %GRACE 1.7 % (Better) Range: 0.0-5.0 NEUTRO 3.5 K/uL (Better) Range: 2.0-6.9 LYMPHS 1.1 K/uL (Better) Range: 0.6-3.4 MONOS 0.2 K/uL (Better) Range: 0.0-0.9 EOS 0.1 K/uL (Better) Range: 0.0-0.7 BASO 0.0 K/uL (Better) Range: 0.0-0.2 15:09 RENAL PROFILE 1240 SODIUM 135 mmol/L (Better) Range: 133-144 POTASSIUM 4.8 mmol/L (Better) Range: 3.5-5.1 CHLORIDE 102 mmol/L (Better) Range: 98-110 CARBON DIOXIDE 26.8 mmol/L Range: 23.0-33.0 (Better) ANION GAP 6 mmol/L (Better) Range: 6-16 BUN 41 mg/dL (Above Range: 7-18 high threshold) CREATININE, SERUM 1.65 mg/dL (Above Range: 0.55-1.02 high threshold) Comments: Please note new reference ranges effective 11/26.----- EST GFR, 36 ml/min (Below Range: >60 low threshold) EST GFR, NON-AFR BELARUSIAN 30 ml/min (Below Range: >60 low threshold) Comments: EST GFR is reported in ml/min per 1.73 m2 of body surface area. For -Afghan, please multiple result by 1.2.----- BUN:CREATININE RATIO 25 (Better) GLUCOSE 91 mg/dL (Better) Range: 70-100 ALBUMIN 3.5 g/dL (Better) Range: 3.4-5.0 PHOSPHORUS 4.1 mg/dL (Better) Range: 2.6-4.7 Comments: Please note new reference ranges effective 2015.----- CALCIUM 8.5 mg/dL (Better) Range: 8.5-10.1 Plan of Care Planned Observations Name Dates Details Planned Goals not documented Goal Planned Encounters Appointment; Provider: Chet Talavera On 17-Jul-2015 14:15 Appointment; Provider: Vikas Alves On 22-Mar-2015 14:30 Appointment; Provider: Schedule Radiology On 11:00 Instructions Instructions not documented Encounters Appointment; Chet Talavera On 14-Mar-2015 Encounter Diagnosis: [...]
--- OUTSIDE RECORDS SUMMARY | 2017-04-02 10:35 | External Medical Summary | Summary of Care ---
:1935 Author Name Vikas Alves D.O. Address [address], [place] [phone] Care Team Providers Name Role Phone Luis [...] 6 Vikas Alves D.O. Started 03-May-2013 ActiveZostavax 88996 UNT/0.65ML Subcutaneous Solution Reconstituted INJECT 0.65 ML Once Quantity: 1 Refills: 0 Vikas Alves D.O. Started 25-May-2013 ActiveCiprofloxacin HCl - 500 MG Oral Tablet TAKE 1 TABLET TWICE DAILY. Quantity: 14 Refills: 0 Vikas Alves D.O. Started 11-Oct-2014 ActiveBusPIRone HCl - 15 MG Oral Tablet Take 1/3 Tablet PO BID X's 1 week thenTake 2/3 Tablet PO BID X's 1 week thenTake 1 tablet PO BID thereafter. Quantity: 60 Refills: 2 Vikas Alves D.O. Started 11-Oct-2014 Active Allergies and Adverse Reactions Name Dates [...] Administered on:28-Apr-2012 Influenza Administered on:03-May-2013 Lot #: [id number] Pneumo (Prevnar) Administered on:03-May-2013 Lot #: [id number] Zoster (Zostavax) Administered on:25-May-2013 Family History Unknown Family Member Name Dates Details Family history of Diabetes Mellitus (V18.0) Comments: Family History Status: Active Social History Name Dates Details Smoking StatusNever smoker Vital Signs Date Test Result Details No Known Vitals to report Results Date Description Value Details 11-Oct-2014 14:01 Urinalysis, reflex to Micro and Culture ([facility]) 8016 pH 6.0 (Better) Range: [...] 0.2-1.0 NITRITE Negative (Better) Range: Negative LEUKOCYTES 1+ (Abnormal) Range: Negative 15:15 Urine Microscopic UMIC WBC 0-2 /HPF (Better) Range: 0-5 HYAL CAST 0-2 /LPF (Better) Range: 0-2 MUCUS 1+ /LPF (Better) Range: Negative-2+ EPITH 0-2 /HPF (Better) Range: 0-10 19-Oct-2014 12:47 Urinalysis, reflex to Micro and Culture ([facility]) 8016 pH 6.0 (Better) Range: [...] Range: Negative LEUKOCYTES Negative (Better) Range: Negative Plan of Care Planned Observations Name Dates Details Planned Goals not documented Goal Instructions Instructions not documented Encounters Appointment; Vikas Alves On 11-Oct-2014 Encounter Diagnosis: Problem not documented 15:00 Appointment; Vikas Alves On 25-May-2013 Encounter Diagnosis: Problem not documented 15:45 Appointment; Vikas Alves On 03-May-2013 Encounter Diagnosis: Problem not documented 15:15 Appointment; Vikas Alves On 23-Nov-2012 Encounter Diagnosis: Problem not documented 16:15 Appointment; Kris Scott On 29-Oct-2012 Encounter Diagnosis: Problem not documented 14:15
--- OUTSIDE RECORDS SUMMARY | 2017-04-02 10:35 | External Medical Summary | Summary of Care ---
[...] on: 28-Apr-2012 Influenza on: 03-May-2013 Lot #: [id number] Pneumo (Prevnar) on: 03-May-2013 Lot #: [id number] Zoster (Zostavax) on: 25-May-2013 Fluzone High-Dose SUSP on: 01-May-2015 Lot #: [id number] Family History uncle Name Dates Details Family [...] Darian Ambrocio M.D. On 10:45 Interventions Provided Medication ChangesCarbidopa-Levodopa 25-100 MG Oral Tablet - Renew Instructions Name Dates Details Instructions not documented [...] Encounter Diagnosis: Problem not documented 13:30 Appointment; Ceht Talavera M.D. On 27-Feb-2016 Encounter Diagnosis: Problem [...]
--- OUTSIDE RECORDS SUMMARY | 2017-04-02 10:35 | External Medical Summary ---
:1935 Author Organization [facility] Address [address] [place] [address] Care Team Providers Name Role Phone Daniel Davies Unavailable Unavailable PROBLEMS Type Condition ICD9-CM Code SWR67-NC Onset Condition SNOMED Code Code Dates Status Problem Orthostatic I95.1 Active 28613345 hypotension Problem Renal insufficiency N28.9 Active 736535100 Problem Tremor R25.1 Active 08632908 Problem Chronic fatigue R53.82 Active 63632377 Problem Cervical M47.812 Active 426935275 spondylosis Problem Diverticulosis K57.90 Active 063548672 Problem CKD (chronic kidney N18.4 Active 098048549 disease), stage IV Problem Hiatal hernia K44.9 Active 92484123 Problem Non-rheumatic I34.0 Active 583082981 mitral regurgitation Problem Anxiety disorder F41.9 Active 754577755 Problem Depression F32.9 Active 149667968 Problem Urinary hesitancy R39.11 Active 2025806 Problem Dizziness R42 Active 329014623 ALLERGIES No Information SOCIAL HISTORY Never Assessed PLAN OF CARE VITAL SIGNS MEDICATIONS Medication Instructions Dosage Frequency Start End Date Duration Status Date Lorazepam 0.5 Orally Q up to 1/2 tablet Active MG BID/prn RESULTS No Results PROCEDURES No Known procedures IMMUNIZATIONS No Known Immunizations MEDICAL (GENERAL) HISTORY Type Description Date Medical History Anxiety disorder Medical History Dizziness Medical History Depression Medical History Renal insufficiency Medical History Tremor Medical History Orthostatic hypotension Medical History CKD (chronic kidney disease), stage IV Medical History Diverticulosis Medical History Cervical spondylosis Surgical History section 1959
--- OUTSIDE RECORDS SUMMARY | 2017-04-02 10:35 | External Medical Summary ---
:1935 Author Name GENERATED, SYSTEM Care Team Providers Name Role Phone DO ARIAS ALAN Primary Care Provider [phone] Reason For Visit Chief Complaint WEAKNESS Social History Functional Status Vital Signs Results Chemistry from 11/12/2016 1:54 PMCALCIUM, IONIZED (LAB)4.84 MG/DL (4.60-5.08 MG/DL )Chemistry from 11/12/2016 11:45 [id number] MMOL/L (136-145 MMOL/L) POTASSIUM3.9 MMOL/L (3.5-5.1 MMOL/L) LREXSZVF856 MMOL/L (98-107 MMOL/L) GAV113.8 MMOL/L (21.0-32.0 MMOL/L) *ANION GAP14.2 MMOL/L (8.0-16.0 MMOL/L) BUN31 MG/DL H (7-18 MG/DL) CREATININE1.71 MG/DL H (0.55-1.02 MG/DL) *BUN/CREATININE RATIO18.1 H (9.1-17.0 ) TYWUTQU78 MG/DL (65-99 MG/DL) *GFR EST NON AFR UCKNHLEK66 ML/MIN (Reference Range: not available) *GFR EST AFR AMER32 ML/MIN (Reference Range: not available) CALCIUM9.9 MG/DL (8.5-10.1 MG/DL) BILIRUBIN TOTAL0.70 MG/DL (0.20-1.00 MG/DL) TOTAL PROTEIN6.7 GM/DL (6.4-8.2 GM/DL) ALBUMIN3.9 GM/DL (3.4-5.0 GM/DL) *GLOBULIN2.8 GM/DL (2.3-3.5 GM/DL) *A/G RATIO1.4 MG/DL L (1.5-2.2 MG/DL) ALK PHOS75 U/L (46-116 U/L) ALT (SGPT)11 U/L L (16-63 U/L) AST (SGOT)14 U/L L (15-37 U/L) TROPONIN-I<0.017 NG/ML (0.000-0.056 NG/ML)Hematology from 11/12/2016 11:45 AMWBC5.3 X10e3/UL (3.6-11.2 X10e3/UL) RBC3.85 X10e6/UL (3.63-4.92 X10e6/UL) YPZNZYVICD72.5 G/DL (11.0-14.3 G/DL) WVRXTAEXWW84.2 % (31.2-41.9 %) *MCV96.9 FL (79.0-98.0 FL) *MCH32.6 PG (27.0-33.0 PG) *MCHC33.7 G/DL (32.0-36.0 G/DL) *RDW13.5 % (12.3-17.0 %) *RDWSD45.9 (37.1-47.8 ) VXLYMHNB713 X10e3/UL (159-386 X10e3/UL) *MPV8.7 FL (7.4-10.4 FL) AUTOMATED DIFFPERFORMED (Reference Range: not available) SEGS65.5 % (Reference Range: not available) *RDHTSZRSOSN86.5 % (Reference Range: not available) *MONOCYTES6.8 % (Reference Range: not available) *EOSINOPHILS2.4 % (Reference Range: not available) *BASOPHILS0.8 % (Reference Range: not available) *ABSOLUTE NEUTROPHILS3.50 X10e3/UL (1.80-7.80 X10e3/UL) *ABSOLUTE LYMPHOCYTES1.30 X10e3/UL (1.00-3.00 X10e3/UL) *ABSOLUTE MONOCYTES0.40 X10e3/UL (0.30-1.00 X10e3/UL) *ABSOLUTE EOSINOPHILS0.10 X10e3/UL (0.00-0.50 X10e3/UL) *ABSOLUTE BASOPHILS0.00 X10e3/UL (0.00-0.20 X10e3/UL)Urinalysis from 11/12/2016 11 :40 AM*URINE COLORYELLOW (STRAW/YELL/DK YELL ) *URINE APPEARANCECLEAR (CLEAR ) URINE PH7.5 (5.0-8.0 ) URINE SPECIFIC GRAVITY1.015 (<=1.005->=1.030 ) *URINE GLUCOSENEGATIVE MG/DL (NEGATIVE MG/DL) *URINE BILIRUBINNEGATIVE (NEGATIVE ) *URINE KETONESTRACE MG/DL A (NEGATIVE MG/DL) *URINE BLOODMODERATE A (NEGATIVE ) *URINE PROTEINNEGATIVE MG/DL (NEGATIVE MG/DL) *URINE UROBILINOGEN0.2 EU/DL (0.2-1.0 EU/DL) *URINE NITRITESNEGATIVE (NEGATIVE ) *URINE LEUKOCYTESNEGATIVE (NEGATIVE ) *MICROSCOPIC EXAM PERFORMEDPERFORMED (Reference Range: not available) *WBC URINE0-1 /HPF (0-5 /HPF) *RBC NCGBB69-15 /HPF A (0-1 /HPF) *MUCOUS THREADSFEW /LPF A (NEGATIVE /LPF)Microbiology from 11/12/2016 11:40 AMCULTURE URINE (Preliminary Result) Specimen Number: [id number] Sample Collection Date/Time: 11/12/2016 11:40 AM Specimen Source: Urine Catheter CULTURE URINE: No growth at 24 hrs DX Radiology from 11/12/2016 12:24 PMCHEST 1 VIEWHistory: general malaise, feels weak Priors: 03/02/2016 Findings: There is moderate hiatal hernia which is unchanged. There is no evidence of acute infiltrate, pneumothorax or pleural effusion. Heart size within normal limits per Impression: Moderate hiatal hernia. No evidence of acute cardiopulmonary process. Electronically signed by: James Robert MD Dictated: 11/12/2016 12:49 (Reference Range: not available) Problems Encounter Diagnosis [...] Allergies, Adverse Reactions, Alerts This section is sales representative sales manager of the current allergy information, at the [...]
--- OUTSIDE RECORDS SUMMARY | 2017-04-02 10:35 | External Medical Summary | Summary of Care ---
:1935 Author Name Vikas Alves D.O. Address [address], [place] [address] Care Team Providers Name Role Phone Luis [...] Status: Active Depression (311, F32.9) Status: Active Medications Name Dates Details Aspirin [...] 6 Vikas Alves D.O. Started 03-May-2013 ActiveZostavax 43921 UNT/0.65ML Subcutaneous Solution Reconstituted INJECT 0.65 ML [...] 30 Refills: 1 Vikas Alves D.O. Started Active Allergies and [...] Administered on:28-Apr-2012 Influenza Administered on:03-May-2013 Lot #: [id number] Pneumo (Prevnar) Administered on:03-May-2013 Lot #: [id number] Zoster (Zostavax) Administered on:25-May-2013 Family History Unknown [...] Range: >60 low threshold) EST GFR, NON-AFR [place] 26 ml/min (Below Range: >60 low threshold) Comments: EST GFR is reported in ml/min per 1.73 m2 of body surface area. For -Brazilian, please multiple result by 1.2.----- GLUCOSE 93 [...]
--- OUTSIDE RECORDS SUMMARY | 2017-04-02 10:35 | External Medical Summary | Summary of Care ---
:1935 Author Name Chet Talavera M.D. Address [address], [place] [address] Care Team Providers Name Role Phone Luis [...] Cataract Surgery CT CHEST WITH IV CONTRAST Ordered:14-Jul-2015 Immunization Name Dates Details Influenza Administered on:16-Apr-2011 Fluzone High-Dose Intramuscular Suspension Administered on:28-Apr-2012 Influenza Administered on:03-May-2013 Lot #: [id number] Pneumo (Prevnar) Administered on:03-May-2013 Lot #: [id number] Zoster (Zostavax) Administered on:25-May-2013 Fluzone High-Dose Intramuscular Suspension Administered on:01-May-2015 Lot #: [id number] Family History uncle Name Dates Details Family [...] Schedule Radiology On 28-Aug-2015 14:00 Appointment; Provider: Chet Talavera On 18-Jul-2015 14:15 Appointment; Provider: Schedule Radiology On 11-May-2015 [...]
--- OUTSIDE RECORDS SUMMARY | 2017-04-02 10:35 | External Medical Summary | Summary of Care ---
:1935 Author Name Vikas Alves D.O. Address [address], [place] [address] Care Team Providers Name Role Phone Luis [...] STIM. HORMONE 3602 Ordered:23-Aug-2015 Triiodothyronine ( T3) 699851 Ordered:23-Aug-2015 CT CHEST WITH IV CONTRAST Ordered:14-Jul-2015 Immunization Name Dates Details Influenza Administered on:16-Apr-2011 Fluzone High-Dose Intramuscular Suspension Administered on:28-Apr-2012 Influenza Administered on:03-May-2013 Lot #: [id number] Pneumo (Prevnar) Administered on:03-May-2013 Lot #: [id number] Zoster (Zostavax) Administered on:25-May-2013 Fluzone High-Dose Intramuscular Suspension Administered on:01-May-2015 Lot #: [id number] Family History uncle Name Dates Details Family [...]
--- OUTSIDE RECORDS SUMMARY | 2017-04-02 10:35 | External Medical Summary | Summary of Care ---
:1935 Author Name Vikas Alves D.O. Address [address], [place] [address] Care Team Providers Name Role Phone Luis [...] Active Renal insufficiency (593.9, N28.9) Status: Active Medications Name Dates Details Aspirin 81 MG Oral Tablet TAKE 1 TABLET DAILY. Refills: 0 Danielle Smith M.D. Started ActiveMetoprolol Tartrate 25 MG Oral Tablet TAKE 0.5 TABLET Twice daily Quantity: 60 Refills: 3 Vikas Alves D.O. Started 06-Aug-2012 ActiveZostavax 94242 UNT/0.65ML Subcutaneous Solution Reconstituted INJECT 0.65 ML [...] Diff 7150 Ordered: RENAL PROFILE 1240 Ordered: Comprehensive Metabolic Panel 1212 Ordered:08-Feb-2015 Immunization Name Dates Details Influenza Administered on:16-Apr-2011 Fluzone High-Dose Intramuscular Suspension Administered on:28-Apr-2012 Influenza Administered on:03-May-2013 Lot #: [id number] Pneumo (Prevnar) Administered on:03-May-2013 Lot #: [id number] Zoster (Zostavax) Administered on:25-May-2013 Family History Unknown [...] Urinalysis, reflex to 13:32 Micro and Culture ([facility]) 8016 pH 7.0 (Better) Range: [...] Range: >60 low threshold) EST GFR, NON-AFR ICELANDIC 26 ml/min (Below Range: >60 low threshold) Comments: EST GFR is reported in ml/min per 1.73 m2 of body surface area. For -Dominican, please multiple result by 1.2.----- GLUCOSE 98 [...] (Better) Range: 211-911 AMMONIA ([address]) Comments: JUNTA.CL performed at: [facility], [address] [place] [address], [address], Publicist: Darian Thurman D.O. MPHQuest Collection Date/Time: 13:32 [id number] Results Received Date/Time: [id number] Reported Date/Time: [id number] AMMONIA (P) 11 umol/L (Better) Range: < OR=47 Comments: [AL]----- Plan of Care Planned Observations Name Dates Details Planned Goals not documented Goal Planned Encounters Appointment; Provider: Enrique Sifuentes On 23-Feb-2015 09:00 Appointment; Provider: Vira Bower On 23-Feb-2015 08:30 Appointment; Provider: Chet Talavera On 20-Feb-2015 14:45 Appointment; Provider: Vikas Alves On 10-Feb-2015 13:30 Appointment; Provider: Schedule Radiology On 11:00 Instructions [...]
--- OUTSIDE RECORDS SUMMARY | 2017-04-02 10:35 | External Medical Summary | Summary of Care ---
:1935 Author Name Ilan Wesley, Chet Address Unavailable Unavailable , Care Team Providers Name Role Phone Luis Wesley, Sylvain Danielle Unavailable Unavailable Vikas Alves D.O. Unavailable Unavailable Ilan Wesley, Chet Unavailable Unavailable Misha Ambrocio M.D. 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 On 02-Aug-2016 14:45 Instructions Name Dates Details Instructions not documented Encounters Appointment; Darian Ambrocio M.D. On 06-May-2016 Encounter [...]
--- OUTSIDE RECORDS SUMMARY | 2017-04-02 10:36 | External Medical Summary | Summary of Care ---
:1935 Author Name Enrique Sifuentes M.D. Address [address], [place] [address] Care Team Providers Name Role Phone Luis [...] Administered on:28-Apr-2012 Influenza Administered on:03-May-2013 Lot #: [id number] Pneumo (Prevnar) Administered on:03-May-2013 Lot #: [id number] Zoster (Zostavax) Administered on:25-May-2013 Family History Unknown [...] Urinalysis, reflex to 13:32 Micro and Culture ([facility]) 8016 pH 7.0 (Better) Range: 5.0-7.5 [...] Range: >60 low threshold) EST GFR, NON-AFR SCOTTISH 26 ml/min (Below Range: >60 low threshold) Comments: EST GFR is reported in ml/min per 1.73 m2 of body surface area. For -Saudi Arabian, please multiple result by 1.2.----- GLUCOSE 98 [...] (Better) Range: 211-911 AMMONIA ([address]) Comments: [employer] performed at: [facility], [address] [place] [address], [address], Supply Chain Specialist: Darian Thurman D.O., MPHQuest Collection Date/Time: 13:32 [id number] Results Received Date/Time: [id number] Reported Date/Time: [id number] AMMONIA (P) 11 umol/L (Better) Range: < OR=47 Comments: [TRUE]----- 09-Feb-2015 15:24 Comprehensive Metabolic Panel 1212 SODIUM [...] Range: >60 low threshold) EST GFR, NON-AFR SCOTTISH 25 ml/min (Below Range: >60 low threshold) Comments: EST GFR is reported in ml/min per 1.73 m2 of body surface area. For -Saudi Arabian, please multiple result by 1.2.----- GLUCOSE 109 [...] Vikas Alves On 15-Mar-2015 11:30 Appointment; Provider: Maranda Radiology On 11:00 Instructions [...]
--- OUTSIDE RECORDS SUMMARY | 2017-04-02 10:36 | External Medical Summary | Summary of Care ---
[...] on: 28-Apr-2012 Influenza on: 03-May-2013 Lot #: [id number] Pneumo (Prevnar) on: 03-May-2013 Lot #: [id number] Zoster (Zostavax) on: 25-May-2013 Fluzone High-Dose SUSP on: 01-May-2015 Lot #: [id number] Family History uncle Name Dates Details Family [...] Diagnosis: Problem not documented 07:45 Appointment; Vikas lAves D.O. On 26-Apr-2015 Encounter Diagnosis: Problem not [...]
--- OUTSIDE RECORDS SUMMARY | 2017-04-02 10:36 | External Medical Summary | Summary of Care ---
:1935 Author Name Zev Samano Address [address] [place]available [place], [place] [address] Care Team Providers Name Role Phone Sylvain [...] 1 TABLET TWICE DAILY NEEDED. Refills: 0 Alevs D.O., Vikas Start 24-Aug-2015 Active Remeron 15 [...] on: 28-Apr-2012 Influenza on: 03-May-2013 Lot #: [id number] Pneumo (Prevnar) on: 03-May-2013 Lot #: [id number] Zoster (Zostavax) on: 25-May-2013 Fluzone High-Dose SUSP on: 01-May-2015 Lot #: [id number] Family History uncle Name Dates Details Family [...] FREE T4 3604 Comments: Fax results to [phone] FREE T4 1.15 ng/dL Range: 0.80-1.67 09:27 THYROID STIM. HORMONE 3602 Comments: Fax results to [phone] THYROID STIM. HORMONE 1.118 uIU/mL Range: 0.550-4.780 Comments: No established reference ranges for infants and children &lt ;2 years of age----- 05-Feb-2016 07:43 ACTH, Plasma [id number] Comments: Fax results to [phone] performed at: [DA] [facility], [address] [place] [address], [place], [address], , [employer]: REY Barry MD ACTH, PLASMA 21.4 pg/mL Range: 7.2-63.3 Comments: ACTH reference interval for samples collected between 7 and10 AM.----- 09:30 24 Hr Urine Creatinine 1137 24VOL 1575 mL URINE CREATININE 31.0 mg/dL Range: 30.0-125.0 24 HOUR URINE CREATININE 0.5 g/24Hrs (Below low threshold) Range: 0.6-1.8 15:04 Triiodothyronine ( T3) 253048 Comments: Items were attached to this order: Cortisol - AMFax results to [phone] performed at: [] [address], [address], Phone: , Laboratory Dir paula: Darian Lewis MDTesting performed at: [] [address], [address], , [employer]: REY Barry MDA courtesy copy of this report has been sent [phone]. TRIIODOTHYRONINE (T3) 83 ng/dL Range: 71-180 15:04 Thyroid Peroxidase Abs (TPO) 724978 Comments: Items were attached to this order: Cortisol - AMFax results to [phone] performed at: [] [address], [address], Phone: , Laboratory Dir paula: Darian Lewis MDTesting performed at: [DA] [address], [address], , [employer]: REY Barry MDA courtesy copy of this report has been sent [phone]. THYROID PEROXIDASE (TPO) AB 7 IU/mL Range: 0-34 15:04 Thyrotropin Receptor Ab, Serum Comments: Items were attached to this order: Cortisol - AMFax results to [phone] performed at: [] [address], [address], Phone: , Laboratory Dir [id number] paula: Darian Lewis MDTesting performed at: [DA] [address], [address], , [employer]: REY Barry MDA courtesy copy of this report has been sent [phone]. THYROTROPIN RECEPTOR AB, SERUM <0.51 IU/L Range: 0.00-1.75 15:04 Cortisol - AM [id number] Comments: Items were attached to this order: Cortisol - AMFax results to [phone] performed at: [BN] [address], [address], , Laboratory Dir paula: Darian Lewis MDTesting performed at: [DA] [address], [address], , [employer]: REY Barry MDA courtesy copy of this report has been sent [phone]. CORTISOL - AM 17.9 ug/dL Range: 6.2-19.4 Plan of Care Name Dates Details Planned [...]
--- OUTSIDE RECORDS SUMMARY | 2017-04-02 10:36 | External Medical Summary | Summary of Care ---
:1935 Author Name Emery KOCHJordanla Address [address], [place] [id number] Care Team Providers Name Role Phone Luis [...] Administered on:28-Apr-2012 Influenza Administered on:03-May-2013 Lot #: [id number] Pneumo (Prevnar) Administered on:03-May-2013 Lot #: [id number] Zoster (Zostavax) Administered on:25-May-2013 Fluzone High-Dose Intramuscular Suspension Administered on:01-May-2015 Lot #: [id number] Family History uncle Name Dates Details Family history of diabetes mellitus (V18.0, Z83.3) Status: Active Mother Name Dates Details Family history of depression (V17.0, Z81.8) Status: Active Family history of malignant neoplasm (V16.9, Z80.9) Status: Active Brother Name Dates Details Family history of malignant neoplasm (V16.9, Z80.9) Status: Active Social History Name Dates Details Smoking StatusNever smoker Vital Signs Date Test Result Details 18-Jul-2015 13:55 BP Systolic 115 mm[Hg] Status: BP Diastolic 60 mm[Hg] Status: Heart Rate 82 /min Status: Weight 144 lb Status: Body Mass Index Calculated 26.34 kg/m2 Status: Body Surface Area Calculated 1.66 m2 Status: Results Date Description Value Details 18-Jul-2015 13:26 CBC w/ Auto Diff 7150 WBC 6.0 K/uL (Better) Range: 4.5-11.0 RBC 3.82 mil/uL Range: 3.60-5.00 (Better) HGB 12.2 g/dL (Better) Range: 12.0-16.0 HCT 38.9 % (Better) Range: 36.0-48.0 MCV 101.9 fL (Above Range: 80.0-99.0 high threshold) MCH 31.8 pg (Better) Range: 27.3-32.5 MCHC 31.3 % (Below low Range: 32.0-36.0 threshold) RDW 13.3 % (Better) Range: 11.6-14.8 PLATELETS 267 K/uL (Better) Range: 150-400 MPV 7.8 fL (Better) Range: 6.0-11.0 %NEUTRO 75.6 % (Better) Range: 37.0-80.0 %LYMPHS 17.0 % (Better) Range: 13.0-50.0 %MONO 4.3 % (Better) Range: 0.0-12.0 %EOS 1.6 % (Better) Range: 0.0-7.0 %BASO 0.5 % (Better) Range: 0.0-2.5 %GRACE 1.0 % (Better) Range: 0.0-5.0 NEUTRO 4.6 K/uL (Better) Range: 2.0-6.9 LYMPHS 1.0 K/uL (Better) Range: 0.6-3.4 MONOS 0.3 K/uL (Better) Range: 0.0-0.9 EOS 0.1 K/uL (Better) Range: 0.0-0.7 BASO 0.0 K/uL (Better) Range: 0.0-0.2 13:46 RENAL PROFILE 1240 SODIUM 143 mmol/L Range: 133-144 (Better) POTASSIUM 5.2 mmol/L (Above Range: 3.5-5.1 high threshold) CHLORIDE 107 mmol/L Range: 98-110 (Better) CARBON DIOXIDE 23.2 mmol/L Range: 23.0-33.0 (Better) ANION GAP 13 mmol/L (Better) Range: 6-16 BUN 32 mg/dL (Above Range: 7-18 high threshold) CREATININE, SERUM 1.82 mg/dL (Above Range: 0.55-1.02 high threshold) Comments: Please note new reference ranges effective 11/26.----- EST GFR, 32 ml/min (Below Range: >60 low threshold) EST GFR, NON-AFR LEBANESE 27 ml/min (Below Range: >60 low threshold) Comments: EST GFR is reported in ml/min per 1.73 m2 of body surface area. For -Ku[place]i, please multiple result by 1.2.----- BUN:CREATININE RATIO 18 (Better) GLUCOSE 100 mg/dL (Better) Range: 70-100 ALBUMIN 3.5 g/dL (Better) Range: 3.4-5.0 PHOSPHORUS 3.9 mg/dL (Better) Range: 2.6-4.7 Comments: Please note new reference ranges effective 2015.----- CALCIUM 9.1 mg/dL (Better) Range: 8.5-10.1 Plan of Care [...]
--- OUTSIDE RECORDS SUMMARY | 2017-04-02 10:36 | External Medical Summary | Summary of Care ---
:1935 Author Organization [facility] Address [address] [place] [address] Phone Care Team Providers Name Role Phone Sylvain Smith M.D. December Unavailable Unavailable Reid Wesley, Gregor Unavailable Unavailable Vikas Alves D.O. Unavailable Unavailable [...] : Active Hyperparathyroidism (252.00, E21.3) Status: Active Medications Name Dates Details Aspirin [...] Ordered: 06-Nov-2016 RENAL PROFILE 1240 Ordered: 06-Nov-2016 Immunization Name Dates Details Influenza on: 16-Apr-2011 Fluzone High-Dose SUSP on: 28-Apr-2012 Influenza on: 03-May-2013 Lot #: [id number] Pneumo (Prevnar) on: 03-May-2013 Lot #: [id number] Zoster (Zostavax) on: 25-May-2013 Fluzone High-Dose SUSP on: 01-May-2015 Lot #: [id number] Family History uncle Name Dates Details Family [...] low Range: >60 threshold) EST GFR, NON-AFR LIBERIAN 30 ml/min (Below low Range: >60 threshold) [...]
--- OUTSIDE RECORDS SUMMARY | 2017-04-02 10:36 | External Medical Summary | Summary of Care ---
:1935 Author Name Vikas Alves D.O. Address [address] [place], [place] [id number] Care Team Providers Name Role Phone Luis [...] 6 Vikas Alves D.O. Started 03-May-2013 ActiveZostavax [id number] UNT/0.65ML Subcutaneous Solution Reconstituted INJECT 0.65 ML Once Quantity: 1 Refills: 0 Vikas Alevs D.O. Started 25-May-2013 ActiveCiprofloxacin HCl - 500 [...] Administered on:28-Apr-2012 Influenza Administered on:03-May-2013 Lot #: [id number] Pneumo (Prevnar) Administered on:03-May-2013 Lot #: [id number] Zoster (Zostavax) Administered on:25-May-2013 Family History Unknown [...]
--- OUTSIDE RECORDS SUMMARY | 2017-04-02 10:37 | External Medical Summary ---
:1935 Author Name GENERATED, SYSTEM Care Team Providers Name Role Phone DO ARIAS ALAN Primary Care Provider [phone] Reason For Visit Reason for Visit from 03/05/2016 5:44 PM:Pt Stated Reason for Adm : generalized weakness Chief Complaint BILATERAL LOWER EXTREMITY WEAKNESS,DIFFCULTY WALKING Social History Social History from 03/14/2016 10:20 AM:Tobacco Use? : Never SmokerSocial History from 03/05/2016 5:44 PM:Tobacco Use? : Never Smoker Functional Status Functional Status from 03/14/2016 8:24 AM:LOC : AlertOriented To : Person,Place, Time,EventWeight Bearing Status : FullAssist Level : Partial# Assists : IndependentFunctional Status from 03/13/2016 8:01 PM:LOC : AlertOriented To : Person,Place,Time,EventWeight Bearing Status : FullAssist Level : Partial# Assists : 1Functional Status from 03/13/2016 3:55 PM:# Assists : IndependentFunctional Status from 03/13/2016 7:41 AM:LOC : AlertOriented To : Person,Place,Time,EventWeight Bearing Status : FullAssist Level : Partial# Assists : 1Functional Status from 03/12/2016 8:07 PM:LOC : AlertOriented To : Person,Place,Time,EventWeight Bearing Status : FullAssist Level : Partial# Assists : 1Functional Status from 03/12/2016 9:27 AM:Weight Bearing Status : FullAssist Level : Partial# Assists : 1Functional Status from 03/11/2016 7:50 PM: LOC : AlertOriented To : Person,PlaceWeight Bearing Status : FullAssist Level : Partial# Assists : 1Functional Status from 03/11/2016 4:05 PM:# Assists : 1Functional Status from 03/11/2016 12:01 PM:# Assists : 1Functional Status from 03/11/2016 7:58 AM:LOC : AlertOriented To : Person,Place,TimeWeight Bearing Status : FullAssist Level : Dependent# Assists : 1Functional Status from 03/10/2016 7:36 PM:LOC : AlertOriented To : Person,Place,Time,EventWeight Bearing Status : FullAssist Level : Partial# Assists : 1Functional Status from 03/10/2016 12:00 PM: # Assists : 1Functional Status from 03/10/2016 7:49 AM:LOC : AlertOriented To : Person,PlaceWeight Bearing Status : FullAssist Level : Dependent# Assists : 1Functional Status from 03/09/2016 7:33 PM:LOC : AlertOriented To : Person,Place, Time,EventWeight Bearing Status : FullAssist Level : Partial# Assists : 1Functional Status from 03/09/2016 9:28 AM:LOC : AlertOriented To : Person,Place, Time,EventWeight Bearing Status : FullAssist Level : Partial# Assists : 1Functional Status from 03/09/2016 7:33 AM:# Assists : 1Functional Status from 03/08 7:35 PM:LOC : AlertOriented To : Person,Place,Time,EventWeight Bearing Status : FullAssist Level : Partial# Assists : 1Functional Status from 03/08/2016 9:26 AM:LOC : AlertOriented To : Person,Place,Time,EventWeight Bearing Status : FullAssist Level : Partial# Assists : 1Functional Status from 03/08/2016 8:40 AM: # Assists : 1Functional Status from 03/07/2016 7:40 PM:LOC : AlertOriented To : Person,Place,Time,EventWeight Bearing Status : FullAssist Level : Partial# Assists : 1Functional Status from 03/07/2016 4:00 PM:# Assists : 1Functional Status from 03/07/2016 11:58 AM:# Assists : 1Functional Status from 03/07/2016 8:14 AM:LOC : AlertOriented To : Person,Place,TimeWeight Bearing Status : FullAssist Level : Dependent# Assists : 1Functional Status from 03/07/2016 8:00 AM:# Assists : 1Functional Status from 03/06/2016 7:30 PM:LOC : AlertOriented To : Person, PlaceWeight Bearing Status : FullAssist Level : Partial# Assists : 1Functional Status from 03/06/2016 12:53 PM:# Assists : 1Functional Status from 03/06/2016 9: 32 AM:Oriented To : Person,Place,TimeFunctional Status from 03/06/2016 9:21 AM: LOC : AlertOriented To : Person,Place,TimeWeight Bearing Status : FullAssist Level : Dependent# Assists : 1Functional Status from 03/06/2016 8:35 AM:Oriented To : Person,Place,Time,EventFunctional Status from 03/05/2016 7:50 PM:LOC : AlertOriented To : Person,Place,Time,EventWeight Bearing Status : FullAssist Level : Partial# Assists : 1Functional Status from 03/05/2016 5:44 PM:LOC : AlertOriented To : Person,Place,Time,EventWeight Bearing Status : FullAssist Level : Partial# Assists : 1 Vital Signs Hospital Vital Signs from 03/14/2016 8:00 AM:Height : 5/0 ft,inTemperature : 96.4 FPulse : 75Respirations : 18BP : 149/77Hospital Vital Signs from 03/14/2016 4:29 AM:Weight : 69.4/ kgHeight : 5/0 ft,inHospital Vital Signs from 03/13/2016 8:09 PM :Height : 5/0 ft,inTemperature : 96.9 FPulse : 84Respirations : 20BP : 133/ 59Hospital Vital Signs from 03/13/2016 8:47 AM:Height : 5/0 ft,inHospital Vital Signs from 03/13/2016 7:13 AM:Height : 5/0 ft,inTemperature : 96.8 FPulse : 85Respirations : 18BP : 169/78Hospital Vital Signs from 03/13/2016 5:19 AM:Weight : 69.4/ kgHeight : 5/0 ft,inHospital Vital Signs from 03/12/2016 7:50 PM:Height : 5/0 ft,inTemperature : 97.3 FPulse : 85Respirations : 18BP : 127/60Hospital Vital Signs from 03/12/2016 7:20 AM:Height : 5/0 ft,inTemperature : 96.8 FPulse : 83Respirations : 20BP : 182/84Hospital Vital Signs from 03/12/2016 5:41 AM:Weight : 70.0/ kgHeight : 5/0 ft,inHospital Vital Signs from 03/11/2016 7:35 PM:Height : 5/0 ft,inTemperature : 97.1 FPulse : 101Respirations : 20BP : 165/74Hospital Vital Signs from 03/11/2016 7:30 AM:Height : 5/0 ft,inTemperature : 97.8 FPulse : 79Respirations : 18BP : 149/70Hospital Vital Signs from 03/11/2016 6:11 AM:Weight : 69.5/ kgHeight : 5/0 ft,inHospital Vital Signs from 03/10/2016 7:30 PM:Height : 5/0 ft,inTemperature : 97.4 FPulse : 89Respirations : 20BP : 127/59Hospital Vital Signs from 03/10/2016 7:30 AM:Height : 5/0 ft,inTemperature : 97.7 FPulse : 83Respirations : 18BP : 162/77Hospital Vital Signs from 03/10/2016 3:32 AM:Weight : 69.853/ kgHeight : 5/0 ft,inHospital Vital Signs from 03/09/2016 7:30 PM:Height : 5/0 ft,inTemperature : 98.1 FPulse : 90Respirations : 18BP : 130/60Hospital Vital Signs from 03/09/2016 7:30 AM:Height : 5/0 ft,inTemperature : 97.8 FPulse : 79Respirations : 18BP : 163/76Hospital Vital Signs from 03/09/2016 5:19 AM:Weight : 68.9/ kgHeight : 5/0 ft,inHospital Vital Signs from 03/08/2016 7:46 PM:Height : 5/0 ft,inTemperature : 98.1 FPulse : 88Respirations : 20BP : 111/54Hospital Vital Signs from 03/08/2016 1:51 PM:Height : 5/0 ft,inHospital Vital Signs from 03/08/2016 7:37 AM:Height : 5/0 ft,inTemperature : 98.0 FPulse : 74Respirations : 20BP : 147/73Hospital Vital Signs from 03/08/2016 5:31 AM:Weight : 68.2/ kgHeight : 5/0 ft,inHospital Vital Signs from 03/07/2016 8:02 PM:Height : 5/0 ft, inTemperature : 97.8 FPulse : 90Respirations : 20BP : 121/59Hospital Vital Signs from 03/07/2016 8:59 AM:Height : 5/0 ft,inTemperature : 97.6 FPulse : 83Respirations : 18BP : 116/65Hospital Vital Signs from 03/07/2016 8:10 AM:Height : 5/0 ft,inHospital Vital Signs from 03/07/2016 5:40 AM:Weight : 68.2/ kgHeight : 5/0 ft,inHospital Vital Signs from 03/06/2016 8:13 PM:Height : 5/0 ft, inTemperature : 97.1 FPulse : 85Respirations : 18BP : 133/63Hospital Vital Signs from 03/06/2016 8:41 AM:Height : 5/0 ft,inHospital Vital Signs from 2015 7:30 AM:Height : 5/0 ft,inTemperature : 97.7 FPulse : 66Respirations : 18BP : 164/72Hospital Vital Signs from 03/05/2016 6:28 PM:Height : 5/0 ft, inTemperature : 98.0 FPulse : 82Respirations : 20BP : 160/74Hospital Vital Signs from 03/05/2016 5:44 PM:Weight : 69.4/ kgHeight : 5/0 ft,in Results Chemistry from 03/13/2016 7:33 [id number] MMOL/L (136-145 MMOL/L) POTASSIUM4.7 MMOL/L (3.5-5.1 MMOL/L) [id number] MMOL/L H (98-107 MMOL/L) NHX270.5 MMOL/L (21.0-32.0 MMOL/L) *ANION GAP8.5 MMOL/L (8.0-16.0 MMOL/L) BUN41 MG/DL H (7-18 MG/DL) CREATININE1.64 MG/DL H (0.55-1.02 MG/DL) *BUN/CREATININE RATIO25.0 H (9.1-17.0 ) EZPDEUO98 MG/DL (65-99 MG/DL) *GFR EST NON AFR [id number] ML/MIN *GFR EST AFR AMER34 ML/MIN CALCIUM9.3 MG/DL (8.5-10.1 MG/DL)MRI from 03/06/2016 3:26 PMMRI CERVICAL SPINE W/ O CONTRASTHistory: Weakness, Hoffmans . Priors: None. Findings: Bones: The vertebral body heights are well maintained. Alignment is satisfactory. The signal characteristics are unremarkable. Cervical Cord: The craniovertebral junction is unremarkable. The cervical cord is normal size and signal intensity. No lesion is present. C2-3: No disc herniation or bulge is identified. C3-4: There is a small focal central disc protrusion which does not produce significant spinal stenosis. There is mild bilateral neural foraminal stenosis secondary to osteophytosis. C4-5: There is mild generalized disc bulging and osteophytosis with severe left neural foraminal stenosis and moderate right neural foraminal stenosis. No focal disc protrusion or central spinal stenosis identified C5-6: There is generalized disc bulging and osteophytosis producing moderate bilateral neural foraminal stenosis. No focal disc protrusion or central spinal stenosis identified C6-7: There is mild generalized disc bulging and osteophytosis producing moderate bilateral neural foraminal stenosis. No focal disc protrusion or central spinal stenosis identified. C7-T1: No disc herniation or bulge is identified. Soft Tissues: Unremarkable. Impression: Mild cervical spondylosis without focal disc protrusion or central spinal stenosis. There is moderate to severe bilateral neural foraminal stenosis at the C4-5 C5-6 and C6-7 levels as described above. Electronically signed by: James Robert MD Dictated: 03/06/2016 16:04 Problems Encounter Diagnosis Fall Risk Status:Active.Mobility Impairment Status:Active.Skin Integrity Impairment Risk Status:Active.Additional Problems Abdominal Pain Comment:Problem resolved by [facility] upon Discharge, Status:Resolved.Altered Bowel Function Comment:Problem resolved by [facility] upon Discharge, Status:Resolved.Anxiety Comment:Problem resolved by [facility] upon Discharge, Status:Resolved.Diverticulitis Comment:Problem resolved by [facility] upon Discharge, Status:Resolved.Muscle Weakness Comment:Problem resolved by [facility] upon Discharge, Status:Resolved. Encounters Encounter Diagnosis Fall Risk Status:Active.Mobility Impairment Status:Active.Skin Integrity Impairment Risk Status:Active. Plan of Care Follow-up Appointments from 03/14/2016 10:20 AM:#1 Office appointment: : make an appt with primary#2 Office appointment: : Lolly#2 Date/Time : 03/22/2016 1:30 PMAddress # 2 : [facility]: [address], [place]- or Treatment Plan from 03/14/2016 10:15 AM:Care Management Note : Referral made to [facility] for walker. They will deliver to patient's room. Faxedorders and arranged for [facility] home health to resume.Treatment Plan from 03/13/2016 3:15 PM:Care Management Note : Anticipating discharge tomorrow. Patient will need a FWW walker and is choosing to go through [facility]. Also wants to resume home health with [facility]. Patient's daughter - No -will be staying with patient through the weekend. Already has Meals on Wheels and will resume them. Family is also looking into getting a tax staff accountant for patient and already have some recommendations.Treatment Plan from 03/07/2016 1:45 PM:Care Management Note : Team meeting followed by family meeting with patient and daughter - No. Patient making good progress. Has gone 105' with supervision and is minimal assist with adl's. Basedon patient's numbers, anticipate discharge on 03-12-16. Will meet as team on that morning toreview how patient is doing and determine if ready for discharge.Treatment Plan from 03/06/2016 11:55 AM:Care Management Note : Met with patient. Patient lives by herself in [place] and her goal is to return home. She had just started receiving home health services through [facility] before coming to hospital and wants to resume with them. She has a walker and also gets MOW's. She has two sons who live very close and are able to help. SW to follow to assist with any discharge needs. Procedures No relevant procedures performed. Immunizations No immunizations administered or ordered. Hospital Course Hospital Discharge Instructions How to care for yourself at home from 03/14/2016 10:20 AM:Discharge Activity : Activity as tolerated,May Shower,Do not engage in sports, heavy work or heavy lifting until your physician gives permissionDo not drive or operate machinery for: : until cleared by physcianDischarge Diet : As before hospitalizationDischarge Diet: : Regular dietRemove dressing in: : no dressingsCall your doctor if: : Fever over 101 [...] the responsibility of the patient or patient safety representative to confirm the list of medicationswith either the patient's personal care provider or the patient's follow-up care provider to ensure the patient has an appropriate list of medications to take at home. Discharge medicationsNew medicationscholecalciferol (vitamin D3) (Vitamin D3) 1, 000 unit Tablet, Ordered By: VIJI PHILLIPS MD Directions: 2 tablet oral daily with breakfast carbidopa-levodopa 25 mg-100 mg Tablet, Ordered By: VIJI PHILLIPS MD Directions: 1 tablet oral twice a day Additional Instructions: PLEASE GIVE AM DOSE AT 0600 OR 0700. Continued medicationsaspirin (Aspirin Childrens) 81 mg tablet,chewable, Ordered By: VIJI PHILLIPS MD Directions: 1 tablet oral daily DULoxetine (Cymbalta) 30 mg capsule,delayed release(DR/EC), Ordered By: VIJI PHILLIPS MD Directions: 1 capsule oral daily LORazepam 0.5 mg Tablet, Ordered By: VIJI PHILLIPS MD Directions: 1 tablet oral every twelve hours PRN anxiety mirtazapine 15 mg Tablet, Ordered By: VIJI PHILLIPS MD Directions: 1 tablet oral daily at bedtime Stopped medicationsNone
--- OUTSIDE RECORDS SUMMARY | 2017-04-02 10:37 | External Medical Summary | Summary of Care ---
:1935 Author Name Sanjuanita Owusu M.D. Address [address], [place] [address] Care Team Providers Name Role Phone Luis [...] Active Lung mass (786.6, R91.8) Status: Active Syncope (780.2, R55) Status: Active Palpitations (785.1, R00.2) Status: Active Shortness of breath on exertion (786.05, R06.02) Status: Active Paroxysmal SVT (supraventricular tachycardia) (427.0, I47.1) Status: Active Medications Name Dates Details Aspirin [...] History of Section History of Cataract Surgery Cardiac Testing Precert Ordered:02-May-2015 CBC w/ Auto Diff 7150 Ordered:21-Mar-2015 RENAL PROFILE 1240 Ordered:21-Mar-2015 CT CHEST WITH IV CONTRAST Ordered:28-Apr-2015 ULTRASOUND CAROTID Ordered:02-May-2015 Immunization Name Dates Details Influenza Administered on:16-Apr-2011 Fluzone High-Dose Intramuscular Suspension Administered on:28-Apr-2012 Influenza Administered on:03-May-2013 Lot #: [id number] Pneumo (Prevnar) Administered on:03-May-2013 Lot #: [id number] Zoster (Zostavax) Administered on:25-May-2013 Family History uncle [...] Details 01-May-2015 15:49 CT CHEST WITHOUT IV CONTRAST Comments: Exam Date: 2014 15:25Dictation Date: 05/01/2015 15:49 XC CHEST (Better) Plan of Care Planned Observations Name Dates Details Planned Goals not documented Goal Planned Encounters Appointment; Provider: Chet Talavera On 17-Jul-2015 14:15 Appointment; Provider: Darian Ambrocio On 12-May-2015 10:45 Appointment; Provider: Schedule Radiology On 11-May-2015 11:00 [...] Encounter Diagnosis: Problem not documented 14:30 Appointment; Ceht Talavera On 14-Mar-2015 Encounter Diagnosis: Problem not [...]
--- OUTSIDE RECORDS SUMMARY | 2017-04-02 10:37 | External Medical Summary | Summary of Care ---
:1935 Author Name Vikas Alves D.O. Address [address], [place] [id number] Care Team Providers Name Role Phone Luis [...] 1240 Ordered:25-Jul-2015 CBC w/ Auto Diff 7150 Ordered:30-Aug-2015 Comprehensive Metabolic Panel 1212 Ordered:30-Aug-2015 CT CHEST WITH IV CONTRAST Ordered:14-Jul-2015 Immunization Name Dates Details Influenza Administered on:16-Apr-2011 Fluzone High-Dose Intramuscular Suspension Administered on:28-Apr-2012 Influenza Administered on:03-May-2013 Lot #: [id number] Pneumo (Prevnar) Administered on:03-May-2013 Lot #: [id number] Zoster (Zostavax) Administered on:25-May-2013 Fluzone High-Dose Intramuscular Suspension Administered on:01-May-2015 Lot #: [id number] Family History uncle Name Dates Details Family history of diabetes mellitus (V18.0, Z83.3) Status: Active Mother Name Dates Details Family history of depression (V17.0, Z81.8) Status: Active Family history of malignant neoplasm (V16.9, Z80.9) Status: Active Brother Name Dates Details Family history of malignant neoplasm (V16.9, Z80.9) Status: Active Social History Name Dates Details Smoking StatusNever smoker Vital Signs Date Test Result Details 28-Aug-2015 15:06 BP Systolic 136 mm[Hg] Status: [...] Urinalysis, reflex to Micro 16:57 and Culture ([facility]) 8016 pH 6.0 (Better) Range: 5.0-7.5 [...] Range: >60 low threshold) EST GFR, NON-AFR SURINAMESE 27 ml/min (Below Range: >60 low threshold) Comments: EST GFR is reported in ml/min per 1.73 m2 of body surface area. For -Malawian, please multiple result by 1.2.----- GLUCOSE 118 [...] and children <2 years of age----- threshold) -Aug-2015 Triiodothyronine ( T3) Comments: Testing performed at: [DA] [facility], [address] [address], [place], [address], Phone: , Collaborating Supervising Physician: REY Barry MD 08:03 [id number] TRIIODOTHYRONINE (T3) 66 ng/dL (Below Range: 71-180 low threshold) 28-Aug-2015 CT CHEST WITHOUT IV CONTRAST Comments: Exam Date: 08/28/2015 13:45Dictation Date: 08/28/2015 14:13 14:13 XC CHEST (Better) Plan of Care Planned Observations Name Dates Details Planned Goals not documented Goal Planned Encounters Appointment; Provider: Chet Talavera On 14-Nov-2015 13:45 Appointment; Provider: Zev Samano On 13-Oct-2015 09:15 Appointment; Provider: Vikas Alves On 30-Aug-2015 13:45 Appointment; Provider: Schedule Radiology On 28-Aug-2015 14:00 Appointment; Provider: Schedule Radiology On 11-May-2015 11:00 Appointment; Provider: Schedule Radiology On 01-May-2015 15:30 Appointment; Provider: Schedule Radiology On 11:00 Instructions Instructions not documented Encounters Appointment; Bruno Stokes On 28-Aug-2015 Encounter Diagnosis: [...]
--- OUTSIDE RECORDS SUMMARY | 2017-04-02 10:37 | External Medical Summary | Summary of Care ---
:1935 Author Name Zev Samano Address [address] [place] [place], [place] [phone] Care Team Providers Name Role Phone Sylvain [...] on: 28-Apr-2012 Influenza on: 03-May-2013 Lot #: [id number] Pneumo (Prevnar) on: 03-May-2013 Lot #: [id number] Zoster (Zostavax) on: 25-May-2013 Fluzone High-Dose SUSP on: 01-May-2015 Lot #: [id number] Family History uncle Name Dates Details Family [...] FREE T4 3604 Comments: Fax results to [phone] FREE T4 1.15 ng/dL Range: 0.80-1.67 09:27 THYROID STIM. HORMONE 3602 Comments: Fax results to [phone] THYROID STIM. HORMONE 1.118 uIU/mL Range: 0.550-4.780 Comments: No established reference ranges for infants and children &lt ;2 years of age----- 05-Feb-2016 07:43 ACTH, Plasma [id number] Comments: Fax results to [phone] performed at: [DA] [facility], [address] [place] [address], [place], [address], , Facility Attendant: REY Barry MD ACTH, PLASMA 21.4 pg/mL Range: 7.2-63.3 Comments: ACTH reference interval for samples collected between 7 and10 AM.----- 09:30 24 Hr Urine Creatinine 1137 24VOL 1575 mL URINE CREATININE 31.0 mg/dL Range: 30.0-125.0 24 HOUR URINE CREATININE 0.5 g/24Hrs (Below low threshold) Range: 0.6-1.8 Plan of Care Name Dates Details Planned [...]
--- OUTSIDE RECORDS SUMMARY | 2017-04-02 10:37 | External Medical Summary | Summary of Care ---
:1935 Author Name Vikas Alves D.O. Address [address], [place] [id number] Care Team Providers Name Role Phone Luis [...] Administered on:28-Apr-2012 Influenza Administered on:03-May-2013 Lot #: [id number] Pneumo (Prevnar) Administered on:03-May-2013 Lot #: [id number] Zoster (Zostavax) Administered on:25-May-2013 Family History Unknown [...] Range: >60 low threshold) EST GFR, NON-AFR [place] 30 ml/min (Below Range: >60 low threshold) Comments: EST GFR is reported in ml/min per 1.73 m2 of body surface area. For -Macedonian, please multiple result by 1.2.----- BUN:CREATININE RATIO [...] Chet Talavera On 17-Jul-2015 14:15 Appointment; Provider: [facility] On 11:00 Instructions Instructions not documented Encounters Appointment; Vikas Alves On 22-Mar-2015 Encounter Diagnosis: [...]
--- OUTSIDE RECORDS SUMMARY | 2017-04-02 10:37 | External Medical Summary | Summary of Care ---
:1935 Author Name Zev Samano Address [address] Unavailable [place], [place] [id number] Care Team Providers Name Role Phone Luis [...] 0 Bruno Stokes M.D. Start 29-May-2015 Active Carbidopa-Levodopa 25-100 MG Oral Tablet Take [...] 0 Vikas Alves D.O. Start 24-Aug-2015 Active Allergies and Adverse Reactions [...] on: 28-Apr-2012 Influenza on: 03-May-2013 Lot #: [id number] Pneumo (Prevnar) on: 03-May-2013 Lot #: [id number] Zoster (Zostavax) on: 25-May-2013 Fluzone High-Dose SUSP on: 01-May-2015 Lot #: [id number] Family History uncle Name Dates Details Family [...] low Range: >60 threshold) EST GFR, NON-AFR UKRAINIAN 30 ml/min (Below low Range: >60 threshold) [...] 227 pg/mL (Above high threshold) Range: 14-72 29-Nov-2016 16:10 Iron Panel with TIBC 1612 [...] VITAMIN D, 25-HYDROXY 31 ng/mL Range: 30-100 Plan of Care Name Dates Details Planned Observations Planned Goals not documented Planned Encounters Appointment; Provider: Zev Samano On 12-Mar-2017 15:30 Appointment; Provider: [facility] On 01-Mar-2017 15:00 Appointment; Provider: Chet [...] Diagnosis: Problem not documented 10:45 Appointment; Sanjuanita Owuus M.D. On 01-May-2015 Encounter Diagnosis: Problem not [...]
--- OUTSIDE RECORDS SUMMARY | 2017-04-02 10:37 | External Medical Summary ---
:1935 Author Name GENERATED, SYSTEM Care Team Providers Name Role Phone DO ARIAS ALAN Primary Care Provider [phone] Reason For Visit Chief Complaint FEELS BAD Social History Functional Status Vital Signs Results Chemistry from 08/02/2015 10:41 [id number] MMOL/L (136-145 MMOL/L) POTASSIUM4.6 MMOL/L (3.5-5.1 MMOL/L) KRTMLTVY466 MMOL/L (98-107 MMOL/L) NWN939.2 MMOL/L (21.0-32.0 MMOL/L) *ANION GAP8.8 MMOL/L (8.0-16.0 MMOL/L) BUN49 MG/DL H (7-18 MG/DL) CREATININE2.29 MG/DL H (0.55-1.02 MG/DL) *BUN/CREATININE RATIO21.4 H (9.1-17.0 ) NVKPYJO385 MG/DL H (65-99 MG/DL) *GFR EST NON AFR CQYVMPOJ40 ML/MIN *GFRA EST AFR AMER23 ML/MIN CALCIUM9.1 MG/DL (8.5-10.1 MG/DL) BILIRUBIN TOTAL0.24 MG/DL (0.20-1.00 MG/DL) TOTAL PROTEIN6.0 GM/DL L (6.4-8.2 GM/DL) ALBUMIN3.5 GM/DL (3.4-5.0 GM/DL) *GLOBULIN2.5 GM/DL (2.3-3.5 GM/DL) *A/G RATIO1.4 MG/DL L (1.5-2.2 MG/DL) ALK PHOS69 U/L (46-116 U/L) ALT (SGPT)21 U/L (16-63 U/L) AST (SGOT)20 U/L (15-37 U/L) MAGNESIUM2.0 MG/DL (1.8-2.4 MG/DL) PHOSPHORUS3.5 MG/DL (2.6-4.7 MG/DL) B-TYPE NATRIURETIC LZGYFDV70 PG/ML (1-100 PG/ML) TSH0.18 UIU/ML L (0.34-4.82 UIU/ML)Hematology from 08/02/2015 10:41 AMWBC5.0 X10e3/UL (3.6-11.2 X10e3/UL) RBC3.67 X10e6/UL (3.63-4.92 X10e6/UL) ZTGSBJMOLI26.7 G/DL (11.0-14.3 G/DL) RJXQNQWLBI41.6 % (31.2-41.9 %) *MCV97.0 FL (79.0-98.0 FL) *MCH31.9 PG (27.0-33.0 PG) *MCHC32.9 G/DL (32.0-36.0 G/DL) *RDW13.9 % (12.3-17.0 %) *RDWSD46.8 (37.1-47.8 ) JWCCLQBR125 X10e3/UL (159-386 X10e3/UL) *MPV8.6 FL (7.4-10.4 FL) AUTOMATED DIFFPERFORMED SEGS63.0 % *YRCUJCKSMUD20.2 % *MONOCYTES7.3 % *EOSINOPHILS3.6 % *BASOPHILS0.9 % *ABSOLUTE NEUTROPHILS3.20 X10e3/UL (1.80-7.80 X10e3/UL) *ABSOLUTE LYMPHOCYTES1.30 X10e3/UL (1.00-3.00 X10e3/UL) *ABSOLUTE MONOCYTES0.40 X10e3/UL (0.30-1.00 X10e3/UL) *ABSOLUTE EOSINOPHILS0.20 X10e3/UL (0.00-0.50 X10e3/UL) *ABSOLUTE BASOPHILS0.00 X10e3/UL (0.00-0.20 X10e3/UL)Urinalysis from 08/02/2015 10:25 AM*URINE COLORYELLOW (STRAW/YELL/DK YELL ) *URINE APPEARANCECLEAR (CLEAR ) URINE PH6.0 (5.0-8.0 ) URINE SPECIFIC GRAVITY1.010 (<=1.005->=1.030 ) *URINE GLUCOSENEGATIVE MG/DL (NEGATIVE MG/DL) *URINE BILIRUBINNEGATIVE (NEGATIVE ) *URINE KETONESNEGATIVE MG/DL (NEGATIVE MG/DL) *URINE BLOODNEGATIVE (NEGATIVE ) *URINE PROTEINNEGATIVE MG/DL (NEGATIVE MG/DL) *URINE UROBILINOGEN0.2 EU/DL (0.2-1.0 EU/DL) *URINE NITRITESNEGATIVE (NEGATIVE ) *URINE LEUKOCYTESTRACE A (NEGATIVE ) *MICROSCOPIC EXAM PERFORMEDPERFORMED *WBC URINE1-5 /HPF (0-5 /HPF) *SQUAMOUS EP. CELLSMODERATE /LPF A (NEG-FEW /LPF) *TRANSITIONAL EP. CELLSFEW /LPF (NEG-FEW /LPF) *HYALINE CASTS1-5 /LPF A (0 /LPF)DX Radiology from 08/02/2015 10:45 AMCHEST 1 VIEWHistory: weakness Priors: Chest x-ray 04/24/2015 Findings: The heart size and pulmonary vasculature within normal limits. No consolidating infiltrates are identified. No significant pleural effusion or pneumothorax is seen. There is a moderate size hiatal hernia again noted. The previously noted ill-defined density within the right upper lobe appears smaller than on the previous examination and now measures 8 x 6 millimeters compared with 1.2 x 2.5 centimeters previously. Impression: No acute abnormality. Moderate hiatal hernia. Ill-defined density in the right upper lobe. This appears smaller than on the previous examination however follow-up CT chest is suggested for further evaluation if not previously performed. Electronically signed by: Natasha Lynne MD Dictated: 08/02/2015 12:12 Problems Encounter Diagnosis No relevant problems exist. Additional Problems Abdominal Pain Comment:Problem resolved by [facility] upon Discharge, Status:Resolved.Altered Bowel Function Comment:Problem resolved by [facility] upon Discharge, Status:Resolved.Diverticulitis Comment:Problem resolved by [facility] upon Discharge, Status:Resolved.Fall Risk Comment: Problem resolved by [facility] upon Discharge, Status:Resolved.Mobility Impairment Comment:Problem resolved by [facility] upon Discharge, Status: Resolved. Encounters Encounter Diagnosis No relevant problems exist. Plan of Care Procedures No relevant procedures performed. Immunizations No immunizations administered or ordered. Hospital Course Hospital Discharge Instructions Allergies, Adverse Reactions, Alerts Sulfa (Sulfonamide Antibiotics) causes Swelling/Edema.Latex Allergy has not been assessed.IV Contrast Allergy has not been assessed.No Known Food Allergies. Medication Medication reconciliation has not been performed.
--- OUTSIDE RECORDS SUMMARY | 2017-04-02 10:37 | External Medical Summary | Summary of Care ---
[...] TAKE 1 CAPSULE DAILY. Refills: 0 Darian Abmrocio M.D. Start 22-Mar-2016 Active Allergies and Adverse Reactions Name Dates Details Sulfa Drugs (Allergy) Status: Active Past Medical History Name Dates Details History of Cirrhosis (571.5, K74.60) Status: Resolved History of hypertension (V12.59, Z86.79) Status: Resolved History of polymyalgia rheumatica (V13.59, Z87.39) Status: Resolved Procedures Procedure Dates Details History of Section History of Cataract Surgery PTH ( Parathyroid Hormone Intact) 3101 Ordered: 17-Apr-2016 RENAL PROFILE 1240 Ordered: 17-Apr-2016 Immunization Name Dates Details Influenza on: 16-Apr-2011 Fluzone High-Dose SUSP on: 28-Apr-2012 Influenza on: 03-May-2013 Lot #: [id number] Pneumo (Prevnar) on: 03-May-2013 Lot #: [id number] Zoster (Zostavax) on: 25-May-2013 Fluzone High-Dose SUSP on: 01-May-2015 Lot #: [id number] Family History uncle Name Dates Details Family [...] smoker Vital Signs Date Test Result Details 06-May-2016 09:24 BP Systolic 120 mm[Hg] Status: Comments: Location: RUE; Position: Sitting BP Diastolic 70 mm[Hg] Status: Comments: Location: RUE; Position: Sitting Heart Rate 96 /min Status: Comments: Location: ; Weight 151.0 lb Status: Physical Findings 99 Status: Comments: O2 Saturation Body Mass Index Calculated 27.62 kg/m2 Status: Body Surface Area Calculated 1.7 m2 Status: Results Date Description Value Details Results not documented Plan of Care Name Dates Details Planned Observations Planned Goals not documented Planned Encounters Appointment; Provider: Darian Ambrocio M.D. On 02-Aug-2016 14:45 Appointment; Provider: Chet Talavera M.D. On 13-May-2016 14:30 Instructions Name Dates Details Instructions not documented Encounters Appointment; Chet Talavera M.D. On 29-Apr-2016 Encounter [...]
--- OUTSIDE RECORDS SUMMARY | 2017-04-02 10:38 | External Medical Summary | Summary of Care ---
:1935 Author Name Vikas Alves D.O. Address [address], [place] [id number] Care Team Providers Name Role Phone Luis [...] Blood in urine (599.70, R31.9) Status: Active Medications Name Dates Details Aspirin [...] 6 Vikas Alves D.O. Started 03-May-2013 ActiveZostavax 64483 UNT/0.65ML Subcutaneous Solution Reconstituted INJECT 0.65 ML Once Quantity: 1 Refills: 0 Vikas Alves.OHilton Started 25-May-2013 Active Allergies and Adverse Reactions Name Dates [...] Administered on:28-Apr-2012 Influenza Administered on:03-May-2013 Lot #: [id number] Pneumo (Prevnar) Administered on:03-May-2013 Lot #: [id number] Zoster (Zostavax) Administered on:25-May-2013 Family History Unknown [...] Planned Encounters Appointment; Provider: Vikas Alves On 11-Oct-2014 15:00 Instructions Instructions not documented Encounters Appointment; Vikas Alves On 25-May-2013 Encounter Diagnosis: Problem not documented 15:45 Appointment; Vikas Alves On 03-May-2013 Encounter Diagnosis: Problem not documented 15:15 Appointment; Vikas Alves On 23-Nov-2012 Encounter Diagnosis: Problem not documented 16:15 Appointment; Kris Scott On 29-Oct-2012 Encounter Diagnosis: Problem not documented 14:15
--- OUTSIDE RECORDS SUMMARY | 2017-04-02 10:38 | External Medical Summary | Summary of Care ---
:1935 Author Name Vikas Alves D.O. Address [address], [place] [id number] Care Team Providers Name Role Phone Luis [...] 6 Vikas Alves D.O. Started 03-May-2013 ActiveZostavax 88545 UNT/0.65ML Subcutaneous Solution Reconstituted INJECT 0.65 ML [...] Administered on:28-Apr-2012 Influenza Administered on:03-May-2013 Lot #: [id number] Pneumo (Prevnar) Administered on:03-May-2013 Lot #: [id number] Zoster (Zostavax) Administered on:25-May-2013 Family History Unknown Family Member Name Dates Details Family history of Diabetes Mellitus (V18.0) Comments: Family History Status: Active Social History Name Dates Details Smoking StatusNever smoker Vital Signs Date Test Result Details No Known Vitals to report Results Date Description Value Details 11-Oct-2014 14:01 Urinalysis, reflex to Micro and Culture ([facility]) 8016 pH 6.0 (Better) Range: 5.0-7.5 [...] Negative-2+ EPITH 0-2 /HPF (Better) Range: 0-10 Plan of Care Planned Observations Name Dates [...]
--- OUTSIDE RECORDS SUMMARY | 2017-04-02 10:38 | External Medical Summary | Summary of Care ---
:1935 Author Name Misha Ambrocio M.D. Address [address], [place] [address] Care Team Providers Name Role Phone Luis [...] Active Memory loss (780.93, R41.3) Status: Active Medications Name Dates Details Aspirin [...] of Cataract Surgery Cardiac Testing Precert Ordered:02-May-2015 FOLATE 3608 Ordered:12-May-2015 FREE T4 3604 Ordered:12-May-2015 THYROID STIM. HORMONE 3602 Ordered:12-May-2015 VITAMIN B12 3606 Ordered:12-May-2015 RENAL PROFILE 1240 Ordered:21-Mar-2015 CBC w/ Auto Diff 7150 Ordered:21-Mar-2015 CT CHEST WITH IV CONTRAST Ordered:28-Apr-2015 Immunization Name Dates Details Influenza Administered on:16-Apr-2011 Fluzone High-Dose Intramuscular Suspension Administered on:28-Apr-2012 Influenza Administered on:03-May-2013 Lot #: [id number] Pneumo (Prevnar) Administered on:03-May-2013 Lot #: [id number] Zoster (Zostavax) Administered on:25-May-2013 Fluzone High-Dose Intramuscular Suspension Administered on:01-May-2015 Lot #: [id number] Family History uncle Name Dates Details Family history of diabetes mellitus (V18.0, Z83.3) Status: Active Social History Name Dates Details Smoking StatusNever smoker Vital Signs Date Test Result Details 12-May-2015 10:48 BP Systolic 118 mm[Hg] Status: [...] 17-Jul-2015 14:15 Appointment; Provider: Vikas Alves On 29-May-2015 14:30 Appointment; Provider: [facility] On 11-May-2015 11:00 Appointment; Provider: [facility] On 01-May-2015 15:30 Appointment; Provider: [facility] On 11:00 Instructions Instructions not documented Encounters Appointment; Darian Ambrocio On 12-May-2015 Encounter Diagnosis: [...]
--- OUTSIDE RECORDS SUMMARY | 2017-04-02 10:38 | External Medical Summary ---
:1935 Author Organization [facility] Address [address] [place] [address] Care Team Providers Name Role Phone Daniel Davies Unavailable Unavailable PROBLEMS Type Condition ICD9-CM Code ANY18-ZW Onset Condition SNOMED Code Code Dates Status Problem Orthostatic I95.1 Active 31828810 hypotension Problem Renal insufficiency N28.9 Active 883896656 Problem Tremor R25.1 Active 78880294 Problem Chronic fatigue R53.82 Active 35639111 Problem Cervical M47.812 Active 993170971 spondylosis Problem Diverticulosis K57.90 Active 899611115 Problem CKD (chronic kidney N18.4 Active 156630643 disease), stage IV Problem Hiatal hernia K44.9 Active 69351590 Problem Non-rheumatic I34.0 Active 014689527 mitral regurgitation Problem Anxiety disorder F41.9 Active 493073696 Problem Depression F32.9 Active 798879898 Problem Urinary hesitancy R39.11 Active 8462694 Problem Dizziness R42 Active 048688033 ALLERGIES No Information SOCIAL HISTORY Never Assessed PLAN OF CARE VITAL SIGNS MEDICATIONS Medication Instructions Dosage Frequency Start End Duration Status Date Date Co Q 10 60 MG Orally Once a 1 capsule 24h Mar, 30 day(s) Active day with a meal 2016 Lorazepam 0.5 Orally Twice a 1 tablet 12h Active MG day Duloxetine HCl Orally Once a 1 capsule 24h Apr, Active 60 MG day 2016 Amoxicillin 500 Orally Once a 1 tablet Mar, Active MG day x 1 month 2017 RESULTS No Results PROCEDURES No Known procedures [...]
--- OUTSIDE RECORDS SUMMARY | 2017-04-02 10:38 | External Medical Summary | Summary of Care ---
:1935 Author Name Vikas Alves D.O. Address [address], [place] [phone] Care Team Providers Name Role Phone Luis [...] 6 Vikas Alves D.O. Started 03-May-2013 ActiveZostavax 26948 UNT/0.65ML Subcutaneous Solution Reconstituted INJECT 0.65 ML Once Quantity: 1 Refills: 0 Vkias Alves D.O. Started 25-May-2013 ActiveCiprofloxacin HCl - [...] Administered on:28-Apr-2012 Influenza Administered on:03-May-2013 Lot #: [id number] Pneumo (Prevnar) Administered on:03-May-2013 Lot #: [id number] Zoster (Zostavax) Administered on:25-May-2013 Family History Unknown [...] Range: >60 low threshold) EST GFR, NON-AFR AUSTRIAN 26 ml/min (Below Range: >60 low threshold) Comments: EST GFR is reported in ml/min per 1.73 m2 of body surface area. For -[place]orese, please multiple result by 1.2.----- GLUCOSE 93 [...]
--- OUTSIDE RECORDS SUMMARY | 2017-04-02 10:38 | External Medical Summary | Summary of Care ---
:1935 Author Name Vikas Alves D.O. Address [address], [place] [phone] Care Team Providers Name Role Phone Luis [...] 6 Vikas Alves D.O. Started 03-May-2013 ActiveZostavax 29416 UNT/0.65ML Subcutaneous Solution Reconstituted INJECT 0.65 ML [...] History of Section History of Cataract Surgery Urinalysis, Reflex to Microscopic or Culture PRN 8005 Ordered:11-Oct-2014 Immunization Name Dates Details Influenza Administered on:16-Apr-2011 Fluzone High-Dose Intramuscular Suspension Administered on:28-Apr-2012 Influenza Administered on:03-May-2013 Lot #: [id number] Pneumo (Prevnar) Administered on:03-May-2013 Lot #: [id number] Zoster (Zostavax) Administered on:25-May-2013 Family History Unknown [...]
--- OUTSIDE RECORDS SUMMARY | 2017-04-02 10:38 | External Medical Summary ---
:1935 Author Name GENERATED, SYSTEM Care Team Providers Name Role Phone DO ARIAS ALAN Primary Care Provider [phone] Reason For Visit Chief Complaint SOB, SPEECH AFFECTED Social History Functional Status Vital Signs Results Chemistry from 04/24/2015 1:16 [id number] MMOL/L (136-145 MMOL/L) POTASSIUM4.9 MMOL/L (3.5-5.1 MMOL/L) ZOCSXGWH439 MMOL/L H (98-107 MMOL/L) EUI103.5 MMOL/L (21.0-32.0 MMOL/L) *ANION GAP7.5 MMOL/L L (8.0-16.0 MMOL/L) BUN42 MG/DL H (7-18 MG/DL) CREATININE1.83 MG/DL H (0.55-1.02 MG/DL) *BUN/CREATININE RATIO23.0 H (9.1-17.0 ) JTNNHGG29 MG/DL (65-99 MG/DL) *GFR EST NON AFR ITNIZSSY61 ML/MIN *GFRA EST AFR AMER30 ML/MIN CALCIUM9.5 MG/DL (8.5-10.1 MG/DL) BILIRUBIN TOTAL0.42 MG/DL (0.20-1.00 MG/DL) TOTAL PROTEIN6.4 GM/DL (6.4-8.2 GM/DL) ALBUMIN3.6 GM/DL (3.4-5.0 GM/DL) *GLOBULIN2.8 GM/DL (2.3-3.5 GM/DL) *A/G RATIO1.3 MG/DL L (1.5-2.2 MG/DL) ALK PHOS73 U/L (46-116 U/L) ALT (SGPT)18 U/L (16-63 U/L) AST (SGOT)15 U/L (15-37 U/L) TROPONIN-I<0.04 (SEE BELOW ) B-TYPE NATRIURETIC IVKYRPX238 PG/ML H (1-100 PG/ML) TSH0.39 UIU/ML (0.34-4.82 UIU/ML)Hematology from 04/24/2015 1:16 PMWBC5.4 X10e3/ UL (3.6-11.2 X10e3/UL) RBC3.84 X10e6/UL (3.63-4.92 X10e6/UL) MURLNZZAUZ27.3 G/DL (11.0-14.3 G/DL) OAEPHAVIBP31.9 % (31.2-41.9 %) MCV98.7 FL H (79.0-98.0 FL) MCH32.0 PG (27.0-33.0 PG) MCHC32.5 G/DL (32.0-36.0 G/DL) RDW14.0 % (12.3-17.0 %) RDWSD47.7 (37.1-47.8 ) SVDVTZFB607 X10e3/UL (159-386 X10e3/UL) MPV8.7 FL (7.4-10.4 FL) AUTOMATED DIFFPERFORMED SEGS71.3 % GKFBHRBDMWJ53.6 % MONOCYTES6.0 % EOSINOPHILS1.2 % BASOPHILS0.9 % ABSOLUTE NEUTROPHILS3.90 X10e3/UL (1.80-7.80 X10e3/UL) ABSOLUTE LYMPHOCYTES1.10 X10e3/UL (1.00-3.00 X10e3/UL) ABSOLUTE MONOCYTES0.30 X10e3/UL (0.30-1.00 X10e3/UL) ABSOLUTE EOSINOPHILS0.10 X10e3/UL (0.00-0.50 X10e3/UL) ABSOLUTE BASOPHILS0.00 X10e3/UL (0.00-0.20 X10e3/UL)Urinalysis from 04/24/2015 1 :45 PM*URINE COLORYELLOW (STRAW/YELL/DK YELL ) *URINE APPEARANCECLEAR (CLEAR ) URINE PH7.0 (5.0-8.0 ) URINE SPECIFIC GRAVITY1.015 (<=1.005->=1.030 ) *URINE GLUCOSENEGATIVE MG/DL (NEGATIVE MG/DL) *URINE BILIRUBINNEGATIVE (NEGATIVE ) *URINE KETONESTRACE MG/DL A (NEGATIVE MG/DL) *URINE BLOODNEGATIVE (NEGATIVE ) *URINE PROTEINNEGATIVE MG/DL (NEGATIVE MG/DL) *URINE UROBILINOGEN0.2 EU/DL (0.2-1.0 EU/DL) *URINE NITRITESNEGATIVE (NEGATIVE ) *URINE LEUKOCYTESNEGATIVE (NEGATIVE )Coagulation from 04/24/2015 1:16 PM* PROTHROMBIN TIME10.1 SECONDS (9.4-11.5 SECONDS) *INR1.0 (0.9-1.1 ) PARTIAL THROMBOPLASTIN TIME22.4 SECONDS L (23.0-31.0 SECONDS)DX Radiology from 04/24/2015 12:51 PMCHEST 1 VIEWHistory: Shortness of Breath . Technique: 1 view chest performed Priors: None. Findings: The heart size is within normal limits. No acute infiltrate, pneumothorax, or pleural effusion is identified. There is a moderate hiatal hernia. There is ill-defined dense in the right upper lobe measuring 2.5 by 1.[address] chest is recommended to exclude pulmonary neoplasm. Impression: No evidence of acute cardiopulmonary process. 2.5 x 1.2 cm density in the right upper lobe for which CT chest is recommended. Moderate hiatal hernia. Electronically signed by: James Robert MD Dictated: 04/24/2015 13:01CT Scan from 04/24/2015 3:11 PMCT ABD/PELVIS W/O CONTRASTHistory: Abdominal Pain . Lower abdominal pain. Priors: 01/29/2015 Findings: Abdomen Lung bases: Clear Liver: Normal density. There are multiple unchanged mildly complex cystic lesions throughout the liver. The largest the left lobe measures 5.8 cm with septations and peripheral calcifications. The largest the right lobe measures 3.5 by 2.5 cm. These are not significant changed from previous study. There is also an unchanged 1.5 severe cystic lesion in the pancreatic tail Spleen: Normal. Pancreas: No discrete mass or inflammatory process. Gallbladder and biliary tract: No radiodense calculus or dilation. Adrenal glands: Normal. Kidneys: No nephrolithiasis. No Hydronephrosis. Urinary Bladder: Normal. Aorta: Normal in caliber. No periaortic lymphadenopathy. Bowel and Mesentery: There is unchanged moderate sliding-type hiatal hernia. There is severe sigmoid colon diverticulosis without evidence of diverticulitis. There is moderate constipation. No findings of appendicitis. Ascites: None. Pelvis Lymphadenopathy: None. Reproductive: Unremarkable. Osseous Structures: No suspicious findings. Impression: Moderate constipation in the distal colon. Moderate sliding-type hiatal hernia. Moderate sigmoid colon diverticulosis without evidence of diverticulitis. Electronically signed by: James Robert MD Dictated: 04/24/2015 15:41CT Scan from 04/24/2015 12:57 PMCT CEREBRAL W/O CONTRASTHistory: Altered Mental Status . Priors: 01/29/2015 Findings: Ventricles and Extra axial spaces: Normal in size and morphology for the patient's age. Hemorrhage: None. Cerebral parenchyma: Normal. Mass effect/midline shift: None. Brainstem/Cerebellum: Normal. Calvarium: Normal. Visualized Paranasal sinuses/Mastoids: Clear. Impression: Unremarkable CT scan of the head. Electronically signed by: James Robert MD Dictated: 04/24/2015 13:02 Problems Encounter Diagnosis No relevant problems exist. [...]
--- OUTSIDE RECORDS SUMMARY | 2017-04-02 10:38 | External Medical Summary | Summary of Care ---
:1935 Author Name Sanjuanita Owusu M.D. Address [address], [place] [phone] Care Team Providers Name Role Phone Luis [...] Administered on:28-Apr-2012 Influenza Administered on:03-May-2013 Lot #: [id number] Pneumo (Prevnar) Administered on:03-May-2013 Lot #: [id number] Zoster (Zostavax) Administered on:25-May-2013 Fluzone High-Dose Intramuscular Suspension Administered on:01-May-2015 Lot #: [id number] Family History uncle Name Dates Details Family [...]
--- OUTSIDE RECORDS SUMMARY | 2017-04-02 10:38 | External Medical Summary | Summary of Care ---
:1935 Author Name Emery PANDEYNJordanla Address [address], [place] [address] Care Team Providers Name Role Phone Luis Wesley, Sylvain December Unavailable Unavailable Vikas Alevs D.O. Unavailable Unavailable Ilan Wesley, Chet Unavailable [...] Status: Active Hyperparathyroidism (252.00, E21.3) Status: Active Medications [...] 1 TABLET AT BEDTIME. Refills: 0 Alves D.Arturo.Vikas Start 24-Aug-2015 Active Allergies and Adverse Reactions [...] on: 28-Apr-2012 Influenza on: 03-May-2013 Lot #: [id number] Pneumo (Prevnar) on: 03-May-2013 Lot #: [id number] Zoster (Zostavax) on: 25-May-2013 Fluzone High-Dose SUSP on: 01-May-2015 Lot #: [id number] Family History uncle Name Dates Details Family [...] FREE T4 3604 Comments: Fax results to [phone] FREE T4 1.15 ng/dL Range: 0.80-1.67 09:27 THYROID STIM. HORMONE 3602 Comments: Fax results to [phone] THYROID STIM. HORMONE 1.118 uIU/mL Range: 0.550-4.780 Comments: No established reference ranges for infants and children &lt ;2 years of age----- 05-Feb-2016 07:43 ACTH, Plasma [id number] Comments: Fax results to [phone] performed at: [DA] [address], [address], , Certified Juvenile Probation Officer: REY Barry MD ACTH, PLASMA 21.4 pg/mL Range: 7.2-63.3 Comments: ACTH reference interval for samples collected between 7 and10 AM.----- 09:30 24 Hr Urine Creatinine 1137 24VOL 1575 mL URINE CREATININE 31.0 mg/dL Range: 30.0-125.0 24 HOUR URINE CREATININE 0.5 g/24Hrs (Below low threshold) Range: 0.6-1.8 15:04 Triiodothyronine ( T3) [id number] Comments: Items were attached to this order: Cortisol - AMFax results to [phone] performed at: [] [address], [address], Phone: , Laboratory Dir paula: Darian Lewis MDTesting performed at: [DA] [address], [address], , Certified Juvenile Probation Officer: REY Barry MDA courtesy copy of this report has been sent [phone]. TRIIODOTHYRONINE (T3) 83 ng/dL Range: 71-180 15:04 Thyroid Peroxidase Abs (TPO) [id number] Comments: Items were attached to this order: Cortisol - AMFax results to [phone] performed at: [] [address], [address], Phone: , Laboratory Dir paula: Darian Lewis MDTesting performed at: [DA] [address], [address], , Certified Juvenile Probation Officer: REY Barry MDA courtesy copy of this report has been sent [phone]. THYROID PEROXIDASE (TPO) AB 7 IU/mL Range: 0-34 15:04 Thyrotropin Receptor Ab, Serum Comments: Items were attached to this order: Cortisol - AMFax results to [phone] performed at: [] [address], [address], Phone: , Laboratory Dir [id number] paula: Darian Lewis MDTesting performed at: [] [address], [address], , Certified Juvenile Probation Officer: REY Barry MDA courtesy copy of this report has been sent [phone]. THYROTROPIN RECEPTOR AB, SERUM <0.51 IU/L Range: 0.00-1.75 15:04 Cortisol - AM [id number] Comments: Items were attached to this order: Cortisol - AMFax results to [phone] performed at: [] [address], [address], , Laboratory Dir paula: Darian Lewis MDTesting performed at: [DA] [address], [address], , Certified Juvenile Probation Officer: REY Barry MDA courtesy copy of this report has been sent [phone]. CORTISOL - AM 17.9 ug/dL Range: 6.2-19.4 12-Feb-2016 08:55 Catecholamines, Frac., Free, Ur ( Comments: Testing performed at: [] [address], [address], , Certified Juvenile Probation Officer: Darian Lewis MD 24 Hr) [phone] EPINEPHRINE, URINE 1 ug/L Range: Undefined Comments: Total Volume: 1575 mL----- EPINEPHRINE, U, 24HR 2 ug/24 hr Range: 0-20 NOREPINEPHRINE, UR 7 ug/L Range: Undefined Comments: Total Volume: 1575 mL----- NOREPINEPHRINE,U,24H 11 ug/24 hr Range: 0-135 DOPAMINE, URINE 31 ug/L Range: Undefined Comments: Total Volume: 1575 mL----- DOPAMINE, UR, 24HR 49 ug/24 hr Range: 0-510 08:55 Metanephrines, Frac, Qn, 24-Hr [id number] Comments: Testing performed at: [ ] [address], [address], Phone: , Certified Juvenile Probation Officer: Darian Lewis MD NORMETANEPHRINE, UR 72 ug/L Range: Undefined Comments: Total Volume: 1575 mL----- NORMETANEPHR.,U,24H 113 ug/24 hr Range: 82-500 Comments: (Hypertensive) >17 years 11 months:110 - 1050----- METANEPHRINE, UR 49 ug/L Range: Undefined Comments: Total Volume: 1575 mL----- METANEPHRINE, U,24HR 77 ug/24 hr Range: 45-290 Comments: (Hypertensive) >17 years 11 months:35 - 460----- 27-Feb-2016 15:49 CBC w/ Auto Diff 7150 [...] low Range: >60 threshold) EST GFR, NON-AFR GABONESE 26 ml/min (Below low Range: >60 threshold) Comments: EST GFR is reported in ml/min per 1.73 m2 of body surface area. For -Swiss, please multiple result by 1.2.----- BUN:CREATININE RATIO [...] % (Below low threshold) Range: 20-55 16:25 Parathyroid Hormone Intact 3101 Intact Parathyroid Hormone 318 pg/mL (Above [...] Zev Samano On 05-Mar-2016 14:30 Interventions Provided Labs/Procedures/ImagingEPO PANEL 3699; [facility]; Done: Feb 27 2016 3:37PMCREATINE KINASE 1300; Done: Feb 27 2016 3: 39PMParathyroid Hormone Intact 3101; Done: Feb 27 2016 3:39PMRENAL PROFILE 1240 ; Done: Feb 27 2016 3:37PM Instructions Name Dates Details Instructions not documented [...]
--- OUTSIDE RECORDS SUMMARY | 2017-04-02 10:38 | External Medical Summary ---
:1935 Author Name GENERATED, SYSTEM Care Team Providers Name Role Phone DO ARIAS ALAN Primary Care Provider [phone] Reason For Visit Reason for Visit from 03/02/2016 9:09 PM:Pt Stated Reason for Adm : [id number] weakness Chief Complaint GENERALIZED WEAKNESS WORSENING Social [...] Dictated: 03/05/2016 09:21 Problems Encounter Diagnosis Anxiety Status:Active.Fall Risk Status:Active.Mobility Impairment Status: Active.Muscle Weakness Status:Active.Additional Problems Abdominal Pain Comment:Problem resolved by Soarian Workflow upon Discharge, Status:Resolved.Altered Bowel Function Comment:Problem resolved by Soarian Workflow upon Discharge, Status:Resolved.Diverticulitis Comment:Problem resolved by Soarian Workflow upon Discharge, Status:Resolved. Encounters Encounter Diagnosis Anxiety Status:Active.Fall Risk Status:Active.Mobility Impairment Status: Active.Muscle Weakness Status:Active. Plan of Care Treatment Plan from 03/05/2016 3:52 PM:Care Management Note : Patient has been approved for acute inpatient rehab today according to Osbaldo Ziegler RN w/ [facility]. Awaiting for screen to be signed off by Minnie Perez RN director of [facility] et then patient can transfer to [facility]. Dr. Damon aware of POC et rehab orders completed including med rec. SANTANA Malin et RAMYA Estrella aware of POC. Dea to call report et control clerk auditing to fax orders.Treatment Plan from 2015 3:43 PM:Care Management Note : Patient and son aware of acceptance to rehab with plan to transfer today. Patient's goal is to return home once discharged from rehab.Treatment Plan from 03/05/2016 12:30 PM:Care Management Note :Optoelectronics Engineer reviewed POC. Patient currently being evaluated for acute inpatient rehab. Optoelectronics Engineer spoke w/ SANTANA Roblero w/ [facility]. They are awaiting Dr. Latham's consult et his determination for POC before making a decision to accept patient to inpatient rehab. Optoelectronics Engineer spoke w/ Dr. Latham via phone. He [...] patient and family once rehab eval completed. corporate traffic manager, Brianne, also plans to make contact [...] home alone and receives home health with [facility]. She states she is weak and does [...] hyperparathyroidism. Monitor vital signs with oximetry. Rafiq Lim and SCDs for DVT prevention. Up with [...] the responsibility of the patient or patient fulfillment representative to confirm the list of medicationswith [...]
--- OUTSIDE RECORDS SUMMARY | 2017-04-02 10:39 | External Medical Summary | Summary of Care ---
:1935 Author Name Zev Samano Address [address] Unavailable [place], [place] [id number] Care Team Providers Name Role Phone Sylvain [...] on: 28-Apr-2012 Influenza on: 03-May-2013 Lot #: [id number] Pneumo (Prevnar) on: 03-May-2013 Lot #: [id number] Zoster (Zostavax) on: 25-May-2013 Fluzone High-Dose SUSP on: 01-May-2015 Lot #: [id number] Family History uncle Name Dates Details Family [...] FREE T4 3604 Comments: Fax results to [phone] FREE T4 1.15 ng/dL Range: 0.80-1.67 09:27 THYROID STIM. HORMONE 3602 Comments: Fax results to [phone] THYROID STIM. HORMONE 1.118 uIU/mL Range: 0.550-4.780 Comments: No established reference ranges for infants and children &lt ;2 years of age----- 05-Feb-2016 07:43 ACTH, Plasma [id number] Comments: Fax results to [phone] performed at: [DA] [facility], [address] [place] [address], [place], [address], , Rheumatology Specialist: REY Barry MD ACTH, PLASMA 21.4 pg/mL Range: 7.2-63.3 Comments: ACTH reference interval for samples collected between 7 and10 AM.----- Plan of Care Name Dates Details Planned [...]
--- OUTSIDE RECORDS SUMMARY | 2017-04-02 10:39 | External Medical Summary | Summary of Care ---
:1935 Author Name Vikas Alves D.O. Address [address], [place] [address] Care Team Providers Name Role Phone Luis [...] Administered on:28-Apr-2012 Influenza Administered on:03-May-2013 Lot #: [id number] Pneumo (Prevnar) Administered on:03-May-2013 Lot #: [id number] Zoster (Zostavax) Administered on:25-May-2013 Fluzone High-Dose Intramuscular Suspension Administered on:01-May-2015 Lot #: [id number] Family History uncle Name Dates Details Family [...] Urinalysis, reflex to Micro 16:57 and Culture ([facility]) 8016 pH 6.0 (Better) Range: 5.0-7.5 [...] Range: >60 low threshold) EST GFR, NON-AFR NAURUAN 27 ml/min (Below Range: >60 low threshold) Comments: EST GFR is reported in ml/min per 1.73 m2 of body surface area. For -Barbadian, please multiple result by 1.2.----- GLUCOSE 118 [...] ( T3) Comments: Testing performed at: [DA] [facility], [address] [place] [address] [address], [place], [address], Phone: , Gas Processing Plant Operator: REY Barry MD 08:03 [id number] TRIIODOTHYRONINE (T3) 66 ng/dL (Below Range: 71-180 low threshold) Plan of Care Planned Observations Name Dates Details Planned Goals not documented Goal Planned Encounters Appointment; Provider: Chet Talavera On 14-Nov-2015 13:45 Appointment; Provider: Zev Samano On 13-Oct-2015 09:15 Appointment; Provider: Bruno Stokes On 28-Aug-2015 16:00 [...]
--- OUTSIDE RECORDS SUMMARY | 2017-04-02 10:39 | External Medical Summary | Summary of Care ---
[...] on: 28-Apr-2012 Influenza on: 03-May-2013 Lot #: [id number] Pneumo (Prevnar) on: 03-May-2013 Lot #: [id number] Zoster (Zostavax) on: 25-May-2013 Fluzone High-Dose SUSP on: 01-May-2015 Lot #: [id number] Family History uncle Name Dates Details Family [...] smoker Vital Signs Date Test Result Details 02-Aug-2016 14:55 BP Systolic 126 mm[Hg] Status: Comments: Location: RUE; Position: Sitting BP Diastolic 64 mm[Hg] Status: Comments: Location: RUE; Position: Sitting Heart Rate 87 /min Status: Comments: Location: ; Weight 151.2 lb Status: Physical Findings 98 Status: Comments: O2 Saturation Body Mass Index Calculated 27.65 kg/m2 Status: Body Surface Area Calculated 1.7 m2 Status: Results Date Description Value Details Results not documented Plan of Care Name Dates Details Planned Observations Planned Goals not documented Planned Encounters Appointment; Provider: Darian Ambrocio M.D. On 10:45 Instructions Name Dates Details Instructions not documented Encounters Appointment; Chet Talavera M.D. On 24-May-2016 Encounter [...]
--- OUTSIDE RECORDS SUMMARY | 2017-04-02 10:39 | External Medical Summary | Summary of Care ---
[...] on: 28-Apr-2012 Influenza on: 03-May-2013 Lot #: [id number] Pneumo (Prevnar) on: 03-May-2013 Lot #: [id number] Zoster (Zostavax) on: 25-May-2013 Fluzone High-Dose SUSP on: 01-May-2015 Lot #: [id number] Family History uncle Name Dates Details Family [...] low Range: >60 threshold) EST GFR, NON-AFR CAMEROONIAN 30 ml/min (Below low Range: >60 threshold) [...] Emanuel M.D. On 28-Nov-2016 15:15 Interventions Provided Labs/Procedures/ImagingUrinalysis, Reflex to Microscopic or Culture PRN 8005; Done: Nov 04 2016 1:27PM Instructions Name Dates Details Instructions not documented [...]
--- OUTSIDE RECORDS SUMMARY | 2017-04-02 10:39 | External Medical Summary | Summary of Care ---
:1935 Author Name Vikas Alves D.O. Address [address], [place] [address] Care Team Providers Name Role Phone Luis [...] 6 Vikas Alves D.O. Started 03-May-2013 ActiveZostavax 84845 UNT/0.65ML Subcutaneous Solution Reconstituted INJECT 0.65 ML [...] Administered on:28-Apr-2012 Influenza Administered on:03-May-2013 Lot #: [id number] Pneumo (Prevnar) Administered on:03-May-2013 Lot #: [id number] Zoster (Zostavax) Administered on:25-May-2013 Family History Unknown Family Member Name Dates Details Family history of Diabetes Mellitus (V18.0) Comments: Family History Status: Active Social History Name Dates Details Smoking StatusNever smoker Vital Signs Date Test Result Details No Known Vitals to report Results Date Description Value Details 11-Oct-2014 14:01 Urinalysis, reflex to Micro and Culture ([facility]) 8016 pH 6.0 [...]
--- OUTSIDE RECORDS SUMMARY | 2017-04-02 10:39 | External Medical Summary | Summary of Care ---
[...] History of Cataract Surgery HEMOGRAM 7305 Ordered: 13-May-2016 Immunization Name Dates Details Influenza on: 16-Apr-2011 Fluzone High-Dose SUSP on: 28-Apr-2012 Influenza on: 03-May-2013 Lot #: [id number] Pneumo (Prevnar) on: 03-May-2013 Lot #: [id number] Zoster (Zostavax) on: 25-May-2013 Fluzone High-Dose SUSP on: 01-May-2015 Lot #: [id number] Family History uncle Name Dates Details Family [...] Provider: Darian Ambrocio M.D. On 02-Aug-2016 14:45 Interventions Provided Labs/Procedures/ImagingHEMOGRAM 7305; To be Done: 24 May 2016 Instructions Name Dates Details Instructions not [...]
--- OUTSIDE RECORDS SUMMARY | 2017-04-02 10:39 | External Medical Summary | Summary of Care ---
:1935 Author Name Vikas Alves D.O. Address [address], [place] [address] Care Team Providers Name Role Phone Luis [...] 3 Vikas Alves D.O. Started 06-Aug-2012 ActiveZostavax 47343 UNT/0.65ML Subcutaneous Solution Reconstituted INJECT 0.65 ML [...] Administered on:28-Apr-2012 Influenza Administered on:03-May-2013 Lot #: [id number] Pneumo (Prevnar) Administered on:03-May-2013 Lot #: [id number] Zoster (Zostavax) Administered on:25-May-2013 Family History Unknown [...] Urinalysis, reflex to 13:32 Micro and Culture ([facility]) 8016 pH 7.0 (Better) Range: 5.0-7.5 SP [...] Range: >60 low threshold) EST GFR, NON-AFR EMIRATI 26 ml/min (Below Range: >60 low threshold) Comments: EST GFR is reported in ml/min per 1.73 m2 of body surface area. For -Chilean, please multiple result by 1.2.----- GLUCOSE 98 [...] (Better) Range: 211-911 AMMONIA ([address]) Comments: [employer] performed at: [id number], [address] [place] [address], [address], Traffic Control Technician: Darian Thurman D.O. MPHQuest Collection Date/Time: 13:32 [id number] Results Received Date/Time: [id number] Reported Date/Time: [id number] AMMONIA (P) 11 umol/L (Better) Range: < OR=47 Comments: [OR]----- 09-Feb-2015 15:24 Comprehensive Metabolic Panel 1212 SODIUM [...] Range: >60 low threshold) EST GFR, NON-AFR EMIRATI 25 ml/min (Below Range: >60 low threshold) Comments: EST GFR is reported in ml/min per 1.73 m2 of body surface area. For -Chilean, please multiple result by 1.2.----- GLUCOSE 109 [...]
--- OUTSIDE RECORDS SUMMARY | 2017-04-02 10:40 | External Medical Summary ---
:1935 Author Organization [facility] Address [address] [place] [address] Care Team Providers Name Role Phone Daniel Davies Unavailable Unavailable PROBLEMS Type Condition ICD9-CM Code [id number] Onset Condition SNOMED Code Code Dates Status Problem Orthostatic I95.1 Active 17619321 hypotension Problem Renal insufficiency N28.9 Active 743067013 Problem Tremor R25.1 Active 28852947 Problem Chronic fatigue R53.82 Active 17034956 Problem Cervical M47.812 Active 575800821 spondylosis Problem Diverticulosis K57.90 Active 460828488 Problem CKD (chronic kidney N18.4 Active 595647122 disease), stage IV Problem Hiatal hernia K44.9 Active 97340081 Problem Non-rheumatic I34.0 Active 801419572 mitral regurgitation Problem Anxiety disorder F41.9 Active 256721254 Problem Depression F32.9 Active 099689536 Problem Urinary hesitancy R39.11 Active 5119816 Problem Dizziness R42 Active 484702642 ALLERGIES No Information SOCIAL HISTORY Never Assessed PLAN OF CARE VITAL SIGNS MEDICATIONS Unknown Medications RESULTS No Results PROCEDURES No Known procedures IMMUNIZATIONS No Known Immunizations MEDICAL (GENERAL) HISTORY Type Description Date Medical History Anxiety disorder Medical History Dizziness Medical History Depression Medical History Renal insufficiency Medical History Tremor Medical History Orthostatic hypotension Medical History CKD (chronic kidney disease), stage IV Medical History Diverticulosis Medical History Cervical spondylosis Surgical History section 1960
--- OUTSIDE RECORDS SUMMARY | 2017-04-02 10:40 | External Medical Summary | Summary of Care ---
:1935 Author Name Misha Ambrocio M.D. Address [address], [place] [address] Care Team Providers Name Role Phone Luis [...] Active Tremor, unspecified (781.0, R25.1) Status: Active Medications Name Dates [...] Administered on:28-Apr-2012 Influenza Administered on:03-May-2013 Lot #: [id number] Pneumo (Prevnar) Administered on:03-May-2013 Lot #: [id number] Zoster (Zostavax) Administered on:25-May-2013 Fluzone High-Dose Intramuscular Suspension Administered on:01-May-2015 Lot #: [id number] Family History uncle Name Dates Details Family [...]
--- OUTSIDE RECORDS SUMMARY | 2017-04-02 10:40 | External Medical Summary ---
:1935 Author Organization [facility] Address [address] [place] [address] Care Team Providers Name Role Phone Daniel Davies Unavailable Unavailable PROBLEMS Type Condition ICD9-CM Code [id number] Onset Condition SNOMED Code Code Dates Status Problem Orthostatic I95.1 Active 96042599 hypotension Problem Renal insufficiency N28.9 Active 168713067 Problem Tremor R25.1 Active 10567074 Problem Chronic fatigue R53.82 Active 54384471 Problem Cervical M47.812 Active 259882957 spondylosis Problem Diverticulosis K57.90 Active 730164579 Problem CKD (chronic kidney N18.4 Active 392004528 disease), stage IV Problem Hiatal hernia K44.9 Active 21354786 Problem Non-rheumatic I34.0 Active 134932554 mitral regurgitation Problem Anxiety disorder F41.9 Active 530554506 Problem Depression F32.9 Active 407323136 Problem Urinary hesitancy R39.11 Active 7245680 Problem Dizziness R42 Active 867948150 ALLERGIES No Information SOCIAL HISTORY Never Assessed [...]
--- OUTSIDE RECORDS SUMMARY | 2017-04-02 10:40 | External Medical Summary | Summary of Care ---
:1935 Author Name Vikas Alves D.O. Address [address], [place] [address] Care Team Providers Name Role Phone Luis [...] 5 Vikas Alves D.O. Started 05-Apr-2013 ActiveZostavax 44452 UNT/0.65ML Subcutaneous Solution Reconstituted INJECT 0.65 ML [...] History of Cataract Surgery AMMONIA ([address]) R74452 Ordered: Immunization Name Dates Details Influenza Administered on:16-Apr-2011 Fluzone High-Dose Intramuscular Suspension Administered on:28-Apr-2012 Influenza Administered on:03-May-2013 Lot #: [id number] Pneumo (Prevnar) Administered on:03-May-2013 Lot #: [id number] Zoster (Zostavax) Administered on:25-May-2013 Family History Unknown [...] Value Details 11:49 CT HEAD WITHOUT IV CONTRAST Comments: Exam Date: 2014 10:56Dictation Date: 01/09/2015 11:49 XC HEAD (Better) 13:41 ECG/ EKG CP - Electro CardioGram ECG/ (Better) EKG Cardiology Read Plan of Care Planned Observations Name Dates [...]
--- OUTSIDE RECORDS SUMMARY | 2017-04-02 10:40 | External Medical Summary | Summary of Care ---
:1935 Author Name Patel BrittonHiltonSherriHiltonTasha Address [address] [place] [address] Care Team Providers Name Role Phone Luis [...] Administered on:28-Apr-2012 Influenza Administered on:03-May-2013 Lot #: [id number] Pneumo (Prevnar) Administered on:03-May-2013 Lot #: [id number] Zoster (Zostavax) Administered on:25-May-2013 Fluzone High-Dose Intramuscular Suspension Administered on:01-May-2015 Lot #: [id number] Family History uncle Name Dates Details Family [...] Urinalysis, reflex to Micro 16:57 and Culture ([facility]) 8016 pH 6.0 (Better) Range: 5.0-7.5 [...] Range: >60 low threshold) EST GFR, NON-AFR [place]DEAN 27 ml/min (Below Range: >60 low threshold) Comments: EST GFR is reported in ml/min per 1.73 m2 of body surface area. For -Monegasque, please multiple result by 1.2.----- GLUCOSE 118 [...] ( T3) Comments: Testing performed at: [DA] [facility] [address], [place], [address], Phone: , Operation Specialist: REY Barry MD 08:03 [id number] TRIIODOTHYRONINE (T3) 66 ng/dL (Below Range: 71-180 [...] Diagnosis: Problem not documented 15:45 Appointment; Vikas lAves On Encounter Diagnosis: Problem not documented 13:15 Appointment; Vikas Alves On Encounter Diagnosis: Problem not documented 09:45 Appointment; Vikas Alves On Encounter Diagnosis: Problem not documented 13:45 Appointment; Vikas Alves On Encounter Diagnosis: Problem not documented 14:30 Appointment; Vikas Alves On 11-Oct-2014 Encounter Diagnosis: Problem not documented 15:00
--- OUTSIDE RECORDS SUMMARY | 2017-04-02 10:40 | External Medical Summary | Summary of Care ---
[...] on: 28-Apr-2012 Influenza on: 03-May-2013 Lot #: [id number] Pneumo (Prevnar) on: 03-May-2013 Lot #: [id number] Zoster (Zostavax) on: 25-May-2013 Fluzone High-Dose SUSP on: 01-May-2015 Lot #: [id number] Family History uncle Name Dates Details Family [...] low Range: >60 threshold) EST GFR, NON-AFR LITHUANIAN 30 ml/min (Below low Range: >60 threshold) [...] Encounter Diagnosis: Problem not documented 09:00 Appointment; Cheli, Vira On 23-Feb-2015 Encounter Diagnosis: Problem not documented [...]
--- OUTSIDE RECORDS SUMMARY | 2017-04-02 10:40 | External Medical Summary | Summary of Care ---
:1935 Author Name Vikas Alves D.O. Address [address], [place] [address] Care Team Providers Name Role Phone Luis [...] Administered on:28-Apr-2012 Influenza Administered on:03-May-2013 Lot #: [id number] Pneumo (Prevnar) Administered on:03-May-2013 Lot #: [id number] Zoster (Zostavax) Administered on:25-May-2013 Family History uncle [...]
--- NOTE | 2017-04-02 10:50 | CT Scan Report ---
Indication: Med. Clearance. PROCEDURE: CT head/brain wo con: Encounter: Initial Comparison: None Technique: Axial CT images through the head were performed without contrast. Iterative Reconstruction dose reducing technique was utilized. FINDINGS: The ventricles are of normal size, shape, and contour for the patient's age. There are scattered areas of low attenuation in the white matter which most likely represent changes from chronic microvascular ischemia. The brainstem, cerebellum, and cerebral hemispheres otherwise have a normal morphology and CT attenuation. There is no evidence of midline displacement. No hemorrhage, signs of acute territorial stroke, mass effect, mass lesions, or edema is evident. The visualized portions of the skull base, midface, and calvarium demonstrate no abnormality. The paranasal sinuses are well aerated and free of significant disease. The tympanic and mastoid cavities appear normal. IMPRESSION: No acute intracranial abnormality or hemorrhage. .
[2017-04-02] MEDS ORDERED: NS 1,000 ML IV ONE (11:03)
[2017-04-02] MEDS ORDERED: HALOPERIDOL 5 MG/ML INJECTION IM PRN (11:05)
--- NOTE | 2017-04-02 11:05 | XRay Report ---
Indication: Med. Clearance PROCEDURE: XR chest 1V: Encounter: Initial Comparison: None FINDINGS: 8 mm right upper lobe pulmonary nodule. 7 mm nodule adjacent to the left heart border likely within the left lower lobe. The lungs are clear. Linear opacity in the left costophrenic angle area probably represents scarring. There is no pleural effusion or pneumothorax identified. The heart size and pulmonary vasculature are within normal limits. Retrocardiac density could be due to left atrial enlargement or a large hiatal hernia. IMPRESSION: 1. Left basilar opacity most likely due to atelectasis or scarring. 2. Bilateral pulmonary nodules. Recommend correlation with any available prior exams to evaluate for stability. If comparisons are unavailable a noncontrast chest CT can be performed for further evaluation on a nonemergent basis. .
[2017-04-02] MEDS: LORazepam 0.5 MG TABLET PO PRN (11:48)
[2017-04-02 12:25] VITALS: BMI 30.4
[2017-04-02] MEDS ORDERED: LORazepam 0.5 MG TABLET PO ONE (15:26)
[2017-04-02] MEDS ORDERED: LORazepam 0.5 MG TABLET PO PRN (15:35)
[2017-04-02] MEDS: LACTOBACILLUS (15B cfu) CAPSULE PO SCH (16:00)
[2017-04-02] MEDS: HALOPERIDOL 0.5 MG TABLET PO PRN (16:00)
--- NOTE | 2017-04-02 18:32 | 24 Hour Neuropsychiatic Eval ---
Date of Admission: 04/02/17 11:05 Chief complaint: "You guys want my money" History of Present Illness: HPI: 82 Y/O CF with a hx of Parkinson's Disease and possible Lewy Body Dementia sent from [facility] in [place] for increasing paranoia and agitation and refusing to take meds. Nursing staff there stated the pt believed they were trying to kill her and began refusing cares. She has also had some recent falls. On face to face the pt appears anxious and irritable. She is only oriented to self. She states she needs to leave and we have "kidnapped her". She is a poor historian and is not willing to participate in the interview at this time. PSYCH ROS: Pt states all was well until she had to come here. She has poor short term memory and cant tell me why she is here. She denies feeling depressed. She is visibly anxious and agitated. She denies rufina or psychosis but has had VH in the past. PAST PSYCH: Unclear at this time. She was on Cymbalta and Remeron along with Ativan on admission. She reportedly has a hx of Depression and anxiety in the past. [facility] Patient Stated Medical History Dementia Yes Parkinson's Disease Yes: MD's unsure about this diagnosis Hx Urinary Tract Infection Yes Depression Yes Surgical History: - Social History Smoking status: Never smoker Review of Systems - Constitutional Constitutional: Present: anorexia - Gastrointestinal Gastrointestinal: Present: constipation - Musculoskeletal Musculoskeletal: Present: back pain - Neurological Neurological: Present: abnormal movements - Psychiatric Psychiatric: Present: anxiety, behavioral changes, depression, hallucinations Mental Status Exam Vitals: Last Vital Signs Temp 96.9 F 04/02/17 16:07 Pulse 59 L 04/02/17 16:07 Resp 22 04/02/17 16:07 BP 139/81 04/02/17 16:07 Pulse Ox 96 04/02/17 16:07 Height: 1.52 m Weight: 70.6 kg - Mental Status Exam Muscle Strength/Tone: Weak Dressing: Casual Grooming: Fair Attitude: Guarded Motor Activity: Agitation Eye Contact: Fair Speech: Slowed Volume: Loud Rhythm: Appropriate Rhythm Orientation: Oriented to person Mood: Irritable Affect: Hostile Rate of Thoughts: Pressured Thought Organization: Disorganized Associations: Flight of Ideas Thought Content: Delusions Current Hallucinations: Visual Language: Naming Impaired Fund of Knowledge: Poor fund of knowledge Memory: Poor-immediate, Poor-recent Suicidal Ideation: None Homicidal Ideation: None Insight: Poor Judgement: Poor - Laboratory Result Diagrams: 04/02/17 10:47 04/02/17 10:47 Assessment and Plan (1) Major neurocognitive disorder Problem details: with behavioral disturbance most likely Lewy Body Type Current visit: Yes Status: Acute (2) Parkinsons disease Current visit: Yes Status: Acute Continue to evaluate and stabilize. Will stop Cymbalta and maximize use of Remeron. Continue Ativan. Will consider Seroquel and discuss with Neurology aout possibly stopping Sinemet
[2017-04-02] MEDS: LORazepam 0.5 MG TABLET PO SCH (20:06)
[2017-04-02] MEDS: MIRTAZAPINE 15 MG TABLET PO SCH (20:07)
[2017-04-03] MEDS: LACTOBACILLUS (15B cfu) CAPSULE PO SCH (08:27)
[2017-04-03] MEDS: ASPIRIN 81 MG CHEWABLE TABLET PO SCH (08:27)
[2017-04-03] MEDS: CYANOCOBALAMIN (B-12) 500mcg TABLET PO SCH (08:27)
[2017-04-03] MEDS: OMEPRAZOLE 20 MG CAPSULE PO SCH (08:27)
[2017-04-03] MEDS: LORazepam 0.5 MG TABLET PO SCH ×2 (08:28→19:50)
[2017-04-03] MEDS ORDERED: AMOXICILLIN 500 MG CAPSULE PO SCH (09:00)
[2017-04-03] MEDS: LORazepam 0.5 MG TABLET PO PRN (13:46)
--- NOTE | 2017-04-03 14:45 | History & Physical Report ---
<Kathrine Guzman - Last Filed: 04/03/17 14:33> History of Present Illness Date: 04/03/17 Chief complaint: delusional thoughts and paranoia HPI: Patient is an 82-year-old female who resides at [facility] in [place], [place]. She has been a resident there since 03/14/17. She has been admitted [facility] due to delusional thought processes, paranoia, and impulsivity. She has a history of Parkinson's disease (sees Dr. Ambrocio), major depression, chronic kidney disease, neurocognitive disorder, and anxiety disorder. The patient was refusing medication and has also had recent falls prior to admission. Her son, Dustin, is her DPOA. She was seen sitting in the TV room today. She reports she feels well. She has no pain. She does not have a good appetite, but she reports this is normal for her. The nurse agrees that she did not eat much for breakfast this morning. She is able to answer questions, but does have obvious memory lapses. She is alert and oriented to herself. She tells me that she is in [place], and she isn't good at remembering dates. Review of Systems All systems PM: 10-point ROS was reviewed, no additional remarkable complaints except - Constitutional Constitutional: Present: other (poor appetite) PFSH Medical History Neurocognitive disorder Parkinson's disease Anxiety Depression Chronic kidney disease Frequent falls Diverticulosis Cervical spondylosis Surgical History: - Social History Smoking status: Never smoker Alcohol intake frequency: does not drink Current occupational status: retired Current residence: Assisted Medications Home Medications Medication Instructions Recorded Confirmed Type Acetaminophen [Pain Reliever] 1,000 mg PO BID 04/02/17 04/02/17 History Amoxicillin [Amoxicillin] 500 mg PO DAILY 04/02/17 04/02/17 History Aspirin [Park Aspirin] 81 mg PO DAILY 04/02/17 04/02/17 History Carbidopa/Levodopa 1 tab PO BID 04/02/17 04/02/17 History [Carbidopa-Levodopa 25-100 Tab] Cholecalciferol (Vitamin D3) 400 unit PO DAILY 04/02/17 04/02/17 History [Vitamin D3] Cyanocobalamin (Vitamin B-12) 1 tab PO DAILY 04/02/17 04/02/17 History [Vitamin B-12] Duloxetine [Cymbalta] 60 mg PO DAILY 04/02/17 04/02/17 History LORazepam [Ativan] 0.5 mg PO BID 04/02/17 04/02/17 History LORazepam [Ativan] 0.5 mg PO BID PRN 04/02/17 04/02/17 History Lactobacillus Acidophilus 1 each PO DAILY 04/02/17 04/02/17 History [Probiotic] Mirtazapine [Remeron] 15 mg PO HS 04/02/17 04/02/17 History Omeprazole [Prilosec] 20 mg PO DAILY 04/02/17 04/02/17 History Oxybutynin Chloride 2.5 mg PO BID 04/02/17 04/02/17 History Ubidecarenone [Co Q10] 60 mg PO DAILY 04/02/17 04/02/17 History Allergies Allergy/AdvReac Type Severity Reaction Status Date / Time Sulfa (Sulfonamide AdvReac Intermediate edema Verified 04/02/17 10:20 Antibiotics) Exam Vital Signs: Temperature 97.0 F 04/03/17 08:00 Pulse Rate 80 04/03/17 08:00 Respiratory Rate 20 04/03/17 08:00 Blood Pressure 128/75 04/03/17 08:00 Pulse Oximetry 98 04/03/17 08:00 Height/Weight/BMI: Height 1.52 m Weight 70.6 kg Body Mass Index 30.4 - Constitutional Present: no acute distress, well nourished, well developed - Routine HEENT Exam Head: Present: normocephalic, atraumatic Eye: Present: EOMI ENT: Present: mucous membranes moist, dentition normal - Routine Neck Exam Present: supple, full ROM - Routine Respiratory Exam Present: CTA bilaterally. Absent: wheezes - Routine Cardiovascular Exam Present: RRR, S1, S2. Absent: murmur - Routine Abdominal Exam Present: soft, normoactive bowel sounds, non distended. Absent: tenderness - Routine Extremities Exam Present: no edema, normal capillary refill - Routine Skin Exam Present: dry, warm - Routine Neurological Exam Present: alert, moving all extremities, normal tone, normal speech. Absent: oriented X3 (oriented to self only), altered mental status - Routine Psychiatric Exam Present: normal affect, cooperative Results - Labs CBC & Chem 7: 04/02/17 10:47 04/02/17 10:47 Labs: Laboratory Tests 04/02/17 10:47 Urine pH 5.5 Ur Specific [place] 1.020 Urine Protein Negative Urine Glucose (UA) Negative Urine Ketones Negative Urine Occult Blood Negative Urine Nitrate Negative Urine Urobilinogen 0.2 Ur Leukocyte Esterase Negative Laboratory Tests 04/02/17 10:47 Total Bilirubin 0.70 AST 16 ALT 18 Alkaline Phosphatase 80 Troponin I < 0.012 Total Protein 6.6 Albumin 3.9 Globulin 2.7 Albumin/Globulin Ratio 1.4 - Imaging and Cardiology Chest x-ray Additional comments: IMPRESSION: 1. Left basilar opacity most likely due to atelectasis or scarring. 2. Bilateral pulmonary nodules. Recommend correlation with any available prior exams to evaluate for stability. If comparisons are unavailable a noncontrast chest CT can be performed for further evaluation on a nonemergent basis. CT scan - head Additional comments: FINDINGS: The ventricles are of normal size, shape, and contour for the patient's age. There are scattered areas of low attenuation in the white matter which most likely represent changes from chronic microvascular ischemia. The brainstem, cerebellum, and cerebral hemispheres otherwise have a normal morphology and CT attenuation. There is no evidence of midline displacement. No hemorrhage, signs of acute territorial stroke, mass effect, mass lesions, or edema is evident. The visualized portions of the skull base, midface, and calvarium demonstrate no abnormality. The paranasal sinuses are well aerated and free of significant disease. The tympanic and mastoid cavities appear normal. IMPRESSION: No acute intracranial abnormality or hemorrhage. Assessment and Plan (1) Major neurocognitive disorder Problem details: with behavioral disturbance most likely Lewy Body Type Current visit: Yes Status: Acute (2) Parkinsons disease Current visit: Yes Status: Acute Assessment and Plan: Impression Neurocognitive disorder-with delusional thoughts and paranoia Parkinson's disease Anxiety Depression Bilateral pulmonary nodules - found on x-ray this admission. Chronic kidney disease-stage IV Frequent falls Diverticulosis Cervical spondylosis Plan Admitted to [facility] for psychiatric management under the care of Dr. Grossman and to provide a safe environment for the patient. Encourage bowel motivation. Patient does report problems with constipation. In regard to the bilateral pulmonary nodules found on chest x-ray, recommend follow-up on an outpatient basis with her PCP. Thank you for the consult. Will plan to follow patient throughout the length of her stay. Hospital Course Summary Disclaimer: The visit summary below is not to be considered part of the above Progress Note. Hospital Course: Neurocognitive disorder-with delusional thoughts and paranoia Parkinson's disease Anxiety Depression Bilateral pulmonary nodules - found on x-ray this admission. Chronic kidney disease-stage IV Frequent falls Diverticulosis Cervical spondylosis 04/03/17-hospitalist consult Admitted to [facility] for psychiatric management under the care of Dr. Grossman and to provide a safe environment for the patient. Encourage bowel motivation. Patient does report problems with constipation. In regard to the bilateral pulmonary nodules found on chest x-ray, recommend follow-up on an outpatient basis with her PCP. Thank you for the consult. Will plan to follow patient throughout the length of her stay. <Rosa Desai - Last Filed: 04/03/17 20:08> History of Present Illness Date: 04/03/17 Exam Vital Signs: Temperature 96.8 F 04/03/17 19:30 Pulse Rate 72 04/03/17 19:30 Respiratory Rate 16 04/03/17 19:30 Blood Pressure 142/72 H 04/03/17 19:30 Pulse Oximetry 96 04/03/17 19:30 Height/Weight/BMI: Height 1.52 m Weight 70.6 kg Body Mass Index 30.4 Results - Labs CBC & Chem 7: 04/02/17 10:47 04/02/17 10:47 Assessment and Plan (1) Major neurocognitive disorder Problem details: with behavioral disturbance most likely Lewy Body Type Current visit: Yes Status: Acute (2) Parkinsons disease Current visit: Yes Status: Acute Resuscitation Status: Do Not Resuscitate Assessment and Plan: I have independently evaluated and examined this patient. I reviewed the chart, the patient's history, and the LONG WALL SHEAR OPERATOR/PA's documented findings as above. We discussed and formulated the assessment and plan as above with additions as below: Mrs. Khalil was seen with her daughter at the bedside this evening. Patient complained of back pain which her daughter said was chronic and due to arthritis. Patient denied numbness in her legs but describes difficulty walking independently reporting use of a walker. She denied dyspnea or chest pain. Vital signs were unremarkable. Patient was moderately apprehensive when seen but cooperative. Facial structure symmetric Respirations nonlabored, breath sounds clear Cardiac rhythm regular No tremor noted, refractory bricklayer symmetric 4/5, dorsiflexion/plantar flexion intact; sensation intact 4 extremities Chest x-ray reviewed by myself-scattered small pulmonary nodules lower lobes CT head also reviewed by myself-minor small vessel disease but normal study for patient age. Creatinine 1.6-baseline uncertain. Acetaminophen made available for back discomfort per patient request. Supportive care. Will discuss chest x-ray findings with patient's daughter. Hospital Course Summary Disclaimer: The visit summary below is not to be considered part of the above Progress Note. Addendum entered and electronically signed by Kathrine Guzman PA 04/03/17 14:56 : Patient's PCP is Dr. Daniel Davies at [facility]
[2017-04-03] MEDS: HALOPERIDOL 0.5 MG TABLET PO PRN (15:23)
--- NOTE | 2017-04-03 18:48 | Neuropsych Progress Note ---
[facility] Subjective Date: 04/03/17 - Sujective/Severity of Illness Medications: Amoxicillin () 500 mg PO WB [facility] Aspirin (Asa) 81 mg PO DAILY [facility] Last Admin: 04/03/17 08:27 Dose: 81 mg Carbidopa/Levodopa (Sinemet) 1 tab PO BID/E [facility] Last Admin: 04/03/17 08:27 Dose: 1 tab Cyanocobalamin (Vit. B-12) 1,000 mcg PO DAILY [facility] Last Admin: 04/03/17 08:27 Dose: 1,000 mcg Haloperidol (Haldol) 0.5 mg PO Q6H PRN PRN Reason: Extreme agitation Last Admin: 04/03/17 15:23 Dose: 0.5 mg Haloperidol Lactate (Haldol) 0.5 mg IM Q6H PRN PRN Reason: Extreme agitation Lactobacillus Acidophilus (Culturelle) 1 cap PO DAILY [facility] Last Admin: 04/03/17 08:27 Dose: 1 cap Lorazepam (Ativan) 0.5 mg PO Q6H PRN PRN Reason: Extreme agitation Last Admin: 04/03/17 13:46 Dose: 0.5 mg Lorazepam (Ativan) 0.5 mg PO BID [facility] Last Admin: 04/03/17 08:28 Dose: 0.5 mg Lorazepam (Ativan Inj) 0.5 mg IM Q6H PRN PRN Reason: Extreme agitation Mirtazapine (Remeron) 15 mg PO HS [facility] Last Admin: 04/02/17 20:07 Dose: 15 mg Omeprazole (Prilosec) 20 mg PO ACB [facility] Last Admin: 04/03/17 08:27 Dose: 20 mg Oxybutynin Chloride (Ditropan) 2.5 mg PO BID [facility] Last Admin: 04/03/17 08:27 Dose: 2.5 mg Sodium Chloride (Iv Flush) 10 - 80 ml IVF PRN PRN PRN Reason: Flushing Subjective: Pt seen and chart examined. Nursing reports pt slept well. Pt has appeared very anxious and irritable throughout the day. She is tearful at times and confused. Pt received Ativan at 1346 and later received haldol at 1523. On face to face the pt is irritable. She states she wants to go home. She is only oriented to self. She denies any pain. Tolerating meds Start Time: 18:00 Stop Time: 18:15 Mental Status Exam Vitals: Last Vital Signs Temp 97.3 F 04/03/17 16:00 Pulse 80 04/03/17 16:00 Resp 20 04/03/17 16:00 BP 136/69 04/03/17 16:00 Pulse Ox 95 04/03/17 16:00 Height: 1.52 m Weight: 70.6 kg - Mental Status Exam Muscle Strength/Tone: Weak Dressing: Casual Grooming: Fair Attitude: Guarded Motor Activity: Agitation Eye Contact: Fair Speech: Slowed Volume: Loud Rhythm: Appropriate Rhythm Orientation: Oriented to person Mood: Irritable Rate of Thoughts: Pressured Thought Organization: Disorganized Associations: Flight of Ideas Thought Content: Delusions Current Hallucinations: Visual Language: Naming Impaired Fund of Knowledge: Poor fund of knowledge Memory: Poor-immediate, Poor-recent Suicidal Ideation: None Homicidal Ideation: None Insight: Poor Judgement: Poor - Laboratory Result Diagrams: 04/02/17 10:47 04/02/17 10:47 Assessment and Plan (1) Major 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 Hospital Course: Neurocognitive disorder-with delusional thoughts and paranoia Parkinson's disease Anxiety Depression Bilateral pulmonary nodules - found on x-ray this admission. Chronic kidney disease-stage IV Frequent falls Diverticulosis Cervical spondylosis 04/03/17-hospitalist consult Admitted to [facility] for psychiatric management under the care of Dr. Grossman and to provide a safe environment for the patient. Encourage bowel motivation. Patient does report problems with constipation. In regard to the bilateral pulmonary nodules found on chest x-ray, recommend follow-up on an outpatient basis with her PCP. Thank you for the consult. Will plan to follow patient throughout the length of her stay. 04/03/17 18:47 PT remains anxious and irritable with some paranoia. Will contact DPOA and discuss starting Seroquel
[2017-04-03] MEDS: ACETAMINOPHEN 325 MG TABLET PO PRN (19:50)
[2017-04-03] MEDS: MIRTAZAPINE 15 MG TABLET PO SCH (19:50)
[2017-04-03] MEDS ORDERED: QUETIAPINE 25 MG TABLET PO PRN (20:06)
[2017-04-03] MEDS ORDERED: ACETAMINOPHEN 325 MG TABLET PO PRN (20:06)
[2017-04-03] MEDS: QUETIAPINE 25 MG TABLET PO SCH (20:20)
[2017-04-04] MEDS: LORazepam 0.5 MG TABLET PO SCH ×4 (06:18→20:10)
[2017-04-04] MEDS: MIRTAZAPINE 15 MG TABLET PO SCH ×3 (06:18→20:10)
[2017-04-04] MEDS: OMEPRAZOLE 20 MG CAPSULE PO SCH (06:40)
[2017-04-04] MEDS: QUETIAPINE 25 MG TABLET PO SCH ×4 (10:00→20:10)
[2017-04-04] MEDS: ASPIRIN 81 MG CHEWABLE TABLET PO SCH (10:00)
[2017-04-04] MEDS: LACTOBACILLUS (15B cfu) CAPSULE PO SCH (10:00)
[2017-04-04] MEDS: AMOXICILLIN 500 MG CAPSULE PO SCH (10:00)
[2017-04-04] MEDS: CYANOCOBALAMIN (B-12) 500mcg TABLET PO SCH (10:01)
--- NOTE | 2017-04-04 16:57 | Neuropsych Progress Note ---
[facility] Subjective Date: 04/04/17 - Sujective/Severity of Illness Medications: Acetaminophen (Tylenol) 650 mg PO QID PRN PRN Reason: Discomfort Last Admin: 04/03/17 19:50 Dose: 650 mg Amoxicillin () 500 mg PO WB [facility] Last Admin: 04/04/17 10:00 Dose: 500 mg Aspirin (Asa) 81 mg PO DAILY [facility] Last Admin: 04/04/17 10:00 Dose: 81 mg Carbidopa/Levodopa (Sinemet) 1 tab PO BID/E [facility] Last Admin: 04/04/17 06:40 Dose: 1 tab Cyanocobalamin (Vit. B-12) 1,000 mcg PO DAILY [facility] Last Admin: 04/04/17 10:01 Dose: 1,000 mcg Haloperidol (Haldol) 0.5 mg PO Q6H PRN PRN Reason: Extreme agitation Last Admin: 04/03/17 15:23 Dose: 0.5 mg Haloperidol Lactate (Haldol) 0.5 mg IM Q6H PRN PRN Reason: Extreme agitation Lactobacillus Acidophilus (Culturelle) 1 cap PO DAILY [facility] Last Admin: 04/04/17 10:00 Dose: 1 cap Lorazepam (Ativan) 0.5 mg PO Q6H PRN PRN Reason: Extreme agitation Last Admin: 04/03/17 13:46 Dose: 0.5 mg Lorazepam (Ativan) 0.5 mg PO BID [facility] Last Admin: 04/04/17 10:00 Dose: 0.5 mg Lorazepam (Ativan Inj) 0.5 mg IM Q6H PRN PRN Reason: Extreme agitation Mirtazapine (Remeron) 15 mg PO HS [facility] Last Admin: 04/04/17 06:18 Dose: Not Given Omeprazole (Prilosec) 20 mg PO ACB [facility] Last Admin: 04/04/17 06:40 Dose: 20 mg Oxybutynin Chloride (Ditropan) 2.5 mg PO BID [facility] Last Admin: 04/04/17 10:00 Dose: 2.5 mg Quetiapine Fumarate (Seroquel) 25 mg PO TID [facility] Last Admin: 04/04/17 14:27 Dose: 25 mg Quetiapine Fumarate (Seroquel) 25 mg PO TID PRN Last Admin: 04/04/17 13:24 Dose: 25 mg Sodium Chloride (Iv Flush) 10 - 80 ml IVF PRN PRN PRN Reason: Flushing Subjective: Pt seen and chart examined. Nursing reports pt remains anxious and tearful at times. Some what isolated to her room. She did received PRN Seroquel this afternoon for anxiety. On face to face the pt is resting quietly in bed. She is pleasant but confused. She denies any pain. Tolerating meds Start Time: 16:45 Stop Time: 17:00 Mental Status Exam Vitals: Last Vital Signs Temp 97.5 F 04/04/17 16:00 Pulse 91 04/04/17 16:00 Resp 18 04/04/17 16:00 BP 133/60 04/04/17 16:00 Pulse Ox 95 04/04/17 16:00 Height: 1.52 m Weight: 70.6 kg - Mental Status Exam Muscle Strength/Tone: Weak Dressing: Casual Grooming: Fair Attitude: Guarded Motor Activity: Agitation Eye Contact: Fair Speech: Slowed Volume: Loud Rhythm: Appropriate Rhythm Orientation: Oriented to person Mood: Irritable Rate of Thoughts: Pressured Thought Organization: Disorganized Associations: Flight of Ideas Thought Content: Delusions Current Hallucinations: Visual Language: Naming Impaired Fund of Knowledge: Poor fund of knowledge Memory: Poor-immediate, Poor-recent Suicidal Ideation: None Homicidal Ideation: None Insight: Poor Judgement: Poor - Laboratory Result Diagrams: 04/02/17 10:47 04/02/17 10:47 Assessment and Plan (1) Major 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 Hospital Course: Neurocognitive disorder-with delusional thoughts and paranoia Parkinson's disease Anxiety Depression Bilateral pulmonary nodules - found on x-ray this admission. Chronic kidney disease-stage IV Frequent falls Diverticulosis Cervical spondylosis 04/03/17-hospitalist consult Admitted to [facility] for psychiatric management under the care of Dr. Grossman and to provide a safe environment for the patient. Encourage bowel motivation. Patient does report problems with constipation. In regard to the bilateral pulmonary nodules found on chest x-ray, recommend follow-up on an outpatient basis with her PCP. Thank you for the consult. Will plan to follow patient throughout the length of her stay. 04/03/17 18:47 PT remains anxious and irritable with some paranoia. Will contact DPOA and discuss starting Seroquel 04/04/17 16:56 Pt remains anxious and paranoid but slightly improved. Seroquel started yesterday
[2017-04-05] MEDS: OMEPRAZOLE 20 MG CAPSULE PO SCH (05:46)
[2017-04-05] MEDS: CYANOCOBALAMIN (B-12) 500mcg TABLET PO SCH (09:49)
[2017-04-05] MEDS: LACTOBACILLUS (15B cfu) CAPSULE PO SCH (09:49)
[2017-04-05] MEDS: QUETIAPINE 25 MG TABLET PO SCH ×4 (09:49→22:09)
[2017-04-05] MEDS: ASPIRIN 81 MG CHEWABLE TABLET PO SCH (09:49)
[2017-04-05] MEDS: LORazepam 0.5 MG TABLET PO SCH ×3 (09:49→22:09)
[2017-04-05] MEDS: AMOXICILLIN 500 MG CAPSULE PO SCH (09:49)
--- NOTE | 2017-04-05 12:27 | Neuropsych Progress Note ---
[facility] Subjective Date: 04/05/17 - Sujective/Severity of Illness Medications: Acetaminophen (Tylenol) 650 mg PO QID PRN PRN Reason: Discomfort Last Admin: 04/03/17 19:50 Dose: 650 mg Amoxicillin () 500 mg PO WB [facility] Last Admin: 04/05/17 09:49 Dose: 500 mg Aspirin (Asa) 81 mg PO DAILY [facility] Last Admin: 04/05/17 09:49 Dose: 81 mg Carbidopa/Levodopa (Sinemet) 1 tab PO BID/E [facility] Last Admin: 04/05/17 09:49 Dose: 1 tab Cyanocobalamin (Vit. B-12) 1,000 mcg PO DAILY [facility] Last Admin: 04/05/17 09:49 Dose: 1,000 mcg Haloperidol (Haldol) 0.5 mg PO Q6H PRN PRN Reason: Extreme agitation Last Admin: 04/03/17 15:23 Dose: 0.5 mg Haloperidol Lactate (Haldol) 0.5 mg IM Q6H PRN PRN Reason: Extreme agitation Lactobacillus Acidophilus (Culturelle) 1 cap PO DAILY [facility] Last Admin: 04/05/17 09:49 Dose: 1 cap Lorazepam (Ativan) 0.5 mg PO Q6H PRN PRN Reason: Extreme agitation Last Admin: 04/03/17 13:46 Dose: 0.5 mg Lorazepam (Ativan) 0.5 mg PO BID [facility] Last Admin: 04/05/17 09:49 Dose: 0.5 mg Lorazepam (Ativan Inj) 0.5 mg IM Q6H PRN PRN Reason: Extreme agitation Mirtazapine (Remeron) 15 mg PO HS [facility] Last Admin: 04/04/17 20:10 Dose: Not Given Omeprazole (Prilosec) 20 mg PO ACB [facility] Last Admin: 04/05/17 05:46 Dose: 20 mg Oxybutynin Chloride (Ditropan) 2.5 mg PO BID [facility] Last Admin: 04/05/17 09:55 Dose: 2.5 mg Quetiapine Fumarate (Seroquel) 25 mg PO TID [facility] Last Admin: 04/05/17 09:49 Dose: 25 mg Quetiapine Fumarate (Seroquel) 25 mg PO TID PRN Last Admin: 04/04/17 13:24 Dose: 25 mg Sodium Chloride (Iv Flush) 10 - 80 ml IVF PRN PRN PRN Reason: Flushing Subjective: Pt seen and chart examined. Nursing reports pt doing better. Slept well and has a fair appetite. Did receive Ativan yesterday for some agitation and was tearful when family left. No behaviors today. On face to face the pt is pleasant but confused. She is only oriented to self. She denies feeling depressed. Tolerating meds. Voices no concerns at this time Start Time: 10:45 Stop Time: 11:00 Mental Status Exam Vitals: Last Vital Signs Temp 97.3 F 04/05/17 08:00 Pulse 80 04/05/17 08:00 Resp 18 04/05/17 08:00 BP 156/75 H 04/05/17 08:00 Pulse Ox 100 04/05/17 08:00 Height: 1.52 m Weight: 70.6 kg - Mental Status Exam Muscle Strength/Tone: Weak Dressing: Casual Grooming: Fair Attitude: Guarded Motor Activity: Normal Eye Contact: Fair Speech: Slowed Volume: Normal Rhythm: Appropriate Rhythm Orientation: Oriented to person Mood: Neutral Affect: Relaxed Rate of Thoughts: Appropriate Rate Thought Organization: Disorganized Associations: Flight of Ideas Thought Content: Normal Language: Naming Impaired Fund of Knowledge: Poor fund of knowledge Memory: Poor-immediate, Poor-recent Suicidal Ideation: None Homicidal Ideation: None Insight: Poor Judgement: Poor - Laboratory Result Diagrams: 04/02/17 10:47 04/02/17 10:47 Assessment and Plan (1) Major 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 Hospital Course: Neurocognitive disorder-with delusional thoughts and paranoia Parkinson's disease Anxiety Depression Bilateral pulmonary nodules - found on x-ray this admission. Chronic kidney disease-stage IV Frequent falls Diverticulosis Cervical spondylosis 04/03/17-hospitalist consult Admitted to [facility] for [facility] management under the care of Dr. Grossman and to provide a safe environment for the patient. Encourage bowel motivation. Patient does report problems with constipation. In regard to the bilateral pulmonary nodules found on chest x-ray, recommend follow-up on an outpatient basis with her PCP. Thank you for the consult. Will plan to follow patient throughout the length of her stay. 04/03/17 18:47 PT remains anxious and irritable with some paranoia. Will contact [facility] and discuss starting Seroquel 04/04/17 16:56 Pt remains anxious and paranoid but slightly improved. Seroquel started yesterday 04/05/17 12:26 Less irritable and anxious. Continue current care
[2017-04-05] MEDS: ACETAMINOPHEN 325 MG TABLET PO PRN ×2 (14:11→19:59)
[2017-04-05] MEDS: MIRTAZAPINE 15 MG TABLET PO SCH ×2 (19:36→22:09)
[2017-04-06] MEDS: OMEPRAZOLE 20 MG CAPSULE PO SCH (06:02)
[2017-04-06] MEDS: AMOXICILLIN 500 MG CAPSULE PO SCH (09:47)
[2017-04-06] MEDS: ASPIRIN 81 MG CHEWABLE TABLET PO SCH (09:48)
[2017-04-06] MEDS: CYANOCOBALAMIN (B-12) 500mcg TABLET PO SCH (09:48)
[2017-04-06] MEDS: QUETIAPINE 25 MG TABLET PO SCH ×3 (09:48→22:53)
[2017-04-06] MEDS: LACTOBACILLUS (15B cfu) CAPSULE PO SCH (09:48)
[2017-04-06] MEDS: LORazepam 0.5 MG TABLET PO SCH ×3 (09:50→22:51)
--- NOTE | 2017-04-06 11:44 | Neuropsych Progress Note ---
[facility] Subjective Date: 04/06/17 - Sujective/Severity of Illness Medications: Acetaminophen (Tylenol) 650 mg PO QID PRN PRN Reason: Discomfort Last Admin: 04/05/17 19:59 Dose: 650 mg Amoxicillin () 500 mg PO WB [facility] Last Admin: 04/06/17 09:47 Dose: 500 mg Aspirin (Asa) 81 mg PO DAILY [facility] Last Admin: 04/06/17 09:48 Dose: 81 mg Carbidopa/Levodopa (Sinemet) 1 tab PO BID/E [facility] Last Admin: 04/06/17 06:02 Dose: 1 tab Cyanocobalamin (Vit. B-12) 1,000 mcg PO DAILY [facility] Last Admin: 04/06/17 09:48 Dose: 1,000 mcg Haloperidol (Haldol) 0.5 mg PO Q6H PRN PRN Reason: Extreme agitation Last Admin: 04/03/17 15:23 Dose: 0.5 mg Haloperidol Lactate (Haldol) 0.5 mg IM Q6H PRN PRN Reason: Extreme agitation Lactobacillus Acidophilus (Culturelle) 1 cap PO DAILY [facility] Last Admin: 04/06/17 09:48 Dose: 1 cap Lorazepam (Ativan) 0.5 mg PO Q6H PRN PRN Reason: Extreme agitation Last Admin: 04/03/17 13:46 Dose: 0.5 mg Lorazepam (Ativan) 0.5 mg PO BID [facility] Last Admin: 04/06/17 09:50 Dose: 0.5 mg Lorazepam (Ativan Inj) 0.5 mg IM Q6H PRN PRN Reason: Extreme agitation Mirtazapine (Remeron) 15 mg PO HS [facility] Last Admin: 04/05/17 22:09 Dose: Not Given Omeprazole (Prilosec) 20 mg PO ACB [facility] Last Admin: 04/06/17 06:02 Dose: 20 mg Oxybutynin Chloride (Ditropan) 2.5 mg PO BID [facility] Last Admin: 04/06/17 09:48 Dose: 2.5 mg Quetiapine Fumarate (Seroquel) 25 mg PO TID [facility] Last Admin: 04/06/17 09:48 Dose: 25 mg Quetiapine Fumarate (Seroquel) 25 mg PO TID PRN Last Admin: 04/04/17 13:24 Dose: 25 mg Sodium Chloride (Iv Flush) 10 - 80 ml IVF PRN PRN PRN Reason: Flushing Subjective: Pt seen and chart examined. Nursing reports pt has done well on the unit. Sleeping well and has a good appetite. No behaviors noted. On face to face the pt is pleasant but confused. She reports her mood is stable. She denies any pain. Tolerating meds. Voices no concerns at this time Start Time: 11:15 Stop Time: 11:30 Mental Status Exam Vitals: Last Vital Signs Temp 97.5 F 04/06/17 08:00 Pulse 80 04/06/17 08:00 Resp 18 04/06/17 08:00 BP 160/88 H 04/06/17 08:00 Pulse Ox 99 04/06/17 08:00 Height: 1.52 m Weight: 70.6 kg - Mental Status Exam Muscle Strength/Tone: Weak Dressing: Casual Grooming: Fair Attitude: Guarded Motor Activity: Normal Eye Contact: Fair Speech: Slowed Volume: Normal Rhythm: Appropriate Rhythm Orientation: Oriented to person Mood: Neutral Rate of Thoughts: Appropriate Rate Thought Organization: Disorganized Associations: Flight of Ideas Thought Content: Normal Current Hallucinations: Visual Language: Naming Impaired Fund of Knowledge: Poor fund of knowledge Memory: Poor-immediate, Poor-recent Suicidal Ideation: None Homicidal Ideation: None Insight: Poor Judgement: Poor - Laboratory Result Diagrams: 04/02/17 10:47 04/02/17 10:47 Assessment and Plan (1) Major 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 Hospital Course: Neurocognitive disorder-with delusional thoughts and paranoia Parkinson's disease Anxiety Depression Bilateral pulmonary nodules - found on x-ray this admission. Chronic kidney disease-stage IV Frequent falls Diverticulosis Cervical spondylosis 04/03/17-hospitalist consult Admitted to [facility] for psychiatric management under the care of Dr. Grossman and to provide a safe environment for the patient. Encourage bowel motivation. Patient does report problems with constipation. In regard to the bilateral pulmonary nodules found on chest x-ray, recommend follow-up on an outpatient basis with her PCP. Thank you for the consult. Will plan to follow patient throughout the length of her stay. 04/03/17 18:47 PT remains anxious and irritable with some paranoia. Will contact [facility] and discuss starting Seroquel 04/04/17 16:56 Pt remains anxious and paranoid but slightly improved. Seroquel started yesterday 04/05/17 12:26 Less irritable and anxious. Continue current care 04/06/17 11:43 Continues to improve. Continue current care
--- NOTE | 2017-04-06 14:38 | Progress Note ---
<Maria L Vidal - Last Filed: 04/06/17 14:35> Subjective: Rose is seen today in follow up. She is resting quietly in her bed during my visit. She did stir when I called her name, but did not awaken or talk to me. Nurses notes reviewed for collateral information. Objective Vital signs: Temperature 97.5 F 04/06/17 08:00 Pulse Rate 80 04/06/17 08:00 Respiratory Rate 18 04/06/17 08:00 Blood Pressure 160/88 H 04/06/17 08:00 Pulse Oximetry 99 04/06/17 08:00 Height/Weight/BMI: Height 1.52 m Weight 70.6 kg Body Mass Index 30.4 - Constitutional Present: no acute distress, well nourished, well developed, average body habitus , cooperative - Routine Respiratory Exam Present: CTA bilaterally. Absent: accessory muscle use, dyspnea, rales, rhonchi , wheezes, crackles - Routine Cardiovascular Exam Present: RRR, S1, S2, no murmur - Routine Abdominal Exam Present: soft, normoactive bowel sounds, non distended, non tender - Routine Extremities Exam Present: no edema, non tender - Routine Skin Exam Present: intact, dry, warm - Routine Psychiatric Exam Present: unable to assess (Sleeping during visit. 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 Chronic kidney disease-stage IV Frequent falls Diverticulosis Cervical spondylosis Plan: 04/06/17 Rose appears to be stable medically. She is on daily Amoxil- unclear on need for abx. Will DC and observe. Urine looked ok. If febrile, will obtain UA and CXR. Mild dehydration on last labs- repeat labs in AM. Some HTN- variable. Monitor for now. 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 Chart, notes documentation reviewed. Still minimal BM- will add daily laxatives for bowel motivation. Continue supportive care and monitoring. Hospital Course Summary Disclaimer: The visit summary below is not to be considered part of the above Progress Note. Hospital Course: Neurocognitive disorder-with delusional thoughts and paranoia Parkinson's disease Anxiety Depression Bilateral pulmonary nodules - found on x-ray this admission. Chronic kidney disease-stage IV Frequent falls Diverticulosis Cervical spondylosis 04/03/17-hospitalist consult Admitted to [facility] for psychiatric management under the care of Dr. Grossman and to provide a safe environment for the patient. Encourage bowel motivation. Patient does report problems with constipation. In regard to the bilateral pulmonary nodules found on chest x-ray, recommend follow-up on an outpatient basis with her PCP. Thank you for the consult. Will plan to follow patient throughout the length of her stay. 04/03/17 18:47 PT remains anxious and irritable with some paranoia. Will contact [facility] and discuss starting Seroquel 04/04/17 16:56 Pt remains anxious and paranoid but slightly improved. Seroquel started yesterday 04/05/17 12:26 Less irritable and anxious. Continue current care 04/06/17 11:43 Continues to improve. Continue current care 04/06/17 14:50 04/06/17 Rose appears to be stable medically. She is on daily Amoxil- unclear on need for abx. Will DC and observe. Urine looked ok. If febrile, will obtain UA and CXR. Mild dehydration on last labs- repeat labs in AM. Some HTN- variable. Monitor for now. 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 Chart, notes documentation reviewed. Continue supportive care and monitoring. 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 We discussed and formulated the assessment and plan as above with additions as below: Mrs. Khalil was seen in the day room with her daughter. Daughter doesn't believe patient is sleeping well at night and has been very drowsy today with some delusions. Daughter reports patient has been on amoxicillin for approximately 3 months for treatment of recurrent UTIs with intent of discontinuing the course after 3 months-believes it safe to discontinue at this time. Patient is lethargic with mumbled speech Respirations nonlabored No tremor present Lipids pending Results of chest x-ray reviewed with the patient's daughter. History hiatal hernia with dysphagia described by patient's daughter. History of recurrent UTIs. Hospital Course Summary Disclaimer: The visit summary below is not to be considered part of the above Progress Note.
[2017-04-06] MEDS: ACETAMINOPHEN 325 MG TABLET PO PRN (17:42)
[2017-04-06] MEDS: MIRTAZAPINE 15 MG TABLET PO SCH ×2 (19:41→22:52)
[2017-04-06] MEDS: SENNA + DOCUSATE TABLET PO SCH ×2 (19:50→22:52)
[2017-04-07] MEDS: OMEPRAZOLE 20 MG CAPSULE PO SCH (05:50)
[2017-04-07] MEDS: SENNA + DOCUSATE TABLET PO SCH ×3 (08:20→23:38)
[2017-04-07] MEDS: CYANOCOBALAMIN (B-12) 500mcg TABLET PO SCH (08:20)
[2017-04-07] MEDS: ASPIRIN 81 MG CHEWABLE TABLET PO SCH (08:22)
[2017-04-07] MEDS: LORazepam 0.5 MG TABLET PO SCH ×3 (08:22→23:37)
[2017-04-07] MEDS: LACTOBACILLUS (15B cfu) CAPSULE PO SCH (08:22)
[2017-04-07] MEDS: QUETIAPINE 25 MG TABLET PO SCH ×3 (08:22→19:49)
[2017-04-07] MEDS ORDERED: INFLUENZA VAC High Dose 2017-18 (Fluzone HD*) (>=65yo) 0.5ml IM ONE (10:53)
[2017-04-07] MEDS ORDERED: INFLUENZA VAC. INJ. ADMIN CHARGE INJ ONE (11:00)
[2017-04-07] MEDS: HALOPERIDOL 0.5 MG TABLET PO PRN (11:32)
[2017-04-07] MEDS: MIRTAZAPINE 15 MG TABLET PO SCH ×2 (19:49→23:37)
[2017-04-07] MEDS: ACETAMINOPHEN 325 MG TABLET PO PRN (19:58)
--- NOTE | 2017-04-07 23:00 | Neuropsych Progress Note ---
[facility] Subjective Date: 04/07/17 - Sujective/Severity of Illness Medications: Acetaminophen (Tylenol) 650 mg PO QID PRN PRN Reason: Discomfort Last Admin: 04/07/17 19:58 Dose: 650 mg Aspirin (Asa) 81 mg PO DAILY [facility] Last Admin: 04/07/17 08:22 Dose: 81 mg Carbidopa/Levodopa (Sinemet) 1 tab PO BID/E [facility] Last Admin: 04/07/17 19:50 Dose: 1 tab Cyanocobalamin (Vit. B-12) 1,000 mcg PO DAILY [facility] Last Admin: 04/07/17 08:20 Dose: 1,000 mcg Haloperidol (Haldol) 0.5 mg PO Q6H PRN PRN Reason: Extreme agitation Last Admin: 04/07/17 11:32 Dose: 0.5 mg Haloperidol Lactate (Haldol) 0.5 mg IM Q6H PRN PRN Reason: Extreme agitation Lactobacillus Acidophilus (Culturelle) 1 cap PO DAILY [facility] Last Admin: 04/07/17 08:22 Dose: 1 cap Lorazepam (Ativan) 0.5 mg PO Q6H PRN PRN Reason: Extreme agitation Last Admin: 04/03/17 13:46 Dose: 0.5 mg Lorazepam (Ativan) 0.5 mg PO BID [facility] Last Admin: 04/07/17 19:50 Dose: 0.5 mg Lorazepam (Ativan Inj) 0.5 mg IM Q6H PRN PRN Reason: Extreme agitation Mirtazapine (Remeron) 15 mg PO HS [facility] Last Admin: 04/07/17 19:49 Dose: 15 mg Omeprazole (Prilosec) 20 mg PO ACB [facility] Last Admin: 04/07/17 05:50 Dose: 20 mg Oxybutynin Chloride (Ditropan) 2.5 mg PO BID [facility] Last Admin: 04/07/17 19:49 Dose: 2.5 mg Quetiapine Fumarate (Seroquel) 25 mg PO TID PRN Last Admin: 04/04/17 13:24 Dose: 25 mg Quetiapine Fumarate (Seroquel) 25 mg PO DAILY [facility] Quetiapine Fumarate (Seroquel) 50 mg PO 13,21 [facility] Senna/Docusate Sodium (Senna Plus Tablet) 1 tab PO BID [facility] Last Admin: 04/07/17 19:49 Dose: 1 tab Sodium Chloride (Iv Flush) 10 - 80 ml IVF PRN PRN PRN Reason: Flushing Subjective: Patient seen and chart reviewed. Case discussed with treatment team. On interview, patient is eating dinner along with son. She cannot tell me who he is (name or relation to her) though she does appear comfortable with him. Complains of anxiety through interview and says she's worried "that he (her son ) will do something silly" though she cannot logically explain further. She complains of nursing staff "telling her to eat." Her son reported she has not been eating well for some time and has lost weight over the past year as a result. Provided update re: progress and treatment plan to son; all questions/ concerns answered to his satisfaction at that time. He planned to meet with SW this evening. Patient denies any SI, HI or AVH. Patient denies any adverse side effects related to psychotropic medications. She does complain of chronic back pain, which Tylenol is hlepful for. Nursing staff report patient held medications in her mouth and then began chewing them rather than swallowing - will attempt to crush meds this evening. Patient slept 7.5 hours overnight. VSS. Appetite is limited. Psychotropic PRNs required in the past 24 hours: Haldol 0.5mg PO x1 at 1137 for agitation. Start Time: 17:20 Stop Time: 17:40 Mental Status Exam Vitals: Last Vital Signs Temp 97.6 F 04/07/17 21:02 Pulse 89 04/07/17 21:02 Resp 16 04/07/17 21:02 BP 143/76 H 04/07/17 21:02 Pulse Ox 92 04/07/17 21:02 Height: 1.52 m Weight: 70.6 kg - Mental Status Exam Muscle Strength/Tone: Weak Dressing: Casual Grooming: Fair Attitude: Guarded Motor Activity: Normal Eye Contact: Fair Speech: Slowed Volume: Soft Rhythm: Appropriate Rhythm Orientation: Disoriented to time, Disoriented to place, Disoriented to situation , Oriented to person Mood: Anxious Affect: Anxious Rate of Thoughts: Delayed Thought Organization: Disorganized, Confused Associations: Illogical Abstract Reasoning: Impaired, concrete Thought Content: Ruminations, Paranoia (possible) Current Hallucinations: Visual (previously reported - patient denies today) Language: Naming Impaired Fund of Knowledge: Poor fund of knowledge Memory: Poor-immediate, Poor-recent Suicidal Ideation: Denies Homicidal Ideation: Denies Insight: Poor Judgement: Poor Impulse Control: Poor - Laboratory Result Diagrams: 04/07/17 07:02 04/07/17 07:02 Laboratory Results - last 24 hr 04/07/17 04/07/17 07:02 07:02 WBC 6.7 RBC 3.59 L Hgb 11.4 L Hct 34.7 L MCV 96.7 MCH 31.8 MCHC 32.9 RDW Std Deviation 46.4 Plt Count 202 MPV 10.1 Immature Gran % (Auto) 0.1 Neut % (Auto) 82.8 H Lymph % (Auto) 9.7 L [place] % (Auto) 4.6 Eos % (Auto) 2.4 Baso % (Auto) 0.4 Neut # (Auto) 5.5 Lymph # (Auto) 0.7 L [place] # (Auto) 0.3 Eos # (Auto) 0.2 Baso # (Auto) 0.0 Abs Immat Gran (auto) 0.01 Turbidity < 20 Sodium 145 H Potassium 4.0 Chloride 111 H Carbon Dioxide 23 Anion Gap 11 BUN 29.0 H Creatinine 1.8 H GFR Calculation 27 BUN/Creatinine Ratio 16 Glucose 85 Calculated Osmolality 284 H Calcium 10.2 Icterus Index < 2 Specimen Hemolysis < 15 Assessment and Plan (1) Major 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 Hospital Course: Neurocognitive disorder-with delusional thoughts and paranoia Parkinson's disease Anxiety Depression Bilateral pulmonary nodules - found on x-ray this admission. Chronic kidney disease-stage IV Frequent falls Diverticulosis Cervical spondylosis 04/03/17-hospitalist consult Admitted to [facility] for psychiatric management under the care of Dr. Grossman and to provide a safe environment for the patient. Encourage bowel motivation. Patient does report problems with constipation. In regard to the bilateral pulmonary nodules found on chest x-ray, recommend follow-up on an outpatient basis with her PCP. Thank you for the consult. Will plan to follow patient throughout the length of her stay. 04/03/17 18:47 PT remains anxious and irritable with some paranoia. Will contact [facility] and discuss starting Seroquel 04/04/17 16:56 Pt remains anxious and paranoid but slightly improved. Seroquel started yesterday 04/05/17 12:26 Less irritable and anxious. Continue current care 04/06/17 11:43 Continues to improve. Continue current care 04/06/17 14:50 04/06/17 Rose appears to be stable medically. She is on daily Amoxil- unclear on need for abx. Will DC and observe. Urine looked ok. If febrile, will obtain UA and CXR. Mild dehydration on last labs- repeat labs in AM. Some HTN- variable. Monitor for now. 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 Chart, notes documentation reviewed. Continue supportive care and monitoring. 04/07/17 Psych: Increase Seroquel to 25mg PO q AM, 50mg PO BID (in afternoon and at HS); monitor response. Continue Remeron at its current dose for the time being; consider increasing to target mood/anxiety in the future. Labs in AM per hospitalist.
[2017-04-07] MEDS: QUETIAPINE 50 MG TABLET PO SCH (23:38)
[2017-04-08] MEDS: OMEPRAZOLE 20 MG CAPSULE PO SCH (08:46)
[2017-04-08] MEDS: LACTOBACILLUS (15B cfu) CAPSULE PO SCH (08:47)
[2017-04-08] MEDS: ASPIRIN 81 MG CHEWABLE TABLET PO SCH (08:47)
[2017-04-08] MEDS: LORazepam 0.5 MG TABLET PO SCH ×2 (08:47→20:05)
[2017-04-08] MEDS: QUETIAPINE 25 MG TABLET PO SCH (08:48)
[2017-04-08] MEDS: SENNA + DOCUSATE TABLET PO SCH ×2 (08:48→20:05)
[2017-04-08] MEDS: CYANOCOBALAMIN (B-12) 500mcg TABLET PO SCH (08:48)
[2017-04-08] MEDS: QUETIAPINE 50 MG TABLET PO SCH ×2 (12:10→20:05)
[2017-04-08] MEDS: ACETAMINOPHEN 325 MG TABLET PO PRN (14:02)
--- NOTE | 2017-04-08 18:10 | Neuropsych Progress Note ---
[facility] Subjective Date: 04/08/17 - Sujective/Severity of Illness Medications: Acetaminophen (Tylenol) 650 mg PO QID PRN PRN Reason: Discomfort Last Admin: 04/08/17 14:02 Dose: 650 mg Aspirin (Asa) 81 mg PO DAILY [facility] Last Admin: 04/08/17 08:47 Dose: 81 mg Carbidopa/Levodopa (Sinemet) 1 tab PO BID/E [facility] Last Admin: 04/08/17 08:47 Dose: 1 tab Cyanocobalamin (Vit. B-12) 1,000 mcg PO DAILY [facility] Last Admin: 04/08/17 08:48 Dose: 1,000 mcg Haloperidol (Haldol) 0.5 mg PO Q6H PRN PRN Reason: Extreme agitation Last Admin: 04/07/17 11:32 Dose: 0.5 mg Haloperidol Lactate (Haldol) 0.5 mg IM Q6H PRN PRN Reason: Extreme agitation Lactobacillus Acidophilus (Culturelle) 1 cap PO DAILY [facility] Last Admin: 04/08/17 08:47 Dose: 1 cap Lorazepam (Ativan) 0.5 mg PO Q6H PRN PRN Reason: Extreme agitation Last Admin: 04/03/17 13:46 Dose: 0.5 mg Lorazepam (Ativan) 0.5 mg PO BID [facility] Last Admin: 04/08/17 08:47 Dose: 0.5 mg Lorazepam (Ativan Inj) 0.5 mg IM Q6H PRN PRN Reason: Extreme agitation Mirtazapine (Remeron) 15 mg PO HS [facility] Last Admin: 04/07/17 23:37 Dose: Not Given Omeprazole (Prilosec) 20 mg PO ACB [facility] Last Admin: 04/08/17 08:46 Dose: 20 mg Oxybutynin Chloride (Ditropan) 2.5 mg PO BID [facility] Last Admin: 04/08/17 08:48 Dose: 2.5 mg Quetiapine Fumarate (Seroquel) 25 mg PO TID PRN Last Admin: 04/04/17 13:24 Dose: 25 mg Quetiapine Fumarate (Seroquel) 25 mg PO DAILY [facility] Last Admin: 04/08/17 08:48 Dose: 25 mg Quetiapine Fumarate (Seroquel) 50 mg PO 13,21 [facility] Last Admin: 04/08/17 12:10 Dose: 50 mg Senna/Docusate Sodium (Senna Plus Tablet) 1 tab PO BID [facility] Last Admin: 04/08/17 08:48 Dose: 1 tab Sodium Chloride (Iv Flush) 10 - 80 ml IVF PRN PRN PRN Reason: Flushing Subjective: Patient seen and chart reviewed. Case discussed with treatment team. On interview, patient is lying in bed alone in her room, is quite tremulous and appears to be in anxious distress. She implores me to help her because of what "they (meaning the people in the [place]) are doing in the back of the house" and begs me to call the police. She is not able to elaborate in logical detail. She describes her mood as "not too bad," which is incongruent with her affect. She complains of some stomach pain as well. SW met with son last night and discussed likely need for placement after discharge due to patient's severity of dementia. Patient denies any SI or HI. She does not have any insight into symptoms/ hospitalization. Patient denies any adverse side effects related to psychotropic medications. Nursing staff report patient has been adherent with meds but did not receive the increased dose of Seroquel last night as she was already asleep. Patient slept 8 hours overnight. VSS. Appetite is limited. Psychotropic PRNs required in the past 24 hours: None. Start Time: 16:20 Stop Time: 16:40 Mental Status Exam Vitals: Last Vital Signs Temp 97.2 F 04/08/17 16:00 Pulse 93 04/08/17 16:00 Resp 20 04/08/17 16:00 BP 137/71 04/08/17 16:00 Pulse Ox 97 04/08/17 16:00 Height: 1.52 m Weight: 70.6 kg - Mental Status Exam Muscle Strength/Tone: Weak Dressing: Casual Grooming: Fair Attitude: Suspicious Motor Activity: Tremors, Restless Eye Contact: Fair Speech: Slowed Volume: Soft Rhythm: Appropriate Rhythm Orientation: Disoriented to time, Disoriented to place, Disoriented to situation , Oriented to person Mood: Anxious, Fearful Affect: Anxious, Fearful Rate of Thoughts: Delayed Thought Organization: Disorganized, Confused Associations: Illogical Abstract Reasoning: Impaired, concrete Thought Content: Ruminations, Paranoia (possible), Somatic Concerns Perception/Psychotic: Psychotic Current Hallucinations: Visual (previously reported - patient denies today but has limited insight) Language: Naming Impaired Fund of Knowledge: Poor fund of knowledge Memory: Poor-immediate, Poor-recent Suicidal Ideation: Denies Homicidal Ideation: Denies Insight: Poor Judgement: Poor Impulse Control: Poor - Laboratory Result Diagrams: 04/07/17 07:02 04/07/17 07:02 Laboratory Results - last 24 hr 04/04/17 06:50 Triglycerides 137 H Cholesterol 177 LDL Cholesterol, Calc 98.6 VLDL Cholesterol 27.4 HDL Cholesterol 51 Cholesterol/HDL Ratio 3.5 Assessment and Plan (1) Major 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 Hospital Course: Neurocognitive disorder-with delusional thoughts and paranoia Parkinson's disease Anxiety Depression Bilateral pulmonary nodules - found on x-ray this admission. Chronic kidney disease-stage IV Frequent falls Diverticulosis Cervical spondylosis 04/03/17-hospitalist consult Admitted to [facility] for psychiatric management under the care of Dr. Grossman and to provide a safe environment for the patient. Encourage bowel motivation. Patient does report problems with constipation. In regard to the bilateral pulmonary nodules found on chest x-ray, recommend follow-up on an outpatient basis with her PCP. Thank you for the consult. Will plan to follow patient throughout the length of her stay. 04/03/17 18:47 PT remains anxious and irritable with some paranoia. Will contact DPOA and discuss starting Seroquel 04/04/17 16:56 Pt remains anxious and paranoid but slightly improved. Seroquel started yesterday 04/05/17 12:26 Less irritable and anxious. Continue current care 04/06/17 11:43 Continues to improve. Continue current care 04/06/17 14:50 04/06/17 Rose appears to be stable medically. She is on daily Amoxil- unclear on need for abx. Will DC and observe. Urine looked ok. If febrile, will obtain UA and CXR. Mild dehydration on last labs- repeat labs in AM. Some HTN- variable. Monitor for now. 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 Chart, notes documentation reviewed. Continue supportive care and monitoring. 04/07/17 Psych: Increase Seroquel to 25mg PO q AM, 50mg PO BID (in afternoon and at HS); monitor response. Continue Remeron at its current dose for the time being; consider increasing to target mood/anxiety in the future. Labs in AM per hospitalist. 04/08/17 Psych: Continue Seroquel as increased yesterday; patient did not receive increased dose at HS as ordered on 04/07. Continue to monitor paranoia/ agitation with increased dose of antipsychotic.
[2017-04-08] MEDS: MIRTAZAPINE 15 MG TABLET PO SCH (20:05)
[2017-04-09] MEDS: SENNA + DOCUSATE TABLET PO SCH ×2 (08:09→20:38)
[2017-04-09] MEDS: OMEPRAZOLE 20 MG CAPSULE PO SCH (08:09)
[2017-04-09] MEDS: ASPIRIN 81 MG CHEWABLE TABLET PO SCH (08:09)
[2017-04-09] MEDS: QUETIAPINE 25 MG TABLET PO SCH (08:10)
[2017-04-09] MEDS: LORazepam 0.5 MG TABLET PO SCH ×2 (08:10→20:38)
[2017-04-09] MEDS: CYANOCOBALAMIN (B-12) 500mcg TABLET PO SCH (08:11)
[2017-04-09] MEDS: LACTOBACILLUS (15B cfu) CAPSULE PO SCH (08:11)
[2017-04-09] MEDS: QUETIAPINE 50 MG TABLET PO SCH ×2 (12:23→20:38)
[2017-04-09] MEDS ORDERED: BISACODYL 10 MG SUPPOSITORY RECTALLY PRN (16:39)
[2017-04-09] MEDS: MIRTAZAPINE 15 MG TABLET PO SCH (20:38)
--- NOTE | 2017-04-09 21:24 | Neuropsych Progress Note ---
[facility] Subjective Date: 04/09/17 - Sujective/Severity of Illness Medications: Acetaminophen (Tylenol) 650 mg PO QID PRN PRN Reason: Discomfort Last Admin: 04/08/17 14:02 Dose: 650 mg Aspirin (Asa) 81 mg PO DAILY [facility] Last Admin: 04/09/17 08:09 Dose: 81 mg Bisacodyl (Dulcolax) 10 mg RECTALLY DAILY PRN PRN Reason: Constipation Last Admin: 04/09/17 17:32 Dose: 10 mg Carbidopa/Levodopa (Sinemet) 1 tab PO BID/E [facility] Last Admin: 04/09/17 20:37 Dose: 1 tab Cyanocobalamin (Vit. B-12) 1,000 mcg PO DAILY [facility] Last Admin: 04/09/17 08:11 Dose: 1,000 mcg Haloperidol (Haldol) 0.5 mg PO Q6H PRN PRN Reason: Extreme agitation Last Admin: 04/07/17 11:32 Dose: 0.5 mg Haloperidol Lactate (Haldol) 0.5 mg IM Q6H PRN PRN Reason: Extreme agitation Lactobacillus Acidophilus (Culturelle) 1 cap PO DAILY [facility] Last Admin: 04/09/17 08:11 Dose: 1 cap Lorazepam (Ativan) 0.5 mg PO Q6H PRN PRN Reason: Extreme agitation Last Admin: 04/03/17 13:46 Dose: 0.5 mg Lorazepam (Ativan) 0.5 mg PO BID [facility] Last Admin: 04/09/17 20:38 Dose: 0.5 mg Lorazepam (Ativan Inj) 0.5 mg IM Q6H PRN PRN Reason: Extreme agitation Mirtazapine (Remeron) 15 mg PO HS [facility] Last Admin: 04/09/17 20:38 Dose: 15 mg Omeprazole (Prilosec) 20 mg PO ACB [facility] Last Admin: 04/09/17 08:09 Dose: 20 mg Oxybutynin Chloride (Ditropan) 2.5 mg PO BID [facility] Last Admin: 04/09/17 20:37 Dose: 2.5 mg Quetiapine Fumarate (Seroquel) 25 mg PO TID PRN Last Admin: 04/04/17 13:24 Dose: 25 mg Quetiapine Fumarate (Seroquel) 25 mg PO DAILY [facility] Last Admin: 04/09/17 08:10 Dose: 25 mg Quetiapine Fumarate (Seroquel) 50 mg PO 13,21 [facility] Last Admin: 04/09/17 20:38 Dose: 50 mg Senna/Docusate Sodium (Senna Plus Tablet) 1 tab PO BID [facility] Last Admin: 04/09/17 20:38 Dose: 1 tab Sodium Chloride (Iv Flush) 10 - 80 ml IVF PRN PRN PRN Reason: Flushing Subjective: Patient seen and chart reviewed. Case discussed with treatment team. On interview, patient is lying in bed alone in her room and appears to be anxious, though not as distressed as upon interview yesterday. She perseverates on discharge throughout interview and feels that she has young children at home that she needs to care for, and that someone may steal her things while she is here in the hospital. She does report that she feels okay physically today. Patient denies any SI or HI. She does not have any insight into symptoms/ hospitalization. Patient denies any adverse side effects related to psychotropic medications. Nursing staff report patient has been adherent with meds but has had similar "anxiety spells" throughout today as well. Patient slept 7.75 hours overnight. VSS. Appetite is limited. Psychotropic PRNs required in the past 24 hours: None. Start Time: 17:40 Stop Time: 18:00 Mental Status Exam Vitals: Last Vital Signs Temp 97.8 F 04/09/17 16:00 Pulse 98 04/09/17 16:00 Resp 18 04/09/17 16:00 BP 149/79 H 04/09/17 16:00 Pulse Ox 95 04/09/17 16:00 Height: 1.52 m Weight: 70.6 kg - Mental Status Exam Muscle Strength/Tone: Weak Dressing: Casual Grooming: Fair Attitude: Suspicious Motor Activity: Tremors, Restless Eye Contact: Fair Speech: Slowed Volume: Soft Rhythm: Appropriate Rhythm Orientation: Disoriented to time, Disoriented to place, Disoriented to situation , Oriented to person Mood: Anxious, Fearful Affect: Anxious, Fearful Rate of Thoughts: Delayed Thought Organization: Disorganized, Perseverations (on discharge), Confused Associations: Illogical Abstract Reasoning: Impaired, concrete Thought Content: Ruminations, Helplessness, Paranoia (possible) Perception/Psychotic: Psychotic Current Hallucinations: Visual (previously reported - patient denies today but has limited insight) Language: Naming Impaired Fund of Knowledge: Poor fund of knowledge Memory: Poor-immediate, Poor-recent Suicidal Ideation: Denies Homicidal Ideation: Denies Insight: Poor Judgement: Poor Impulse Control: Poor - Laboratory Result Diagrams: 04/07/17 07:02 04/07/17 07:02 Assessment and Plan (1) Major 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 Hospital Course: Neurocognitive disorder-with delusional thoughts and paranoia Parkinson's disease Anxiety Depression Bilateral pulmonary nodules - found on x-ray this admission. Chronic kidney disease-stage IV Frequent falls Diverticulosis Cervical spondylosis 04/03/17-hospitalist consult Admitted to [facility] for psychiatric management under the care of Dr. Grossman and to provide a safe environment for the patient. Encourage bowel motivation. Patient does report problems with constipation. In regard to the bilateral pulmonary nodules found on chest x-ray, recommend follow-up on an outpatient basis with her PCP. Thank you for the consult. Will plan to follow patient throughout the length of her stay. 04/03/17 18:47 PT remains anxious and irritable with some paranoia. Will contact DPOA and discuss starting Seroquel 04/04/17 16:56 Pt remains anxious and paranoid but slightly improved. Seroquel started yesterday 04/05/17 12:26 Less irritable and anxious. Continue current care 04/06/17 11:43 Continues to improve. Continue current care 04/06/17 14:50 04/06/17 Rose appears to be stable medically. She is on daily Amoxil- unclear on need for abx. Will DC and observe. Urine looked ok. If febrile, will obtain UA and CXR. Mild dehydration on last labs- repeat labs in AM. Some HTN- variable. Monitor for now. 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 Chart, notes documentation reviewed. Continue supportive care and monitoring. 04/07/17 Psych: Increase Seroquel to 25mg PO q AM, 50mg PO BID (in afternoon and at HS); monitor response. Continue Remeron at its current dose for the time being; consider increasing to target mood/anxiety in the future. Labs in AM per hospitalist. 04/08/17 Psych: Continue Seroquel as increased yesterday; patient did not receive increased dose at HS as ordered on 04/07. Continue to monitor paranoia/ agitation with increased dose of antipsychotic. 04/09/17 Psych: Will hold Sinnemet tomorrow to see if it helps minimize psychotic symptoms - continue all other meds at current dose. Monitor tremor/ rigidity after discontinuation.
[2017-04-10] MEDS: CYANOCOBALAMIN (B-12) 500mcg TABLET PO SCH (12:05)
[2017-04-10] MEDS: ASPIRIN 81 MG CHEWABLE TABLET PO SCH (12:05)
[2017-04-10] MEDS: OMEPRAZOLE 20 MG CAPSULE PO SCH (12:05)
[2017-04-10] MEDS: LACTOBACILLUS (15B cfu) CAPSULE PO SCH (12:06)
[2017-04-10] MEDS: LORazepam 0.5 MG TABLET PO SCH ×2 (12:06→20:48)
[2017-04-10] MEDS: SENNA + DOCUSATE TABLET PO SCH ×2 (12:07→20:48)
[2017-04-10] MEDS: QUETIAPINE 25 MG TABLET PO SCH (12:07)
[2017-04-10] MEDS: QUETIAPINE 50 MG TABLET PO SCH ×2 (12:09→20:48)
[2017-04-10] MEDS: ACETAMINOPHEN 325 MG TABLET PO PRN (16:04)
[2017-04-10] MEDS ORDERED: TRAMADOL 50 MG TABLET PO ONE (17:53)
[2017-04-10] MEDS: MIRTAZAPINE 15 MG TABLET PO SCH (20:49)
--- NOTE | 2017-04-10 20:55 | Neuropsych Progress Note ---
[facility] Subjective Date: 04/10/17 - Sujective/Severity of Illness Medications: Acetaminophen (Tylenol) 650 mg PO QID PRN PRN Reason: Discomfort Last Admin: 04/10/17 16:04 Dose: 650 mg Aspirin (Asa) 81 mg PO DAILY [facility] Last Admin: 04/10/17 12:05 Dose: 81 mg Bisacodyl (Dulcolax) 10 mg RECTALLY DAILY PRN PRN Reason: Constipation Last Admin: 04/09/17 17:32 Dose: 10 mg Cyanocobalamin (Vit. B-12) 1,000 mcg PO DAILY [facility] Last Admin: 04/10/17 12:05 Dose: 1,000 mcg Haloperidol (Haldol) 0.5 mg PO Q6H PRN PRN Reason: Extreme agitation Last Admin: 04/07/17 11:32 Dose: 0.5 mg Haloperidol Lactate (Haldol) 0.5 mg IM Q6H PRN PRN Reason: Extreme agitation Lactobacillus Acidophilus (Culturelle) 1 cap PO DAILY [facility] Last Admin: 04/10/17 12:06 Dose: 1 cap Lorazepam (Ativan) 0.5 mg PO Q6H PRN PRN Reason: Extreme agitation Last Admin: 04/03/17 13:46 Dose: 0.5 mg Lorazepam (Ativan) 0.5 mg PO BID [facility] Last Admin: 04/10/17 12:06 Dose: 0.5 mg Lorazepam (Ativan Inj) 0.5 mg IM Q6H PRN PRN Reason: Extreme agitation Mirtazapine (Remeron) 15 mg PO HS [facility] Last Admin: 04/09/17 20:38 Dose: 15 mg Omeprazole (Prilosec) 20 mg PO ACB [facility] Last Admin: 04/10/17 12:05 Dose: 20 mg Oxybutynin Chloride (Ditropan) 2.5 mg PO BID [facility] Last Admin: 04/10/17 12:06 Dose: 2.5 mg Quetiapine Fumarate (Seroquel) 25 mg PO TID PRN Last Admin: 04/04/17 13:24 Dose: 25 mg Quetiapine Fumarate (Seroquel) 25 mg PO DAILY [facility] Last Admin: 04/10/17 12:07 Dose: Not Given Quetiapine Fumarate (Seroquel) 50 mg PO 13,21 [facility] Last Admin: 04/10/17 12:09 Dose: 50 mg Senna/Docusate Sodium (Senna Plus Tablet) 1 tab PO BID [facility] Last Admin: 04/10/17 12:07 Dose: 1 tab Sodium Chloride (Iv Flush) 10 - 80 ml IVF PRN PRN PRN Reason: Flushing Subjective: Patient seen and chart reviewed. Case discussed with treatment team. On interview, patient is initially seen lying in bed but later comes to the dayroom to eat. She does not make any paranoid statements today but complains of her back hurting and is somatically focused throughout interview. She did make a statement to nursing staff believing that she would pass away soon. New order for tramadol 25mg given to see if it helps with relieving back pain as Tylenol was reportedly not strong enough. Have asked for K-Pad for patient as well. Patient denies any SI or HI. She does not have any insight into symptoms/ hospitalization. Patient denies any adverse side effects related to psychotropic medications. Nursing staff report patient has been adherent with meds; it does not seem as though she has had any episodic paranoia/agitation with tearfulness as she did in days prior. Patient slept 8 hours overnight. VSS. Appetite is limited. Psychotropic PRNs required in the past 24 hours: None. Start Time: 17:40 Stop Time: 18:00 Mental Status Exam Vitals: Last Vital Signs Temp 97.4 F 04/10/17 16:00 Pulse 98 04/10/17 16:00 Resp 22 04/10/17 16:00 BP 162/71 H 04/10/17 16:00 Pulse Ox 98 04/10/17 16:00 Height: 1.52 m Weight: 66.5 kg - Mental Status Exam Muscle Strength/Tone: Weak Dressing: Casual Grooming: Fair Attitude: Cooperative (limited as she is somatically focused) Motor Activity: Tremors (decreased from yesterday), Restless (believed to be due to back pain) Eye Contact: Fair Speech: Slowed Volume: Soft Rhythm: Appropriate Rhythm Orientation: Disoriented to time, Disoriented to place, Disoriented to situation , Oriented to person Mood: Anxious (decreased from yesterday) Affect: Anxious Rate of Thoughts: Delayed Thought Organization: Disorganized, Confused Associations: Illogical Abstract Reasoning: Impaired, concrete Thought Content: Ruminations, Helplessness, Somatic Concerns Perception/Psychotic: Hx psychosis, not current Language: Naming Impaired Fund of Knowledge: Poor fund of knowledge Memory: Poor-immediate, Poor-recent Suicidal Ideation: Denies Homicidal Ideation: Denies Insight: Poor Judgement: Poor Impulse Control: Poor (though improved from yesterday) - Laboratory Result Diagrams: 04/07/17 07:02 04/07/17 07:02 Assessment and Plan (1) Major 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 Hospital Course: Neurocognitive disorder-with delusional thoughts and paranoia Parkinson's disease Anxiety Depression Bilateral pulmonary nodules - found on x-ray this admission. Chronic kidney disease-stage IV Frequent falls Diverticulosis Cervical spondylosis 04/03/17-hospitalist consult Admitted to [facility] for psychiatric management under the care of Dr. Grossman and to provide a safe environment for the patient. Encourage bowel motivation. Patient does report problems with constipation. In regard to the bilateral pulmonary nodules found on chest x-ray, recommend follow-up on an outpatient basis with her PCP. Thank you for the consult. Will plan to follow patient throughout the length of her stay. 04/03/17 18:47 PT remains anxious and irritable with some paranoia. Will contact DPOA and discuss starting Seroquel 04/04/17 16:56 Pt remains anxious and paranoid but slightly improved. Seroquel started yesterday 04/05/17 12:26 Less irritable and anxious. Continue current care 04/06/17 11:43 Continues to improve. Continue current care 04/06/17 14:50 04/06/17 Rose appears to be stable medically. She is on daily Amoxil- unclear on need for abx. Will DC and observe. Urine looked ok. If febrile, will obtain UA and CXR. Mild dehydration on last labs- repeat labs in AM. Some HTN- variable. Monitor for now. 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 Chart, notes documentation reviewed. Continue supportive care and monitoring. 04/07/17 Psych: Increase Seroquel to 25mg PO q AM, 50mg PO BID (in afternoon and at HS); monitor response. Continue Remeron at its current dose for the time being; consider increasing to target mood/anxiety in the future. Labs in AM per hospitalist. 04/08/17 Psych: Continue Seroquel as increased yesterday; patient did not receive increased dose at HS as ordered on 04/07. Continue to monitor paranoia/ agitation with increased dose of antipsychotic. 04/09/17 Psych: Will hold Sinnemet tomorrow to see if it helps minimize psychotic symptoms - continue all other meds at current dose. Monitor tremor/ rigidity after discontinuation. 04/10/17 Psych: Holding Sinnemet - decreased paranoia/psychotic symptoms today, anxiety seemed to be decreased in frequency/intensity though still present. Will attempt to find effective way to manage pain. Continue current regimen as monitor mood/behavior. It is believed patient will need placement after discharge.
[2017-04-11] MEDS: QUETIAPINE 25 MG TABLET PO SCH (09:44)
[2017-04-11] MEDS: CYANOCOBALAMIN (B-12) 500mcg TABLET PO SCH (09:44)
[2017-04-11] MEDS: ASPIRIN 81 MG CHEWABLE TABLET PO SCH (09:45)
[2017-04-11] MEDS: SENNA + DOCUSATE TABLET PO SCH ×2 (09:45→20:25)
[2017-04-11] MEDS: LORazepam 0.5 MG TABLET PO SCH ×2 (09:45→20:26)
[2017-04-11] MEDS: LACTOBACILLUS (15B cfu) CAPSULE PO SCH (09:45)
[2017-04-11] MEDS: OMEPRAZOLE 20 MG CAPSULE PO SCH (09:46)
[2017-04-11] MEDS: QUETIAPINE 50 MG TABLET PO SCH ×2 (12:48→20:26)
--- NOTE | 2017-04-11 17:18 | Progress Note ---
<Kathrine Guzman - Last Filed: 04/11/17 17:19> Subjective: Patient is seen lying in her bed after just waking up from a nap. She is confused and asks what day it is. She does not have any complaints at this point other than bilateral shoulder pain. She denies chest pain shortness of breath or abdominal pain. Nurses have no concerns with her at this time. Objective Vital signs: Temperature 97.8 F 04/11/17 16:38 Pulse Rate 91 04/11/17 16:38 Respiratory Rate 16 04/11/17 16:38 Blood Pressure 157/71 H 04/11/17 16:38 Pulse Oximetry 96 04/11/17 16:38 Height/Weight/BMI: Height 1.52 m Weight 66.5 kg Body Mass Index 30.4 - Constitutional Present: no acute distress, well nourished, well developed - Routine Respiratory Exam Present: CTA bilaterally. Absent: wheezes - Routine Cardiovascular Exam Present: RRR, S1, S2. Absent: murmur - Routine Abdominal Exam Present: soft, normoactive bowel sounds, non distended. Absent: tenderness - Routine Extremities Exam Present: no edema - Routine Skin Exam Present: dry, warm - Routine Neurological Exam Present: alert, tremors. 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 Chronic kidney disease-stage IV Frequent falls Diverticulosis Cervical spondylosis Plan Her creatinine continues to slowly rise. She carries diagnosis of chronic kidney disease, however, do not know what her baseline typically is. Reviewed meds. Have encouraged the nurses to push fluids. If it continues to increase will start IV fluids. Repeat BMP Friday. She has tremors which she did not have on admission which is likely due to Sinemet being held by psych. If psych improvement outweighs physical symptoms, okay to continue to hold. Hospital Course Summary Disclaimer: The visit summary below is not to be considered part of the above Progress Note. Hospital Course: Neurocognitive disorder-with delusional thoughts and paranoia Parkinson's disease Anxiety Depression Bilateral pulmonary nodules - found on x-ray this admission. Chronic kidney disease-stage IV Frequent falls Diverticulosis Cervical spondylosis 04/03/17-hospitalist consult Admitted to [facility] for psychiatric management under the care of Dr. Grossman and to provide a safe environment for the patient. Encourage bowel motivation. Patient does report problems with constipation. In regard to the bilateral pulmonary nodules found on chest x-ray, recommend follow-up on an outpatient basis with her PCP. Thank you for the consult. Will plan to follow patient throughout the length of her stay. 04/03/17 18:47 PT remains anxious and irritable with some paranoia. Will contact DPOA and discuss starting Seroquel 04/04/17 16:56 Pt remains anxious and paranoid but slightly improved. Seroquel started yesterday 04/05/17 12:26 Less irritable and anxious. Continue current care 04/06/17 11:43 Continues to improve. Continue current care 04/06/17 She is on daily Amoxil- unclear on need for abx. Will DC and observe. Urine looked ok. If febrile, will obtain UA and CXR. Mild dehydration on last labs- repeat labs in AM. Some HTN- variable. Monitor for now. 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 04/07/17 Psych: Increase Seroquel to 25mg PO q AM, 50mg PO BID (in afternoon and at HS); monitor response. Continue Remeron at its current dose for the time being; consider increasing to target mood/anxiety in the future. Labs in AM per hospitalist. 04/08/17 Psych: Continue Seroquel as increased yesterday; patient did not receive increased dose at HS as ordered on 04/07. Continue to monitor paranoia/ agitation with increased dose of antipsychotic. 04/09/17 Psych: Will hold Sinemet tomorrow to see if it helps minimize psychotic symptoms - continue all other meds at current dose. Monitor tremor/ rigidity after discontinuation. 10/05/17 Psych: Holding Sinemet - decreased paranoia/psychotic symptoms today, anxiety seemed to be decreased in frequency/intensity though still present. Will attempt to find effective way to manage pain. Continue current regimen as monitor mood/behavior. It is believed patient will need placement after discharge. 04/11/17 -hospitalist Her creatinine continues to slowly rise. She carries diagnosis of chronic kidney disease, however, do not know what her baseline typically is. Reviewed meds. Have encouraged the nurses to push fluids. If it continues to increase will start IV fluids. Repeat BMP Friday. She has tremors which she did not have on admission which is likely due to Sinemet being held by psych. If psych improvement outweighs physical symptoms, okay to continue to hold. 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 Addendum entered and electronically signed by Kathrine Guzman PA 04/11/17 19:08 : Nurses report she continues to have low back pain. This is chronic for her. They 're requesting scheduled Tylenol. Okay to give 650 every 6 hours routinely. May also use Lidoderm patches when necessary. Okay for heating pad or ice packs as well.
[2017-04-11] MEDS: ACETAMINOPHEN 325 MG TABLET PO PRN (18:24)
--- NOTE | 2017-04-11 19:33 | Neuropsych Progress Note ---
[facility] Subjective Date: 04/11/17 - Sujective/Severity of Illness Medications: Acetaminophen (Tylenol) 650 mg PO QID [facility] Aspirin (Asa) 81 mg PO DAILY [facility] Last Admin: 04/11/17 09:45 Dose: 81 mg Bisacodyl (Dulcolax) 10 mg RECTALLY DAILY PRN PRN Reason: Constipation Last Admin: 04/09/17 17:32 Dose: 10 mg Cyanocobalamin (Vit. B-12) 1,000 mcg PO DAILY [facility] Last Admin: 04/11/17 09:44 Dose: 1,000 mcg Haloperidol (Haldol) 0.5 mg PO Q6H PRN PRN Reason: Extreme agitation Last Admin: 04/07/17 11:32 Dose: 0.5 mg Haloperidol Lactate (Haldol) 0.5 mg IM Q6H PRN PRN Reason: Extreme agitation Lactobacillus Acidophilus (Culturelle) 1 cap PO DAILY [facility] Last Admin: 04/11/17 09:45 Dose: 1 cap Lidocaine (Lidoderm) 1 patch TOP DAILY PRN Lorazepam (Ativan) 0.5 mg PO Q6H PRN PRN Reason: Extreme agitation Last Admin: 04/03/17 13:46 Dose: 0.5 mg Lorazepam (Ativan) 0.5 mg PO BID [facility] Last Admin: 04/11/17 09:45 Dose: 0.5 mg Lorazepam (Ativan Inj) 0.5 mg IM Q6H PRN PRN Reason: Extreme agitation Mirtazapine (Remeron) 15 mg PO HS [facility] Last Admin: 04/10/17 20:49 Dose: 15 mg Omeprazole (Prilosec) 20 mg PO ACB [facility] Last Admin: 04/11/17 09:46 Dose: 20 mg Oxybutynin Chloride (Ditropan) 2.5 mg PO BID [facility] Last Admin: 04/11/17 09:45 Dose: 2.5 mg Quetiapine Fumarate (Seroquel) 25 mg PO TID PRN Last Admin: 04/04/17 13:24 Dose: 25 mg Quetiapine Fumarate (Seroquel) 25 mg PO DAILY [facility] Last Admin: 04/11/17 09:44 Dose: 25 mg Quetiapine Fumarate (Seroquel) 50 mg PO 13,21 [facility] Last Admin: 04/11/17 12:48 Dose: 50 mg Senna/Docusate Sodium (Senna Plus Tablet) 1 tab PO BID [facility] Last Admin: 04/11/17 09:45 Dose: 1 tab Sodium Chloride (Iv Flush) 10 - 80 ml IVF PRN PRN PRN Reason: Flushing Subjective: Patient seen and chart reviewed. Case discussed with treatment team. On interview, patient is lying in bed but appears significantly calmer than I have seen her before. She is somatically focused and reports she feels "a little down" at times but denies any morbid thoughts or SI. When specifically asked, she does say there are some strange things that have happened on the unit but she thinks it would be confusing to explain - I believe this represents a significant reduction in paranoia/delusions. She is not observed responding to internal stimuli during conversation. Patient denies any SI or HI. She does not have any insight into symptoms/ hospitalization. Patient denies any adverse side effects related to psychotropic medications. Hospitalist is addressing chronic low back pain. Nursing staff report patient has been adherent with meds; it does not seem as though she has had any episodic paranoia/agitation with tearfulness as she did in days prior. Patient slept 8 hours overnight. VSS. Appetite is limited. Psychotropic PRNs required in the past 24 hours: None. Start Time: 16:40 Stop Time: 17:00 Mental Status Exam Vitals: Last Vital Signs Temp 97.8 F 04/11/17 16:38 Pulse 91 04/11/17 16:38 Resp 16 04/11/17 16:38 BP 157/71 H 04/11/17 16:38 Pulse Ox 96 04/11/17 16:38 Height: 1.52 m Weight: 66.5 kg - Mental Status Exam Muscle Strength/Tone: Weak, Rigid (mild) Dressing: Casual Grooming: Fair Attitude: Cooperative Motor Activity: Tremors Eye Contact: Fair Speech: Slowed Volume: Soft Rhythm: Appropriate Rhythm Orientation: Disoriented to time, Disoriented to place, Disoriented to situation , Oriented to person Mood: Neutral ("a little down sometimes", restricted affect) Rate of Thoughts: Delayed Thought Organization: Disorganized (secondary to MNCD), Confused Associations: Illogical Abstract Reasoning: Impaired, concrete Thought Content: Helplessness, Paranoia (questionable, mild and non-distressing if present), Somatic Concerns Perception/Psychotic: Hx psychosis, not current Current Hallucinations: Visual (previously reported - patient denies today but has limited insight) Language: Naming Impaired Fund of Knowledge: Poor fund of knowledge Memory: Poor-immediate, Poor-recent Suicidal Ideation: Denies Homicidal Ideation: Denies Insight: Poor Judgement: Poor Impulse Control: Fair - Laboratory Result Diagrams: 04/07/17 07:02 04/11/17 06:15 Laboratory Results - last 24 hr 04/11/17 06:15 Turbidity < 20 Sodium 145 H Potassium 4.1 Chloride 112 H Carbon Dioxide 23 Anion Gap 10 BUN 34.0 H Creatinine 1.9 H GFR Calculation 25 BUN/Creatinine Ratio 18 Glucose 90 Calculated Osmolality 287 H Calcium 10.5 H Icterus Index < 2 Specimen Hemolysis < 15 Assessment and Plan (1) Major 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 Hospital Course: Neurocognitive disorder-with delusional thoughts and paranoia Parkinson's disease Anxiety Depression Bilateral pulmonary nodules - found on x-ray this admission. Chronic kidney disease-stage IV Frequent falls Diverticulosis Cervical spondylosis 04/03/17-hospitalist consult Admitted to [facility] for psychiatric management under the care of Dr. Grossman and to provide a safe environment for the patient. Encourage bowel motivation. Patient does report problems with constipation. In regard to the bilateral pulmonary nodules found on chest x-ray, recommend follow-up on an outpatient basis with her PCP. Thank you for the consult. Will plan to follow patient throughout the length of her stay. 04/03/17 18:47 PT remains anxious and irritable with some paranoia. Will contact DPOA and discuss starting Seroquel 04/04/17 16:56 Pt remains anxious and paranoid but slightly improved. Seroquel started yesterday 04/05/17 12:26 Less irritable and anxious. Continue current care 04/06/17 11:43 Continues to improve. Continue current care 04/06/17 She is on daily Amoxil- unclear on need for abx. Will DC and observe. Urine looked ok. If febrile, will obtain UA and CXR. Mild dehydration on last labs- repeat labs in AM. Some HTN- variable. Monitor for now. 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 04/07/17 Psych: Increase Seroquel to 25mg PO q AM, 50mg PO BID (in afternoon and at HS); monitor response. Continue Remeron at its current dose for the time being; consider increasing to target mood/anxiety in the future. Labs in AM per hospitalist. 04/08/17 Psych: Continue Seroquel as increased yesterday; patient did not receive increased dose at HS as ordered on 04/07. Continue to monitor paranoia/ agitation with increased dose of antipsychotic. 04/09/17 Psych: Will hold Sinemet tomorrow to see if it helps minimize psychotic symptoms - continue all other meds at current dose. Monitor tremor/ rigidity after discontinuation. 04/10/17 Psych: Holding Sinemet - decreased paranoia/psychotic symptoms today, anxiety seemed to be decreased in frequency/intensity though still present. Will attempt to find effective way to manage pain. Continue current regimen as monitor mood/behavior. It is believed patient will need placement after discharge. 04/11/17 -hospitalist Her creatinine continues to slowly rise. She carries diagnosis of chronic kidney disease, however, do not know what her baseline typically is. Reviewed meds. Have encouraged the nurses to push fluids. If it continues to increase will start IV fluids. Repeat BMP Friday. She has tremors which she did not have on admission which is likely due to Sinemet being held by psych. If psych improvement outweighs physical symptoms, okay to continue to hold. 04/11/17 Psych: Patient is improving overall with significantly less paranoia/ anxiety than seen upon admission. Her tremors have worsened and has mild rigidity but would like to continue holding Sinemet. Continue current regimen, continue to monitor symptoms and plan for family meeting when possible.
[2017-04-11] MEDS: MIRTAZAPINE 15 MG TABLET PO SCH (20:24)
[2017-04-11] MEDS: ACETAMINOPHEN 325 MG TABLET PO SCH (23:14)
[2017-04-12] MEDS: OMEPRAZOLE 20 MG CAPSULE PO SCH (05:56)
[2017-04-12] MEDS ORDERED: LIDOCAINE PATCH REMOVAL TOP PRN (06:30)
[2017-04-12] MEDS: LACTOBACILLUS (15B cfu) CAPSULE PO SCH (10:06)
[2017-04-12] MEDS: ACETAMINOPHEN 325 MG TABLET PO SCH ×4 (10:06→21:20)
[2017-04-12] MEDS: SENNA + DOCUSATE TABLET PO SCH ×2 (10:07→21:21)
[2017-04-12] MEDS: QUETIAPINE 25 MG TABLET PO SCH (10:07)
[2017-04-12] MEDS: LORazepam 0.5 MG TABLET PO SCH ×2 (10:07→21:23)
[2017-04-12] MEDS: CYANOCOBALAMIN (B-12) 500mcg TABLET PO SCH (10:07)
[2017-04-12] MEDS: ASPIRIN 81 MG CHEWABLE TABLET PO SCH (10:07)
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
[2017-04-12] MEDS: LIDOCAINE 5% PATCH TOP PRN (11:57)
[2017-04-12] MEDS: QUETIAPINE 50 MG TABLET PO SCH ×2 (12:28→21:22)
[2017-04-12] MEDS: MIRTAZAPINE 15 MG TABLET PO SCH (21:22)
[2017-04-13] MEDS: OMEPRAZOLE 20 MG CAPSULE PO SCH (06:04)
[2017-04-13] MEDS: LACTOBACILLUS (15B cfu) CAPSULE PO SCH (09:12)
[2017-04-13] MEDS: LIDOCAINE 5% PATCH TOP PRN ×2 (09:12→10:48)
[2017-04-13] MEDS: ASPIRIN 81 MG CHEWABLE TABLET PO SCH (09:13)
[2017-04-13] MEDS: LORazepam 0.5 MG TABLET PO SCH ×2 (09:14→20:28)
[2017-04-13] MEDS: SENNA + DOCUSATE TABLET PO SCH ×2 (09:14→20:30)
[2017-04-13] MEDS: QUETIAPINE 25 MG TABLET PO SCH (09:14)
[2017-04-13] MEDS: CYANOCOBALAMIN (B-12) 500mcg TABLET PO SCH (09:14)
[2017-04-13] MEDS: ACETAMINOPHEN 325 MG TABLET PO SCH ×4 (09:20→20:28)
[2017-04-13] MEDS: QUETIAPINE 50 MG TABLET PO SCH ×2 (12:29→20:34)
[2017-04-13] MEDS ORDERED: MIRTAZAPINE 15 MG TABLET PO SCH (15:30)
--- NOTE | 2017-04-13 15:33 | Neuropsych Progress Note ---
[facility] Subjective Date: 04/13/17 - Sujective/Severity of Illness Medications: Acetaminophen (Tylenol) 650 mg PO QID [facility] Last Admin: 04/13/17 12:30 Dose: 650 mg Aspirin (Asa) 81 mg PO DAILY [facility] Last Admin: 04/13/17 09:13 Dose: 81 mg Bisacodyl (Dulcolax) 10 mg RECTALLY DAILY PRN PRN Reason: Constipation Last Admin: 04/09/17 17:32 Dose: 10 mg Cyanocobalamin (Vit. B-12) 1,000 mcg PO DAILY [facility] Last Admin: 04/13/17 09:14 Dose: 1,000 mcg Haloperidol (Haldol) 0.5 mg PO Q6H PRN PRN Reason: Extreme agitation Last Admin: 04/07/17 11:32 Dose: 0.5 mg Haloperidol Lactate (Haldol) 0.5 mg IM Q6H PRN PRN Reason: Extreme agitation Lactobacillus Acidophilus (Culturelle) 1 cap PO DAILY [facility] Last Admin: 04/13/17 09:12 Dose: 1 cap Lidocaine (Lidoderm) 1 patch TOP DAILY PRN PRN Reason: local pain Last Admin: 04/13/17 10:48 Dose: 1 patch Lidocaine HCl/Dextrose (Lidoderm Patch Removal) 1 removal TOP 2100 PRN Lorazepam (Ativan) 0.5 mg PO Q6H PRN PRN Reason: Extreme agitation Last Admin: 04/03/17 13:46 Dose: 0.5 mg Lorazepam (Ativan) 0.5 mg PO BID [facility] Last Admin: 04/13/17 09:14 Dose: 0.5 mg Lorazepam (Ativan Inj) 0.5 mg IM Q6H PRN PRN Reason: Extreme agitation Omeprazole (Prilosec) 20 mg PO ACB [facility] Last Admin: 04/13/17 06:04 Dose: 20 mg Oxybutynin Chloride (Ditropan) 2.5 mg PO BID [facility] Last Admin: 04/13/17 09:14 Dose: 2.5 mg Quetiapine Fumarate (Seroquel) 25 mg PO DAILY [facility] Last Admin: 04/13/17 09:14 Dose: 25 mg Quetiapine Fumarate (Seroquel) 50 mg PO 13,21 [facility] Last Admin: 04/13/17 12:29 Dose: 50 mg Senna/Docusate Sodium (Senna Plus Tablet) 1 tab PO BID [facility] Last Admin: 04/13/17 09:14 Dose: 1 tab Sodium Chloride (Iv Flush) 10 - 80 ml IVF PRN PRN PRN Reason: Flushing Subjective: Patient seen and chart reviewed. On interview, patient is lying in bed and reports that her mood is not good. She expresses concern about a crime organization again. She frequently complains of back pain but appears that pain meds are effective for this. Patient denies any SI, HI or AVH. Patient denies any adverse side effects related to psychotropic medications. Nursing staff report patient frequently complains of pain, is guarded and resistive with cares, refused 2/3 meals yesterday and isolated to her room throughout the day. Patient slept 9 hours overnight. VSS. Psychotropic PRNs required in the past 24 hours: none. Start Time: 13:20 Stop Time: 13:40 Mental Status Exam Vitals: Last Vital Signs Temp 98.4 F 04/13/17 14:51 Pulse 79 04/13/17 14:51 Resp 14 04/13/17 14:51 BP 139/78 04/13/17 14:51 Pulse Ox 94 04/13/17 14:51 Height: 1.52 m Weight: 66.5 kg - Mental Status Exam Muscle Strength/Tone: Weak, Rigid (mild) Dressing: Casual Grooming: Fair Attitude: Suspicious Motor Activity: Tremors Eye Contact: Fair Speech: Slowed Volume: Soft Rhythm: Appropriate Rhythm Orientation: Disoriented to time, Disoriented to place, Disoriented to situation , Oriented to person Mood: Anxious Affect: Anxious Rate of Thoughts: Delayed Thought Organization: Disorganized (secondary to MNCD), Confused Associations: Illogical Abstract Reasoning: Impaired, concrete Thought Content: Helplessness, Paranoia, Somatic Concerns Perception/Psychotic: Other (No AVH) Language: Naming Impaired Fund of Knowledge: Poor fund of knowledge Memory: Poor-immediate, Poor-recent Suicidal Ideation: Denies Homicidal Ideation: Denies Insight: Poor Judgement: Poor Impulse Control: Poor - Laboratory Result Diagrams: 04/13/17 06:05 04/13/17 06:05 Laboratory Results - last 24 hr 04/13/17 04/13/17 06:05 06:05 WBC 5.1 RBC 3.75 L Hgb 12.0 Hct 36.2 MCV 96.5 MCH 32.0 MCHC 33.1 RDW Std Deviation 45.5 Plt Count 206 MPV 10.5 Immature Gran % (Auto) 0.2 Neut % (Auto) 60.2 Lymph % (Auto) 25.7 [place] % (Auto) 7.2 Eos % (Auto) 5.5 H Baso % (Auto) 1.2 Neut # (Auto) 3.1 Lymph # (Auto) 1.3 [place] # (Auto) 0.4 Eos # (Auto) 0.3 Baso # (Auto) 0.1 Abs Immat Gran (auto) 0.01 Turbidity < 20 Sodium 141 Potassium 4.1 Chloride 109 H Carbon Dioxide 24 Anion Gap 8 BUN 29.0 H Creatinine 1.8 H GFR Calculation 27 BUN/Creatinine Ratio 16 Glucose 89 Calculated Osmolality 276 Calcium 10.7 H Icterus Index < 2 Specimen Hemolysis < 15 Assessment and Plan (1) Major 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 Hospital Course: Neurocognitive disorder-with delusional thoughts and paranoia Parkinson's disease Anxiety Depression Bilateral pulmonary nodules - found on x-ray this admission. Chronic kidney disease-stage IV Frequent falls Diverticulosis Cervical spondylosis 04/03/17-hospitalist consult Admitted to [facility] for psychiatric management under the care of Dr. Grossman and to provide a safe environment for the patient. Encourage bowel motivation. Patient does report problems with constipation. In regard to the bilateral pulmonary nodules found on chest x-ray, recommend follow-up on an outpatient basis with her PCP. Thank you for the consult. Will plan to follow patient throughout the length of her stay. 04/03/17 18:47 PT remains anxious and irritable with some paranoia. Will contact DPOA and discuss starting Seroquel 04/04/17 16:56 Pt remains anxious and paranoid but slightly improved. Seroquel started yesterday 04/05/17 12:26 Less irritable and anxious. Continue current care 04/06/17 11:43 Continues to improve. Continue current care 04/06/17 She is on daily Amoxil- unclear on need for abx. Will DC and observe. Urine looked ok. If febrile, will obtain UA and CXR. Mild dehydration on last labs- repeat labs in AM. Some HTN- variable. Monitor for now. 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 04/07/17 Psych: Increase Seroquel to 25mg PO q AM, 50mg PO BID (in afternoon and at HS); monitor response. Continue Remeron at its current dose for the time being; consider increasing to target mood/anxiety in the future. Labs in AM per hospitalist. 04/08/17 Psych: Continue Seroquel as increased yesterday; patient did not receive increased dose at HS as ordered on 04/07. Continue to monitor paranoia/ agitation with increased dose of antipsychotic. 04/09/17 Psych: Will hold Sinemet tomorrow to see if it helps minimize psychotic symptoms - continue all other meds at current dose. Monitor tremor/ rigidity after discontinuation. 04/10/17 Psych: Holding Sinemet - decreased paranoia/psychotic symptoms today, anxiety seemed to be decreased in frequency/intensity though still present. Will attempt to find effective way to manage pain. Continue current regimen as monitor mood/behavior. It is believed patient will need placement after discharge. 04/11/17 -hospitalist Her creatinine continues to slowly rise. She carries diagnosis of chronic kidney disease, however, do not know what her baseline typically is. Reviewed meds. Have encouraged the nurses to push fluids. If it continues to increase will start IV fluids. Repeat BMP Friday. She has tremors which she did not have on admission which is likely due to Sinemet being held by psych. If psych improvement outweighs physical symptoms, okay to continue to hold. 04/11/17 Psych: Patient is improving overall with significantly less paranoia/ anxiety than seen upon admission. Her tremors have worsened and has mild rigidity but would like to continue holding Sinemet. Continue current regimen, continue to monitor symptoms and plan for family meeting when possible. 04/12/17 Psych: Patient continues to have some mild paranoia, is mildly irritable - but concern for urinary retention with seroquel. Monitor today and decide whether alternate antipsychotic may be required though other antipsychotic may exacerbate tremors/rigidity more as well. 04/13/17 Psych: Paranoia, irritability continues. Will increase Seroquel to 50mg PO TID and monitor for urinary retention; antipsychotic use will exacerbate movement disorder. SW to arrange family meeting on Friday and will discuss goals of care.
--- NOTE | 2017-04-13 16:29 | Progress Note ---
<Kathrine Guzman - Last Filed: 04/13/17 16:26> Subjective: Pt seen lying in her bed. She is confused. Asks several times who I am. She has no complaints other than she knows that she is confused and that frustrates her. No chest pain or SOA. Nursing staff reports she isn't eating or drinking very well. Objective Vital signs: Temperature 98.4 F 04/13/17 14:51 Pulse Rate 79 04/13/17 14:51 Respiratory Rate 14 04/13/17 14:51 Blood Pressure 139/78 04/13/17 14:51 Pulse Oximetry 94 04/13/17 14:51 Height/Weight/BMI: Height 1.52 m Weight 66.5 kg Body Mass Index 30.4 - Constitutional Present: no acute distress, well nourished, well developed - Routine Respiratory Exam Present: CTA bilaterally. Absent: wheezes - Routine Cardiovascular Exam Present: RRR, S1, S2. Absent: murmur - Routine Abdominal Exam Present: soft, normoactive bowel sounds, non distended. 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 Chronic kidney disease-stage IV Frequent falls Diverticulosis Cervical spondylosis Plan Continue to encourage fluids. Labs stable at present. No changes to current treatment plan. Hospital Course Summary Disclaimer: The visit summary below is not to be considered part of the above Progress Note. Hospital Course: Neurocognitive disorder-with delusional thoughts and paranoia Parkinson's disease Anxiety Depression Bilateral pulmonary nodules - found on x-ray this admission. Chronic kidney disease-stage IV Frequent falls Diverticulosis Cervical spondylosis 04/03/17-hospitalist consult Admitted to [facility] for psychiatric management under the care of Dr. Grossman and to provide a safe environment for the patient. Encourage bowel motivation. Patient does report problems with constipation. In regard to the bilateral pulmonary nodules found on chest x-ray, recommend follow-up on an outpatient basis with her PCP. Thank you for the consult. Will plan to follow patient throughout the length of her stay. 04/03/17 18:47 PT remains anxious and irritable with some paranoia. Will contact DPOA and discuss starting Seroquel 04/04/17 16:56 Pt remains anxious and paranoid but slightly improved. Seroquel started yesterday 04/05/17 12:26 Less irritable and anxious. Continue current care 04/06/17 11:43 Continues to improve. Continue current care 04/06/17 She is on daily Amoxil- unclear on need for abx. Will DC and observe. Urine looked ok. If febrile, will obtain UA and CXR. Mild dehydration on last labs- repeat labs in AM. Some HTN- variable. Monitor for now. 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 04/07/17 Psych: Increase Seroquel to 25mg PO q AM, 50mg PO BID (in afternoon and at HS); monitor response. Continue Remeron at its current dose for the time being; consider increasing to target mood/anxiety in the future. Labs in AM per hospitalist. 04/08/17 Psych: Continue Seroquel as increased yesterday; patient did not receive increased dose at HS as ordered on 04/07. Continue to monitor paranoia/ agitation with increased dose of antipsychotic. 04/09/17 Psych: Will hold Sinemet tomorrow to see if it helps minimize psychotic symptoms - continue all other meds at current dose. Monitor tremor/ rigidity after discontinuation. 04/10/17 Psych: Holding Sinemet - decreased paranoia/psychotic symptoms today, anxiety seemed to be decreased in frequency/intensity though still present. Will attempt to find effective way to manage pain. Continue current regimen as monitor mood/behavior. It is believed patient will need placement after discharge. 04/11/17 -hospitalist Her creatinine continues to slowly rise. She carries diagnosis of chronic kidney disease, however, do not know what her baseline typically is. Reviewed meds. Have encouraged the nurses to push fluids. If it continues to increase will start IV fluids. Repeat BMP Friday. She has tremors which she did not have on admission which is likely due to Sinemet being held by psych. If psych improvement outweighs physical symptoms, okay to continue to hold. 04/11/17 Psych: Patient is improving overall with significantly less paranoia/ anxiety than seen upon admission. Her tremors have worsened and has mild rigidity but would like to continue holding Sinemet. Continue current regimen, continue to monitor symptoms and plan for family meeting when possible. 04/12/17 Psych: Patient continues to have some mild paranoia, is mildly irritable - but concern for urinary retention with seroquel. Monitor today and decide whether alternate antipsychotic may be required though other antipsychotic may exacerbate tremors/rigidity more as well. 04/13/17 Psych: Paranoia, irritability continues. Will increase Seroquel to 50mg PO TID and monitor for urinary retention; antipsychotic use will exacerbate movement disorder. SW to arrange family meeting on Friday and will discuss goals of care. 04/13/17 - hospitalist Continue to encourage fluids. Labs stable at present. No changes to current treatment plan. <Aislinn Connell - Last Filed: 04/13/17 17:02> Subjective: Ko 04/13/2017 the patient was seen by me this afternoon. She is in bed resting comfortably. She denies hurting anywhere. She just keeps telling me she's confused and she doesn't know who everybody is. She made some comment about not knowing where her kids are. I asked her about her eating and drinking and she reports she is doing the best she can. She did complain of act pain. Objective Vital signs: Temperature 98.4 F 04/13/17 14:51 Pulse Rate 79 04/13/17 14:51 Respiratory Rate 14 04/13/17 14:51 Blood Pressure 139/78 04/13/17 14:51 Pulse Oximetry 94 04/13/17 14:51 Height/Weight/BMI: Height 1.52 m Weight 66.5 kg Body Mass Index 30.4 Comments: Ko 04/13/2017 The pt is awake and alert. She is confused. Skin is warm and dry HEENT: NC/AT PERRL, EOMI, Sclera, lids and conjunctiva wnl. MMM. OP clear Lungs are clear HRRR. Abd soft. +BS, NT/ND No LE edema. 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 My physical assessment as noted above. I have reviewed her labs and notes. I agree with PA assessment and plan. Hospital Course Summary Disclaimer: The visit summary below is not to be considered part of the above Progress Note.
[2017-04-14] MEDS: OMEPRAZOLE 20 MG CAPSULE PO SCH (06:18)
[2017-04-14] MEDS: ASPIRIN 81 MG CHEWABLE TABLET PO SCH (11:47)
[2017-04-14] MEDS: QUETIAPINE 50 MG TABLET PO SCH ×3 (11:47→20:27)
[2017-04-14] MEDS: CYANOCOBALAMIN (B-12) 500mcg TABLET PO SCH (11:47)
[2017-04-14] MEDS: ACETAMINOPHEN 325 MG TABLET PO SCH ×3 (11:47→17:29)
[2017-04-14] MEDS: LACTOBACILLUS (15B cfu) CAPSULE PO SCH (11:48)
[2017-04-14] MEDS: LORazepam 0.5 MG TABLET PO SCH ×2 (11:48→20:27)
[2017-04-14] MEDS: SENNA + DOCUSATE TABLET PO SCH ×2 (11:48→20:27)
[2017-04-14] MEDS: MIRTAZAPINE 30 MG TABLET PO SCH (20:27)
--- NOTE | 2017-04-14 21:55 | Neuropsych Progress Note ---
[facility] Subjective Date: 04/15/17 - Sujective/Severity of Illness Medications: Acetaminophen (Tylenol) 650 mg PO QID [facility] Last Admin: 04/14/17 17:29 Dose: 650 mg Aspirin (Asa) 81 mg PO DAILY [facility] Last Admin: 04/14/17 11:47 Dose: 81 mg Bisacodyl (Dulcolax) 10 mg RECTALLY DAILY PRN PRN Reason: Constipation Last Admin: 04/09/17 17:32 Dose: 10 mg Cyanocobalamin (Vit. B-12) 1,000 mcg PO DAILY [facility] Last Admin: 04/14/17 11:47 Dose: 1,000 mcg Haloperidol (Haldol) 0.5 mg PO Q6H PRN PRN Reason: Extreme agitation Last Admin: 04/07/17 11:32 Dose: 0.5 mg Haloperidol Lactate (Haldol) 0.5 mg IM Q6H PRN PRN Reason: Extreme agitation Lactobacillus Acidophilus (Culturelle) 1 cap PO DAILY [facility] Last Admin: 04/14/17 11:48 Dose: 1 cap Lidocaine (Lidoderm) 1 patch TOP DAILY PRN PRN Reason: local pain Last Admin: 04/13/17 10:48 Dose: 1 patch Lidocaine HCl/Dextrose (Lidoderm Patch Removal) 1 removal TOP 2100 PRN Lorazepam (Ativan) 0.5 mg PO Q6H PRN PRN Reason: Extreme agitation Last Admin: 04/03/17 13:46 Dose: 0.5 mg Lorazepam (Ativan) 0.5 mg PO BID [facility] Last Admin: 04/14/17 20:27 Dose: 0.5 mg Lorazepam (Ativan Inj) 0.5 mg IM Q6H PRN PRN Reason: Extreme agitation Mirtazapine (Remeron) 30 mg PO HS [facility] Last Admin: 04/14/17 20:27 Dose: 30 mg Omeprazole (Prilosec) 20 mg PO ACB [facility] Last Admin: 04/14/17 06:18 Dose: 20 mg Oxybutynin Chloride (Ditropan) 2.5 mg PO BID [facility] Last Admin: 04/14/17 20:26 Dose: 2.5 mg Quetiapine Fumarate (Seroquel) 50 mg PO TID [facility] Last Admin: 04/14/17 20:27 Dose: 50 mg Senna/Docusate Sodium (Senna Plus Tablet) 1 tab PO BID [facility] Last Admin: 04/14/17 20:27 Dose: 1 tab Sodium Chloride (Iv Flush) 10 - 80 ml IVF PRN PRN PRN Reason: Flushing Subjective: Patient seen and chart reviewed. On interview, patient is eating dinner; son and daughter are on the unit after family meeting. Patient reports that she is not doing well because of pain, but PRN medication seems to be effective for this. She speaks little otherwise as she is more focused on interacting with her family. Patient denies any SI, HI or AVH. Patient denies any adverse side effects related to psychotropic medications. Nursing staff report patient is less anxious and paranoid than before. She continues to have a very limited appetite and has said food does not seem appealing to her. Patient slept well overnight. VSS. Psychotropic PRNs required in the past 24 hours: none. Family meeting was held with patient's son, daughter, and out-of-town daughter via teleconference, Dr. Dawson, Davey, and Bhavna. Discussed diagnosis, treatment and prognosis, as well as options for after discharge. All questions and concerns were answered to their satisfaction at this time. They are looking towards continued placement rather than taking patient home as they expressed upon admission. Start Time: 17:00 Stop Time: 17:20 Mental Status Exam Vitals: Last Vital Signs Temp 98.4 F 04/14/17 16:00 Pulse 90 04/14/17 16:00 Resp 20 04/14/17 16:00 BP 123/69 04/14/17 16:00 Pulse Ox 90 04/14/17 16:00 Height: 1.52 m Weight: 66.5 kg - Mental Status Exam Muscle Strength/Tone: Weak, Rigid (mild) Dressing: Casual Grooming: Fair Attitude: Cooperative Motor Activity: Retardation, Tremors Eye Contact: Fair Speech: Slowed Volume: Soft Rhythm: Appropriate Rhythm Orientation: Disoriented to time, Disoriented to place, Disoriented to situation , Oriented to person Mood: Other ("not good", restricted affect) Rate of Thoughts: Delayed Thought Organization: Organized Associations: Other (more logical today) Abstract Reasoning: Impaired, concrete Thought Content: Helplessness, Somatic Concerns Perception/Psychotic: Other (No AVH) Language: Naming Impaired Fund of Knowledge: Poor fund of knowledge Memory: Poor-immediate, Poor-recent Suicidal Ideation: Denies Homicidal Ideation: Denies Insight: Poor Judgement: Poor Impulse Control: Fair - Laboratory Result Diagrams: 04/13/17 06:05 04/13/17 06:05 Assessment and Plan (1) Major 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 Hospital Course: Neurocognitive disorder-with delusional thoughts and paranoia Parkinson's disease Anxiety Depression Bilateral pulmonary nodules - found on x-ray this admission. Chronic kidney disease-stage IV Frequent falls Diverticulosis Cervical spondylosis 04/03/17-hospitalist consult Admitted to [facility] for psychiatric management under the care of Dr. Grossman and to provide a safe environment for the patient. Encourage bowel motivation. Patient does report problems with constipation. In regard to the bilateral pulmonary nodules found on chest x-ray, recommend follow-up on an outpatient basis with her PCP. Thank you for the consult. Will plan to follow patient throughout the length of her stay. 04/03/17 18:47 PT remains anxious and irritable with some paranoia. Will contact DPOA and discuss starting Seroquel 04/04/17 16:56 Pt remains anxious and paranoid but slightly improved. Seroquel started yesterday 04/05/17 12:26 Less irritable and anxious. Continue current care 04/06/17 11:43 Continues to improve. Continue current care 04/06/17 She is on daily Amoxil- unclear on need for abx. Will DC and observe. Urine looked ok. If febrile, will obtain UA and CXR. Mild dehydration on last labs- repeat labs in AM. Some HTN- variable. Monitor for now. 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 04/07/17 Psych: Increase Seroquel to 25mg PO q AM, 50mg PO BID (in afternoon and at HS); monitor response. Continue Remeron at its current dose for the time being; consider increasing to target mood/anxiety in the future. Labs in AM per hospitalist. 04/08/17 Psych: Continue Seroquel as increased yesterday; patient did not receive increased dose at HS as ordered on 10/2. Continue to monitor paranoia/ agitation with increased dose of antipsychotic. 04/09/17 Psych: Will hold Sinemet tomorrow to see if it helps minimize psychotic symptoms - continue all other meds at current dose. Monitor tremor/ rigidity after discontinuation. 04/10/17 Psych: Holding Sinemet - decreased paranoia/psychotic symptoms today, anxiety seemed to be decreased in frequency/intensity though still present. Will attempt to find effective way to manage pain. Continue current regimen as monitor mood/behavior. It is believed patient will need placement after discharge. 04/11/17 -hospitalist Her creatinine continues to slowly rise. She carries diagnosis of chronic kidney disease, however, do not know what her baseline typically is. Reviewed meds. Have encouraged the nurses to push fluids. If it continues to increase will start IV fluids. Repeat BMP Friday. She has tremors which she did not have on admission which is likely due to Sinemet being held by psych. If psych improvement outweighs physical symptoms, okay to continue to hold. 04/11/17 Psych: Patient is improving overall with significantly less paranoia/ anxiety than seen upon admission. Her tremors have worsened and has mild rigidity but would like to continue holding Sinemet. Continue current regimen, continue to monitor symptoms and plan for family meeting when possible. 04/12/17 Psych: Patient continues to have some mild paranoia, is mildly irritable - but concern for urinary retention with seroquel. Monitor today and decide whether alternate antipsychotic may be required though other antipsychotic may exacerbate tremors/rigidity more as well. 04/13/17 Psych: Paranoia, irritability continues. Will increase Seroquel to 50mg PO TID and monitor for urinary retention; antipsychotic use will exacerbate movement disorder. SW to arrange family meeting on Friday and will discuss goals of care. 04/13/17 - hospitalist Continue to encourage fluids. Labs stable at present. No changes to current treatment plan. 04/14/17 Psych: Continue current care as patient is significantly less anxious; continues to have some paranoia but increased antipsychotic would likely exacerbate movement disorder as well. Family meeting held [facility] - SW will discuss after-care arrangements with family.
[2017-04-15] MEDS: OMEPRAZOLE 20 MG CAPSULE PO SCH (09:30)
[2017-04-15] MEDS: LORazepam 0.5 MG TABLET PO SCH ×2 (09:31→20:11)
[2017-04-15] MEDS: ASPIRIN 81 MG CHEWABLE TABLET PO SCH (09:31)
[2017-04-15] MEDS: QUETIAPINE 50 MG TABLET PO SCH ×3 (09:31→20:11)
[2017-04-15] MEDS: CYANOCOBALAMIN (B-12) 500mcg TABLET PO SCH (09:31)
[2017-04-15] MEDS: LACTOBACILLUS (15B cfu) CAPSULE PO SCH (09:31)
[2017-04-15] MEDS: SENNA + DOCUSATE TABLET PO SCH ×2 (09:31→20:10)
[2017-04-15] MEDS: ACETAMINOPHEN 325 MG TABLET PO SCH ×5 (09:33→20:10)
[2017-04-15] MEDS: MIRTAZAPINE 30 MG TABLET PO SCH (20:11)
--- NOTE | 2017-04-15 22:09 | Neuropsych Progress Note ---
[facility] Subjective Date: 04/15/17 - Sujective/Severity of Illness Medications: Acetaminophen (Tylenol) 650 mg PO QID [facility] Last Admin: 04/15/17 20:10 Dose: 650 mg Aspirin (Asa) 81 mg PO DAILY [facility] Last Admin: 04/15/17 09:31 Dose: 81 mg Bisacodyl (Dulcolax) 10 mg RECTALLY DAILY PRN PRN Reason: Constipation Last Admin: 04/09/17 17:32 Dose: 10 mg Cyanocobalamin (Vit. B-12) 1,000 mcg PO DAILY [facility] Last Admin: 04/15/17 09:31 Dose: 1,000 mcg Haloperidol (Haldol) 0.5 mg PO Q6H PRN PRN Reason: Extreme agitation Last Admin: 04/07/17 11:32 Dose: 0.5 mg Haloperidol Lactate (Haldol) 0.5 mg IM Q6H PRN PRN Reason: Extreme agitation Lactobacillus Acidophilus (Culturelle) 1 cap PO DAILY [facility] Last Admin: 04/15/17 09:31 Dose: 1 cap Lidocaine (Lidoderm) 1 patch TOP DAILY PRN PRN Reason: local pain Last Admin: 04/13/17 10:48 Dose: 1 patch Lidocaine HCl/Dextrose (Lidoderm Patch Removal) 1 removal TOP 2100 PRN Lorazepam (Ativan) 0.5 mg PO Q6H PRN PRN Reason: Extreme agitation Last Admin: 04/03/17 13:46 Dose: 0.5 mg Lorazepam (Ativan) 0.5 mg PO BID [facility] Last Admin: 04/15/17 20:11 Dose: 0.5 mg Lorazepam (Ativan Inj) 0.5 mg IM Q6H PRN PRN Reason: Extreme agitation Mirtazapine (Remeron) 30 mg PO HS [facility] Last Admin: 04/15/17 20:11 Dose: 30 mg Omeprazole (Prilosec) 20 mg PO ACB [facility] Last Admin: 04/15/17 09:30 Dose: 20 mg Oxybutynin Chloride (Ditropan) 2.5 mg PO BID [facility] Last Admin: 04/15/17 20:11 Dose: 2.5 mg Quetiapine Fumarate (Seroquel) 50 mg PO TID [facility] Last Admin: 04/15/17 20:11 Dose: 50 mg Senna/Docusate Sodium (Senna Plus Tablet) 1 tab PO BID [facility] Last Admin: 04/15/17 20:10 Dose: 1 tab Sodium Chloride (Iv Flush) 10 - 80 ml IVF PRN PRN PRN Reason: Flushing Subjective: Patient seen and chart reviewed. On interview, patient reports that she is "miserable" because of pain, but PRN medication seems to be effective for this. She speaks little otherwise though she denies any SI, HI or AVH. Patient denies any adverse side effects related to psychotropic medications. Nursing staff report patient is less anxious and paranoid than before. She continues to have a very limited appetite and has said food does not seem appealing to her. Patient slept 8.75 hours overnight. VSS. Psychotropic PRNs required in the past 24 hours: none. Start Time: 17:20 Stop Time: 17:40 Mental Status Exam Vitals: Last Vital Signs Temp 97.0 F 04/15/17 20:55 Pulse 99 04/15/17 20:55 Resp 16 04/15/17 20:55 BP 142/63 H 04/15/17 20:55 Pulse Ox 96 04/15/17 20:55 Height: 1.52 m Weight: 66.5 kg - Mental Status Exam Muscle Strength/Tone: Weak, Rigid (mild) Dressing: Casual Grooming: Fair Attitude: Cooperative Motor Activity: Retardation, Tremors Eye Contact: Fair Speech: Slowed Volume: Soft Rhythm: Appropriate Rhythm Orientation: Disoriented to time, Disoriented to place, Disoriented to situation , Oriented to person Mood: Other ("miserable", restricted affect) Rate of Thoughts: Delayed Thought Organization: Organized Associations: Other (more logical today) Abstract Reasoning: Impaired, concrete Thought Content: Helplessness, Somatic Concerns Perception/Psychotic: Other (No AVH) Current Hallucinations: Visual (previously reported - patient denies today but has limited insight) Language: Naming Impaired Fund of Knowledge: Poor fund of knowledge Memory: Poor-immediate, Poor-recent Suicidal Ideation: Denies Homicidal Ideation: Denies Insight: Poor Judgement: Poor Impulse Control: Fair - Laboratory Result Diagrams: 04/13/17 06:05 04/13/17 06:05 Assessment and Plan (1) Major 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 Hospital Course: Neurocognitive disorder-with delusional thoughts and paranoia Parkinson's disease Anxiety Depression Bilateral pulmonary nodules - found on x-ray this admission. Chronic kidney disease-stage IV Frequent falls Diverticulosis Cervical spondylosis 04/03/17-hospitalist consult Admitted to [facility] for psychiatric management under the care of Dr. Grossman and to provide a safe environment for the patient. Encourage bowel motivation. Patient does report problems with constipation. In regard to the bilateral pulmonary nodules found on chest x-ray, recommend follow-up on an outpatient basis with her PCP. Thank you for the consult. Will plan to follow patient throughout the length of her stay. 04/03/17 18:47 PT remains anxious and irritable with some paranoia. Will contact DPOA and discuss starting Seroquel 04/04/17 16:56 Pt remains anxious and paranoid but slightly improved. Seroquel started yesterday 04/05/17 12:26 Less irritable and anxious. Continue current care 04/06/17 11:43 Continues to improve. Continue current care 04/06/17 She is on daily Amoxil- unclear on need for abx. Will DC and observe. Urine looked ok. If febrile, will obtain UA and CXR. Mild dehydration on last labs- repeat labs in AM. Some HTN- variable. Monitor for now. 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 04/07/17 Psych: Increase Seroquel to 25mg PO q AM, 50mg PO BID (in afternoon and at HS); monitor response. Continue Remeron at its current dose for the time being; consider increasing to target mood/anxiety in the future. Labs in AM per hospitalist. 04/08/17 Psych: Continue Seroquel as increased yesterday; patient did not receive increased dose at HS as ordered on 04/07. Continue to monitor paranoia/ agitation with increased dose of antipsychotic. 04/09/17 Psych: Will hold Sinemet tomorrow to see if it helps minimize psychotic symptoms - continue all other meds at current dose. Monitor tremor/ rigidity after discontinuation. 04/10/17 Psych: Holding Sinemet - decreased paranoia/psychotic symptoms today, anxiety seemed to be decreased in frequency/intensity though still present. Will attempt to find effective way to manage pain. Continue current regimen as monitor mood/behavior. It is believed patient will need placement after discharge. 04/11/17 -hospitalist Her creatinine continues to slowly rise. She carries diagnosis of chronic kidney disease, however, do not know what her baseline typically is. Reviewed meds. Have encouraged the nurses to push fluids. If it continues to increase will start IV fluids. Repeat BMP Friday. She has tremors which she did not have on admission which is likely due to Sinemet being held by psych. If psych improvement outweighs physical symptoms, okay to continue to hold. 04/11/17 Psych: Patient is improving overall with significantly less paranoia/ anxiety than seen upon admission. Her tremors have worsened and has mild rigidity but would like to continue holding Sinemet. Continue current regimen, continue to monitor symptoms and plan for family meeting when possible. 04/12/17 Psych: Patient continues to have some mild paranoia, is mildly irritable - but concern for urinary retention with seroquel. Monitor today and decide whether alternate antipsychotic may be required though other antipsychotic may exacerbate tremors/rigidity more as well. 04/13/17 Psych: Paranoia, irritability continues. Will increase Seroquel to 50mg PO TID and monitor for urinary retention; antipsychotic use will exacerbate movement disorder. SW to arrange family meeting on Friday and will discuss goals of care. 04/13/17 - hospitalist Continue to encourage fluids. Labs stable at present. No changes to current treatment plan. 04/14/17 Psych: Continue current care as patient is significantly less anxious; continues to have some paranoia but increased antipsychotic would likely exacerbate movement disorder as well. [facility] meeting [facility] will discuss after-care arrangements with family. 04/15/17 Psych: Continue current care; SW and family to work on discharge arrangements.
[2017-04-16] MEDS: OMEPRAZOLE 20 MG CAPSULE PO SCH (06:06)
[2017-04-16] MEDS: ACETAMINOPHEN 325 MG TABLET PO SCH ×5 (10:11→20:38)
[2017-04-16] MEDS: CYANOCOBALAMIN (B-12) 500mcg TABLET PO SCH (10:12)
[2017-04-16] MEDS: LACTOBACILLUS (15B cfu) CAPSULE PO SCH (10:12)
[2017-04-16] MEDS: LORazepam 0.5 MG TABLET PO SCH ×2 (10:12→19:38)
[2017-04-16] MEDS: ASPIRIN 81 MG CHEWABLE TABLET PO SCH (10:12)
[2017-04-16] MEDS: QUETIAPINE 50 MG TABLET PO SCH ×3 (10:13→19:39)
[2017-04-16] MEDS: SENNA + DOCUSATE TABLET PO SCH ×2 (10:13→19:37)
--- NOTE | 2017-04-16 17:51 | Neuropsych Progress Note ---
[facility] Subjective Date: 04/16/17 - Sujective/Severity of Illness Medications: Acetaminophen (Tylenol) 650 mg PO QID [facility] Last Admin: 04/16/17 17:19 Dose: 650 mg Aspirin (Asa) 81 mg PO DAILY [facility] Last Admin: 04/16/17 10:12 Dose: 81 mg Bisacodyl (Dulcolax) 10 mg RECTALLY DAILY PRN PRN Reason: Constipation Last Admin: 04/09/17 17:32 Dose: 10 mg Cyanocobalamin (Vit. B-12) 1,000 mcg PO DAILY [facility] Last Admin: 04/16/17 10:12 Dose: 1,000 mcg Haloperidol (Haldol) 0.5 mg PO Q6H PRN PRN Reason: Extreme agitation Last Admin: 04/07/17 11:32 Dose: 0.5 mg Haloperidol Lactate (Haldol) 0.5 mg IM Q6H PRN PRN Reason: Extreme agitation Lactobacillus Acidophilus (Culturelle) 1 cap PO DAILY [facility] Last Admin: 04/16/17 10:12 Dose: 1 cap Lidocaine (Lidoderm) 1 patch TOP DAILY PRN PRN Reason: local pain Last Admin: 04/13/17 10:48 Dose: 1 patch Lidocaine HCl/Dextrose (Lidoderm Patch Removal) 1 removal TOP 2100 PRN Lorazepam (Ativan) 0.5 mg PO Q6H PRN PRN Reason: Extreme agitation Last Admin: 04/03/17 13:46 Dose: 0.5 mg Lorazepam (Ativan) 0.5 mg PO BID [facility] Last Admin: 04/16/17 10:12 Dose: 0.5 mg Lorazepam (Ativan Inj) 0.5 mg IM Q6H PRN PRN Reason: Extreme agitation Mirtazapine (Remeron) 30 mg PO HS [facility] Last Admin: 04/15/17 20:11 Dose: 30 mg Omeprazole (Prilosec) 20 mg PO ACB [facility] Last Admin: 04/16/17 06:06 Dose: 20 mg Oxybutynin Chloride (Ditropan) 2.5 mg PO BID [facility] Last Admin: 04/16/17 10:13 Dose: 2.5 mg Quetiapine Fumarate (Seroquel) 50 mg PO TID [facility] Last Admin: 04/16/17 14:12 Dose: 50 mg Senna/Docusate Sodium (Senna Plus Tablet) 1 tab PO BID [facility] Last Admin: 04/16/17 10:13 Dose: 1 tab Sodium Chloride (Iv Flush) 10 - 80 ml IVF PRN PRN PRN Reason: Flushing Subjective: Patient seen and chart reviewed. Patient is sleeping at time of rounds. Nursing stff report that patient has been pleasant and cooperative, without signs of paranoia and significantly less anxious. Patient slept 10+ hours overnight. VSS. Patient's appetite has been quite limited. Psychotropic PRNs required in the past 24 hours: none. Start Time: 17:00 Stop Time: 17:20 Mental Status Exam Vitals: Last Vital Signs Temp 97.2 F 04/16/17 08:00 Pulse 96 04/16/17 08:00 Resp 16 04/16/17 08:00 BP 126/78 04/16/17 08:00 Pulse Ox 97 04/16/17 08:00 Height: 1.52 m Weight: 66.5 kg - Mental Status Exam Muscle Strength/Tone: Weak, Rigid (mild) Dressing: Casual Grooming: Fair Attitude: Cooperative Motor Activity: Retardation, Tremors Eye Contact: Fair Speech: Slowed Volume: Soft Rhythm: Appropriate Rhythm Sensory: Other (Asleep at time of rounds) Orientation: Disoriented to time, Disoriented to place, Disoriented to situation , Oriented to person Mood: Other (Asleep at time of rounds, pleasant/cooperative through day per staff) Rate of Thoughts: Delayed Thought Organization: Other (Unable to assess today) Associations: Other (Unable to assess today) Abstract Reasoning: Impaired, concrete Thought Content: Other (Unable to assess today) Perception/Psychotic: Other (paranoia decreasing) Language: Naming Impaired Fund of Knowledge: Poor fund of knowledge Memory: Poor-immediate, Poor-recent Suicidal Ideation: Denies Homicidal Ideation: Denies Insight: Poor Judgement: Poor Impulse Control: Fair - Laboratory Result Diagrams: 04/13/17 06:05 04/13/17 06:05 Assessment and Plan (1) Major 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 Hospital Course: Neurocognitive disorder-with delusional thoughts and paranoia Parkinson's disease Anxiety Depression Bilateral pulmonary nodules - found on x-ray this admission. Chronic kidney disease-stage IV Frequent falls Diverticulosis Cervical spondylosis 04/03/17-hospitalist consult Admitted to [facility] for psychiatric management under the care of Dr. Grossman and to provide a safe environment for the patient. Encourage bowel motivation. Patient does report problems with constipation. In regard to the bilateral pulmonary nodules found on chest x-ray, recommend follow-up on an outpatient basis with her PCP. Thank you for the consult. Will plan to follow patient throughout the length of her stay. 04/03/17 18:47 PT remains anxious and irritable with some paranoia. Will contact DPOA and discuss starting Seroquel 04/04/17 16:56 Pt remains anxious and paranoid but slightly improved. Seroquel started yesterday 04/05/17 12:26 Less irritable and anxious. Continue current care 04/06/17 11:43 Continues to improve. Continue current care 04/06/17 She is on daily Amoxil- unclear on need for abx. Will DC and observe. Urine looked ok. If febrile, will obtain UA and CXR. Mild dehydration on last labs- repeat labs in AM. Some HTN- variable. Monitor for now. 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 04/07/17 Psych: Increase Seroquel to 25mg PO q AM, 50mg PO BID (in afternoon and at HS); monitor response. Continue Remeron at its current dose for the time being; consider increasing to target mood/anxiety in the future. Labs in AM per hospitalist. 04/08/17 Psych: Continue Seroquel as increased yesterday; patient did not receive increased dose at HS as ordered on 04/07. Continue to monitor paranoia/ agitation with increased dose of antipsychotic. 04/09/17 Psych: Will hold Sinemet tomorrow to see if it helps minimize psychotic symptoms - continue all other meds at current dose. Monitor tremor/ rigidity after discontinuation. 04/10/17 Psych: Holding Sinemet - decreased paranoia/psychotic symptoms today, anxiety seemed to be decreased in frequency/intensity though still present. Will attempt to find effective way to manage pain. Continue current regimen as monitor mood/behavior. It is believed patient will need placement after discharge. 04/11/17 -hospitalist Her creatinine continues to slowly rise. She carries diagnosis of chronic kidney disease, however, do not know what her baseline typically is. Reviewed meds. Have encouraged the nurses to push fluids. If it continues to increase will start IV fluids. Repeat BMP Friday. She has tremors which she did not have on admission which is likely due to Sinemet being held by psych. If psych improvement outweighs physical symptoms, okay to continue to hold. 04/11/17 Psych: Patient is improving overall with significantly less paranoia/ anxiety than seen upon admission. Her tremors have worsened and has mild rigidity but would like to continue holding Sinemet. Continue current regimen, continue to monitor symptoms and plan for family meeting when possible. 04/12/17 Psych: Patient continues to have some mild paranoia, is mildly irritable - but concern for urinary retention with seroquel. Monitor today and decide whether alternate antipsychotic may be required though other antipsychotic may exacerbate tremors/rigidity more as well. 04/13/17 Psych: Paranoia, irritability continues. Will increase Seroquel to 50mg PO TID and monitor for urinary retention; antipsychotic use will exacerbate movement disorder. SW to arrange family meeting on Friday and will discuss goals of care. 04/13/17 - hospitalist Continue to encourage fluids. Labs stable at present. No changes to current treatment plan. 04/14/17 Psych: Continue current care as patient is significantly less anxious; continues to have some paranoia but increased antipsychotic would likely exacerbate movement disorder as well. Family meeting held [facility] - SW will discuss after-care arrangements with family. 04/15/17 Psych: Continue current care; SW and family to work on discharge arrangements. 04/16/17 Psych: Continue current care - plan to discharge back to facility on after SW finalizes arrangements.
--- NOTE | 2017-04-16 17:54 | Discharge Instructions ---
Discharge Plan - Med Rec/Dispo Referrals/Follow Up: Daniel Davies MD [Other] (Dr. Cam Davies on 04/24/17 at 2:30 pm for Hosp. follow-up. [address] [address]) Additional Instructions: Discharge Diagnosis: Major neurocognitive disorder, moderate to severe, with behavioral disturbance (resolved by time of discharge). Lewy body dementia suspected. Parkinson's disease suspected. Reasons for Admission: delusional thought process, paranoid, and refusing medication at times. IN CASE OF PSYCHIATRIC EMERGENCY, CONTACT [facility] ST[facility] AT [phone] ( available 24 hrs daily). Prescriptions: New Mirtazapine [Remeron] 30 mg PO HS tablet Quetiapine [Seroquel] 50 mg PO TID tablet Continue LORazepam [Ativan] 0.5 mg PO BID Discontinued LORazepam [Ativan] 0.5 mg PO BID PRN PRN Reason: Anxiety Mirtazapine [Remeron] 15 mg PO HS Carbidopa/Levodopa [Carbidopa-Levodopa 25-100 Tab] 1 tab PO BID Duloxetine [Cymbalta] 60 mg PO DAILY No Action Acetaminophen [Pain Reliever] 1,000 mg PO BID Oxybutynin Chloride 2.5 mg PO BID Omeprazole [Prilosec] 20 mg PO DAILY Cyanocobalamin (Vitamin B-12) [Vitamin B-12] 1 tab PO DAILY Ubidecarenone [Co Q10] 60 mg PO DAILY Lactobacillus Acidophilus [Probiotic] 1 each PO DAILY Aspirin [[place] Aspirin] 81 mg PO DAILY Amoxicillin [Amoxicillin] 500 mg PO DAILY Cholecalciferol (Vitamin D3) [Vitamin D3] 400 unit PO DAILY - Disposition 04 To [facility] Home/Facility
[2017-04-16] MEDS: MIRTAZAPINE 30 MG TABLET PO SCH (19:38)
[2017-04-16 22:02] VITALS: RESP 16
[2017-04-17] MEDS: ACETAMINOPHEN 325 MG TABLET PO SCH ×2 (04:23→10:49)
[2017-04-17] MEDS: OMEPRAZOLE 20 MG CAPSULE PO SCH (06:08)
--- NOTE | 2017-04-17 07:57 | Discharge Instructions ---
Discharge Plan - Med Rec/Dispo Referrals/Follow Up: Daniel Davies MD [Other] (Dr. Cam Davies on 04/24/17 at 2:30 pm for Hosp. follow-up. [address] [id number]) Additional Instructions: Discharge Diagnosis: Major neurocognitive disorder, moderate to severe, with behavioral disturbance (resolved by time of discharge). Lewy body dementia suspected. Parkinson's disease suspected. Reasons for Admission: delusional thought process, paranoid, and refusing medication at times. IN CASE OF PSYCHIATRIC EMERGENCY, CONTACT [facility] AT [phone] ( available 24 hrs daily). Prescriptions: New Mirtazapine [Remeron] 30 mg PO HS tablet Lidocaine 5% Patch [Lidoderm] 1 patch TOP DAILY PRN patch PRN Reason: local pain Lidocaine Patch Removal [Lidoderm Patch Removal] 1 removal TOP 2100 PRN patch PRN Reason: pain Senna + Docusate [Senna Plus Tablet] 1 tab PO BID tablet Quetiapine [Seroquel] 50 mg PO TID tablet Bisacodyl Supp [Dulcolax] 10 mg RECTALLY DAILY PRN supp PRN Reason: Constipation Continue LORazepam [Ativan] 0.5 mg PO BID Acetaminophen [Pain Reliever] 1,000 mg PO BID Oxybutynin Chloride 2.5 mg PO BID Omeprazole [Prilosec] 20 mg PO DAILY Cyanocobalamin (Vitamin B-12) [Vitamin B-12] 1 tab PO DAILY Ubidecarenone [Co Q10] 60 mg PO DAILY Lactobacillus Acidophilus [Probiotic] 1 each PO DAILY Aspirin [[place] Aspirin] 81 mg PO DAILY Cholecalciferol (Vitamin D3) [Vitamin D3] 400 unit PO DAILY Discontinued LORazepam [Ativan] 0.5 mg PO BID PRN PRN Reason: Anxiety Mirtazapine [Remeron] 15 mg PO HS Carbidopa/Levodopa [Carbidopa-Levodopa 25-100 Tab] 1 tab PO BID Amoxicillin [Amoxicillin] 500 mg PO DAILY Duloxetine [Cymbalta] 60 mg PO DAILY - Disposition 04 To [facility] Home/Facility
[2017-04-17] MEDS: LACTOBACILLUS (15B cfu) CAPSULE PO SCH (10:50)
[2017-04-17] MEDS: CYANOCOBALAMIN (B-12) 500mcg TABLET PO SCH (10:50)
[2017-04-17] MEDS: ASPIRIN 81 MG CHEWABLE TABLET PO SCH (10:50)
[2017-04-17] MEDS: SENNA + DOCUSATE TABLET PO SCH (10:51)
[2017-04-17] MEDS: LORazepam 0.5 MG TABLET PO SCH (10:51)
[2017-04-17] MEDS: QUETIAPINE 50 MG TABLET PO SCH (10:51)
[2017-04-17 11:39] VITALS: BP 128/69; PULSE 88; TEMP 97.5; O2SAT 97
--- NOTE | 2017-05-05 11:22 | Neuropsychiatric Disch Summary ---
Discharge Information Date of admission: 04/02/17 11:05 Attending Physician: Blake Grossman MD Primary care physician: Daniel Davies, DO - Discharge Diagnosis (1) Major neurocognitive disorder Status: Acute (2) Parkinsons disease Status: Acute - Laboratory Labs: 04/13/17 06:05 04/13/17 06:05 Date of Admission: 04/02/17 11:05 History of Present Illness: HPI: 82 Y/O CF with a hx of Parkinson's Disease and possible Lewy Body Dementia sent from [facility] in [place] for increasing paranoia and agitation and refusing to take meds. Nursing staff there stated the pt believed they were trying to kill her and began refusing cares. She has also had some recent falls. On face to face the pt appears anxious and irritable. She is only oriented to self. She states she needs to leave and we have "kidnapped her". She is a poor historian and is not willing to participate in the interview at this time. PSYCH ROS: Pt states all was well until she had to come here. She has poor short term memory and cant tell me why she is here. She denies feeling depressed. She is visibly anxious and agitated. She denies rufina or psychosis but has had VH in the past. PAST PSYCH: Unclear at this time. She was on Cymbalta and Remeron along with Ativan on admission. She reportedly has a hx of Depression and anxiety in the past. Hospital Course This is a general summary of the patient's hospital course. For more details refer to the complete medical record. Hospital course: Neurocognitive disorder-with delusional thoughts and paranoia Parkinson's disease Anxiety Depression Bilateral pulmonary nodules - found on x-ray this admission. Chronic kidney disease-stage IV Frequent falls Diverticulosis Cervical spondylosis 04/03/17-hospitalist consult Admitted to [facility] for psychiatric management under the care of Dr. Grossman and to provide a safe environment for the patient. Encourage bowel motivation. Patient does report problems with constipation. In regard to the bilateral pulmonary nodules found on chest x-ray, recommend follow-up on an outpatient basis with her PCP. Thank you for the consult. Will plan to follow patient throughout the length of her stay. 04/03/17 18:47 PT remains anxious and irritable with some paranoia. Will contact DPOA and discuss starting Seroquel 04/04/17 16:56 Pt remains anxious and paranoid but slightly improved. Seroquel started yesterday 04/05/17 12:26 Less irritable and anxious. Continue current care 04/06/17 11:43 Continues to improve. Continue current care 04/06/17 She is on daily Amoxil- unclear on need for abx. Will DC and observe. Urine looked ok. If febrile, will obtain UA and CXR. Mild dehydration on last labs- repeat labs in AM. Some HTN- variable. Monitor for now. Appears to be primarily in intermediate frame tender. 04/07/17 Psych: Increase Seroquel to 25mg PO q AM, 50mg PO BID (in afternoon and at HS); monitor response. Continue Remeron at its current dose for the time being; consider increasing to target mood/anxiety in the future. Labs in AM per hospitalist. 04/08/17 Psych: Continue Seroquel as increased yesterday; patient did not receive increased dose at HS as ordered on 04/07. Continue to monitor paranoia/ agitation with increased dose of antipsychotic. 04/09/17 Psych: Will hold Sinemet tomorrow to see if it helps minimize psychotic symptoms - continue all other meds at current dose. Monitor tremor/ rigidity after discontinuation. 04/10/17 Psych: Holding Sinemet - decreased paranoia/psychotic symptoms today, anxiety seemed to be decreased in frequency/intensity though still present. Will attempt to find effective way to manage pain. Continue current regimen as monitor mood/behavior. It is believed patient will need placement after discharge. 04/11/17 -hospitalist Her creatinine continues to slowly rise. She carries diagnosis of chronic kidney disease, however, do not know what her baseline typically is. Reviewed meds. Have encouraged the nurses to push fluids. If it continues to increase will start IV fluids. Repeat BMP Friday. She has tremors which she did not have on admission which is likely due to Sinemet being held by psych. If psych improvement outweighs physical symptoms, okay to continue to hold. 04/11/17 Psych: Patient is improving overall with significantly less paranoia/ anxiety than seen upon admission. Her tremors have worsened and has mild rigidity but would like to continue holding Sinemet. Continue current regimen, continue to monitor symptoms and plan for family meeting when possible. 04/12/17 Psych: Patient continues to have some mild paranoia, is mildly irritable - but concern for urinary retention with seroquel. Monitor today and decide whether alternate antipsychotic may be required though other antipsychotic may exacerbate tremors/rigidity more as well. 04/13/17 Psych: Paranoia, irritability continues. Will increase Seroquel to 50mg PO TID and monitor for urinary retention; antipsychotic use will exacerbate movement disorder. SW to arrange family meeting on Friday and will discuss goals of care. 04/13/17 - hospitalist Continue to encourage fluids. Labs stable at present. No changes to current treatment plan. 04/14/17 Psych: Continue current care as patient is significantly less anxious; continues to have some paranoia but increased antipsychotic would likely exacerbate movement disorder as well. Family meeting held [facility] - will discuss after-care arrangements with family. 04/15/17 Psych: Continue current care; SW and family to work on discharge arrangements. 04/16/17 Psych: Continue current care - plan to discharge back to facility on after finalizes arrangements. Discharge Plan - Med Rec/Dispo Referrals/Follow Up: Daniel Davies MD [Other] (Dr. Cam Davies on 04/24/17 at 2:30 pm for Hosp. follow-up. [address] [address]) [facility] [Provider Group] (Beth Mooney APRN will see ptient on rounds at the facility for Mental Health follow-up. ) [place] Instructions: Parkinson Disease (GEN), Dementia (GEN) Additional Instructions: Discharge Diagnosis: Major neurocognitive disorder, moderate to severe, with behavioral disturbance (resolved by time of discharge). Lewy body dementia suspected. Parkinson's disease suspected. Reasons for Admission: delusional thought process, paranoid, and refusing medication at times. IN CASE OF PSYCHIATRIC EMERGENCY, CONTACT [facility] STAFF AT [phone] ( available 24 hrs daily). Prescriptions: New Mirtazapine [Remeron] 30 mg PO HS tablet Lidocaine 5% Patch [Lidoderm] 1 patch TOP DAILY PRN patch PRN Reason: local pain Lidocaine Patch Removal [Lidoderm Patch Removal] 1 removal TOP 2100 PRN patch PRN Reason: pain Senna + Docusate [Senna Plus Tablet] 1 tab PO BID tablet Quetiapine [Seroquel] 50 mg PO TID tablet Bisacodyl Supp [Dulcolax] 10 mg RECTALLY DAILY PRN supp PRN Reason: Constipation Continue LORazepam [Ativan] 0.5 mg PO BID Acetaminophen [Pain Reliever] 1,000 mg PO BID Oxybutynin Chloride 2.5 mg PO BID Omeprazole [Prilosec] 20 mg PO DAILY Cyanocobalamin (Vitamin B-12) [Vitamin B-12] 1 tab PO DAILY Ubidecarenone [Co Q10] 60 mg PO DAILY Lactobacillus Acidophilus [Probiotic] 1 each PO DAILY Aspirin [[place] Aspirin] 81 mg PO DAILY Cholecalciferol (Vitamin D3) [Vitamin D3] 400 unit PO DAILY Discontinued LORazepam [Ativan] 0.5 mg PO BID PRN PRN Reason: Anxiety Mirtazapine [Remeron] 15 mg PO HS Carbidopa/Levodopa [Carbidopa-Levodopa 25-100 Tab] 1 tab PO BID Amoxicillin [Amoxicillin] 500 mg PO DAILY Duloxetine [Cymbalta] 60 mg PO DAILY - Disposition 04 To [facility] Home/Facility
== END 2017-04-17 14:06 | DRG 57 ==
LOC: ED 09:57 → GEN 11:05
PROVIDERS: ADMIT Psychiatry & Neurology Psychiatry; ATTEND Psychiatry & Neurology Psychiatry